=== PATIENT | male | born 1960 | race Caucasian/White ===

== ENCOUNTER 2020-06-26 11:20 | Inpatient (IN) | payer OTHER ==
--- OUTSIDE RECORDS SUMMARY | 2020-06-26 11:23 | XMS ---
:1960 Author Organization [facility] Support Name Relationship Address Phone CHET CHEN MOTHER [address] [place] [address] Re-disclosure Warning The records that you are about to access may contain information from federally- assisted alcohol or drug abuse programs. If such information is present, then the following federally mandated warning applies: This information has been disclosed to you from records protected by federal confidentiality rules (42 CFR part 2). The federal rules prohibit you from making any further disclosure of this information unless further disclosure is expressly permitted by the written consent of the person to whom it pertains or as otherwise permitted by 42 CFR part 2. A general authorization for the release of medical or other information is NOT sufficient for this purpose. The Federal rules restrict any use of the information to criminally investigate or prosecute any alcohol or drug abuse patient.The records that you are about to access may contain highly sensitive health information, the redisclosure of which is protected by Article 27-F of the [facility] Public Health law. If you continue you may haveaccess to information: Regarding HIV / AIDS; Provided by facilities licensed or operated by the [facility] Office of Mental Health; or Provided by the [facility] Office for People With Developmental Disabilities. If such information is present, then the following [facility] mandated warning applies: This information has been disclosed to you from confidential records which are protected by state law. State law prohibits you from making any further disclosure of this information without the specific written consent of the person to whom it pertains, or as otherwise permitted by law. Any unauthorized further disclosure in violation of state law may result in a fine or correction sentence or both. A general authorization for the release of medical or other information is NOT sufficient authorization for further disclosure. Insurance Providers Payer name Policy type Policy ID Covered Covered republican's Policy P nikki / Coverage republican ID relationship to Jc Inf ormation type jc MEDICAID [id number] SP [id number]
--- NOTE | 2020-06-26 14:24 | BHS.RME ---
Substance Use & Tx History - Substance Use History Heroin Substance amount: 2 bags of heoin Frequency of use: Daily Substance route: Inhalation (ex: sniffing or snorting) Date of Last Use: 06/25/20 Cocaine-Crack Substance amount: 100$ Frequency of use: Daily Substance route: Smoking Alcohol Substance amount: 2 pints of vodka/2 of 6 packs of 12 ozs of beer Frequency of use: Daily Substance route: Oral Date of Last Use: 06/26/20 Methadone Substance amount: 100 mgs Frequency of use: Less than 3 times per week Substance route: Oral Date of Last Use: 06/25/20 - Last Treatment Date of last treatment: 02/2020 in [place] Where was last treatment: Detox Physical/Psych/Mental Status - Behavior Eye Contact: Decreased - Cooperativeness Cooperativeness: Cooperative - Thinking Thought Processes: Logical Thought content: Future oriented - Physical Health Problems Is patient presently having any pain?: No Does patient presently have any injuries (include location): No Does patient currently have a fever: No COWS - Scale Resting Pulse: 0= [place] 80 or Below Sweatin= Chills/Flushing Restless Observation: 1= Difficult to Sit Still Pupil Size: 1= Pupils >than Normal Bone or Joint Aches: 2= Severe Diffuse Aches Runny Nose/ Eye Tearin= Nasal Congestion GI Upset > 30mins: 2= Nausea/Diarrhea Tremor Observation: 2= Slight Tremor Visible Yawning Observation: 1= 1-2x During Session Anxiety or Irritability: 2=Irritable/Anxious Goose Flesh Skin: 0=Smooth Skin COWS Score: 13 CIWA Nausea/Vomitin Muscle Tremors: 3 Anxiety: 3 Agitation: 3 Paroxysmal Sweats: 1-Minimal Palms Moist Orientation: 0-Oriented Tacttile Disturbances: 0-None Auditory Disturbances: 0-None Visual Disturbances: 0-None Headache: 2-Mild CIWA-Ar Total Score: 14
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
[2020-06-26] MEDS ORDERED: ACETAMINOPHEN 325 MG TABLET (FP) PO PRN (15:16)
[2020-06-26] MEDS ORDERED: METHADONE HCL 10 MG TABLET (FOR DETOX USE ONLY) PO ONE (15:16)
[2020-06-26] MEDS ORDERED: ONDANSETRON *ODT* 4 MG TABLET SL PRN (15:16)
[2020-06-26] MEDS ORDERED: BISMUTH SUBSALICYLATE 524 MG/30 ML UD PO PRN (15:16)
[2020-06-26] MEDS ORDERED: cloNIDine HCL 0.1 MG TABLET PO PRN (15:16)
[2020-06-26] MEDS ORDERED: chlordiazePOXIDE HCL 25 MG CAPSULE PO PRN (15:16)
[2020-06-26] MEDS ORDERED: MAGNESIUM HYDROX 2400MG/30ML ORAL SUSPENSION 30 ML CUP PO PRN (15:16)
[2020-06-26] MEDS ORDERED: MAG HYDROX/AL HYDROX/SIMETH 30 ML UNIT-DOSE CUP PO PRN (15:16)
[2020-06-26] MEDS ORDERED: MAGNESIUM CITRATE 300 ML BOTTLE PO PRN (15:16)
[2020-06-26] MEDS ORDERED: NICOTINE POLACRILEX 2 MG GUM BUC PRN (15:16)
[2020-06-26] MEDS ORDERED: MENTHOL/PHENOL 1 EACH UD MM PRN (15:16)
[2020-06-26 15:21] VITALS: BMI 26.6
--- OUTSIDE RECORDS SUMMARY | 2020-06-26 15:30 | XMS ---
:1960 Author Organization [facility] Support Name Relationship Address Phone CHET CHEN MOTHER [address] [place] [address] Re-disclosure Warning The records that you are [...] is protected by Article 27-F of the [facility] Public Health law. If you continue you may haveaccess to information: Regarding HIV / AIDS; Provided by facilities licensed or operated by the [facility] Office of Mental Health; or Provided by the [facility] Office for People With Developmental Disabilities. If such information is present, then the following [facility] mandated warning applies: This information has [...] law may result in a fine or senior care sentence or both. A general authorization for the release of medical or other information is NOT sufficient authorization for further disclosure. Insurance Providers Payer name Policy type Policy ID Covered Covered alliance party's Policy P nikki / Coverage alliance party ID relationship to Jc Inf ormation type jc MEDICAID [id number] SP [id number]
[2020-06-26] MEDS: chlordiazePOXIDE HCL 25 MG CAPSULE PO SCH ×2 (16:57→22:19)
[2020-06-26] MEDS: NICOTINE 21 MG/24 HOURS TOPICAL PATCH TD SCH (17:03)
[2020-06-26] MEDS: hydrOXYzine PAMOATE 25 MG CAPSULE (FP) PO SCH ×2 (17:03→22:20)
--- NOTE | 2020-06-26 21:48 | EKG ---
Test Reason : Blood Pressure : / mmHG Vent. Rate : 070 BPM Atrial Rate : 070 BPM P-R Int : 150 ms QRS Dur : 092 ms QT Int : 424 ms P-R-T Axes : 059 043 044 degrees QTc Int : 457 ms NORMAL SINUS RHYTHM WITH SINUS ARRHYTHMIA NORMAL ECG NO PREVIOUS ECGS AVAILABLE Confirmed by Latoya Noe ([id number]) on 06/26/2020 9:48:40 PM Referred By: Confirmed By:Latoya Noe
[2020-06-26] MEDS: THIAMINE HCL 100 MG TABLET (FP) PO SCH (22:20)
[2020-06-26] MEDS: MELATONIN 5 MG TABLETS PO SCH (22:20)
[2020-06-27] MEDS: chlordiazePOXIDE HCL 25 MG CAPSULE PO SCH ×4 (05:34→22:09)
[2020-06-27] MEDS: hydrOXYzine PAMOATE 25 MG CAPSULE (FP) PO SCH ×5 (05:55→22:09)
[2020-06-27] MEDS ORDERED: METHADONE HCL 10 MG TABLET (FOR DETOX USE ONLY) ONE (09:03)
[2020-06-27] MEDS ORDERED: METHADONE HCL 5 MG TABLET (FOR DETOX USE ONLY) ONE (09:03)
[2020-06-27] MEDS ORDERED: METHADONE (DETOX) 20 MG, METHADONE (DETOX) 5 MG PO ONE (10:00)
[2020-06-27] MEDS: NICOTINE 21 MG/24 HOURS TOPICAL PATCH TD SCH (10:06)
[2020-06-27] MEDS: PRENATAL VITAMINS W/ FOLIC ACID TABLET (FP) PO SCH (10:06)
[2020-06-27] MEDS: IBUPROFEN 400 MG TABLET (FP) PO PRN ×2 (10:07→22:08)
[2020-06-27 10:33] LABS: HEMATOCRIT 35.3 % (35.4-49); HEMOGLOBIN 11.5 GM/dL (11.7-16.9); MCH 28.9 pg (25.7-33.7); MCHC 32.7 g/dl (32.0-35.9); MEAN CELL VOLUME 88.5 fl (80-96); MEAN PLT VOLUME 8.9 fl (7.5-11.1); PLATELET COUNT 264 K/MM3 (134-434); RBC 3.99 M/mm3 (4.00-5.60); RDW 14.5 % (11.9-15.9); WHITE BLOOD COUNT 7.4 K/mm3 (4.0-10.0)
[2020-06-27 11:02] LABS: ALBUMIN 3.4 g/dl (3.4-5.0); BILIRUBIN,TOTAL 0.4 mg/dL (0.2-1); CALCIUM 8.7 mg/dL (8.5-10.1); POTASSIUM 4.5 mmol/L (3.5-5.1); TOT PROT 7.2 g/dl (6.4-8.2)
--- NOTE | 2020-06-27 12:37 | PN ---
S CIWA - CIWA Score Nausea/Vomitin-No Nausea/No Vomiting Muscle Tremors: 3 Anxiety: 4-Mod. Anxious/Guarded Agitation: 2 Paroxysmal Sweats: No Perspiration Orientation: 0-Oriented Tacttile Disturbances: 0-None Auditory Disturbances: 0-None Visual Disturbances: 1-Very Mild Sensitivity Headache: 2-Mild CIWA-Ar Total Score: 12 BHS COWS - Scale Resting Pulse: 0= [place] 80 or Below Sweatin= Chills/Flushing Restless Observation: 0= Sits Still Pupil Size: 1= Pupils >than Normal Bone or Joint Aches: 1= Mild Discomfort Runny Nose/ Eye Tearin= None GI Upset > 30mins: 2= Nausea/Diarrhea Tremor Observation of Outstretched Hands: 2= Slight Tremor Visible Yawning Observation: 0= None Anxiety or Irritability: 2=Irritable/Anxious Goose Flesh Skin: 3=Piloerection COWS Score: 12 S Progress Note (SOAP) Subjective: 60 years old male was admitted on 06/26/20 for alcohol and opiate withdrawal sx management treating with librium and methadone detox regiments feels tired ate breakfast and lunch in room resting in bed prefers to sleep longer limited conversation with staff Objective: 06/27/20 12:37 Vital Signs - 24 hr 06/26/20 06/26/20 06/26/20 15:20 15:23 16:20 Temperature 97.6 F 97.5 F L Pulse Rate 71 60 Respiratory 18 18 Rate Blood Pressure 160/85 186/87 H O2 Sat by Pulse 96 97 Oximetry (%) 06/26/20 06/26/20 06/27/20 16:24 20:43 06:54 Temperature 97.5 F L 97.3 F L 98.2 F Pulse Rate 60 74 61 Respiratory 18 18 18 Rate Blood Pressure 186/87 H 140/77 150/76 O2 Sat by Pulse 97 96 98 Oximetry (%) 06/27/20 09:03 Temperature 96.9 F L Pulse Rate 61 Respiratory 16 Rate Blood Pressure 130/63 O2 Sat by Pulse 98 Oximetry (%) Laboratory Tests 06/27/20 06/27/20 06/27/20 07:25 07:25 07:25 WBC 7.4 RBC 3.99 L Hgb 11.5 L Hct 35.3 L MCV 88.5 MCH 28.9 MCHC 32.7 RDW 14.5 Plt Count 264 MPV 8.9 Sodium Potassium Chloride Carbon Dioxide Anion Gap BUN Creatinine Est GFR (CKD-EPI)AfAm Est GFR (CKD-EPI)NonAf Random Glucose Calcium Total Bilirubin AST ALT Alkaline Phosphatase Total Protein Albumin Syphilis Serology Non-reactive HIV Ag/Ab Combo Qual Negative 06/27/20 07:25 WBC RBC Hgb Hct MCV MCH MCHC RDW Plt Count MPV Sodium 135 L Potassium 4.5 Chloride 101 Carbon Dioxide 29 Anion Gap 5 L BUN 20.0 H Creatinine 1.0 Est GFR (CKD-EPI)AfAm 93.08 Est GFR (CKD-EPI)NonAf 80.31 Random Glucose 113 H Calcium 8.7 Total Bilirubin 0.4 AST 26 ALT 27 Alkaline Phosphatase 95 Total Protein 7.2 Albumin 3.4 Syphilis Serology HIV Ag/Ab Combo Qual 06/27/20 12:38 covid pending Assessment: 06/27/20 12:38 alcohol and opiate withdrawal Plan: librium and methadone regiment
[2020-06-27] MEDS ORDERED: FLU VACCINE (FLULAVAL) PF 60 MCG/0.5 ML SYRINGE 2020-2021 IM ONE (14:30)
[2020-06-27] MEDS ORDERED: PNEUMOCOCCAL 23 VACCINE 0.5 ML VIAL IM ONE (14:45)
[2020-06-27 14:56] LABS: PH,URINE 5.5 (5.0-8.0); URINE APPEARANCE CLEAR; URINE BILIRUBIN NEGATIVE (NEGATIVE); URINE COLOR YELLOW; URINE GLUCOSE (UA) NEGATIVE (NEGATIVE); URINE KETONE NEGATIVE (NEGATIVE); URINE LEUK ESTERASE NEGATIVE (NEGATIVE); URINE NITRITE NEGATIVE (NEGATIVE); URINE PROTEIN NEGATIVE (NEGATIVE)
[2020-06-27] MEDS: THIAMINE HCL 100 MG TABLET (FP) PO SCH (22:09)
[2020-06-27] MEDS: MELATONIN 5 MG TABLETS PO SCH (22:09)
[2020-06-28] MEDS: hydrOXYzine PAMOATE 25 MG CAPSULE (FP) PO SCH ×3 (05:53→14:54)
[2020-06-28] MEDS: chlordiazePOXIDE HCL 25 MG CAPSULE PO SCH ×2 (05:53→10:22)
[2020-06-28] MEDS: IBUPROFEN 400 MG TABLET (FP) PO PRN (06:00)
[2020-06-28] MEDS ORDERED: METHADONE HCL 10 MG TABLET (FOR DETOX USE ONLY) PO ONE (10:00)
[2020-06-28] MEDS: ACETAMINOPHEN 325 MG TABLET (FP) PO PRN ×2 (10:21→22:16)
[2020-06-28] MEDS: METHOCARBAMOL 500 MG TABLET PO PRN ×2 (10:21→22:16)
[2020-06-28] MEDS: PRENATAL VITAMINS W/ FOLIC ACID TABLET (FP) PO SCH (10:22)
[2020-06-28] MEDS: NICOTINE 21 MG/24 HOURS TOPICAL PATCH TD SCH (10:22)
[2020-06-28] MEDS ORDERED: PNEUMOC 13-VAL CONJ-DIP CRM/PF 0.5 ML DISP.SYRIN IM ONE (12:00)
--- NOTE | 2020-06-28 14:23 | PN ---
[facility] CIWA - CIWA Score Nausea/Vomitin-Mild Nausea/No Vomiting Muscle Tremors: 1-None Visible, but [place] Anxiety: 1-Mildly Anxious Agitation: 1-Slight > Activity Paroxysmal Sweats: 1-Minimal Palms Moist Orientation: 1-Uncertain about Date (date of week) Tacttile Disturbances: 1-Very Mild Itch/Numbness Auditory Disturbances: 0-None Visual Disturbances: 0-None Headache: 1-Very Mild CIWA-Ar Total Score: 8 S COWS - Scale Resting Pulse: 0= [place] 80 or Below Sweatin= No chills or Flushing Restless Observation: 0= Sits Still Pupil Size: 1= Pupils >than Normal Bone or Joint Aches: 1= Mild Discomfort Runny Nose/ Eye Tearin= None GI Upset > 30mins: 2= Nausea/Diarrhea Tremor Observation of Outstretched Hands: 2= Slight Tremor Visible Yawning Observation: 0= None Anxiety or Irritability: 2=Irritable/Anxious Goose Flesh Skin: 0=Smooth Skin COWS Score: 8 [facility] Progress Note (SOAP) Subjective: 60 years old male was admitted on 06/26/20 for alcohol and opiate withdrawal sx management treating with librium and methadone detox regiments sitting on the edge of the bed ate breakfast and lunch conversation with staff with eye close discontinue vistaril adjust librium dosage continue monitoring Objective: 06/28/20 14:34 Vital Signs - 24 hr 06/27/20 06/27/20 06/28/20 16:33 20:47 06:29 Temperature 96.9 F L 96.8 F L 97.6 F Pulse Rate 69 72 75 Respiratory 18 18 18 Rate Blood Pressure 160/95 150/78 174/85 H O2 Sat by Pulse 96 99 Oximetry (%) 06/28/20 09:12 Temperature 96 F L Pulse Rate 77 Respiratory 20 Rate Blood Pressure 143/71 O2 Sat by Pulse Oximetry (%) Vital Signs - 24 hr 06/27/20 06/27/20 06/28/20 16:33 20:47 06:29 Temperature 96.9 F L 96.8 F L 97.6 F Pulse Rate 69 72 75 Respiratory 18 18 18 Rate Blood Pressure 160/95 150/78 174/85 H O2 Sat by Pulse 96 99 Oximetry (%) 06/28/20 09:12 Temperature 96 F L Pulse Rate 77 Respiratory 20 Rate Blood Pressure 143/71 O2 Sat by Pulse Oximetry (%) 06/28/20 14:34 Laboratory Tests 06/26/20 06/27/20 06/27/20 15:45 07:25 07:25 WBC RBC Hgb Hct MCV MCH MCHC RDW Plt Count MPV Sodium Potassium Chloride Carbon Dioxide Anion Gap BUN Creatinine Est GFR (CKD-EPI)AfAm Est GFR (CKD-EPI)NonAf Random Glucose Calcium Total Bilirubin AST ALT Alkaline Phosphatase Total Protein Albumin Urine Color Urine Appearance Urine pH Ur Specific [place] Urine Protein Urine Glucose (UA) Urine Ketones Urine Blood Urine Nitrite Urine Bilirubin Urine Urobilinogen Ur Leukocyte Esterase Syphilis Serology Non-reactive COVID-19 ([facility]) Not detected HIV Ag/Ab Combo Qual Negative 06/27/20 06/27/20 06/27/20 07:25 07:25 11:00 WBC 7.4 RBC 3.99 L Hgb 11.5 L Hct 35.3 L MCV 88.5 MCH 28.9 MCHC 32.7 RDW 14.5 Plt Count 264 MPV 8.9 Sodium 135 L Potassium 4.5 Chloride 101 Carbon Dioxide 29 Anion Gap 5 L BUN 20.0 H Creatinine 1.0 Est GFR (CKD-EPI)AfAm 93.08 Est GFR (CKD-EPI)NonAf 80.31 Random Glucose 113 H Calcium 8.7 Total Bilirubin 0.4 AST 26 ALT 27 Alkaline Phosphatase 95 Total Protein 7.2 Albumin 3.4 Urine Color Yellow Urine Appearance Clear Urine pH 5.5 Ur Specific [place] 1.011 Urine Protein Negative Urine Glucose (UA) Negative Urine Ketones Negative Urine Blood Negative Urine Nitrite Negative Urine Bilirubin Negative Urine Urobilinogen 1.0 Ur Leukocyte Esterase Negative Syphilis Serology COVID-19 ([facility]) HIV Ag/Ab Combo Qual lab noted Assessment: 06/28/20 14:34 alcohol and opiate withdrawal Plan: librium and methadone regiment
[2020-06-28] MEDS: chlordiazePOXIDE HCL 10 MG CAPSULE PO SCH ×2 (17:36→22:17)
[2020-06-28] MEDS: THIAMINE HCL 100 MG TABLET (FP) PO SCH (22:17)
[2020-06-28] MEDS: MELATONIN 5 MG TABLETS PO SCH (22:17)
[2020-06-29] MEDS ORDERED: chlordiazePOXIDE HCL 10 MG CAPSULE PO PRN
[2020-06-29] MEDS ORDERED: chlordiazePOXIDE HCL 10 MG CAPSULE PO SCH (05:00)
[2020-06-29] MEDS: chlordiazePOXIDE 5 MG CAPSULE PO SCH ×4 (07:42→22:12)
[2020-06-29] MEDS ORDERED: METHADONE HCL 10 MG TABLET (FOR DETOX USE ONLY) ONE (09:50)
[2020-06-29] MEDS ORDERED: METHADONE HCL 5 MG TABLET (FOR DETOX USE ONLY) ONE (09:51)
[2020-06-29] MEDS ORDERED: METHADONE (DETOX) 10 MG, METHADONE (DETOX) 5 MG PO ONE (10:00)
[2020-06-29] MEDS: NICOTINE 21 MG/24 HOURS TOPICAL PATCH TD SCH (10:11)
[2020-06-29] MEDS: METHOCARBAMOL 500 MG TABLET PO PRN ×2 (10:12→22:27)
[2020-06-29] MEDS: PRENATAL VITAMINS W/ FOLIC ACID TABLET (FP) PO SCH (10:12)
[2020-06-29] MEDS ORDERED: LISINOPRIL 10 MG TABLET PO SCH (13:15)
[2020-06-29] MEDS ORDERED: cloNIDine HCL 0.1 MG TABLET PO PRN (13:21)
--- NOTE | 2020-06-29 13:36 | PN ---
S CIWA - CIWA Score Nausea/Vomitin-No Nausea/No Vomiting Muscle Tremors: 1-None Visible, but [place] Anxiety: 2 Agitation: 0-Normal Activity Paroxysmal Sweats: No Perspiration Orientation: 0-Oriented Tacttile Disturbances: 0-None Auditory Disturbances: 0-None Visual Disturbances: 1-Very Mild Sensitivity Headache: 2-Mild CIWA-Ar Total Score: 6 BHS COWS - Scale Resting Pulse: 1= [place] 81-100 Sweatin= No chills or Flushing Restless Observation: 0= Sits Still Pupil Size: 0= Normal to Room Light Bone or Joint Aches: 1= Mild Discomfort Runny Nose/ Eye Tearin= None GI Upset > 30mins: 1= Stomach Cramp Tremor Observation of Outstretched Hands: 1= Tremor [place], Not Seen Yawning Observation: 0= None Anxiety or Irritability: 2=Irritable/Anxious Goose Flesh Skin: 0=Smooth Skin COWS Score: 6 S Progress Note (SOAP) Subjective: 60 years old left eye blind male was admitted on 06/26/20 for alcohol and opiate withdrawal sx management right and left foot toes fungal between long history of hypertension change to no added salt begin amlodipin 10 mg po and lisinopril 10 mg po bid and clonidin 0.1 mg po prn Objective: 06/29/20 13:50 Vital Signs - 24 hr 06/28/20 06/28/20 06/29/20 16:39 20:46 06:28 Temperature 97.8 F 97.7 F 97.7 F Pulse Rate 77 81 70 Respiratory 18 18 16 Rate Blood Pressure 138/70 165/90 153/73 O2 Sat by Pulse 98 99 Oximetry (%) 06/29/20 06/29/20 09:00 12:41 Temperature 98.0 F 97.7 F Pulse Rate 80 83 Respiratory 18 18 Rate Blood Pressure 168/95 187/90 H O2 Sat by Pulse 98 Oximetry (%) Laboratory Tests 06/26/20 06/27/20 06/27/20 15:45 07:25 07:25 WBC RBC Hgb Hct MCV MCH MCHC RDW Plt Count MPV Sodium Potassium Chloride Carbon Dioxide Anion Gap BUN Creatinine Est GFR (CKD-EPI)AfAm Est GFR (CKD-EPI)NonAf Random Glucose Calcium Total Bilirubin AST ALT Alkaline Phosphatase Total Protein Albumin Urine Color Urine Appearance Urine pH Ur Specific [place] Urine Protein Urine Glucose (UA) Urine Ketones Urine Blood Urine Nitrite Urine Bilirubin Urine Urobilinogen Ur Leukocyte Esterase Syphilis Serology Non-reactive COVID-19 ([facility]) Not detected HIV Ag/Ab Combo Qual Negative 06/27/20 06/27/20 06/27/20 07:25 07:25 11:00 WBC 7.4 RBC 3.99 L Hgb 11.5 L Hct 35.3 L MCV 88.5 MCH 28.9 MCHC 32.7 RDW 14.5 Plt Count 264 MPV 8.9 Sodium 135 L Potassium 4.5 Chloride 101 Carbon Dioxide 29 Anion Gap 5 L BUN 20.0 H Creatinine 1.0 Est GFR (CKD-EPI)AfAm 93.08 Est GFR (CKD-EPI)NonAf 80.31 Random Glucose 113 H Calcium 8.7 Total Bilirubin 0.4 AST 26 ALT 27 Alkaline Phosphatase 95 Total Protein 7.2 Albumin 3.4 Urine Color Yellow Urine Appearance Clear Urine pH 5.5 Ur Specific [place] 1.011 Urine Protein Negative Urine Glucose (UA) Negative Urine Ketones Negative Urine Blood Negative Urine Nitrite Negative Urine Bilirubin Negative Urine Urobilinogen 1.0 Ur Leukocyte Esterase Negative Syphilis Serology COVID-19 ([facility]) HIV Ag/Ab Combo Qual lab noted Assessment: 06/29/20 13:50 alcohol and opiate withdrawal Plan: librium and methadone regiments
[2020-06-29] MEDS: amLODIPine BESYLATE 10 MG TABLET (FP) PO SCH (14:23)
[2020-06-29] MEDS ORDERED: ALBUTEROL SO4 HFA INHALER IH PRN (14:59)
[2020-06-29] MEDS: CLOTRIMAZOLE 1% CREAM 15 GM TUBE TP SCH ×2 (15:14→22:12)
[2020-06-29] MEDS: IBUPROFEN 400 MG TABLET (FP) PO PRN (20:13)
[2020-06-29] MEDS: MELATONIN 5 MG TABLETS PO SCH (22:12)
[2020-06-29] MEDS: THIAMINE HCL 100 MG TABLET (FP) PO SCH (22:12)
[2020-06-29] MEDS: LISINOPRIL 10 MG TABLET PO SCH (22:12)
[2020-06-30] MEDS ORDERED: chlordiazePOXIDE HCL 10 MG CAPSULE PO SCH (05:00)
[2020-06-30] MEDS: chlordiazePOXIDE 5 MG CAPSULE PO SCH ×2 (05:30→17:46)
[2020-06-30] MEDS ORDERED: METHADONE HCL 10 MG TABLET (FOR DETOX USE ONLY) PO ONE (10:00)
[2020-06-30] MEDS: LISINOPRIL 10 MG TABLET PO SCH ×2 (10:15→22:10)
[2020-06-30] MEDS: amLODIPine BESYLATE 10 MG TABLET (FP) PO SCH (10:15)
[2020-06-30] MEDS: PRENATAL VITAMINS W/ FOLIC ACID TABLET (FP) PO SCH (10:15)
[2020-06-30] MEDS: NICOTINE 21 MG/24 HOURS TOPICAL PATCH TD SCH (10:16)
[2020-06-30] MEDS: METHOCARBAMOL 500 MG TABLET PO PRN ×2 (10:18→22:09)
[2020-06-30] MEDS: CLOTRIMAZOLE 1% CREAM 15 GM TUBE TP SCH ×2 (10:19→22:10)
--- NOTE | 2020-06-30 11:00 | PN ---
[facility] CIWA - CIWA Score Nausea/Vomitin-No Nausea/No Vomiting Muscle Tremors: None Anxiety: 2 Agitation: 0-Normal Activity Paroxysmal Sweats: 2 Orientation: 0-Oriented Tacttile Disturbances: 0-None Auditory Disturbances: 0-None Visual Disturbances: 0-None Headache: 0-None Present CIWA-Ar Total Score: 4 S COWS - Scale Resting Pulse: 0= HI 80 or Below Sweatin= No chills or Flushing Restless Observation: 0= Sits Still Pupil Size: 0= Normal to Room Light Bone or Joint Aches: 2= Severe Diffuse Aches Runny Nose/ Eye Tearin= None GI Upset > 30mins: 0= None Tremor Observation of Outstretched Hands: 0= None Yawning Observation: 0= None Anxiety or Irritability: 2=Irritable/Anxious Goose Flesh Skin: 0=Smooth Skin COWS Score: 4 [facility] Progress Note (SOAP) Subjective: c/o mild withdrawal symptoms. Objective: 06/30/20 10:59 Vital Signs 06/30/20 06/30/20 06:15 08:51 Temperature 97.5 F L 97.3 F L Pulse Rate 66 80 Respiratory 18 16 Rate Blood Pressure 126/64 157/91 O2 Sat by Pulse 97 Oximetry (%) Laboratory Last Values WBC 7.4 K/mm3 (4.0-10.0) 06/27/20 07:25 RBC 3.99 M/mm3 (4.00-5.60) L 06/27/20 07:25 Hgb 11.5 GM/dL (11.7-16.9) L 06/27/20 07:25 Hct 35.3 % (35.4-49) L 06/27/20 07:25 MCV 88.5 fl (80-96) 06/27/20 07:25 MCH 28.9 pg (25.7-33.7) 06/27/20 07:25 MCHC 32.7 g/dl (32.0-35.9) 06/27/20 07:25 RDW 14.5 % (11.9-15.9) 06/27/20 07:25 Plt Count 264 K/MM3 (134-434) 06/27/20 07:25 MPV 8.9 fl (7.5-11.1) 06/27/20 07:25 Sodium 135 mmol/L (136-145) L 06/27/20 07:25 Potassium 4.5 mmol/L (3.5-5.1) 06/27/20 07:25 Chloride 101 mmol/L (98-107) 06/27/20 07:25 Carbon Dioxide 29 mmol/L (21-32) 06/27/20 07:25 Anion Gap 5 MMOL/L (8-16) L 06/27/20 07:25 BUN 20.0 mg/dL (7-18) H 06/27/20 07:25 Creatinine 1.0 mg/dL (0.55-1.3) 06/27/20 07:25 Est GFR (CKD-EPI)AfAm 93.08 06/27/20 07:25 Est GFR (CKD-EPI)NonAf 80.31 06/27/20 07:25 Random Glucose 113 mg/dL (74-106) H 06/27/20 07:25 Calcium 8.7 mg/dL (8.5-10.1) 06/27/20 07:25 Total Bilirubin 0.4 mg/dL (0.2-1) 06/27/20 07:25 AST 26 U/L (15-37) 06/27/20 07:25 ALT 27 U/L (13-61) 06/27/20 07:25 Alkaline Phosphatase 95 U/L (45-117) 06/27/20 07:25 Total Protein 7.2 g/dl (6.4-8.2) 06/27/20 07:25 Albumin 3.4 g/dl (3.4-5.0) 06/27/20 07:25 Urine Color Yellow 06/27/20 11:00 Urine Appearance Clear 06/27/20 11:00 Urine pH 5.5 (5.0-8.0) 06/27/20 11:00 Ur Specific [place] 1.011 (1.010-1.035) 06/27/20 11:00 Urine Protein Negative (NEGATIVE) 06/27/20 11:00 Urine Glucose (UA) Negative (NEGATIVE) 06/27/20 11:00 Urine Ketones Negative (NEGATIVE) 06/27/20 11:00 Urine Blood Negative (NEGATIVE) 06/27/20 11:00 Urine Nitrite Negative (NEGATIVE) 06/27/20 11:00 Urine Bilirubin Negative (NEGATIVE) 06/27/20 11:00 Urine Urobilinogen 1.0 mg/dL (0.2-1.0) 06/27/20 11:00 Ur Leukocyte Esterase Negative (NEGATIVE) 06/27/20 11:00 Syphilis Serology Non-reactive (NONREACTIVE) 06/27/20 07:25 COVID-19 ([facility]HEL) Not detected (Not Detected) 06/26/20 15:45 HIV Ag/Ab Combo Qual Negative (NEGATIVE) 06/27/20 07:25 Labs noted. Assessment: 06/30/20 10:59 AOX3, in no acute respiratory distress. Full ROM, ambulating in the unit. Mild Withdrawal symptoms. For d/c tomorrow. Plan: continue detox. D/C in AM.
[2020-06-30] MEDS: THIAMINE HCL 100 MG TABLET (FP) PO SCH (22:10)
[2020-06-30] MEDS: MELATONIN 5 MG TABLETS PO SCH (22:10)
[2020-07-01] MEDS ORDERED: chlordiazePOXIDE 5 MG CAPSULE PO ONE (05:00)
[2020-07-01] MEDS ORDERED: chlordiazePOXIDE HCL 10 MG CAPSULE PO ONE (05:00)
[2020-07-01] MEDS ORDERED: METHADONE HCL 5 MG TABLET (FOR DETOX USE ONLY) PO ONE (06:00)
[2020-07-01] MEDS: IBUPROFEN 400 MG TABLET (FP) PO PRN (07:56)
[2020-07-01 09:25] VITALS: BP 164/84; PULSE 85; TEMP 98
--- NOTE | 2020-07-01 09:49 | DS ---
[facility] Detox Discharge Summary Admission Date: 06/26/20 Discharge Date: 07/01/20 - History Present History: Opioid Dependence Additional Comments: 60 years old male with heroin,cocaine,street methadone and alcohol dependence seeking detox,withdrawal symptom Pe Gnl: WDWN CN: left eye clouded Motor: moves limbs well Gait: steady with the use of a cane Laboratory Tests 06/26/20 06/27/20 06/27/20 15:45 07:25 07:25 WBC RBC Hgb Hct MCV MCH MCHC RDW Plt Count MPV Sodium Potassium Chloride Carbon Dioxide Anion Gap BUN Creatinine Est GFR (CKD-EPI)AfAm Est GFR (CKD-EPI)NonAf Random Glucose Calcium Total Bilirubin AST ALT Alkaline Phosphatase Total Protein Albumin Urine Color Urine Appearance Urine pH Ur Specific [place] Urine Protein Urine Glucose (UA) Urine Ketones Urine Blood Urine Nitrite Urine Bilirubin Urine Urobilinogen Ur Leukocyte Esterase Syphilis Serology Non-reactive COVID-19 ([facility]HEL) Not detected HIV Ag/Ab Combo Qual Negative 06/27/20 06/27/20 06/27/20 07:25 07:25 11:00 WBC 7.4 RBC 3.99 L Hgb 11.5 L Hct 35.3 L MCV 88.5 MCH 28.9 MCHC 32.7 RDW 14.5 Plt Count 264 MPV 8.9 Sodium 135 L Potassium 4.5 Chloride 101 Carbon Dioxide 29 Anion Gap 5 L BUN 20.0 H Creatinine 1.0 Est GFR (CKD-EPI)AfAm 93.08 Est GFR (CKD-EPI)NonAf 80.31 Random Glucose 113 H Calcium 8.7 Total Bilirubin 0.4 AST 26 ALT 27 Alkaline Phosphatase 95 Total Protein 7.2 Albumin 3.4 Urine Color Yellow Urine Appearance Clear Urine pH 5.5 Ur Specific [place] 1.011 Urine Protein Negative Urine Glucose (UA) Negative Urine Ketones Negative Urine Blood Negative Urine Nitrite Negative Urine Bilirubin Negative Urine Urobilinogen 1.0 Ur Leukocyte Esterase Negative Syphilis Serology COVID-19 ([facility]) HIV Ag/Ab Combo Qual Home Medication List Medication Instructions Recorded Confirmed Type Albuterol Sulfate Inhaler - 1 - 2 inh PO QID PRN 06/26/20 06/26/20 History [Ventolin Hfa Inhaler -] Active Medications Generic Name Dose Route Start Last Admin Trade Name Freq PRN Reason Stop Dose Admin Acetaminophen 650 mg 06/26/20 15:16 06/28/20 22:16 Tylenol - PO 650 mg Q6H PRN Administration PAIN LEVEL 4 - 6 Acetaminophen 650 mg 06/26/20 15:16 Tylenol - PO Q6H PRN FEVER Al Hydroxide/Mg Hydroxide 30 ml 06/26/20 15:16 Mylanta Oral Suspension - PO Q6H PRN DYSPEPSIA Albuterol Sulfate 2 puff 06/29/20 14:59 Ventolin Hfa Inhaler - IH QID PRN ASTHMA Amlodipine Besylate 10 mg 06/29/20 13:45 06/30/20 10:15 Norvasc - PO 10 mg DAILY CHAPITO Administration Bismuth Subsalicylate 524 mg 06/26/20 15:16 Pepto-Bismol - PO Q1H PRN DIARRHEA Clonidine 0.1 mg 06/29/20 13:21 06/29/20 14:24 Catapres - PO 0.1 mg Q6H PRN Administration HYPERTENSION Clotrimazole 1 applic 06/29/20 14:00 06/30/20 22:10 Lotrimin 1% Cream - TP Not Given BID CHAPITO Eucalyptus/Menthol/Phenol/Sorbitol 1 each 06/26/20 15:16 Cepastat Lozenge - MM 07/02/20 15:17 Q4H PRN SORE THROAT Ibuprofen 400 mg 06/26/20 15:16 07/01/20 07:56 Motrin - PO 400 mg Q6H PRN Administration PAIN LEVEL 1 - 3 Lisinopril 10 mg 06/29/20 22:00 06/30/20 22:10 Prinivil PO 10 mg BID CHAPITO Administration Magnesium Citrate 300 ml 06/26/20 15:16 Citroma - PO Q48H PRN CONSTIPATION Magnesium Hydroxide 30 ml 06/26/20 15:16 Milk Of Magnesia - PO PRN PRN CONSTIPATION Melatonin 5 mg 06/26/20 22:00 06/30/20 22:10 Melatonin PO 5 mg HS CHAPITO Administration Methocarbamol 500 mg 06/26/20 15:16 06/30/20 22:09 Robaxin - PO 07/02/20 15:17 500 mg Q6H PRN Administration MUSCLE SPASMS Nicotine 21 mg 06/26/20 15:30 06/30/20 10:16 Nicoderm Patch - TD 21 mg DAILY CHAPITO Administration Nicotine Polacrilex 2 mg 06/26/20 15:16 Nicorette Gum - BUC Q2H PRN NICOTINE REPLACEMENT RX Ondansetron HCl 4 mg 06/26/20 15:16 Zofran Odt - SL Q8H PRN Nausea/Vomiting Multivit/Folic Acid/Iron 1 tab 06/27/20 10:00 06/30/20 10:15 Vitamins (Sjr) - PO 1 tab DAILY CHAPITO Administration Thiamine HCl 100 mg 06/26/20 22:00 06/30/20 22:10 Vitamin B1 - PO 100 mg HS CHAPITO Administration - Physical Exam Results Vital Signs: Vital Signs Temperature 98.0 F 07/01/20 08:57 Pulse Rate 85 07/01/20 08:57 Respiratory Rate 18 07/01/20 08:57 Blood Pressure 164/84 07/01/20 08:57 O2 Sat by Pulse Oximetry (%) 98 06/30/20 20:11 - Treatment Hospital Course: Detox Protocol Followed, Detoxed Safely, Responded well, Discharged Condition Good, Rehab Referral Accepted Patient has Accepted a Rehab Referral to: [facility] - Medication Discharge Medications: Ambulatory Orders Albuterol Sulfate Inhaler - [Ventolin Hfa Inhaler -] 1 - 2 inh PO QID PRN 06/26/20 - Diagnosis (1) Opioid dependence with withdrawal Current Visit: Yes Status: Acute - AMA Did Patient Leave Against Medical Advice: No
[2020-07-01] MEDS: amLODIPine BESYLATE 10 MG TABLET (FP) PO SCH (10:45)
[2020-07-01] MEDS: CLOTRIMAZOLE 1% CREAM 15 GM TUBE TP SCH (10:45)
[2020-07-01] MEDS: LISINOPRIL 10 MG TABLET PO SCH (10:45)
[2020-07-01] MEDS: PRENATAL VITAMINS W/ FOLIC ACID TABLET (FP) PO SCH (10:45)
[2020-07-01] MEDS: NICOTINE 21 MG/24 HOURS TOPICAL PATCH TD SCH (10:46)
== END 2020-07-01 11:15 | disposition other institution (70) | DRG 773 ==
LOC: YASAS 11:20 → Y3N 15:26
PROVIDERS: ADMIT Allergy & Immunology; ATTEND Allergy & Immunology
PROC: HZ2ZZZZ Detoxification Services for Substance Abuse Treatment (ICD-10-PCS; principal; 2020-06-26)
DX: F11.23 Opioid dependence with withdrawal (principal); F10.230 Alcohol dependence with withdrawal, uncomplicated; F14.20 Cocaine dependence, uncomplicated; F17.210 Nicotine dependence, cigarettes, uncomplicated; F32.9 Major depressive disorder, single episode, unspecified; I10 Essential (primary) hypertension; H54.62 Unqualified visual loss, left eye, normal vision right eye; B35.3 Tinea pedis; Z96.641 Presence of right artificial hip joint; Z87.81 Personal history of (healed) traumatic fracture; Z99.89 Dependence on other enabling machines and devices
CPT/HCPCS: 36415; 80053; 81003; 85027; 86780; 87389; 90732; 93005; 93010; C9803; G0009; J0735; Q2036; U0003

== ENCOUNTER 2021-02-13 12:01 | Emergency (ER) | payer OTHER ==
[2021-02-13 12:10] VITALS: BP 144/73; PULSE 75; TEMP 98.1; BMI 23.5
[2021-02-13] MEDS ORDERED: IBUPROFEN 600 MG TABLET (FP) PO ONE ×2 (12:41→12:43)
== END 2021-02-13 13:13 | disposition home or self-care (01) ==
LOC: JERFT 12:01 → JER 12:01 → JERFT 13:13
DX: S63.501A Unspecified sprain of right wrist, initial encounter (principal)
CPT/HCPCS: 73110-TC-RT-FY; 73130-TC-RT-FY; 99284-25

== ENCOUNTER 2021-03-16 19:55 | Inpatient (IN) | payer OTHER ==
[2021-03-16 20:27] VITALS: BMI 22.0
[2021-03-16] MEDS ORDERED: P-EPHED 60MG/TRIPROLIDI 2.5MG TABLET PO PRN (23:02)
[2021-03-16] MEDS ORDERED: MAGNESIUM CITRATE 300 ML BOTTLE PO PRN (23:02)
[2021-03-16] MEDS ORDERED: MAGNESIUM HYDROX 2400MG/30ML ORAL SUSPENSION 30 ML CUP PO PRN (23:02)
[2021-03-16] MEDS ORDERED: hydrOXYzine PAMOATE 25 MG CAPSULE (FP) PO PRN (23:02)
[2021-03-16] MEDS ORDERED: MAG HYDROX/AL HYDROX/SIMETH 30 ML UNIT-DOSE CUP PO PRN (23:02)
[2021-03-16] MEDS ORDERED: ACETAMINOPHEN 325 MG TABLET (FP) PO PRN ×2 (23:02)
[2021-03-16] MEDS ORDERED: diazePAM 5 MG TABLET PO PRN (23:04)
[2021-03-16] MEDS ORDERED: cloNIDine HCL 0.1 MG TABLET PO PRN (23:05)
[2021-03-16] MEDS ORDERED: METHADONE HCL 10 MG TABLET (FOR DETOX USE ONLY) PO ONE (23:05)
[2021-03-16] MEDS ORDERED: TRIMETHOBENZAMIDE HCL 200MG/2ML INJ IM ONE (23:05)
[2021-03-16] MEDS ORDERED: LISINOPRIL 10 MG TABLET ONE (23:51)
[2021-03-16] MEDS ORDERED: diazePAM 5 MG TABLET ONE (23:51)
[2021-03-16] MEDS ORDERED: METHADONE HCL 10 MG TABLET (FOR DETOX USE ONLY) ONE (23:51)
[2021-03-16] MEDS: diazePAM 5 MG TABLET PO SCH (23:54)
[2021-03-16] MEDS: LISINOPRIL 10 MG TABLET PO SCH (23:55)
[2021-03-17] MEDS ORDERED: diazePAM 5 MG TABLET ONE ×2 (05:45→10:19)
[2021-03-17] MEDS: diazePAM 5 MG TABLET PO SCH ×4 (05:48→22:10)
[2021-03-17 09:56] LABS: HEMATOCRIT 33.4 % (35.4-49); HEMOGLOBIN 10.9 GM/dL (11.7-16.9); MCHC 32.6 g/dl (32.0-35.9); MEAN CELL VOLUME 88.8 fl (80-96); MEAN PLT VOLUME 8.1 fl (7.5-11.1); PLATELET COUNT 281 10^3/uL (134-434); RBC 3.77 M/mm3 (4.00-5.60); RDW 15.6 % (11.9-15.9); WHITE BLOOD COUNT 5.1 K/mm3 (4.0-10.0)
[2021-03-17] MEDS ORDERED: METHADONE HCL 10 MG TABLET (FOR DETOX USE ONLY) PO ONE (10:00)
[2021-03-17 10:10] LABS: ALBUMIN 3.3 g/dl (3.4-5.0); BLOOD UREA NITROGEN 25.7 mg/dL (7-18); CALCIUM 8.5 mg/dL (8.5-10.1)
[2021-03-17 10:15] LABS: TOT PROT 7.4 g/dl (6.4-8.2)
[2021-03-17 10:19] LABS: BILIRUBIN,TOTAL 0.4 mg/dL (0.2-1); CREATININE 0.9 mg/dL (0.55-1.3)
[2021-03-17] MEDS ORDERED: METHADONE HCL 5 MG TABLET (FOR DETOX USE ONLY) ONE (10:19)
[2021-03-17] MEDS ORDERED: METHADONE HCL 10 MG TABLET (FOR DETOX USE ONLY) ONE (10:19)
[2021-03-17] MEDS: IBUPROFEN 400 MG TABLET (FP) PO PRN (11:27)
[2021-03-17] MEDS: LISINOPRIL 10 MG TABLET PO SCH ×2 (11:27→22:13)
[2021-03-17] MEDS: METHOCARBAMOL 500 MG TABLET PO PRN ×2 (11:27→16:57)
[2021-03-17] MEDS: PRENATAL VITAMINS W/ FOLIC ACID TABLET (FP) PO SCH (11:28)
[2021-03-17] MEDS: NICOTINE 7 MG/24 HOURS TOPICAL PATCH TD SCH (11:28)
[2021-03-17] MEDS: BISMUTH SUBSALICYLATE 524 MG/30 ML PO PRN ×2 (14:03→16:56)
[2021-03-17] MEDS ORDERED: SUVOREXANT 10 MG TABLET PO PRN (22:00)
[2021-03-17] MEDS: THIAMINE HCL 100 MG TABLET (FP) PO SCH (22:13)
[2021-03-17] MEDS: MELATONIN 5 MG TABLETS PO SCH (22:13)
[2021-03-17] MEDS: MENTHOL/PHENOL 1 EACH UD MM PRN (22:17)
[2021-03-18] MEDS: diazePAM 5 MG TABLET PO SCH ×3 (05:32→22:04)
[2021-03-18] MEDS: IBUPROFEN 400 MG TABLET (FP) PO PRN (05:33)
[2021-03-18] MEDS: MENTHOL/PHENOL 1 EACH UD MM PRN (06:45)
[2021-03-18] MEDS ORDERED: METHADONE HCL 10 MG TABLET (FOR DETOX USE ONLY) PO ONE (10:00)
[2021-03-18] MEDS: PRENATAL VITAMINS W/ FOLIC ACID TABLET (FP) PO SCH (10:24)
[2021-03-18] MEDS: NICOTINE 7 MG/24 HOURS TOPICAL PATCH TD SCH (10:24)
[2021-03-18] MEDS: LISINOPRIL 10 MG TABLET PO SCH ×2 (10:24→22:03)
[2021-03-18] MEDS: METHOCARBAMOL 500 MG TABLET PO PRN ×2 (10:26→22:33)
[2021-03-18] MEDS: THIAMINE HCL 100 MG TABLET (FP) PO SCH (22:03)
[2021-03-18] MEDS: MELATONIN 5 MG TABLETS PO SCH (22:05)
[2021-03-18] MEDS: BISMUTH SUBSALICYLATE 524 MG/30 ML PO PRN (22:33)
[2021-03-19] MEDS: IBUPROFEN 400 MG TABLET (FP) PO PRN (05:53)
[2021-03-19] MEDS: MENTHOL/PHENOL 1 EACH UD MM PRN (05:54)
[2021-03-19] MEDS ORDERED: diazePAM 5 MG TABLET PO SCH (06:00)
[2021-03-19] MEDS ORDERED: METHADONE HCL 5 MG TABLET (FOR DETOX USE ONLY) PO ONE (06:00)
[2021-03-19 06:51] VITALS: TEMP 96.8
[2021-03-19] MEDS ORDERED: ALBUTEROL SO4 HFA INHALER IH PRN (07:17)
[2021-03-19] MEDS: NICOTINE 7 MG/24 HOURS TOPICAL PATCH TD SCH (09:08)
[2021-03-19] MEDS: PRENATAL VITAMINS W/ FOLIC ACID TABLET (FP) PO SCH (09:08)
[2021-03-19] MEDS: LISINOPRIL 10 MG TABLET PO SCH (09:08)
[2021-03-19] MEDS: METHOCARBAMOL 500 MG TABLET PO PRN (09:12)
[2021-03-19 11:38] VITALS: BP 147/100; PULSE 74
[2021-03-20] MEDS ORDERED: amLODIPine BESYLATE 10 MG TABLET (FP) PO SCH (06:00)
[2021-03-20] MEDS ORDERED: diazePAM 5 MG TABLET PO ONE (06:00)
== END 2021-03-19 11:34 | disposition left against medical advice (07) | DRG 770 ==
LOC: YASAS 19:55 → Y6N 03-17 10:04
PROVIDERS: ADMIT Allergy & Immunology; ATTEND Allergy & Immunology
PROC: HZ2ZZZZ Detoxification Services for Substance Abuse Treatment (ICD-10-PCS; principal; 2021-03-17)
DX: F11.23 Opioid dependence with withdrawal (principal); F10.230 Alcohol dependence with withdrawal, uncomplicated; F10.220 Alcohol dependence with intoxication, uncomplicated; F14.20 Cocaine dependence, uncomplicated; F17.210 Nicotine dependence, cigarettes, uncomplicated; F19.24 Other psychoactive substance dependence with psychoactive substance-induced mood disorder; F19.282 Other psychoactive substance dependence with psychoactive substance-induced sleep disorder; F43.21 Adjustment disorder with depressed mood; I10 Essential (primary) hypertension; H54.40 Blindness, one eye, unspecified eye; J45.20 Mild intermittent asthma, uncomplicated; R26.2 Difficulty in walking, not elsewhere classified; Z99.89 Dependence on other enabling machines and devices; Z96.641 Presence of right artificial hip joint
CPT/HCPCS: 36415; 80053; 85027; 86780; C9803; U0003; U0005

== ENCOUNTER 2021-04-05 00:05 | Inpatient (IN) | payer OTHER ==
[2021-04-05 01:22] VITALS: BMI 23.6
[2021-04-05] MEDS ORDERED: ONDANSETRON *ODT* 4 MG TABLET SL PRN (03:26)
[2021-04-05] MEDS ORDERED: MAGNESIUM CITRATE 300 ML BOTTLE PO PRN (03:26)
[2021-04-05] MEDS ORDERED: diazePAM 5 MG TABLET PO PRN (03:26)
[2021-04-05] MEDS ORDERED: NICOTINE POLACRILEX 2 MG GUM BUC PRN (03:26)
[2021-04-05] MEDS ORDERED: BISMUTH SUBSALICYLATE 524 MG/30 ML PO PRN (03:26)
[2021-04-05] MEDS ORDERED: MENTHOL/PHENOL 1 EACH UD MM PRN (03:26)
[2021-04-05] MEDS ORDERED: MAG HYDROX/AL HYDROX/SIMETH 30 ML UNIT-DOSE CUP PO PRN (03:26)
[2021-04-05] MEDS ORDERED: MAGNESIUM HYDROX 2400MG/30ML ORAL SUSPENSION 30 ML CUP PO PRN (03:26)
[2021-04-05] MEDS ORDERED: ACETAMINOPHEN 325 MG TABLET (FP) PO PRN ×2 (03:26)
[2021-04-05] MEDS ORDERED: diazePAM 5 MG TABLET PO SCH (05:00)
[2021-04-05] MEDS ORDERED: cloNIDine HCL 0.1 MG TABLET PO PRN (09:41)
[2021-04-05] MEDS ORDERED: methaDONE HCL 10 MG TABLET (FOR DETOX USE ONLY) PO ONE (10:00)
[2021-04-05] MEDS: PRENATAL VITAMINS W/ FOLIC ACID TABLET (FP) PO SCH (10:16)
[2021-04-05] MEDS: NICOTINE 14 MG/24 HOURS TOPICAL PATCH TD SCH (10:16)
[2021-04-05 12:50] LABS: HIV INTERPRETATION NEGATIVE (NEGATIVE)
[2021-04-05] MEDS ORDERED: METHYL SALICYLATE/MENTHOL OINT 30 GM TUBE TP PRN (15:53)
[2021-04-05] MEDS: amLODIPine BESYLATE 10 MG TABLET (FP) PO SCH (17:38)
[2021-04-05] MEDS ORDERED: MELATONIN 5 MG TABLETS PO SCH (22:00)
[2021-04-05] MEDS: LISINOPRIL 10 MG TABLET PO SCH (22:04)
[2021-04-05] MEDS: THIAMINE HCL 100 MG TABLET (FP) PO SCH (22:04)
[2021-04-06] MEDS ORDERED: diazePAM 5 MG TABLET PO SCH (06:00)
[2021-04-06] MEDS ORDERED: methaDONE HCL 10 MG TABLET (FOR DETOX USE ONLY) ONE (09:08)
[2021-04-06] MEDS: PRENATAL VITAMINS W/ FOLIC ACID TABLET (FP) PO SCH (10:28)
[2021-04-06] MEDS: amLODIPine BESYLATE 10 MG TABLET (FP) PO SCH (10:29)
[2021-04-06] MEDS: METHOCARBAMOL 500 MG TABLET PO PRN ×2 (10:29→17:35)
[2021-04-06] MEDS: LISINOPRIL 10 MG TABLET PO SCH ×2 (10:29→22:08)
[2021-04-06] MEDS: NICOTINE 14 MG/24 HOURS TOPICAL PATCH TD SCH (10:29)
[2021-04-06 10:45] LABS: ALBUMIN 3.5 g/dl (3.4-5.0); BLOOD UREA NITROGEN 16.9 mg/dL (7-18); CALCIUM 8.9 mg/dL (8.5-10.1)
[2021-04-06 10:46] LABS: HEMATOCRIT 32.1 % (35.4-49); HEMOGLOBIN 10.4 GM/dL (11.7-16.9); MCH 28.7 pg (25.7-33.7); MCHC 32.3 g/dl (32.0-35.9); MEAN CELL VOLUME 88.9 fl (80-96); MEAN PLT VOLUME 8.7 fl (7.5-11.1); PLATELET COUNT 309 10^3/uL (134-434); RBC 3.62 M/mm3 (4.00-5.60); RDW 15.2 % (11.9-15.9); WHITE BLOOD COUNT 8.7 K/mm3 (4.0-10.0)
[2021-04-06 10:48] LABS: CREATININE 0.9 mg/dL (0.55-1.3)
[2021-04-06 10:50] LABS: BILIRUBIN,TOTAL 0.2 mg/dL (0.2-1)
[2021-04-06] MEDS: DICLOFENAC 1% TP SCH (15:16)
[2021-04-06] MEDS: THIAMINE HCL 100 MG TABLET (FP) PO SCH (22:08)
[2021-04-06] MEDS: SUVOREXANT 10 MG TABLET PO PRN (22:09)
[2021-04-07] MEDS ORDERED: diazePAM 5 MG TABLET PO SCH (06:00)
[2021-04-07] MEDS ORDERED: methaDONE HCL 10 MG TABLET (FOR DETOX USE ONLY) PO ONE (10:00)
[2021-04-07] MEDS: PRENATAL VITAMINS W/ FOLIC ACID TABLET (FP) PO SCH (10:04)
[2021-04-07] MEDS: LISINOPRIL 10 MG TABLET PO SCH ×2 (10:04→22:28)
[2021-04-07] MEDS: amLODIPine BESYLATE 10 MG TABLET (FP) PO SCH (10:04)
[2021-04-07] MEDS: METHOCARBAMOL 500 MG TABLET PO PRN (10:04)
[2021-04-07] MEDS: NICOTINE 14 MG/24 HOURS TOPICAL PATCH TD SCH (10:05)
[2021-04-07] MEDS: DICLOFENAC 1% TP SCH (10:07)
[2021-04-07] MEDS: THIAMINE HCL 100 MG TABLET (FP) PO SCH (22:27)
[2021-04-08] MEDS ORDERED: diazePAM 5 MG TABLET PO ONE (06:00)
[2021-04-08] MEDS ORDERED: methaDONE HCL 10 MG TABLET (FOR DETOX USE ONLY) ONE (09:03)
[2021-04-08] MEDS: PRENATAL VITAMINS W/ FOLIC ACID TABLET (FP) PO SCH (10:12)
[2021-04-08] MEDS: amLODIPine BESYLATE 10 MG TABLET (FP) PO SCH (10:12)
[2021-04-08] MEDS: LISINOPRIL 10 MG TABLET PO SCH ×2 (10:12→22:32)
[2021-04-08] MEDS: DICLOFENAC 1% TP SCH (10:14)
[2021-04-08] MEDS: NICOTINE 14 MG/24 HOURS TOPICAL PATCH TD SCH (10:15)
[2021-04-08] MEDS: METHOCARBAMOL 500 MG TABLET PO PRN (17:53)
[2021-04-08] MEDS: SUVOREXANT 10 MG TABLET PO PRN (22:31)
[2021-04-08] MEDS: THIAMINE HCL 100 MG TABLET (FP) PO SCH (22:32)
[2021-04-09] MEDS ORDERED: methaDONE HCL 10 MG TABLET (FOR DETOX USE ONLY) PO ONE (10:00)
[2021-04-09] MEDS: PRENATAL VITAMINS W/ FOLIC ACID TABLET (FP) PO SCH (10:12)
[2021-04-09] MEDS: amLODIPine BESYLATE 10 MG TABLET (FP) PO SCH (10:12)
[2021-04-09] MEDS: NICOTINE 14 MG/24 HOURS TOPICAL PATCH TD SCH (10:12)
[2021-04-09] MEDS: LISINOPRIL 10 MG TABLET PO SCH ×2 (10:12→22:19)
[2021-04-09] MEDS: DICLOFENAC 1% TP SCH (10:13)
[2021-04-09] MEDS: IBUPROFEN 400 MG TABLET (FP) PO PRN (18:13)
[2021-04-09] MEDS: SUVOREXANT 10 MG TABLET PO PRN (22:18)
[2021-04-09] MEDS: THIAMINE HCL 100 MG TABLET (FP) PO SCH (22:19)
[2021-04-10 09:14] VITALS: BP 158/70; PULSE 66; TEMP 98.6
[2021-04-10] MEDS: LISINOPRIL 10 MG TABLET PO SCH (10:12)
[2021-04-10] MEDS: amLODIPine BESYLATE 10 MG TABLET (FP) PO SCH (10:12)
[2021-04-10] MEDS: PRENATAL VITAMINS W/ FOLIC ACID TABLET (FP) PO SCH (10:12)
[2021-04-10] MEDS: IBUPROFEN 400 MG TABLET (FP) PO PRN (10:14)
[2021-04-10] MEDS: NICOTINE 14 MG/24 HOURS TOPICAL PATCH TD SCH (10:15)
[2021-04-10] MEDS: DICLOFENAC 1% TP SCH (10:16)
== END 2021-04-10 11:28 | disposition other institution (70) | DRG 773 ==
LOC: YASAS 00:05 → Y3N 03:39
PROVIDERS: ADMIT Allergy & Immunology; ATTEND Allergy & Immunology
PROC: HZ2ZZZZ Detoxification Services for Substance Abuse Treatment (ICD-10-PCS; principal; 2021-04-05)
DX: F11.23 Opioid dependence with withdrawal (principal); F10.230 Alcohol dependence with withdrawal, uncomplicated; F14.20 Cocaine dependence, uncomplicated; F17.210 Nicotine dependence, cigarettes, uncomplicated; F19.282 Other psychoactive substance dependence with psychoactive substance-induced sleep disorder; F43.21 Adjustment disorder with depressed mood; H54.62 Unqualified visual loss, left eye, normal vision right eye; I10 Essential (primary) hypertension; J45.909 Unspecified asthma, uncomplicated; D64.9 Anemia, unspecified; B18.2 Chronic viral hepatitis C; M17.11 Unilateral primary osteoarthritis, right knee; Z96.641 Presence of right artificial hip joint; Z99.89 Dependence on other enabling machines and devices
CPT/HCPCS: 36415; 80053; 85027; 86780; 87389; 93005; 93010; C9803; J0735; U0003; U0005

== ENCOUNTER 2021-04-10 11:38 | Inpatient (IN) | payer OTHER ==
[2021-04-10] MEDS ORDERED: MENTHOL/PHENOL 1 EACH UD MM PRN (13:48)
[2021-04-10] MEDS ORDERED: NICOTINE POLACRILEX 2 MG GUM BUC PRN (13:48)
[2021-04-10] MEDS ORDERED: P-EPHED 60MG/TRIPROLIDI 2.5MG TABLET PO PRN (13:48)
[2021-04-10] MEDS ORDERED: MAGNESIUM HYDROX 2400MG/30ML ORAL SUSPENSION 30 ML CUP PO PRN (13:48)
[2021-04-10] MEDS ORDERED: MAG HYDROX/AL HYDROX/SIMETH 30 ML UNIT-DOSE CUP PO PRN (13:48)
[2021-04-10] MEDS ORDERED: ACETAMINOPHEN 325 MG TABLET (FP) PO PRN (13:48)
[2021-04-10] MEDS ORDERED: guaiFENesin 200 MG/10 ML 10 ML UNIT-DOSE CUPS PO PRN (13:48)
[2021-04-10] MEDS ORDERED: hydrOXYzine PAMOATE 25 MG CAPSULE (FP) PO PRN (13:48)
[2021-04-10] MEDS ORDERED: MAGNESIUM CITRATE 300 ML BOTTLE PO PRN (13:48)
[2021-04-10] MEDS ORDERED: LOPERAMIDE HCL 2 MG CAPSULE PO PRN (13:48)
[2021-04-10] MEDS ORDERED: ALBUTEROL SO4 HFA INHALER IH PRN (13:49)
[2021-04-10] MEDS ORDERED: DICLOFENAC SODIUM TP SCH (14:00)
[2021-04-10] MEDS: IBUPROFEN 400 MG TABLET (FP) PO PRN (19:41)
[2021-04-10] MEDS: LISINOPRIL 10 MG TABLET PO SCH (21:17)
[2021-04-10] MEDS: MELATONIN 5 MG TABLETS PO SCH (21:18)
[2021-04-10] MEDS: DICLOFENAC SODIUM TP SCH (21:18)
[2021-04-10] MEDS: THIAMINE HCL 100 MG TABLET (FP) PO SCH (21:18)
[2021-04-11] MEDS: DICLOFENAC SODIUM TP SCH ×3 (06:39→21:10)
[2021-04-11] MEDS: IBUPROFEN 400 MG TABLET (FP) PO PRN ×2 (08:33→18:03)
[2021-04-11] MEDS: PRENATAL VITAMINS W/ FOLIC ACID TABLET (FP) PO SCH (10:18)
[2021-04-11] MEDS: amLODIPine BESYLATE 10 MG TABLET (FP) PO SCH (10:18)
[2021-04-11] MEDS: LISINOPRIL 10 MG TABLET PO SCH ×2 (10:19→21:09)
[2021-04-11] MEDS: NICOTINE 14 MG/24 HOURS TOPICAL PATCH TD SCH (10:51)
[2021-04-11] MEDS: LIDOCAINE 5% TOPICAL PATCH TP SCH (14:55)
[2021-04-11] MEDS: MELATONIN 5 MG TABLETS PO SCH (21:09)
[2021-04-11] MEDS: LIDOCAINE PATCH REMOVAL MC SCH (21:10)
[2021-04-11] MEDS: THIAMINE HCL 100 MG TABLET (FP) PO SCH (21:10)
[2021-04-12] MEDS: DICLOFENAC SODIUM TP SCH ×3 (06:26→21:27)
[2021-04-12] MEDS: LISINOPRIL 10 MG TABLET PO SCH ×2 (09:55→21:27)
[2021-04-12] MEDS: LIDOCAINE 5% TOPICAL PATCH TP SCH (09:55)
[2021-04-12] MEDS: PRENATAL VITAMINS W/ FOLIC ACID TABLET (FP) PO SCH (09:56)
[2021-04-12] MEDS: FLUoxetine HCL 10 MG CAPSULE PO SCH (09:56)
[2021-04-12] MEDS: NICOTINE 14 MG/24 HOURS TOPICAL PATCH TD SCH (09:56)
[2021-04-12] MEDS: amLODIPine BESYLATE 10 MG TABLET (FP) PO SCH (09:56)
[2021-04-12] MEDS: THIAMINE HCL 100 MG TABLET (FP) PO SCH (21:26)
[2021-04-12] MEDS: MELATONIN 5 MG TABLETS PO SCH (21:26)
[2021-04-12] MEDS: LIDOCAINE PATCH REMOVAL MC SCH (21:27)
[2021-04-13] MEDS: DICLOFENAC SODIUM TP SCH ×3 (06:28→21:07)
[2021-04-13] MEDS: LIDOCAINE 5% TOPICAL PATCH TP SCH (09:10)
[2021-04-13] MEDS: NICOTINE 14 MG/24 HOURS TOPICAL PATCH TD SCH (09:10)
[2021-04-13] MEDS: FLUoxetine HCL 10 MG CAPSULE PO SCH (09:11)
[2021-04-13] MEDS: amLODIPine BESYLATE 10 MG TABLET (FP) PO SCH (09:11)
[2021-04-13] MEDS: PRENATAL VITAMINS W/ FOLIC ACID TABLET (FP) PO SCH (09:11)
[2021-04-13] MEDS: LISINOPRIL 10 MG TABLET PO SCH ×2 (09:11→21:06)
[2021-04-13] MEDS: IBUPROFEN 400 MG TABLET (FP) PO PRN ×2 (09:12→19:00)
[2021-04-13] MEDS: MELATONIN 5 MG TABLETS PO SCH (21:06)
[2021-04-13] MEDS: THIAMINE HCL 100 MG TABLET (FP) PO SCH (21:06)
[2021-04-13] MEDS: LIDOCAINE PATCH REMOVAL MC SCH (21:07)
[2021-04-14 06:49] VITALS: TEMP 97.5
[2021-04-14] MEDS: DICLOFENAC SODIUM TP SCH (07:18)
[2021-04-14 10:17] VITALS: BP 169/89; PULSE 71
[2021-04-14] MEDS: LIDOCAINE 5% TOPICAL PATCH TP SCH (10:22)
[2021-04-14] MEDS: amLODIPine BESYLATE 10 MG TABLET (FP) PO SCH (10:23)
[2021-04-14] MEDS: PRENATAL VITAMINS W/ FOLIC ACID TABLET (FP) PO SCH (10:23)
[2021-04-14] MEDS: LISINOPRIL 10 MG TABLET PO SCH (10:23)
[2021-04-14] MEDS: FLUoxetine HCL 10 MG CAPSULE PO SCH (10:23)
[2021-04-14] MEDS: IBUPROFEN 400 MG TABLET (FP) PO PRN (10:27)
[2021-04-14] MEDS: NICOTINE 14 MG/24 HOURS TOPICAL PATCH TD SCH (10:28)
== END 2021-04-14 13:25 | disposition home or self-care (01) | DRG 772 ==
LOC: YASAS 11:38 → Y3W 11:39 → Y3E 04-14 10:08
PROVIDERS: ADMIT Allergy & Immunology; ATTEND Allergy & Immunology
PROC: HZ42ZZZ Group Counseling for Substance Abuse Treatment, Cognitive-Behavioral (ICD-10-PCS; principal; 2021-04-10)
DX: F11.20 Opioid dependence, uncomplicated (principal); F14.20 Cocaine dependence, uncomplicated; F17.210 Nicotine dependence, cigarettes, uncomplicated; F32.9 Major depressive disorder, single episode, unspecified; F43.20 Adjustment disorder, unspecified; F19.24 Other psychoactive substance dependence with psychoactive substance-induced mood disorder; F19.282 Other psychoactive substance dependence with psychoactive substance-induced sleep disorder; I10 Essential (primary) hypertension; M17.11 Unilateral primary osteoarthritis, right knee; J45.20 Mild intermittent asthma, uncomplicated; H54.40 Blindness, one eye, unspecified eye; R26.2 Difficulty in walking, not elsewhere classified; Z99.89 Dependence on other enabling machines and devices; Z96.641 Presence of right artificial hip joint; Z86.19 Personal history of other infectious and parasitic diseases

== ENCOUNTER 2021-04-25 13:06 | Inpatient (IN) | payer OTHER ==
[2021-04-25 15:19] VITALS: BMI 23.6
[2021-04-25] MEDS ORDERED: clonazePAM 0.5 MG ODT TABLETS SL PRN (18:02)
[2021-04-25] MEDS ORDERED: MENTHOL/PHENOL 1 EACH UD MM PRN (18:02)
[2021-04-25] MEDS ORDERED: diazePAM 5 MG TABLET PO PRN (18:02)
[2021-04-25] MEDS ORDERED: BISMUTH SUBSALICYLATE 524 MG/30 ML PO PRN (18:02)
[2021-04-25] MEDS ORDERED: MAG HYDROX/AL HYDROX/SIMETH 30 ML UNIT-DOSE CUP PO PRN (18:02)
[2021-04-25] MEDS ORDERED: cloNIDine HCL 0.1 MG TABLET PO PRN (18:02)
[2021-04-25] MEDS ORDERED: MAGNESIUM CITRATE 300 ML BOTTLE PO PRN (18:02)
[2021-04-25] MEDS ORDERED: NICOTINE 10 MG CARTRIDGE (INHALER) IH PRN (18:02)
[2021-04-25] MEDS ORDERED: ONDANSETRON *ODT* 4 MG TABLET SL PRN (18:02)
[2021-04-25] MEDS ORDERED: methaDONE HCL 10 MG TABLET (FOR DETOX USE ONLY) PO ONE (18:02)
[2021-04-25] MEDS ORDERED: ACETAMINOPHEN 325 MG TABLET (FP) PO PRN ×2 (18:02)
[2021-04-25] MEDS ORDERED: MAGNESIUM HYDROX 2400MG/30ML ORAL SUSPENSION 30 ML CUP PO PRN (18:02)
[2021-04-25] MEDS ORDERED: LIDOCAINE 5% TOPICAL PATCH TP SCH (19:00)
[2021-04-25] MEDS: PRENATAL VITAMINS W/ FOLIC ACID TABLET (FP) PO SCH (19:14)
[2021-04-25] MEDS: NICOTINE 21 MG/24 HOURS TOPICAL PATCH TD SCH (19:18)
[2021-04-25] MEDS: diazePAM 5 MG TABLET PO SCH (22:22)
[2021-04-25] MEDS: hydrOXYzine PAMOATE 25 MG CAPSULE (FP) PO SCH (22:23)
[2021-04-25] MEDS: THIAMINE HCL 100 MG TABLET (FP) PO SCH (22:23)
[2021-04-25] MEDS: MELATONIN 5 MG TABLETS PO SCH (22:25)
[2021-04-26] MEDS: hydrOXYzine PAMOATE 25 MG CAPSULE (FP) PO SCH ×5 (05:55→22:14)
[2021-04-26] MEDS: diazePAM 5 MG TABLET PO SCH ×4 (05:56→22:13)
[2021-04-26] MEDS ORDERED: LIDOCAINE PATCH REMOVAL MC SCH (07:00)
[2021-04-26] MEDS ORDERED: ALBUTEROL SO4 HFA INHALER IH PRN (08:17)
[2021-04-26] MEDS ORDERED: methaDONE HCL 10 MG TABLET (FOR DETOX USE ONLY) ONE (09:34)
[2021-04-26] MEDS: LISINOPRIL 10 MG TABLET PO SCH ×2 (10:07→22:14)
[2021-04-26] MEDS: METHOCARBAMOL 500 MG TABLET PO PRN (10:07)
[2021-04-26] MEDS: amLODIPine BESYLATE 10 MG TABLET (FP) PO SCH (10:08)
[2021-04-26] MEDS: NICOTINE 21 MG/24 HOURS TOPICAL PATCH TD SCH (10:08)
[2021-04-26] MEDS: PRENATAL VITAMINS W/ FOLIC ACID TABLET (FP) PO SCH (10:09)
[2021-04-26 10:54] LABS: HEMATOCRIT 31.2 % (35.4-49); HEMOGLOBIN 10.4 GM/dL (11.7-16.9); MCH 29.9 pg (25.7-33.7); MCHC 33.4 g/dl (32.0-35.9); MEAN CELL VOLUME 89.4 fl (80-96); MEAN PLT VOLUME 8.3 fl (7.5-11.1); PLATELET COUNT 266 10^3/uL (134-434); RBC 3.49 M/mm3 (4.00-5.60); RDW 15.2 % (11.9-15.9); WHITE BLOOD COUNT 5.7 K/mm3 (4.0-10.0)
[2021-04-26 11:09] LABS: CALCIUM 8.9 mg/dL (8.5-10.1)
[2021-04-26 11:10] LABS: ALBUMIN 3.2 g/dl (3.4-5.0); BLOOD UREA NITROGEN 16.6 mg/dL (7-18)
[2021-04-26 11:14] LABS: CREATININE 0.7 mg/dL (0.55-1.3)
[2021-04-26 11:15] LABS: BILIRUBIN,TOTAL 0.3 mg/dL (0.2-1)
[2021-04-26 11:16] LABS: TOT PROT 6.6 g/dl (6.4-8.2)
[2021-04-26] MEDS: LIDOCAINE 5% TOPICAL PATCH TP SCH (12:30)
[2021-04-26] MEDS: IBUPROFEN 400 MG TABLET (FP) PO PRN (18:04)
[2021-04-26] MEDS: THIAMINE HCL 100 MG TABLET (FP) PO SCH (22:14)
[2021-04-26] MEDS: LIDOCAINE PATCH REMOVAL MC SCH (22:15)
[2021-04-26] MEDS: MELATONIN 5 MG TABLETS PO SCH (22:15)
[2021-04-27] MEDS: hydrOXYzine PAMOATE 25 MG CAPSULE (FP) PO SCH ×5 (05:42→22:34)
[2021-04-27] MEDS: diazePAM 5 MG TABLET PO SCH ×3 (05:42→22:34)
[2021-04-27] MEDS ORDERED: methaDONE HCL 10 MG TABLET (FOR DETOX USE ONLY) PO ONE (10:00)
[2021-04-27] MEDS: PRENATAL VITAMINS W/ FOLIC ACID TABLET (FP) PO SCH (10:49)
[2021-04-27] MEDS: NICOTINE 21 MG/24 HOURS TOPICAL PATCH TD SCH (10:49)
[2021-04-27] MEDS: LISINOPRIL 10 MG TABLET PO SCH ×2 (10:49→22:34)
[2021-04-27] MEDS: LIDOCAINE 5% TOPICAL PATCH TP SCH (10:50)
[2021-04-27] MEDS: amLODIPine BESYLATE 10 MG TABLET (FP) PO SCH (10:50)
[2021-04-27] MEDS: METHOCARBAMOL 500 MG TABLET PO PRN (10:50)
[2021-04-27] MEDS: FLUoxetine HCL 10 MG CAPSULE PO SCH (12:32)
[2021-04-27] MEDS: LIDOCAINE PATCH REMOVAL MC SCH (22:33)
[2021-04-27] MEDS: MELATONIN 5 MG TABLETS PO SCH (22:34)
[2021-04-27] MEDS: THIAMINE HCL 100 MG TABLET (FP) PO SCH (22:34)
[2021-04-28] MEDS: hydrOXYzine PAMOATE 25 MG CAPSULE (FP) PO SCH ×5 (05:39→22:35)
[2021-04-28] MEDS: diazePAM 5 MG TABLET PO SCH ×2 (05:40→18:10)
[2021-04-28] MEDS ORDERED: methaDONE HCL 10 MG TABLET (FOR DETOX USE ONLY) ONE (09:35)
[2021-04-28] MEDS: LIDOCAINE 5% TOPICAL PATCH TP SCH (10:19)
[2021-04-28] MEDS: FLUoxetine HCL 10 MG CAPSULE PO SCH (10:20)
[2021-04-28] MEDS: amLODIPine BESYLATE 10 MG TABLET (FP) PO SCH (10:20)
[2021-04-28] MEDS: PRENATAL VITAMINS W/ FOLIC ACID TABLET (FP) PO SCH (10:20)
[2021-04-28] MEDS: LISINOPRIL 10 MG TABLET PO SCH ×2 (10:20→22:35)
[2021-04-28] MEDS: NICOTINE 21 MG/24 HOURS TOPICAL PATCH TD SCH (10:20)
[2021-04-28] MEDS: METHOCARBAMOL 500 MG TABLET PO PRN (10:20)
[2021-04-28] MEDS: MELATONIN 5 MG TABLETS PO SCH (22:35)
[2021-04-28] MEDS: THIAMINE HCL 100 MG TABLET (FP) PO SCH (22:35)
[2021-04-28] MEDS: LIDOCAINE PATCH REMOVAL MC SCH (22:36)
[2021-04-29] MEDS ORDERED: diazePAM 5 MG TABLET PO ONE (06:00)
[2021-04-29] MEDS: hydrOXYzine PAMOATE 25 MG CAPSULE (FP) PO SCH ×5 (06:03→22:35)
[2021-04-29] MEDS: IBUPROFEN 400 MG TABLET (FP) PO PRN ×2 (06:05→17:55)
[2021-04-29] MEDS ORDERED: methaDONE HCL 10 MG TABLET (FOR DETOX USE ONLY) PO ONE (10:00)
[2021-04-29] MEDS: PRENATAL VITAMINS W/ FOLIC ACID TABLET (FP) PO SCH (10:29)
[2021-04-29] MEDS: NICOTINE 21 MG/24 HOURS TOPICAL PATCH TD SCH (10:31)
[2021-04-29] MEDS: amLODIPine BESYLATE 10 MG TABLET (FP) PO SCH (10:31)
[2021-04-29] MEDS: LISINOPRIL 10 MG TABLET PO SCH ×2 (10:32→22:35)
[2021-04-29] MEDS: FLUoxetine HCL 10 MG CAPSULE PO SCH (10:32)
[2021-04-29] MEDS: LIDOCAINE 5% TOPICAL PATCH TP SCH (10:34)
[2021-04-29] MEDS: THIAMINE HCL 100 MG TABLET (FP) PO SCH (22:35)
[2021-04-29] MEDS: MELATONIN 5 MG TABLETS PO SCH (22:35)
[2021-04-29] MEDS: LIDOCAINE PATCH REMOVAL MC SCH (22:36)
[2021-04-30] MEDS: hydrOXYzine PAMOATE 25 MG CAPSULE (FP) PO SCH ×2 (05:59→10:35)
[2021-04-30] MEDS: IBUPROFEN 400 MG TABLET (FP) PO PRN (06:01)
[2021-04-30 10:13] VITALS: BP 153/69; PULSE 75; TEMP 96.9
[2021-04-30] MEDS: amLODIPine BESYLATE 10 MG TABLET (FP) PO SCH (10:32)
[2021-04-30] MEDS: PRENATAL VITAMINS W/ FOLIC ACID TABLET (FP) PO SCH (10:32)
[2021-04-30] MEDS: NICOTINE 21 MG/24 HOURS TOPICAL PATCH TD SCH (10:32)
[2021-04-30] MEDS: LISINOPRIL 10 MG TABLET PO SCH (10:33)
[2021-04-30] MEDS: LIDOCAINE 5% TOPICAL PATCH TP SCH (10:34)
[2021-04-30] MEDS: FLUoxetine HCL 10 MG CAPSULE PO SCH (10:35)
== END 2021-04-30 11:43 | disposition home or self-care (01) | DRG 773 ==
LOC: YASAS 13:06 → Y3N 17:35
PROVIDERS: ADMIT Allergy & Immunology; ATTEND Allergy & Immunology
PROC: HZ2ZZZZ Detoxification Services for Substance Abuse Treatment (ICD-10-PCS; principal; 2021-04-25)
DX: F11.23 Opioid dependence with withdrawal (principal); F10.230 Alcohol dependence with withdrawal, uncomplicated; F14.20 Cocaine dependence, uncomplicated; F16.10 Hallucinogen abuse, uncomplicated; F17.210 Nicotine dependence, cigarettes, uncomplicated; F19.282 Other psychoactive substance dependence with psychoactive substance-induced sleep disorder; F19.24 Other psychoactive substance dependence with psychoactive substance-induced mood disorder; F32.9 Major depressive disorder, single episode, unspecified; H54.62 Unqualified visual loss, left eye, normal vision right eye; I10 Essential (primary) hypertension; J45.20 Mild intermittent asthma, uncomplicated; M17.11 Unilateral primary osteoarthritis, right knee; Z96.641 Presence of right artificial hip joint; Z99.89 Dependence on other enabling machines and devices; Z86.19 Personal history of other infectious and parasitic diseases
CPT/HCPCS: 36415; 80053; 85027; 86780; C9803; U0003; U0005

== ENCOUNTER 2021-05-07 16:23 | Inpatient (IN) | payer OTHER ==
[2021-05-07 17:19] VITALS: BMI 25.0
[2021-05-07] MEDS ORDERED: MAGNESIUM HYDROX 2400MG/30ML ORAL SUSPENSION 30 ML CUP PO PRN (19:49)
[2021-05-07] MEDS ORDERED: MENTHOL/PHENOL 1 EACH UD MM PRN (19:49)
[2021-05-07] MEDS ORDERED: NICOTINE POLACRILEX 2 MG GUM BUC PRN (19:49)
[2021-05-07] MEDS ORDERED: ACETAMINOPHEN 325 MG TABLET (FP) PO PRN ×2 (19:49)
[2021-05-07] MEDS ORDERED: methaDONE HCL 10 MG TABLET (FOR DETOX USE ONLY) PO ONE (19:49)
[2021-05-07] MEDS ORDERED: MAGNESIUM CITRATE 300 ML BOTTLE PO PRN (19:49)
[2021-05-07] MEDS ORDERED: MAG HYDROX/AL HYDROX/SIMETH 30 ML UNIT-DOSE CUP PO PRN (19:49)
[2021-05-07] MEDS ORDERED: cloNIDine HCL 0.1 MG TABLET PO PRN (19:49)
[2021-05-07] MEDS ORDERED: clonazePAM 0.5 MG ODT TABLETS SL PRN (19:49)
[2021-05-07] MEDS ORDERED: ONDANSETRON *ODT* 4 MG TABLET SL PRN (19:49)
[2021-05-07] MEDS ORDERED: BISMUTH SUBSALICYLATE 524 MG/30 ML PO PRN (19:49)
[2021-05-07] MEDS ORDERED: diazePAM 5 MG TABLET PO ONE (20:45)
[2021-05-07] MEDS ORDERED: ALBUTEROL SO4 HFA INHALER IH PRN (21:06)
[2021-05-07] MEDS ORDERED: methaDONE HCL 10 MG TABLET (FOR DETOX USE ONLY) ONE (22:08)
[2021-05-07] MEDS: METHOCARBAMOL 500 MG TABLET PO PRN (22:19)
[2021-05-07] MEDS: LISINOPRIL 10 MG TABLET PO SCH (22:20)
[2021-05-07] MEDS: THIAMINE HCL 100 MG TABLET (FP) PO SCH (22:20)
[2021-05-07] MEDS: diazePAM 5 MG TABLET PO SCH (22:21)
[2021-05-08] MEDS: MELATONIN 5 MG TABLETS PO PRN ×2 (01:41→22:30)
[2021-05-08] MEDS: diazePAM 5 MG TABLET PO SCH ×4 (06:40→22:29)
[2021-05-08] MEDS ORDERED: methaDONE HCL 10 MG TABLET (FOR DETOX USE ONLY) ONE (09:50)
[2021-05-08] MEDS: NICOTINE 14 MG/24 HOURS TOPICAL PATCH TD SCH (10:33)
[2021-05-08] MEDS: amLODIPine BESYLATE 10 MG TABLET (FP) PO SCH (10:33)
[2021-05-08] MEDS: LISINOPRIL 10 MG TABLET PO SCH ×2 (10:33→22:29)
[2021-05-08] MEDS: PRENATAL VITAMINS W/ FOLIC ACID TABLET (FP) PO SCH (10:34)
[2021-05-08 15:04] LABS: HEMATOCRIT 31.4 % (35.4-49); HEMOGLOBIN 10.5 GM/dL (11.7-16.9); MCH 29.7 pg (25.7-33.7); MCHC 33.3 g/dl (32.0-35.9); MEAN CELL VOLUME 89.2 fl (80-96); MEAN PLT VOLUME 8.1 fl (7.5-11.1); PLATELET COUNT 351 10^3/uL (134-434); RBC 3.52 M/mm3 (4.00-5.60); RDW 14.7 % (11.9-15.9); WHITE BLOOD COUNT 5.9 K/mm3 (4.0-10.0)
[2021-05-08 15:09] LABS: CALCIUM 8.8 mg/dL (8.5-10.1)
[2021-05-08 15:10] LABS: ALBUMIN 3.6 g/dl (3.4-5.0); BLOOD UREA NITROGEN 18.5 mg/dL (7-18)
[2021-05-08 15:13] LABS: CREATININE 0.9 mg/dL (0.55-1.3)
[2021-05-08 15:14] LABS: BILIRUBIN,TOTAL 0.3 mg/dL (0.2-1); TOT PROT 7.6 g/dl (6.4-8.2)
[2021-05-08] MEDS: THIAMINE HCL 100 MG TABLET (FP) PO SCH (22:29)
[2021-05-09] MEDS: diazePAM 5 MG TABLET PO SCH ×3 (05:45→22:58)
[2021-05-09] MEDS: amLODIPine BESYLATE 10 MG TABLET (FP) PO SCH (09:30)
[2021-05-09] MEDS: LISINOPRIL 10 MG TABLET PO SCH ×2 (09:30→22:57)
[2021-05-09] MEDS: METHOCARBAMOL 500 MG TABLET PO PRN (09:30)
[2021-05-09] MEDS: diazePAM 5 MG TABLET PO PRN (09:31)
[2021-05-09] MEDS ORDERED: methaDONE HCL 10 MG TABLET (FOR DETOX USE ONLY) PO ONE (10:00)
[2021-05-09] MEDS: LIDOCAINE 5% TOPICAL PATCH TP SCH (11:51)
[2021-05-09] MEDS: NICOTINE 14 MG/24 HOURS TOPICAL PATCH TD SCH (11:52)
[2021-05-09] MEDS: PRENATAL VITAMINS W/ FOLIC ACID TABLET (FP) PO SCH (11:55)
[2021-05-09] MEDS: THIAMINE HCL 100 MG TABLET (FP) PO SCH (22:57)
[2021-05-09] MEDS: MELATONIN 5 MG TABLETS PO PRN (22:57)
[2021-05-10] MEDS: LIDOCAINE PATCH REMOVAL MC SCH ×2 (01:07→22:40)
[2021-05-10] MEDS: diazePAM 5 MG TABLET PO SCH ×2 (06:03→17:51)
[2021-05-10] MEDS ORDERED: methaDONE HCL 10 MG TABLET (FOR DETOX USE ONLY) ONE (09:57)
[2021-05-10] MEDS: LIDOCAINE 5% TOPICAL PATCH TP SCH (10:18)
[2021-05-10] MEDS: amLODIPine BESYLATE 10 MG TABLET (FP) PO SCH (10:19)
[2021-05-10] MEDS: LISINOPRIL 10 MG TABLET PO SCH ×2 (10:19→22:31)
[2021-05-10] MEDS: METHOCARBAMOL 500 MG TABLET PO PRN (10:19)
[2021-05-10] MEDS: diazePAM 5 MG TABLET PO PRN (10:19)
[2021-05-10] MEDS: PRENATAL VITAMINS W/ FOLIC ACID TABLET (FP) PO SCH (10:20)
[2021-05-10] MEDS: NICOTINE 14 MG/24 HOURS TOPICAL PATCH TD SCH (10:20)
[2021-05-10] MEDS: THIAMINE HCL 100 MG TABLET (FP) PO SCH (22:31)
[2021-05-10] MEDS: MELATONIN 5 MG TABLETS PO PRN (22:31)
[2021-05-11] MEDS: IBUPROFEN 400 MG TABLET (FP) PO PRN ×2 (05:57→13:08)
[2021-05-11] MEDS ORDERED: diazePAM 5 MG TABLET PO ONE (06:00)
[2021-05-11] MEDS ORDERED: methaDONE HCL 10 MG TABLET (FOR DETOX USE ONLY) PO ONE (10:00)
[2021-05-11] MEDS: METHOCARBAMOL 500 MG TABLET PO PRN (10:27)
[2021-05-11] MEDS: amLODIPine BESYLATE 10 MG TABLET (FP) PO SCH (10:28)
[2021-05-11] MEDS: LISINOPRIL 10 MG TABLET PO SCH ×2 (10:28→22:17)
[2021-05-11] MEDS: NICOTINE 14 MG/24 HOURS TOPICAL PATCH TD SCH (10:30)
[2021-05-11] MEDS: PRENATAL VITAMINS W/ FOLIC ACID TABLET (FP) PO SCH (10:30)
[2021-05-11] MEDS: LIDOCAINE 5% TOPICAL PATCH TP SCH (10:31)
[2021-05-11 18:51] VITALS: TEMP 96.9
[2021-05-11] MEDS: MELATONIN 5 MG TABLETS PO PRN (22:17)
[2021-05-11] MEDS: THIAMINE HCL 100 MG TABLET (FP) PO SCH (22:17)
[2021-05-11] MEDS: LIDOCAINE PATCH REMOVAL MC SCH (22:18)
[2021-05-12 06:52] VITALS: BP 159/77; PULSE 60
[2021-05-12] MEDS: NICOTINE 14 MG/24 HOURS TOPICAL PATCH TD SCH (09:28)
[2021-05-12] MEDS: PRENATAL VITAMINS W/ FOLIC ACID TABLET (FP) PO SCH (09:28)
[2021-05-12] MEDS: amLODIPine BESYLATE 10 MG TABLET (FP) PO SCH (09:28)
[2021-05-12] MEDS: LIDOCAINE 5% TOPICAL PATCH TP SCH (09:28)
[2021-05-12] MEDS: LISINOPRIL 10 MG TABLET PO SCH (09:29)
== END 2021-05-12 09:10 | disposition other institution (70) | DRG 773 ==
LOC: YASAS 16:23 → Y3N 20:32
PROVIDERS: ADMIT Allergy & Immunology; ATTEND Allergy & Immunology
PROC: HZ2ZZZZ Detoxification Services for Substance Abuse Treatment (ICD-10-PCS; principal; 2021-05-07)
DX: F11.23 Opioid dependence with withdrawal (principal); F10.230 Alcohol dependence with withdrawal, uncomplicated; F14.20 Cocaine dependence, uncomplicated; F16.10 Hallucinogen abuse, uncomplicated; F17.210 Nicotine dependence, cigarettes, uncomplicated; I10 Essential (primary) hypertension; J45.909 Unspecified asthma, uncomplicated; H54.62 Unqualified visual loss, left eye, normal vision right eye; M19.90 Unspecified osteoarthritis, unspecified site; R26.2 Difficulty in walking, not elsewhere classified; Z99.89 Dependence on other enabling machines and devices
CPT/HCPCS: 36415; 80053; 85027; 86780; C9803; U0003; U0005

== ENCOUNTER 2021-05-18 08:17 | Inpatient (IN) | payer OTHER ==
[2021-05-18 10:14] VITALS: BMI 26.2
[2021-05-18] MEDS ORDERED: METHOCARBAMOL 500 MG TABLET PO PRN (10:53)
[2021-05-18] MEDS ORDERED: methaDONE HCL 10 MG TABLET (FOR DETOX USE ONLY) PO ONE (10:53)
[2021-05-18] MEDS ORDERED: MAG HYDROX/AL HYDROX/SIMETH 30 ML UNIT-DOSE CUP PO PRN (10:53)
[2021-05-18] MEDS ORDERED: MENTHOL/PHENOL 1 EACH UD MM PRN (10:53)
[2021-05-18] MEDS ORDERED: cloNIDine HCL 0.1 MG TABLET PO PRN (10:53)
[2021-05-18] MEDS ORDERED: ONDANSETRON *ODT* 4 MG TABLET SL PRN (10:53)
[2021-05-18] MEDS ORDERED: ACETAMINOPHEN 325 MG TABLET (FP) PO PRN ×2 (10:53)
[2021-05-18] MEDS ORDERED: BISMUTH SUBSALICYLATE 262 MG/15 ML BTL PO PRN (10:53)
[2021-05-18] MEDS ORDERED: MAGNESIUM CITRATE 300 ML BOTTLE PO PRN (10:53)
[2021-05-18] MEDS ORDERED: NICOTINE 10 MG CARTRIDGE (INHALER) IH PRN (10:53)
[2021-05-18] MEDS ORDERED: clonazePAM 0.5 MG ODT TABLETS SL PRN (10:53)
[2021-05-18] MEDS ORDERED: MAGNESIUM HYDROX 2400MG/30ML ORAL SUSPENSION 30 ML CUP PO PRN (10:53)
[2021-05-18] MEDS ORDERED: IBUPROFEN 400 MG TABLET (FP) PO PRN (10:53)
[2021-05-18] MEDS ORDERED: ALBUTEROL SO4 HFA INHALER IH PRN (10:55)
[2021-05-18] MEDS: NICOTINE 7 MG/24 HOURS TOPICAL PATCH TD SCH (13:28)
[2021-05-18] MEDS: hydrOXYzine PAMOATE 25 MG CAPSULE (FP) PO SCH ×3 (13:28→22:08)
[2021-05-18] MEDS: PRENATAL VITAMINS W/ FOLIC ACID TABLET (FP) PO SCH (13:28)
[2021-05-18] MEDS ORDERED: MELATONIN 5 MG TABLETS PO SCH (22:00)
[2021-05-18] MEDS: LISINOPRIL 10 MG TABLET PO SCH (22:08)
[2021-05-18] MEDS: MELATONIN 5 MG TABLETS PO SCH (22:08)
[2021-05-18] MEDS: THIAMINE HCL 100 MG TABLET (FP) PO SCH (22:08)
[2021-05-19] MEDS: hydrOXYzine PAMOATE 25 MG CAPSULE (FP) PO SCH (07:20)
[2021-05-19] MEDS ORDERED: hydrOXYzine PAMOATE 25 MG CAPSULE (FP) PO PRN (07:54)
[2021-05-19] MEDS ORDERED: methaDONE HCL 10 MG TABLET (FOR DETOX USE ONLY) ONE (09:27)
[2021-05-19 10:21] LABS: ALBUMIN 3.2 g/dl (3.4-5.0)
[2021-05-19 10:22] LABS: CALCIUM 7.6 mg/dL (8.5-10.1)
[2021-05-19] MEDS: NICOTINE 7 MG/24 HOURS TOPICAL PATCH TD SCH (10:22)
[2021-05-19] MEDS: amLODIPine BESYLATE 10 MG TABLET (FP) PO SCH (10:23)
[2021-05-19] MEDS: LISINOPRIL 10 MG TABLET PO SCH ×2 (10:23→22:57)
[2021-05-19] MEDS: PRENATAL VITAMINS W/ FOLIC ACID TABLET (FP) PO SCH (10:23)
[2021-05-19 10:26] LABS: CREATININE 3.4 mg/dL (0.55-1.3)
[2021-05-19 10:27] LABS: HEMATOCRIT 27.2 % (35.4-49); HEMOGLOBIN 9.3 GM/dL (11.7-16.9); MCHC 34.3 g/dl (32.0-35.9); MEAN CELL VOLUME 87.5 fl (80-96); MEAN PLT VOLUME 8.4 fl (7.5-11.1); PLATELET COUNT 232 10^3/uL (134-434); RDW 14.5 % (11.9-15.9); TOT PROT 6.7 g/dl (6.4-8.2); WHITE BLOOD COUNT 9.7 K/mm3 (4.0-10.0)
[2021-05-19 11:33] LABS: BILIRUBIN,TOTAL 0.2 mg/dL (0.2-1); BLOOD UREA NITROGEN 74.9 mg/dL (7-18)
[2021-05-19] MEDS ORDERED: AZITHROMYCIN 250 MG TABLET PO ONE (12:30)
[2021-05-19] MEDS: THIAMINE HCL 100 MG TABLET (FP) PO SCH (22:57)
[2021-05-19] MEDS: MELATONIN 5 MG TABLETS PO SCH (22:57)
[2021-05-20] MEDS ORDERED: AZITHROMYCIN 250 MG TABLET PO SCH (10:00)
[2021-05-20] MEDS ORDERED: methaDONE HCL 10 MG TABLET (FOR DETOX USE ONLY) PO ONE (10:00)
[2021-05-20] MEDS: amLODIPine BESYLATE 10 MG TABLET (FP) PO SCH (10:34)
[2021-05-20] MEDS: LISINOPRIL 10 MG TABLET PO SCH ×2 (10:34→22:13)
[2021-05-20] MEDS: PRENATAL VITAMINS W/ FOLIC ACID TABLET (FP) PO SCH (10:34)
[2021-05-20] MEDS: NICOTINE 7 MG/24 HOURS TOPICAL PATCH TD SCH (10:35)
[2021-05-20] MEDS: MELATONIN 5 MG TABLETS PO SCH (22:13)
[2021-05-20] MEDS: THIAMINE HCL 100 MG TABLET (FP) PO SCH (22:13)
[2021-05-21] MEDS ORDERED: methaDONE HCL 10 MG TABLET (FOR DETOX USE ONLY) ONE (09:57)
[2021-05-21 10:00] VITALS: BP 128/71; PULSE 72; TEMP 98.1
[2021-05-22] MEDS ORDERED: methaDONE HCL 10 MG TABLET (FOR DETOX USE ONLY) PO ONE (10:00)
== END 2021-05-21 11:40 | disposition left against medical advice (07) | DRG 770 ==
LOC: YASAS 08:17 → Y6N 10:48 → Y3N 23:24
PROVIDERS: ADMIT Allergy & Immunology; ATTEND Allergy & Immunology
PROC: HZ2ZZZZ Detoxification Services for Substance Abuse Treatment (ICD-10-PCS; principal; 2021-05-18)
DX: F11.23 Opioid dependence with withdrawal (principal); F10.230 Alcohol dependence with withdrawal, uncomplicated; F14.20 Cocaine dependence, uncomplicated; F16.10 Hallucinogen abuse, uncomplicated; F17.210 Nicotine dependence, cigarettes, uncomplicated; F19.282 Other psychoactive substance dependence with psychoactive substance-induced sleep disorder; F19.24 Other psychoactive substance dependence with psychoactive substance-induced mood disorder; F32.9 Major depressive disorder, single episode, unspecified; I10 Essential (primary) hypertension; J45.909 Unspecified asthma, uncomplicated; M17.11 Unilateral primary osteoarthritis, right knee; M54.5 Low back pain; G89.29 Other chronic pain; H54.62 Unqualified visual loss, left eye, normal vision right eye; Z96.641 Presence of right artificial hip joint; Z59.0 Homelessness
CPT/HCPCS: 36415; 80053; 85027; 86780; C9803; Q0162; U0003; U0005

== ENCOUNTER 2021-07-18 08:09 | Emergency (ER) | payer OTHER ==
[2021-07-18] MEDS ORDERED: LORazepam 2 MG/ML SDV VIAL IM ONE (08:35)
[2021-07-18] MEDS ORDERED: MAG HYDROX/AL HYDROX/SIMETH 30 ML UNIT-DOSE CUP PO ONE (08:43)
[2021-07-18] MEDS ORDERED: LORazepam 2 MG/ML SDV VIAL IVPUSH ONE (08:43)
[2021-07-18] MEDS ORDERED: SUCRALFATE 1 GM TABLET (FP) PO ONE (08:43)
[2021-07-18] MEDS ORDERED: FAMOTIDINE 20 MG/50 ML IVPB 20 MG/50 ML MG IVPB ONE ×2 (08:43→08:57)
[2021-07-18] MEDS ORDERED: ONDANSETRON 4 MG/2 ML VIAL IVPUSH ONE (08:43)
[2021-07-18 08:49] VITALS: TEMP 98.9; BMI 27.3
[2021-07-18] MEDS ORDERED: LACTATED RINGERS SOLUTION 1000 ML INFUS.BAG IV ONE (08:53)
[2021-07-18] MEDS ORDERED: LORazepam 2 MG/ML SDV VIAL ONE (08:56)
[2021-07-18] MEDS ORDERED: SUCRALFATE 1 GM TABLET (FP) ONE (08:56)
[2021-07-18] MEDS ORDERED: MAG HYDROX/AL HYDROX/SIMETH 30 ML UNIT-DOSE CUP ONE (08:56)
[2021-07-18] MEDS ORDERED: ONDANSETRON 4 MG/2 ML VIAL ONE (08:57)
[2021-07-18 10:05] LABS: CHLORIDE 99 mmol/L (98-107); SODIUM 135 mmol/L (136-145)
[2021-07-18 10:07] LABS: CALCIUM 9.3 mg/dL (8.5-10.1)
[2021-07-18 10:08] LABS: ALBUMIN 3.4 g/dl (3.4-5.0); ANION GAP 7 MMOL/L (8-16); BLOOD UREA NITROGEN 9.7 mg/dL (7-18); CO2 29 mmol/L (21-32); GLUCOSE,RANDOM 127 mg/dL (74-106); LIPASE 34 U/L (73-393)
[2021-07-18 10:09] LABS: MAGNESIUM 2.2 mg/dL (1.8-2.4)
[2021-07-18 10:10] LABS: SGOT/AST 60 U/L (15-37); SGPT/ALT 23 U/L (13-61)
[2021-07-18 10:11] LABS: CREATININE 0.8 mg/dL (0.55-1.3)
[2021-07-18 10:12] LABS: BILIRUBIN,TOTAL 0.4 mg/dL (0.2-1); TOT PROT 8.3 g/dl (6.4-8.2)
[2021-07-18 10:13] LABS: ALK PHOS 77 U/L (45-117)
[2021-07-18 10:18] LABS: BASO % 0.7 % (0-2.0); HEMATOCRIT 33.2 % (35.4-49); MCH 28.3 pg (25.7-33.7); MCHC 33.2 g/dl (32.0-35.9); MEAN PLT VOLUME 7.8 fl (7.5-11.1); MONO % 4.6 % (3.8-10.2); NEUT % 84.7 % (42.8-82.8); PLATELET COUNT 336 10^3/uL (134-434); RDW 15.8 % (11.9-15.9); WHITE BLOOD COUNT 8.7 K/mm3 (4.0-10.0)
[2021-07-18] MEDS ORDERED: amLODIPine BESYLATE 10 MG TABLET (FP) PO ONE (10:34)
[2021-07-18 10:42] LABS: ALBUMIN 3.5 g/dl (3.4-5.0); BLOOD UREA NITROGEN 9.9 mg/dL (7-18)
[2021-07-18 10:45] LABS: CREATININE 0.7 mg/dL (0.55-1.3)
[2021-07-18 10:47] LABS: BILIRUBIN,TOTAL 0.6 mg/dL (0.2-1)
[2021-07-18 10:53] VITALS: PULSE 66
[2021-07-18] MEDS ORDERED: amLODIPine BESYLATE 5 MG TABLET (FP) ONE (10:54)
[2021-07-18 12:09] VITALS: BP 195/67
== END 2021-07-18 13:39 | disposition home or self-care (01) ==
LOC: JER 08:09
PROC: 3E033GC Introduction of Other Therapeutic Substance into Peripheral Vein, Percutaneous Approach (ICD-10-PCS; principal; 2021-07-18)
PROC: 3E033NZ Introduction of Analgesics, Hypnotics, Sedatives into Peripheral Vein, Percutaneous Approach (ICD-10-PCS; 2021-07-18)
PROC: 3E033GC Introduction of Other Therapeutic Substance into Peripheral Vein, Percutaneous Approach (ICD-10-PCS; 2021-07-18)
DX: R10.13 Epigastric pain (principal); R11.2 Nausea with vomiting, unspecified; F19.10 Other psychoactive substance abuse, uncomplicated
CPT/HCPCS: 36415; 71045-TC-FY; 80053; 83690; 83735; 84484; 85025; 93005; 93010; 99285-25; C9803; U0003; U0005

== ENCOUNTER 2021-09-29 18:01 | Inpatient (IN) | payer OTHER ==
[2021-09-29 20:39] VITALS: BMI 25.6
[2021-09-29] MEDS ORDERED: METHOCARBAMOL 500 MG TABLET PO PRN (20:40)
[2021-09-29] MEDS ORDERED: ACETAMINOPHEN 325 MG TABLET (FP) PO PRN ×2 (20:40)
[2021-09-29] MEDS ORDERED: ONDANSETRON *ODT* 4 MG TABLET SL PRN (20:40)
[2021-09-29] MEDS ORDERED: MAGNESIUM CITRATE 300 ML BOTTLE PO PRN (20:40)
[2021-09-29] MEDS ORDERED: MAG HYDROX/AL HYDROX/SIMETH 30 ML UNIT-DOSE CUP PO PRN (20:40)
[2021-09-29] MEDS ORDERED: IBUPROFEN 400 MG TABLET (FP) PO PRN (20:40)
[2021-09-29] MEDS ORDERED: MENTHOL/PHENOL 1 EACH UD MM PRN (20:40)
[2021-09-29] MEDS ORDERED: MAGNESIUM HYDROX 2400MG/30ML ORAL SUSPENSION 30 ML CUP PO PRN (20:40)
[2021-09-29] MEDS ORDERED: BISMUTH SUBSALICYLATE 524 MG/30 ML PO PRN (20:40)
[2021-09-29] MEDS ORDERED: NICOTINE 10 MG CARTRIDGE (INHALER) IH PRN (20:40)
[2021-09-29] MEDS ORDERED: hydrOXYzine PAMOATE 25 MG CAPSULE (FP) PO ONE (23:49)
[2021-09-29] MEDS: hydrOXYzine PAMOATE 25 MG CAPSULE (FP) PO SCH (23:50)
[2021-09-29] MEDS: THIAMINE HCL 100 MG TABLET (FP) PO SCH (23:50)
[2021-09-29] MEDS: MELATONIN 5 MG TABLETS PO SCH (23:51)
[2021-09-30] MEDS ORDERED: hydrOXYzine PAMOATE 25 MG CAPSULE (FP) PO ONE ×2 (06:41→10:15)
[2021-09-30] MEDS: hydrOXYzine PAMOATE 25 MG CAPSULE (FP) PO SCH ×5 (07:09→22:13)
[2021-09-30] MEDS ORDERED: PRENATAL VITAMINS W/ FOLIC ACID TABLET (FP) PO SCH (10:00)
[2021-09-30] MEDS ORDERED: methaDONE HCL 10 MG TABLET PO SCH (10:45)
[2021-09-30] MEDS ORDERED: methaDONE HCL 10 MG TABLET ONE (11:53)
[2021-09-30] MEDS ORDERED: methaDONE HCL 40 MG DISPERSABLE TABLET ONE (11:53)
[2021-09-30] MEDS ORDERED: FLU VACC QS2021-22(6MOS UP)/PF 60 MCG/0.5 ML SYRINGE IM ONE (12:00)
[2021-09-30] MEDS: MELATONIN 5 MG TABLETS PO SCH (22:14)
[2021-09-30] MEDS: THIAMINE HCL 100 MG TABLET (FP) PO SCH (22:14)
[2021-10-01] MEDS ORDERED: methaDONE HCL 40 MG DISPERSABLE TABLET ONE (04:15)
[2021-10-01] MEDS ORDERED: methaDONE HCL 10 MG TABLET ONE (04:15)
[2021-10-01] MEDS: hydrOXYzine PAMOATE 25 MG CAPSULE (FP) PO SCH (05:33)
[2021-10-01 09:33] VITALS: BP 146/72; PULSE 65; TEMP 97.1
== END 2021-10-01 10:40 | disposition home or self-care (01) | DRG 773 ==
LOC: YASAS 18:01 → Y3N 09-30 11:39
PROVIDERS: ADMIT Allergy & Immunology; ATTEND Allergy & Immunology
PROC: HZ2ZZZZ Detoxification Services for Substance Abuse Treatment (ICD-10-PCS; principal; 2021-09-30)
DX: F11.23 Opioid dependence with withdrawal (principal); F10.230 Alcohol dependence with withdrawal, uncomplicated; F17.210 Nicotine dependence, cigarettes, uncomplicated; F19.282 Other psychoactive substance dependence with psychoactive substance-induced sleep disorder; F19.24 Other psychoactive substance dependence with psychoactive substance-induced mood disorder; F32.A Depression, unspecified; I10 Essential (primary) hypertension; J45.909 Unspecified asthma, uncomplicated; M17.11 Unilateral primary osteoarthritis, right knee; Z20.822 Contact with and (suspected) exposure to COVID-19; Z96.641 Presence of right artificial hip joint; Z86.19 Personal history of other infectious and parasitic diseases; Z91.51 Personal history of suicidal behavior
CPT/HCPCS: C9803; U0003; U0005

== ENCOUNTER 2021-10-12 07:17 | Inpatient (IN) | payer OTHER ==
[2021-10-12 07:49] VITALS: BMI 25.2
[2021-10-12] MEDS ORDERED: ACETAMINOPHEN 325 MG TABLET (FP) PO PRN (08:31)
[2021-10-12] MEDS ORDERED: NICOTINE 10 MG CARTRIDGE (INHALER) IH PRN (08:31)
[2021-10-12] MEDS ORDERED: MAGNESIUM HYDROX 2400MG/30ML ORAL SUSPENSION 30 ML CUP PO PRN (08:31)
[2021-10-12] MEDS ORDERED: MAG HYDROX/AL HYDROX/SIMETH 30 ML UNIT-DOSE CUP PO PRN (08:31)
[2021-10-12] MEDS ORDERED: MENTHOL/PHENOL 1 EACH UD MM PRN (08:31)
[2021-10-12] MEDS ORDERED: chlordiazePOXIDE HCL 25 MG CAPSULE PO PRN (08:31)
[2021-10-12] MEDS ORDERED: MAGNESIUM CITRATE 300 ML BOTTLE PO PRN (08:31)
[2021-10-12] MEDS ORDERED: ONDANSETRON *ODT* 4 MG TABLET SL PRN (08:31)
[2021-10-12] MEDS ORDERED: BISMUTH SUBSALICYLATE 262 MG/15 ML BTL PO PRN (08:31)
[2021-10-12] MEDS: PRENATAL VITAMINS W/ FOLIC ACID TABLET (FP) PO SCH (12:03)
[2021-10-12] MEDS: METHOCARBAMOL 500 MG TABLET PO PRN ×2 (12:04→17:49)
[2021-10-12] MEDS: hydrOXYzine PAMOATE 25 MG CAPSULE (FP) PO SCH ×4 (12:04→22:33)
[2021-10-12] MEDS: amLODIPine BESYLATE 10 MG TABLET (FP) PO SCH (12:04)
[2021-10-12] MEDS: LISINOPRIL 10 MG TABLET PO SCH ×2 (12:04→22:33)
[2021-10-12] MEDS: ACETAMINOPHEN 325 MG TABLET (FP) PO PRN (12:05)
[2021-10-12] MEDS: FAMOTIDINE 20 MG TABLET PO SCH (12:05)
[2021-10-12] MEDS: chlordiazePOXIDE HCL 25 MG CAPSULE PO SCH ×3 (12:05→22:33)
[2021-10-12 14:03] LABS: HEMATOCRIT 34.2 % (35.4-49); HEMOGLOBIN 10.9 GM/dL (11.7-16.9); MCH 27.3 pg (25.7-33.7); MCHC 31.9 g/dl (32.0-35.9); MEAN CELL VOLUME 85.6 fl (80-96); MEAN PLT VOLUME 8.1 fl (7.5-11.1); PLATELET COUNT 359 10^3/uL (134-434); RDW 18.5 % (11.9-15.9); WHITE BLOOD COUNT 7.4 K/mm3 (4.0-10.0)
[2021-10-12 15:24] LABS: ALBUMIN 4.5 g/dl (3.4-5.0); CALCIUM 9.6 mg/dL (8.5-10.1)
[2021-10-12 15:25] LABS: BLOOD UREA NITROGEN 17.6 mg/dL (7-18)
[2021-10-12 15:27] LABS: CREATININE 1.3 mg/dL (0.55-1.3)
[2021-10-12 15:29] LABS: BILIRUBIN,TOTAL 0.4 mg/dL (0.2-1); TOT PROT 9.1 g/dl (6.4-8.2)
[2021-10-12] MEDS ORDERED: MELATONIN 5 MG TABLETS PO SCH (22:00)
[2021-10-12] MEDS: MELATONIN 5 MG TABLETS PO SCH (22:33)
[2021-10-12] MEDS: THIAMINE HCL 100 MG TABLET (FP) PO SCH (22:33)
[2021-10-13] MEDS: chlordiazePOXIDE HCL 25 MG CAPSULE PO SCH ×4 (05:44→22:46)
[2021-10-13] MEDS: hydrOXYzine PAMOATE 25 MG CAPSULE (FP) PO SCH ×5 (05:46→22:51)
[2021-10-13] MEDS ORDERED: methaDONE HCL 10 MG TABLET PO SCH (09:45)
[2021-10-13] MEDS: FAMOTIDINE 20 MG TABLET PO SCH (10:31)
[2021-10-13] MEDS: PRENATAL VITAMINS W/ FOLIC ACID TABLET (FP) PO SCH (10:31)
[2021-10-13] MEDS: amLODIPine BESYLATE 10 MG TABLET (FP) PO SCH (10:31)
[2021-10-13] MEDS: METHOCARBAMOL 500 MG TABLET PO PRN ×3 (10:31→22:50)
[2021-10-13] MEDS: LISINOPRIL 10 MG TABLET PO SCH ×2 (10:33→22:46)
[2021-10-13] MEDS ORDERED: methaDONE HCL 40 MG DISPERSABLE TABLET ONE (10:34)
[2021-10-13] MEDS ORDERED: methaDONE HCL 10 MG TABLET ONE (10:34)
[2021-10-13] MEDS: methaDONE 40 MG, methaDONE 30 MG PO SCH (10:35)
[2021-10-13] MEDS: ACETAMINOPHEN 325 MG TABLET (FP) PO PRN (10:36)
[2021-10-13] MEDS: MELATONIN 5 MG TABLETS PO SCH (22:46)
[2021-10-13] MEDS: THIAMINE HCL 100 MG TABLET (FP) PO SCH (22:46)
[2021-10-14] MEDS ORDERED: methaDONE HCL 10 MG TABLET ONE (04:48)
[2021-10-14] MEDS ORDERED: methaDONE HCL 40 MG DISPERSABLE TABLET ONE (04:49)
[2021-10-14] MEDS: methaDONE 40 MG, methaDONE 30 MG PO SCH (05:41)
[2021-10-14] MEDS: chlordiazePOXIDE HCL 25 MG CAPSULE PO SCH ×4 (05:41→22:11)
[2021-10-14] MEDS: hydrOXYzine PAMOATE 25 MG CAPSULE (FP) PO SCH ×5 (05:41→22:11)
[2021-10-14] MEDS: METHOCARBAMOL 500 MG TABLET PO PRN ×3 (05:48→22:16)
[2021-10-14] MEDS: FAMOTIDINE 20 MG TABLET PO SCH (10:35)
[2021-10-14] MEDS: amLODIPine BESYLATE 10 MG TABLET (FP) PO SCH (10:35)
[2021-10-14] MEDS: LISINOPRIL 10 MG TABLET PO SCH ×2 (10:35→22:11)
[2021-10-14] MEDS: PRENATAL VITAMINS W/ FOLIC ACID TABLET (FP) PO SCH (10:35)
[2021-10-14] MEDS: LIDOCAINE 5% TOPICAL PATCH TP SCH (10:37)
[2021-10-14] MEDS: IBUPROFEN 400 MG TABLET (FP) PO PRN ×2 (15:34→22:17)
[2021-10-14] MEDS ORDERED: ALBUTEROL SO4 HFA INHALER IH ONE (18:19)
[2021-10-14] MEDS: ALBUTEROL SO4 HFA INHALER IH PRN (18:20)
[2021-10-14] MEDS: THIAMINE HCL 100 MG TABLET (FP) PO SCH (22:11)
[2021-10-14] MEDS: MELATONIN 5 MG TABLETS PO SCH (22:12)
[2021-10-14] MEDS: LIDOCAINE PATCH REMOVAL MC SCH (22:12)
[2021-10-15] MEDS ORDERED: chlordiazePOXIDE HCL 10 MG CAPSULE PO PRN
[2021-10-15] MEDS ORDERED: methaDONE HCL 10 MG TABLET ONE (04:39)
[2021-10-15] MEDS ORDERED: methaDONE HCL 40 MG DISPERSABLE TABLET ONE (04:40)
[2021-10-15] MEDS: hydrOXYzine PAMOATE 25 MG CAPSULE (FP) PO SCH ×5 (06:26→21:31)
[2021-10-15] MEDS: chlordiazePOXIDE HCL 10 MG CAPSULE PO SCH ×4 (06:27→22:00)
[2021-10-15] MEDS: methaDONE 40 MG, methaDONE 30 MG PO SCH (06:27)
[2021-10-15] MEDS: IBUPROFEN 400 MG TABLET (FP) PO PRN (06:33)
[2021-10-15] MEDS: METHOCARBAMOL 500 MG TABLET PO PRN ×2 (06:34→15:25)
[2021-10-15] MEDS: LISINOPRIL 10 MG TABLET PO SCH ×2 (10:06→21:30)
[2021-10-15] MEDS: amLODIPine BESYLATE 10 MG TABLET (FP) PO SCH (10:06)
[2021-10-15] MEDS: PRENATAL VITAMINS W/ FOLIC ACID TABLET (FP) PO SCH (10:06)
[2021-10-15] MEDS: LIDOCAINE 5% TOPICAL PATCH TP SCH (10:07)
[2021-10-15] MEDS: FAMOTIDINE 20 MG TABLET PO SCH (10:07)
[2021-10-15] MEDS: ALBUTEROL SO4 HFA INHALER IH PRN ×2 (10:09→21:33)
[2021-10-15] MEDS: THIAMINE HCL 100 MG TABLET (FP) PO SCH (21:31)
[2021-10-15] MEDS: LIDOCAINE PATCH REMOVAL MC SCH (21:31)
[2021-10-15] MEDS: MELATONIN 5 MG TABLETS PO SCH (21:31)
[2021-10-16] MEDS ORDERED: methaDONE HCL 10 MG TABLET ONE (04:38)
[2021-10-16] MEDS ORDERED: methaDONE HCL 40 MG DISPERSABLE TABLET ONE (04:38)
[2021-10-16] MEDS: chlordiazePOXIDE HCL 10 MG CAPSULE PO SCH ×2 (05:54→18:17)
[2021-10-16] MEDS: methaDONE 40 MG, methaDONE 30 MG PO SCH (05:54)
[2021-10-16] MEDS: hydrOXYzine PAMOATE 25 MG CAPSULE (FP) PO SCH ×5 (05:54→22:15)
[2021-10-16] MEDS: PRENATAL VITAMINS W/ FOLIC ACID TABLET (FP) PO SCH (10:45)
[2021-10-16] MEDS: ALBUTEROL SO4 HFA INHALER IH PRN (10:45)
[2021-10-16] MEDS: METHOCARBAMOL 500 MG TABLET PO PRN (10:46)
[2021-10-16] MEDS: FAMOTIDINE 20 MG TABLET PO SCH (10:46)
[2021-10-16] MEDS: amLODIPine BESYLATE 10 MG TABLET (FP) PO SCH (10:46)
[2021-10-16] MEDS: LIDOCAINE 5% TOPICAL PATCH TP SCH (10:46)
[2021-10-16] MEDS: LISINOPRIL 10 MG TABLET PO SCH ×2 (11:54→22:15)
[2021-10-16] MEDS: IBUPROFEN 400 MG TABLET (FP) PO PRN (11:57)
[2021-10-16] MEDS ORDERED: BACITRACIN 0.9 GM PACKET TP SCH (22:00)
[2021-10-16] MEDS: MELATONIN 5 MG TABLETS PO SCH (22:15)
[2021-10-16] MEDS: LIDOCAINE PATCH REMOVAL MC SCH (22:16)
[2021-10-16] MEDS: THIAMINE HCL 100 MG TABLET (FP) PO SCH (22:16)
[2021-10-17] MEDS ORDERED: methaDONE HCL 10 MG TABLET ONE (04:14)
[2021-10-17] MEDS ORDERED: methaDONE HCL 40 MG DISPERSABLE TABLET ONE (04:14)
[2021-10-17] MEDS ORDERED: chlordiazePOXIDE HCL 10 MG CAPSULE PO ONE (05:00)
[2021-10-17] MEDS: hydrOXYzine PAMOATE 25 MG CAPSULE (FP) PO SCH (05:35)
[2021-10-17] MEDS: methaDONE 40 MG, methaDONE 30 MG PO SCH (05:36)
[2021-10-17 09:38] VITALS: BP 127/67; PULSE 84; TEMP 98.4
== END 2021-10-17 09:53 | disposition home or self-care (01) | DRG 773 ==
LOC: YASAS 07:17 → Y6N 11:07
PROVIDERS: ADMIT Allergy & Immunology; ATTEND Allergy & Immunology
PROC: HZ2ZZZZ Detoxification Services for Substance Abuse Treatment (ICD-10-PCS; principal; 2021-10-12)
DX: F10.230 Alcohol dependence with withdrawal, uncomplicated (principal); F11.20 Opioid dependence, uncomplicated; F14.20 Cocaine dependence, uncomplicated; F41.8 Other specified anxiety disorders; F32.A Depression, unspecified; D64.9 Anemia, unspecified; I10 Essential (primary) hypertension; J45.909 Unspecified asthma, uncomplicated; H54.62 Unqualified visual loss, left eye, normal vision right eye; M17.11 Unilateral primary osteoarthritis, right knee; M54.50 Low back pain, unspecified; G89.29 Other chronic pain; Z96.641 Presence of right artificial hip joint; Z86.19 Personal history of other infectious and parasitic diseases; Z59.02 Unsheltered homelessness
CPT/HCPCS: 36415; 80053; 85027; 86780; C9803; Q0162; U0003; U0005

== ENCOUNTER 2021-10-26 06:12 | Inpatient (IN) | payer OTHER ==
[2021-10-26 06:45] VITALS: BMI 26.2
[2021-10-26] MEDS ORDERED: chlordiazePOXIDE HCL 25 MG CAPSULE PO PRN (10:59)
[2021-10-26] MEDS ORDERED: MENTHOL/PHENOL 1 EACH UD MM PRN (10:59)
[2021-10-26] MEDS ORDERED: BISMUTH SUBSALICYLATE 262 MG/15 ML BTL PO PRN (10:59)
[2021-10-26] MEDS ORDERED: MAG HYDROX/AL HYDROX/SIMETH 30 ML UNIT-DOSE CUP PO PRN (10:59)
[2021-10-26] MEDS ORDERED: ONDANSETRON *ODT* 4 MG TABLET SL PRN (10:59)
[2021-10-26] MEDS ORDERED: NICOTINE 10 MG CARTRIDGE (INHALER) IH PRN (10:59)
[2021-10-26] MEDS ORDERED: ACETAMINOPHEN 325 MG TABLET (FP) PO PRN ×2 (10:59)
[2021-10-26] MEDS ORDERED: MAGNESIUM HYDROX 2400MG/30ML ORAL SUSPENSION 30 ML CUP PO PRN (10:59)
[2021-10-26] MEDS ORDERED: MAGNESIUM CITRATE 300 ML BOTTLE PO PRN (10:59)
[2021-10-26] MEDS ORDERED: methaDONE HCL 10 MG TABLET PO SCH (12:00)
[2021-10-26] MEDS ORDERED: methaDONE HCL 40 MG DISPERSABLE TABLET ONE (13:57)
[2021-10-26] MEDS ORDERED: methaDONE HCL 10 MG TABLET ONE (13:57)
[2021-10-26] MEDS: methaDONE 40 MG, methaDONE 30 MG PO SCH (14:05)
[2021-10-26] MEDS: chlordiazePOXIDE HCL 25 MG CAPSULE PO SCH ×3 (14:06→22:10)
[2021-10-26] MEDS: hydrOXYzine PAMOATE 25 MG CAPSULE (FP) PO SCH ×3 (14:19→22:11)
[2021-10-26 16:40] LABS: HEMOGLOBIN 9.4 GM/dL (11.7-16.9); MCH 28.2 pg (25.7-33.7); MCHC 32.5 g/dl (32.0-35.9); MEAN CELL VOLUME 86.8 fl (80-96); PLATELET COUNT 373 10^3/uL (134-434); RBC 3.34 M/mm3 (4.00-5.60); RDW 18.7 % (11.9-15.9); WHITE BLOOD COUNT 4.6 K/mm3 (4.0-10.0)
[2021-10-26 17:08] LABS: ALBUMIN 3.7 g/dl (3.4-5.0); CALCIUM 8.6 mg/dL (8.5-10.1)
[2021-10-26 17:09] LABS: BLOOD UREA NITROGEN 13.7 mg/dL (7-18)
[2021-10-26 17:11] LABS: CREATININE 1.1 mg/dL (0.55-1.3)
[2021-10-26 17:13] LABS: BILIRUBIN,TOTAL 0.4 mg/dL (0.2-1); TOT PROT 7.6 g/dl (6.4-8.2)
[2021-10-26] MEDS: DOXYCYCLINE HYCLATE 100 MG TABLET PO SCH (20:06)
[2021-10-26] MEDS: MELATONIN 5 MG TABLETS PO SCH (22:11)
[2021-10-26] MEDS: THIAMINE HCL 100 MG TABLET (FP) PO SCH (22:11)
[2021-10-26] MEDS: BACITRACIN 0.9 GM PACKET TP SCH (22:13)
[2021-10-27] MEDS ORDERED: methaDONE HCL 10 MG TABLET ONE (04:25)
[2021-10-27] MEDS ORDERED: methaDONE HCL 40 MG DISPERSABLE TABLET ONE (04:25)
[2021-10-27] MEDS: chlordiazePOXIDE HCL 25 MG CAPSULE PO SCH ×4 (05:57→22:40)
[2021-10-27] MEDS: METHOCARBAMOL 500 MG TABLET PO PRN ×2 (05:57→17:38)
[2021-10-27] MEDS: hydrOXYzine PAMOATE 25 MG CAPSULE (FP) PO SCH ×5 (05:57→22:40)
[2021-10-27] MEDS: methaDONE 40 MG, methaDONE 30 MG PO SCH (05:57)
[2021-10-27] MEDS ORDERED: methaDONE HCL 10 MG TABLET PO SCH (06:00)
[2021-10-27] MEDS: PRENATAL VITAMINS W/ FOLIC ACID TABLET (FP) PO SCH (10:11)
[2021-10-27] MEDS: DOXYCYCLINE HYCLATE 100 MG TABLET PO SCH ×2 (10:11→17:38)
[2021-10-27] MEDS: BACITRACIN 0.9 GM PACKET TP SCH ×2 (10:12→22:41)
[2021-10-27] MEDS: LISINOPRIL 10 MG TABLET PO SCH (10:13)
[2021-10-27] MEDS: amLODIPine BESYLATE 10 MG TABLET (FP) PO SCH (10:13)
[2021-10-27] MEDS: MELATONIN 5 MG TABLETS PO SCH (22:40)
[2021-10-27] MEDS: THIAMINE HCL 100 MG TABLET (FP) PO SCH (22:42)
[2021-10-27] MEDS: IBUPROFEN 400 MG TABLET (FP) PO PRN (22:46)
[2021-10-28] MEDS ORDERED: methaDONE HCL 40 MG DISPERSABLE TABLET ONE (04:46)
[2021-10-28] MEDS ORDERED: methaDONE HCL 10 MG TABLET ONE (04:46)
[2021-10-28] MEDS: methaDONE 40 MG, methaDONE 30 MG PO SCH (07:17)
[2021-10-28] MEDS: chlordiazePOXIDE HCL 25 MG CAPSULE PO SCH ×4 (07:18→22:07)
[2021-10-28] MEDS: hydrOXYzine PAMOATE 25 MG CAPSULE (FP) PO SCH ×5 (07:18→22:06)
[2021-10-28] MEDS: BACITRACIN 0.9 GM PACKET TP SCH ×2 (10:53→22:51)
[2021-10-28] MEDS: DOXYCYCLINE HYCLATE 100 MG TABLET PO SCH ×2 (10:53→17:34)
[2021-10-28] MEDS: LISINOPRIL 10 MG TABLET PO SCH (10:53)
[2021-10-28] MEDS: amLODIPine BESYLATE 10 MG TABLET (FP) PO SCH (10:53)
[2021-10-28] MEDS: PRENATAL VITAMINS W/ FOLIC ACID TABLET (FP) PO SCH (10:54)
[2021-10-28] MEDS ORDERED: ALBUTEROL SO4 HFA INHALER IH PRN (10:57)
[2021-10-28 14:11] LABS: SARS-CoV-2 NAA Not Detected (Not Detected)
[2021-10-28 16:11] LABS: SARS-CoV-2 NAA Not Detected (Not Detected)
[2021-10-28] MEDS: IBUPROFEN 400 MG TABLET (FP) PO PRN (17:35)
[2021-10-28] MEDS: THIAMINE HCL 100 MG TABLET (FP) PO SCH (22:06)
[2021-10-28] MEDS: MELATONIN 5 MG TABLETS PO SCH (22:06)
[2021-10-28] MEDS: METHOCARBAMOL 500 MG TABLET PO PRN (22:06)
[2021-10-29] MEDS ORDERED: chlordiazePOXIDE HCL 10 MG CAPSULE PO PRN
[2021-10-29] MEDS ORDERED: methaDONE HCL 10 MG TABLET ONE (04:37)
[2021-10-29] MEDS ORDERED: methaDONE HCL 40 MG DISPERSABLE TABLET ONE (04:37)
[2021-10-29] MEDS: chlordiazePOXIDE HCL 10 MG CAPSULE PO SCH ×4 (06:08→22:13)
[2021-10-29] MEDS: methaDONE 40 MG, methaDONE 30 MG PO SCH (06:08)
[2021-10-29] MEDS: hydrOXYzine PAMOATE 25 MG CAPSULE (FP) PO SCH ×5 (06:08→22:11)
[2021-10-29] MEDS: amLODIPine BESYLATE 10 MG TABLET (FP) PO SCH (10:19)
[2021-10-29] MEDS: DOXYCYCLINE HYCLATE 100 MG TABLET PO SCH ×2 (10:19→17:39)
[2021-10-29] MEDS: LISINOPRIL 10 MG TABLET PO SCH (10:19)
[2021-10-29] MEDS: BACITRACIN 0.9 GM PACKET TP SCH ×2 (10:19→22:11)
[2021-10-29] MEDS: PRENATAL VITAMINS W/ FOLIC ACID TABLET (FP) PO SCH (10:20)
[2021-10-29] MEDS: THIAMINE HCL 100 MG TABLET (FP) PO SCH (22:11)
[2021-10-29] MEDS: MELATONIN 5 MG TABLETS PO SCH (22:11)
[2021-10-29] MEDS: METHOCARBAMOL 500 MG TABLET PO PRN (22:12)
[2021-10-29] MEDS: IBUPROFEN 400 MG TABLET (FP) PO PRN (22:12)
[2021-10-30] MEDS ORDERED: methaDONE HCL 10 MG TABLET ONE (04:21)
[2021-10-30] MEDS ORDERED: methaDONE HCL 40 MG DISPERSABLE TABLET ONE (04:22)
[2021-10-30] MEDS: methaDONE 40 MG, methaDONE 30 MG PO SCH (05:22)
[2021-10-30] MEDS: hydrOXYzine PAMOATE 25 MG CAPSULE (FP) PO SCH ×5 (05:22→21:30)
[2021-10-30] MEDS: chlordiazePOXIDE HCL 10 MG CAPSULE PO SCH ×2 (05:23→17:26)
[2021-10-30] MEDS: PRENATAL VITAMINS W/ FOLIC ACID TABLET (FP) PO SCH (10:35)
[2021-10-30] MEDS: DOXYCYCLINE HYCLATE 100 MG TABLET PO SCH ×2 (10:35→17:25)
[2021-10-30] MEDS: BACITRACIN 0.9 GM PACKET TP SCH ×2 (10:35→21:31)
[2021-10-30] MEDS: LISINOPRIL 10 MG TABLET PO SCH (10:35)
[2021-10-30] MEDS: amLODIPine BESYLATE 10 MG TABLET (FP) PO SCH (10:35)
[2021-10-30] MEDS: THIAMINE HCL 100 MG TABLET (FP) PO SCH (21:30)
[2021-10-30] MEDS: MELATONIN 5 MG TABLETS PO SCH (21:30)
[2021-10-30] MEDS: IBUPROFEN 400 MG TABLET (FP) PO PRN (22:27)
[2021-10-31] MEDS ORDERED: methaDONE HCL 10 MG TABLET ONE (04:30)
[2021-10-31] MEDS ORDERED: methaDONE HCL 40 MG DISPERSABLE TABLET ONE (04:30)
[2021-10-31] MEDS ORDERED: chlordiazePOXIDE HCL 10 MG CAPSULE PO ONE (05:00)
[2021-10-31] MEDS: methaDONE 40 MG, methaDONE 30 MG PO SCH (05:20)
[2021-10-31] MEDS: hydrOXYzine PAMOATE 25 MG CAPSULE (FP) PO SCH (05:20)
[2021-10-31 06:25] VITALS: BP 144/69; PULSE 62; TEMP 97.1
== END 2021-10-31 07:28 | disposition home or self-care (01) | DRG 773 ==
LOC: YASAS 06:12 → Y3N 11:57
PROVIDERS: ADMIT Allergy & Immunology; ATTEND Allergy & Immunology
PROC: HZ2ZZZZ Detoxification Services for Substance Abuse Treatment (ICD-10-PCS; principal; 2021-10-26)
DX: F10.230 Alcohol dependence with withdrawal, uncomplicated (principal); F11.20 Opioid dependence, uncomplicated; F14.20 Cocaine dependence, uncomplicated; F17.210 Nicotine dependence, cigarettes, uncomplicated; F19.24 Other psychoactive substance dependence with psychoactive substance-induced mood disorder; F32.A Depression, unspecified; D64.9 Anemia, unspecified; H54.62 Unqualified visual loss, left eye, normal vision right eye; E11.9 Type 2 diabetes mellitus without complications; I10 Essential (primary) hypertension; J45.909 Unspecified asthma, uncomplicated; M17.11 Unilateral primary osteoarthritis, right knee; M54.50 Low back pain, unspecified; G89.29 Other chronic pain; R74.01 Elevation of levels of liver transaminase levels; Z96.641 Presence of right artificial hip joint; Z86.19 Personal history of other infectious and parasitic diseases; Z59.00 Homelessness unspecified
CPT/HCPCS: 36415; 71045-TC-FY; 80053; 85027; 86780; C9803; Q0162; U0003; U0005

== ENCOUNTER 2021-11-19 19:00 | Inpatient (IN) | payer OTHER ==
[2021-11-19] MEDS ORDERED: ONDANSETRON *ODT* 4 MG TABLET SL PRN (20:04)
[2021-11-19] MEDS ORDERED: NICOTINE POLACRILEX 2 MG GUM BUC PRN (20:04)
[2021-11-19] MEDS ORDERED: MAGNESIUM HYDROX 2400MG/30ML ORAL SUSPENSION 30 ML CUP PO PRN (20:04)
[2021-11-19] MEDS ORDERED: BISMUTH SUBSALICYLATE 524 MG/30 ML PO PRN (20:04)
[2021-11-19] MEDS ORDERED: LOPERAMIDE HCL 2 MG CAPSULE PO PRN (20:04)
[2021-11-19] MEDS ORDERED: MAGNESIUM CITRATE 300 ML BOTTLE PO PRN (20:04)
[2021-11-19] MEDS ORDERED: MAG HYDROX/AL HYDROX/SIMETH 30 ML UNIT-DOSE CUP PO PRN (20:04)
[2021-11-19] MEDS ORDERED: chlordiazePOXIDE HCL 25 MG CAPSULE PO PRN (20:04)
[2021-11-19] MEDS ORDERED: ACETAMINOPHEN 325 MG TABLET (FP) PO PRN ×2 (20:04)
[2021-11-19] MEDS ORDERED: MENTHOL/PHENOL 1 EACH UD MM PRN (20:04)
[2021-11-19 21:36] VITALS: BMI 25.3
[2021-11-19] MEDS: MELATONIN 5 MG TABLETS PO SCH (23:13)
[2021-11-19] MEDS: THIAMINE HCL 100 MG TABLET (FP) PO SCH (23:13)
[2021-11-19] MEDS: chlordiazePOXIDE HCL 25 MG CAPSULE PO SCH (23:13)
[2021-11-20] MEDS: chlordiazePOXIDE HCL 25 MG CAPSULE PO SCH ×4 (05:20→22:14)
[2021-11-20] MEDS ORDERED: methaDONE HCL 10 MG TABLET PO SCH (09:15)
[2021-11-20] MEDS ORDERED: methaDONE 40 MG, methaDONE 30 MG PO ONE (09:30)
[2021-11-20] MEDS ORDERED: methaDONE HCL 40 MG DISPERSABLE TABLET ONE (09:50)
[2021-11-20] MEDS ORDERED: methaDONE HCL 10 MG TABLET ONE (09:50)
[2021-11-20] MEDS: PRENATAL VITAMINS W/ FOLIC ACID TABLET (FP) PO SCH (10:15)
[2021-11-20] MEDS: NICOTINE 21 MG/24 HOURS TOPICAL PATCH TD SCH (10:18)
[2021-11-20] MEDS: IBUPROFEN 400 MG TABLET (FP) PO PRN (10:21)
[2021-11-20] MEDS: METHOCARBAMOL 500 MG TABLET PO PRN ×2 (10:23→22:16)
[2021-11-20 11:30] LABS: HEMATOCRIT 30.3 % (35.4-49); MCH 28.4 pg (25.7-33.7); MCHC 32.9 g/dl (32.0-35.9); MEAN CELL VOLUME 86.3 fl (80-96); MEAN PLT VOLUME 8.2 fl (7.5-11.1); PLATELET COUNT 280 10^3/uL (134-434); RBC 3.51 M/mm3 (4.00-5.60); RDW 17.5 % (11.9-15.9); WHITE BLOOD COUNT 5.1 K/mm3 (4.0-10.0)
[2021-11-20 11:35] LABS: CALCIUM 8.8 mg/dL (8.5-10.1)
[2021-11-20 11:36] LABS: ALBUMIN 3.4 g/dl (3.4-5.0); BLOOD UREA NITROGEN 19.3 mg/dL (7-18)
[2021-11-20 11:38] LABS: CREATININE 0.9 mg/dL (0.55-1.3)
[2021-11-20 11:39] LABS: BILIRUBIN,TOTAL 0.3 mg/dL (0.2-1); TOT PROT 6.8 g/dl (6.4-8.2)
[2021-11-20] MEDS: amLODIPine BESYLATE 10 MG TABLET (FP) PO SCH (12:04)
[2021-11-20] MEDS: LISINOPRIL 10 MG TABLET PO SCH (12:04)
[2021-11-20 12:32] LABS: HIV INTERPRETATION NEGATIVE (NEGATIVE)
[2021-11-20] MEDS: MELATONIN 5 MG TABLETS PO SCH (22:14)
[2021-11-20] MEDS: THIAMINE HCL 100 MG TABLET (FP) PO SCH (22:14)
[2021-11-20] MEDS: MIRTAZAPINE 15 MG TABLET (FP) PO SCH (22:14)
[2021-11-21] MEDS ORDERED: methaDONE HCL 40 MG DISPERSABLE TABLET ONE (04:23)
[2021-11-21] MEDS ORDERED: methaDONE HCL 10 MG TABLET ONE (04:23)
[2021-11-21] MEDS: methaDONE 40 MG, methaDONE 30 MG PO SCH (05:31)
[2021-11-21] MEDS: chlordiazePOXIDE HCL 25 MG CAPSULE PO SCH ×4 (05:31→22:10)
[2021-11-21] MEDS: NICOTINE 21 MG/24 HOURS TOPICAL PATCH TD SCH (10:20)
[2021-11-21] MEDS: FLUoxetine HCL 20 MG CAPSULE PO SCH (10:21)
[2021-11-21] MEDS: amLODIPine BESYLATE 10 MG TABLET (FP) PO SCH (10:21)
[2021-11-21] MEDS: LISINOPRIL 10 MG TABLET PO SCH (10:21)
[2021-11-21] MEDS: IBUPROFEN 400 MG TABLET (FP) PO PRN ×2 (10:25→22:15)
[2021-11-21] MEDS: METHOCARBAMOL 500 MG TABLET PO PRN ×2 (10:25→22:10)
[2021-11-21] MEDS: PRENATAL VITAMINS W/ FOLIC ACID TABLET (FP) PO SCH (10:47)
[2021-11-21 14:07] LABS: SARS-CoV-2 NAA Not Detected (Not Detected)
[2021-11-21] MEDS: ALBUTEROL SO4 HFA INHALER IH PRN (17:46)
[2021-11-21] MEDS: THIAMINE HCL 100 MG TABLET (FP) PO SCH (22:10)
[2021-11-21] MEDS: MELATONIN 5 MG TABLETS PO SCH (22:10)
[2021-11-21] MEDS: MIRTAZAPINE 15 MG TABLET (FP) PO SCH (22:10)
[2021-11-22] MEDS ORDERED: chlordiazePOXIDE HCL 10 MG CAPSULE PO PRN
[2021-11-22] MEDS ORDERED: methaDONE HCL 10 MG TABLET ONE (04:15)
[2021-11-22] MEDS ORDERED: methaDONE HCL 40 MG DISPERSABLE TABLET ONE (04:15)
[2021-11-22] MEDS: chlordiazePOXIDE HCL 10 MG CAPSULE PO SCH ×4 (05:30→22:27)
[2021-11-22] MEDS: methaDONE 40 MG, methaDONE 30 MG PO SCH (05:30)
[2021-11-22] MEDS: ALBUTEROL SO4 HFA INHALER IH PRN ×2 (08:08→20:10)
[2021-11-22] MEDS: PRENATAL VITAMINS W/ FOLIC ACID TABLET (FP) PO SCH (10:03)
[2021-11-22] MEDS: FLUoxetine HCL 20 MG CAPSULE PO SCH (10:03)
[2021-11-22] MEDS: amLODIPine BESYLATE 10 MG TABLET (FP) PO SCH (10:03)
[2021-11-22] MEDS: LISINOPRIL 10 MG TABLET PO SCH (10:03)
[2021-11-22] MEDS: NICOTINE 21 MG/24 HOURS TOPICAL PATCH TD SCH (10:03)
[2021-11-22] MEDS: IBUPROFEN 400 MG TABLET (FP) PO PRN (10:07)
[2021-11-22] MEDS: MIRTAZAPINE 15 MG TABLET (FP) PO SCH (22:26)
[2021-11-22] MEDS: MELATONIN 5 MG TABLETS PO SCH (22:26)
[2021-11-22] MEDS: THIAMINE HCL 100 MG TABLET (FP) PO SCH (22:27)
[2021-11-22] MEDS: METHOCARBAMOL 500 MG TABLET PO PRN (22:28)
[2021-11-23] MEDS ORDERED: methaDONE HCL 10 MG TABLET ONE (04:31)
[2021-11-23] MEDS ORDERED: methaDONE HCL 40 MG DISPERSABLE TABLET ONE (04:31)
[2021-11-23] MEDS: chlordiazePOXIDE HCL 10 MG CAPSULE PO SCH ×2 (05:28→19:22)
[2021-11-23] MEDS: methaDONE 40 MG, methaDONE 30 MG PO SCH (05:29)
[2021-11-23] MEDS: ALBUTEROL SO4 HFA INHALER IH PRN ×2 (07:48→19:25)
[2021-11-23] MEDS: PRENATAL VITAMINS W/ FOLIC ACID TABLET (FP) PO SCH (10:22)
[2021-11-23] MEDS: FLUoxetine HCL 20 MG CAPSULE PO SCH (10:23)
[2021-11-23] MEDS: NICOTINE 21 MG/24 HOURS TOPICAL PATCH TD SCH (10:23)
[2021-11-23] MEDS: LISINOPRIL 10 MG TABLET PO SCH (10:23)
[2021-11-23] MEDS: amLODIPine BESYLATE 10 MG TABLET (FP) PO SCH (10:23)
[2021-11-23] MEDS: IBUPROFEN 400 MG TABLET (FP) PO PRN (10:25)
[2021-11-23] MEDS: MELATONIN 5 MG TABLETS PO SCH (22:20)
[2021-11-23] MEDS: MIRTAZAPINE 15 MG TABLET (FP) PO SCH (22:20)
[2021-11-23] MEDS: THIAMINE HCL 100 MG TABLET (FP) PO SCH (22:20)
[2021-11-23] MEDS: METHOCARBAMOL 500 MG TABLET PO PRN (22:21)
[2021-11-24] MEDS ORDERED: methaDONE HCL 40 MG DISPERSABLE TABLET ONE (04:50)
[2021-11-24] MEDS ORDERED: methaDONE HCL 10 MG TABLET ONE (04:50)
[2021-11-24] MEDS ORDERED: chlordiazePOXIDE HCL 10 MG CAPSULE PO ONE (05:00)
[2021-11-24] MEDS: methaDONE 40 MG, methaDONE 30 MG PO SCH (05:33)
[2021-11-24 08:26] VITALS: BP 144/74; PULSE 67; TEMP 98.7
== END 2021-11-24 09:44 | disposition home or self-care (01) | DRG 773 ==
LOC: YASAS 19:00 → Y3N 22:18
PROVIDERS: ADMIT Allergy & Immunology; ATTEND Allergy & Immunology
PROC: HZ2ZZZZ Detoxification Services for Substance Abuse Treatment (ICD-10-PCS; principal; 2021-11-19)
DX: F11.23 Opioid dependence with withdrawal (principal); F10.230 Alcohol dependence with withdrawal, uncomplicated; F17.210 Nicotine dependence, cigarettes, uncomplicated; F19.24 Other psychoactive substance dependence with psychoactive substance-induced mood disorder; F32.A Depression, unspecified; H54.62 Unqualified visual loss, left eye, normal vision right eye; G47.00 Insomnia, unspecified; I10 Essential (primary) hypertension; J44.9 Chronic obstructive pulmonary disease, unspecified; M17.11 Unilateral primary osteoarthritis, right knee; Z96.641 Presence of right artificial hip joint; Z86.19 Personal history of other infectious and parasitic diseases; Z59.00 Homelessness unspecified; Z91.19 Patient's noncompliance with other medical treatment and regimen
CPT/HCPCS: 36415; 80053; 85027; 86780; 87389; 87811; C9803; Q0162; U0003; U0005

== ENCOUNTER 2022-02-24 18:06 | Inpatient (IN) | payer OTHER ==
[2022-02-24 18:27] VITALS: BMI 25.3
[2022-02-24] MEDS ORDERED: MAGNESIUM HYDROX 2400MG/30ML ORAL SUSPENSION 30 ML CUP PO PRN (20:05)
[2022-02-24] MEDS ORDERED: ACETAMINOPHEN 325 MG TABLET (FP) PO PRN ×2 (20:05)
[2022-02-24] MEDS ORDERED: MAGNESIUM CITRATE 300 ML BOTTLE PO PRN (20:05)
[2022-02-24] MEDS ORDERED: LOPERAMIDE HCL 2 MG CAPSULE PO PRN (20:05)
[2022-02-24] MEDS ORDERED: MAG HYDROX/AL HYDROX/SIMETH 30 ML UNIT-DOSE CUP PO PRN (20:05)
[2022-02-24] MEDS ORDERED: ONDANSETRON *ODT* 4 MG TABLET SL PRN (20:05)
[2022-02-24] MEDS ORDERED: MELATONIN 5 MG TABLETS PO PRN (20:05)
[2022-02-24] MEDS ORDERED: IBUPROFEN 600 MG TABLET (FP) PO PRN (20:05)
[2022-02-24] MEDS ORDERED: BENZOCAINE/MENTHOL (CHLORASEPTIC ) LOZENGE MM PRN (20:05)
[2022-02-24] MEDS ORDERED: NICOTINE POLACRILEX 2 MG GUM BUC PRN (20:05)
[2022-02-24] MEDS ORDERED: DICYCLOMINE HCL 10 MG CAPSULE PO PRN (20:05)
[2022-02-24] MEDS ORDERED: BISMUTH SUBSALICYLATE 524 MG/30 ML PO PRN (20:05)
[2022-02-24] MEDS: diazePAM 5 MG TABLET PO SCH (23:32)
[2022-02-24] MEDS: hydrOXYzine PAMOATE 25 MG CAPSULE (FP) PO PRN (23:33)
[2022-02-24] MEDS: THIAMINE HCL 100 MG TABLET (FP) PO SCH (23:34)
[2022-02-25] MEDS: diazePAM 5 MG TABLET PO SCH ×4 (06:03→22:26)
[2022-02-25] MEDS: PRENATAL VITAMINS W/ FOLIC ACID TABLET (FP) PO SCH (10:47)
[2022-02-25] MEDS: hydrOXYzine PAMOATE 25 MG CAPSULE (FP) PO PRN (10:48)
[2022-02-25 11:54] LABS: HEMATOCRIT 29.8 % (35.4-49); HEMOGLOBIN 9.8 GM/dL (11.7-16.9); MCH 27.1 pg (25.7-33.7); MCHC 32.7 g/dl (32.0-35.9); MEAN CELL VOLUME 82.8 fl (80-96); MEAN PLT VOLUME 7.9 fl (7.5-11.1); PLATELET COUNT 288 10^3/uL (134-434); RDW 16.8 % (11.9-15.9); WHITE BLOOD COUNT 9.8 K/mm3 (4.0-10.0)
[2022-02-25 12:03] LABS: CALCIUM 8.7 mg/dL (8.5-10.1)
[2022-02-25 12:04] LABS: ALBUMIN 3.4 g/dl (3.4-5.0); BLOOD UREA NITROGEN 21.9 mg/dL (7-18)
[2022-02-25 12:06] LABS: CREATININE 1.3 mg/dL (0.55-1.3)
[2022-02-25 12:08] LABS: BILIRUBIN,TOTAL 0.2 mg/dL (0.2-1); TOT PROT 7.1 g/dl (6.4-8.2)
[2022-02-25] MEDS: amLODIPine BESYLATE 10 MG TABLET (FP) PO SCH (16:06)
[2022-02-25] MEDS: LISINOPRIL 10 MG TABLET PO SCH (22:25)
[2022-02-25] MEDS: SUVOREXANT 10 MG TABLET PO PRN (22:25)
[2022-02-25] MEDS: THIAMINE HCL 100 MG TABLET (FP) PO SCH (22:26)
[2022-02-26] MEDS: diazePAM 5 MG TABLET PO SCH ×3 (06:14→22:31)
[2022-02-26] MEDS: METHOCARBAMOL 500 MG TABLET PO PRN (06:18)
[2022-02-26] MEDS: IBUPROFEN 400 MG TABLET (FP) PO PRN (06:19)
[2022-02-26] MEDS: PRENATAL VITAMINS W/ FOLIC ACID TABLET (FP) PO SCH (10:16)
[2022-02-26] MEDS: diazePAM 5 MG TABLET PO PRN (10:16)
[2022-02-26] MEDS: amLODIPine BESYLATE 10 MG TABLET (FP) PO SCH (10:16)
[2022-02-26] MEDS: methaDONE HCL 40 MG DISPERSABLE TABLET PO SCH (11:55)
[2022-02-26] MEDS: LISINOPRIL 10 MG TABLET PO SCH (22:30)
[2022-02-26] MEDS: THIAMINE HCL 100 MG TABLET (FP) PO SCH (22:30)
[2022-02-26] MEDS: SUVOREXANT 10 MG TABLET PO PRN (22:33)
[2022-02-27] MEDS: diazePAM 5 MG TABLET PO SCH ×2 (05:35→18:03)
[2022-02-27] MEDS: methaDONE HCL 40 MG DISPERSABLE TABLET PO SCH (05:35)
[2022-02-27 09:51] LABS: HEMATOCRIT 32.7 % (35.4-49); HEMOGLOBIN 10.8 GM/dL (11.7-16.9); MCH 27.8 pg (25.7-33.7); MCHC 33.1 g/dl (32.0-35.9); MEAN CELL VOLUME 83.9 fl (80-96); MEAN PLT VOLUME 7.9 fl (7.5-11.1); PLATELET COUNT 272 10^3/uL (134-434); RDW 16.6 % (11.9-15.9)
[2022-02-27] MEDS ORDERED: FERROUS SO4 325 MG TABLET (FP) PO SCH (10:00)
[2022-02-27] MEDS: PRENATAL VITAMINS W/ FOLIC ACID TABLET (FP) PO SCH (10:31)
[2022-02-27] MEDS: METHOCARBAMOL 500 MG TABLET PO PRN (10:31)
[2022-02-27] MEDS: amLODIPine BESYLATE 10 MG TABLET (FP) PO SCH (10:31)
[2022-02-27] MEDS: diazePAM 5 MG TABLET PO PRN (10:31)
[2022-02-27] MEDS: hydrOXYzine PAMOATE 25 MG CAPSULE (FP) PO PRN (18:01)
[2022-02-27] MEDS: LISINOPRIL 10 MG TABLET PO SCH (22:40)
[2022-02-27] MEDS: SUVOREXANT 10 MG TABLET PO PRN (22:40)
[2022-02-27] MEDS: THIAMINE HCL 100 MG TABLET (FP) PO SCH (22:40)
[2022-02-28] MEDS: methaDONE HCL 40 MG DISPERSABLE TABLET PO SCH (05:44)
[2022-02-28] MEDS: IBUPROFEN 400 MG TABLET (FP) PO PRN (05:47)
[2022-02-28] MEDS ORDERED: diazePAM 5 MG TABLET PO ONE (06:00)
[2022-02-28 06:47] VITALS: BP 154/82; PULSE 73; TEMP 97
== END 2022-02-28 07:15 | disposition home or self-care (01) | DRG 773 ==
LOC: YASAS 18:06 → Y6N 21:43
PROVIDERS: ADMIT Allergy & Immunology; ATTEND Surgery
PROC: HZ2ZZZZ Detoxification Services for Substance Abuse Treatment (ICD-10-PCS; principal; 2022-02-24)
DX: F10.230 Alcohol dependence with withdrawal, uncomplicated (principal); F10.220 Alcohol dependence with intoxication, uncomplicated; F11.20 Opioid dependence, uncomplicated; F14.20 Cocaine dependence, uncomplicated; F16.10 Hallucinogen abuse, uncomplicated; F17.210 Nicotine dependence, cigarettes, uncomplicated; F32.A Depression, unspecified; F19.24 Other psychoactive substance dependence with psychoactive substance-induced mood disorder; F19.282 Other psychoactive substance dependence with psychoactive substance-induced sleep disorder; I10 Essential (primary) hypertension; B18.2 Chronic viral hepatitis C; D64.9 Anemia, unspecified; H54.40 Blindness, one eye, unspecified eye; J45.909 Unspecified asthma, uncomplicated; M54.59 Other low back pain; G89.29 Other chronic pain; M17.11 Unilateral primary osteoarthritis, right knee; R26.2 Difficulty in walking, not elsewhere classified; Z99.89 Dependence on other enabling machines and devices; Z59.01 Sheltered homelessness; Z96.641 Presence of right artificial hip joint
CPT/HCPCS: 36415; 80053; 82962; 85027; 86780; C9803-CS; U0003; U0005

== ENCOUNTER 2022-03-06 15:20 | Inpatient (IN) | payer OTHER ==
[2022-03-06 18:33] VITALS: BMI 25.0
[2022-03-06] MEDS ORDERED: MAG HYDROX/AL HYDROX/SIMETH 30 ML UNIT-DOSE CUP PO PRN (19:49)
[2022-03-06] MEDS ORDERED: ACETAMINOPHEN 325 MG TABLET (FP) PO PRN ×2 (19:49)
[2022-03-06] MEDS ORDERED: IBUPROFEN 600 MG TABLET (FP) PO PRN (19:49)
[2022-03-06] MEDS ORDERED: IBUPROFEN 400 MG TABLET (FP) PO PRN (19:49)
[2022-03-06] MEDS ORDERED: LOPERAMIDE HCL 2 MG CAPSULE PO PRN (19:49)
[2022-03-06] MEDS ORDERED: MAGNESIUM CITRATE 300 ML BOTTLE PO PRN (19:49)
[2022-03-06] MEDS ORDERED: MAGNESIUM HYDROX 2400MG/30ML ORAL SUSPENSION 30 ML CUP PO PRN (19:49)
[2022-03-06] MEDS ORDERED: BENZOCAINE/MENTHOL (CHLORASEPTIC ) LOZENGE MM PRN (19:49)
[2022-03-06] MEDS ORDERED: BISMUTH SUBSALICYLATE 524 MG/30 ML PO PRN (19:49)
[2022-03-06] MEDS ORDERED: ONDANSETRON *ODT* 4 MG TABLET SL PRN (19:49)
[2022-03-06] MEDS ORDERED: DICYCLOMINE HCL 10 MG CAPSULE PO PRN (19:49)
[2022-03-06] MEDS ORDERED: NICOTINE 10 MG CARTRIDGE (INHALER) IH PRN (19:49)
[2022-03-06] MEDS ORDERED: NALOXONE HCL 0.4 MG/ML VIAL IM PRN (19:49)
[2022-03-06] MEDS: LISINOPRIL 10 MG TABLET PO SCH (22:01)
[2022-03-06] MEDS: MELATONIN 5 MG TABLETS PO SCH (22:02)
[2022-03-06] MEDS: ATORVASTATIN CA 20 MG TABLET (FP) PO SCH (22:02)
[2022-03-06] MEDS: hydrOXYzine PAMOATE 25 MG CAPSULE (FP) PO SCH (22:02)
[2022-03-06] MEDS: THIAMINE HCL 100 MG TABLET (FP) PO SCH (22:03)
[2022-03-07] MEDS: hydrOXYzine PAMOATE 25 MG CAPSULE (FP) PO SCH ×5 (05:35→22:10)
[2022-03-07] MEDS ORDERED: methaDONE 40 MG, methaDONE 30 MG PO ONE (08:00)
[2022-03-07] MEDS ORDERED: methaDONE HCL 10 MG TABLET PO SCH (08:00)
[2022-03-07] MEDS ORDERED: methaDONE HCL 10 MG TABLET ONE (08:56)
[2022-03-07] MEDS ORDERED: methaDONE HCL 40 MG DISPERSABLE TABLET ONE (08:57)
[2022-03-07] MEDS: LISINOPRIL 10 MG TABLET PO SCH (09:34)
[2022-03-07] MEDS: METHOCARBAMOL 500 MG TABLET PO PRN (09:34)
[2022-03-07] MEDS: NICOTINE 7 MG/24 HOURS TOPICAL PATCH TD SCH (09:34)
[2022-03-07] MEDS: amLODIPine BESYLATE 10 MG TABLET (FP) PO SCH (09:34)
[2022-03-07] MEDS: PRENATAL VITAMINS W/ FOLIC ACID TABLET (FP) PO SCH (09:34)
[2022-03-07] MEDS ORDERED: chlordiazePOXIDE HCL 25 MG CAPSULE PO PRN (09:54)
[2022-03-07] MEDS: chlordiazePOXIDE HCL 25 MG CAPSULE PO SCH ×3 (10:22→22:07)
[2022-03-07] MEDS: BUDESONIDE/FORMETEROL FUMARATE 80/4.5 mcg INHALER IH SCH ×2 (10:22→22:08)
[2022-03-07] MEDS: hydrALAZINE HCL 50 MG TABLET (FP) PO SCH (10:22)
[2022-03-07] MEDS: ALBUTEROL SO4 HFA INHALER IH PRN (10:25)
[2022-03-07 12:03] LABS: ALBUMIN 4.1 g/dl (3.4-5.0); HEMATOCRIT 31.7 % (35.4-49); HEMOGLOBIN 10.5 GM/dL (11.7-16.9); MCH 27.8 pg (25.7-33.7); MEAN CELL VOLUME 84.2 fl (80-96); MEAN PLT VOLUME 8.2 fl (7.5-11.1); PLATELET COUNT 316 10^3/uL (134-434); RBC 3.76 M/mm3 (4.00-5.60); RDW 16.6 % (11.9-15.9); WHITE BLOOD COUNT 6.4 K/mm3 (4.0-10.0)
[2022-03-07 12:05] LABS: BLOOD UREA NITROGEN 25.8 mg/dL (7-18); CALCIUM 9.3 mg/dL (8.5-10.1)
[2022-03-07 12:08] LABS: BILIRUBIN,TOTAL 0.8 mg/dL (0.2-1); CREATININE 1.2 mg/dL (0.55-1.3); TOT PROT 8.3 g/dl (6.4-8.2)
[2022-03-07] MEDS: THIAMINE HCL 100 MG TABLET (FP) PO SCH (22:06)
[2022-03-07] MEDS: ATORVASTATIN CA 20 MG TABLET (FP) PO SCH (22:06)
[2022-03-07] MEDS: MELATONIN 5 MG TABLETS PO SCH (22:07)
[2022-03-08] MEDS ORDERED: methaDONE HCL 10 MG TABLET ONE (04:07)
[2022-03-08] MEDS ORDERED: methaDONE HCL 40 MG DISPERSABLE TABLET ONE (04:08)
[2022-03-08] MEDS: methaDONE 40 MG, methaDONE 30 MG PO SCH (05:42)
[2022-03-08] MEDS: chlordiazePOXIDE HCL 25 MG CAPSULE PO SCH ×4 (05:43→22:11)
[2022-03-08] MEDS: hydrOXYzine PAMOATE 25 MG CAPSULE (FP) PO SCH ×5 (05:46→22:12)
[2022-03-08] MEDS: BUDESONIDE/FORMETEROL FUMARATE 80/4.5 mcg INHALER IH SCH ×2 (10:08→22:11)
[2022-03-08] MEDS: PRENATAL VITAMINS W/ FOLIC ACID TABLET (FP) PO SCH (10:08)
[2022-03-08] MEDS: hydrALAZINE HCL 50 MG TABLET (FP) PO SCH (10:08)
[2022-03-08] MEDS: amLODIPine BESYLATE 10 MG TABLET (FP) PO SCH (10:09)
[2022-03-08] MEDS: NICOTINE 7 MG/24 HOURS TOPICAL PATCH TD SCH (10:09)
[2022-03-08] MEDS: LISINOPRIL 10 MG TABLET PO SCH (10:09)
[2022-03-08] MEDS: METHOCARBAMOL 500 MG TABLET PO PRN (10:09)
[2022-03-08 12:46] LABS: CALCIUM 8.9 mg/dL (8.5-10.1)
[2022-03-08 12:47] LABS: BLOOD UREA NITROGEN 23.1 mg/dL (7-18)
[2022-03-08] MEDS: MELATONIN 5 MG TABLETS PO SCH (22:11)
[2022-03-08] MEDS: ATORVASTATIN CA 20 MG TABLET (FP) PO SCH (22:11)
[2022-03-08] MEDS: THIAMINE HCL 100 MG TABLET (FP) PO SCH (22:11)
[2022-03-09] MEDS ORDERED: methaDONE HCL 10 MG TABLET ONE (04:09)
[2022-03-09] MEDS ORDERED: methaDONE HCL 40 MG DISPERSABLE TABLET ONE (04:09)
[2022-03-09] MEDS: hydrOXYzine PAMOATE 25 MG CAPSULE (FP) PO SCH ×5 (05:23→22:35)
[2022-03-09] MEDS: methaDONE 40 MG, methaDONE 30 MG PO SCH (05:24)
[2022-03-09] MEDS: chlordiazePOXIDE HCL 25 MG CAPSULE PO SCH ×4 (05:24→22:32)
[2022-03-09] MEDS: amLODIPine BESYLATE 10 MG TABLET (FP) PO SCH (10:17)
[2022-03-09] MEDS: hydrALAZINE HCL 50 MG TABLET (FP) PO SCH (10:17)
[2022-03-09] MEDS: PRENATAL VITAMINS W/ FOLIC ACID TABLET (FP) PO SCH (10:17)
[2022-03-09] MEDS: ALBUTEROL SO4 HFA INHALER IH PRN (10:17)
[2022-03-09] MEDS: BUDESONIDE/FORMETEROL FUMARATE 80/4.5 mcg INHALER IH SCH ×2 (10:17→22:33)
[2022-03-09] MEDS: LISINOPRIL 10 MG TABLET PO SCH (10:17)
[2022-03-09] MEDS: NICOTINE 7 MG/24 HOURS TOPICAL PATCH TD SCH (10:18)
[2022-03-09] MEDS: ATORVASTATIN CA 20 MG TABLET (FP) PO SCH (22:32)
[2022-03-09] MEDS: MELATONIN 5 MG TABLETS PO SCH (22:32)
[2022-03-09] MEDS: THIAMINE HCL 100 MG TABLET (FP) PO SCH (22:32)
[2022-03-10] MEDS ORDERED: chlordiazePOXIDE HCL 10 MG CAPSULE PO PRN
[2022-03-10] MEDS ORDERED: methaDONE HCL 10 MG TABLET ONE (04:00)
[2022-03-10] MEDS ORDERED: methaDONE HCL 40 MG DISPERSABLE TABLET ONE (04:00)
[2022-03-10] MEDS: chlordiazePOXIDE HCL 10 MG CAPSULE PO SCH ×4 (05:45→23:23)
[2022-03-10] MEDS: hydrOXYzine PAMOATE 25 MG CAPSULE (FP) PO SCH ×5 (05:45→23:25)
[2022-03-10] MEDS: methaDONE 40 MG, methaDONE 30 MG PO SCH (05:45)
[2022-03-10] MEDS: hydrALAZINE HCL 50 MG TABLET (FP) PO SCH (10:20)
[2022-03-10] MEDS: BUDESONIDE/FORMETEROL FUMARATE 80/4.5 mcg INHALER IH SCH ×2 (10:20→23:24)
[2022-03-10] MEDS: ALBUTEROL SO4 HFA INHALER IH PRN (10:20)
[2022-03-10] MEDS: amLODIPine BESYLATE 10 MG TABLET (FP) PO SCH (10:21)
[2022-03-10] MEDS: NICOTINE 7 MG/24 HOURS TOPICAL PATCH TD SCH (10:21)
[2022-03-10] MEDS: PRENATAL VITAMINS W/ FOLIC ACID TABLET (FP) PO SCH (10:21)
[2022-03-10] MEDS: MELATONIN 5 MG TABLETS PO SCH (23:23)
[2022-03-10] MEDS: ATORVASTATIN CA 20 MG TABLET (FP) PO SCH (23:24)
[2022-03-11] MEDS: THIAMINE HCL 100 MG TABLET (FP) PO SCH (01:27)
[2022-03-11] MEDS ORDERED: methaDONE HCL 10 MG TABLET ONE (04:10)
[2022-03-11] MEDS ORDERED: methaDONE HCL 40 MG DISPERSABLE TABLET ONE (04:11)
[2022-03-11] MEDS ORDERED: chlordiazePOXIDE HCL 10 MG CAPSULE PO SCH (05:00)
[2022-03-11] MEDS: methaDONE 40 MG, methaDONE 30 MG PO SCH (05:36)
[2022-03-11] MEDS: hydrOXYzine PAMOATE 25 MG CAPSULE (FP) PO SCH ×2 (05:37→09:53)
[2022-03-11 09:29] VITALS: BP 141/81; PULSE 86; TEMP 97.9
[2022-03-11] MEDS: NICOTINE 7 MG/24 HOURS TOPICAL PATCH TD SCH (09:53)
[2022-03-11] MEDS: PRENATAL VITAMINS W/ FOLIC ACID TABLET (FP) PO SCH (09:53)
[2022-03-11] MEDS: METHOCARBAMOL 500 MG TABLET PO PRN (09:53)
[2022-03-11] MEDS: amLODIPine BESYLATE 10 MG TABLET (FP) PO SCH (09:53)
[2022-03-11] MEDS: hydrALAZINE HCL 50 MG TABLET (FP) PO SCH (09:54)
[2022-03-11] MEDS: BUDESONIDE/FORMETEROL FUMARATE 80/4.5 mcg INHALER IH SCH (09:55)
[2022-03-12] MEDS ORDERED: chlordiazePOXIDE HCL 10 MG CAPSULE PO ONE (05:00)
== END 2022-03-11 10:48 | disposition home or self-care (01) | DRG 773 ==
LOC: YASAS 15:20 → Y6N 20:47 → UNDOADMIN 20:47 → Y6N 03-10 18:49
PROVIDERS: ADMIT Allergy & Immunology; ATTEND Surgery
PROC: HZ2ZZZZ Detoxification Services for Substance Abuse Treatment (ICD-10-PCS; principal; 2022-03-06)
DX: F10.230 Alcohol dependence with withdrawal, uncomplicated (principal); F11.20 Opioid dependence, uncomplicated; F14.20 Cocaine dependence, uncomplicated; F16.10 Hallucinogen abuse, uncomplicated; F17.210 Nicotine dependence, cigarettes, uncomplicated; I10 Essential (primary) hypertension; J45.20 Mild intermittent asthma, uncomplicated; E78.1 Pure hyperglyceridemia; M17.11 Unilateral primary osteoarthritis, right knee; R26.2 Difficulty in walking, not elsewhere classified; Z99.89 Dependence on other enabling machines and devices; Z96.641 Presence of right artificial hip joint
CPT/HCPCS: 36415; 80048; 80053; 82947; 85027; 86780; 87811; C9803-CS; U0003; U0005

== ENCOUNTER 2022-03-13 13:53 | Observation (INO) | payer OTHER ==
[2022-03-13 13:58] VITALS: BMI 25.8
[2022-03-13] MEDS ORDERED: SODIUM CHLORIDE 0.9% 500 ML INFUS.BAG IV ONE (14:51)
[2022-03-13] MEDS ORDERED: NALOXONE HCL 0.4 MG/ML VIAL IVPUSH ONE ×2 (15:25→17:29)
[2022-03-13 16:22] LABS: BASO % 0.4 % (0-2.0); EOS % 3.7 % (0-4.5); HEMATOCRIT 25.2 % (35.4-49); HEMOGLOBIN 8.3 GM/dL (11.7-16.9); LYMPH % 14.8 % (8-40); MCH 27.6 pg (25.7-33.7); MCHC 32.9 g/dl (32.0-35.9); MEAN PLT VOLUME 7.9 fl (7.5-11.1); NEUT % 70.1 % (42.8-82.8); PLATELET COUNT 337 10^3/uL (134-434); RDW 16.9 % (11.9-15.9); WHITE BLOOD COUNT 11.3 K/mm3 (4.0-10.0)
[2022-03-13 16:24] LABS: VENOUS O2 SATURATION 33.9 % (70-80); VENOUS PH 7.268 (7.310-7.410)
[2022-03-13] MEDS ORDERED: NALOXONE HCL 0.4 MG/ML VIAL ONE (16:27)
[2022-03-13 16:41] LABS: ALBUMIN 3.7 g/dl (3.4-5.0); CALCIUM 8.5 mg/dL (8.5-10.1)
[2022-03-13 16:42] LABS: BLOOD UREA NITROGEN 38.7 mg/dL (7-18)
[2022-03-13 16:44] LABS: CREATININE 2.1 mg/dL (0.55-1.3)
[2022-03-13 16:46] LABS: BILIRUBIN,TOTAL 0.3 mg/dL (0.2-1); TOT PROT 7.5 g/dl (6.4-8.2)
[2022-03-13] MEDS ORDERED: LORazepam 1 MG TABLET PO PRN (22:54)
[2022-03-13] MEDS ORDERED: SODIUM CHLORIDE 500 ML IV STA (23:52)
[2022-03-13] MEDS: MELATONIN 5 MG TABLETS PO SCH (23:52)
[2022-03-13] MEDS: THIAMINE HCL 100 MG TABLET (FP) PO SCH (23:53)
[2022-03-14] MEDS ORDERED: ALBUTEROL SO4 HFA INHALER IH PRN (00:43)
[2022-03-14] MEDS ORDERED: SODIUM CHLORIDE 1,000 ML IV SCH (00:45)
[2022-03-14] MEDS ORDERED: methaDONE HCL 10 MG TABLET PO SCH (06:00)
[2022-03-14 08:48] LABS: BASO % 0.5 % (0-2.0); EOS % 5.9 % (0-4.5); HEMATOCRIT 24.2 % (35.4-49); HEMOGLOBIN 8.2 GM/dL (11.7-16.9); LYMPH % 21.8 % (8-40); MCH 28.4 pg (25.7-33.7); MEAN CELL VOLUME 83.5 fl (80-96); MEAN PLT VOLUME 8.2 fl (7.5-11.1); MONO % 12.8 % (3.8-10.2); PLATELET COUNT 318 10^3/uL (134-434); RDW 16.5 % (11.9-15.9)
[2022-03-14 09:19] LABS: BLOOD UREA NITROGEN 26.9 mg/dL (7-18); CALCIUM 8.6 mg/dL (8.5-10.1); MAGNESIUM 2.6 mg/dL (1.8-2.4); PHOSPHOROUS 4.3 mg/dL (2.5-4.9)
[2022-03-14 09:21] LABS: BILIRUBIN,TOTAL 0.3 mg/dL (0.2-1); TOT PROT 6.5 g/dl (6.4-8.2)
[2022-03-14 09:22] LABS: CREATININE 1.2 mg/dL (0.55-1.3)
[2022-03-14] MEDS ORDERED: methaDONE HCL 10 MG TABLET ONE (09:55)
[2022-03-14] MEDS ORDERED: methaDONE HCL 40 MG DISPERSABLE TABLET ONE (09:55)
[2022-03-14] MEDS: methaDONE 40 MG, methaDONE 30 MG PO SCH (11:20)
[2022-03-14] MEDS: MULTIVITAMINS (DAILY MVI) TABLET (FP) PO SCH (11:20)
[2022-03-14] MEDS: NICOTINE 14 MG/24 HOURS TOPICAL PATCH TD SCH (11:22)
[2022-03-14] MEDS: THIAMINE HCL 100 MG TABLET (FP) PO SCH (11:22)
[2022-03-14] MEDS: FOLIC ACID 1 MG TABLET (FP) PO SCH (11:22)
[2022-03-14] MEDS: HEPARIN NA (PORCINE) 5,000 UNITS/ML 1ML VIAL SQ SCH ×3 (11:23→21:31)
[2022-03-14 11:50] LABS: URINE APPEARANCE CLEAR; URINE BILIRUBIN NEGATIVE (NEGATIVE); URINE COLOR YELLOW; URINE GLUCOSE (UA) NEGATIVE (NEGATIVE); URINE KETONE NEGATIVE (NEGATIVE); URINE LEUK ESTERASE NEGATIVE (NEGATIVE); URINE NITRITE NEGATIVE (NEGATIVE); URINE PROTEIN NEGATIVE (NEGATIVE); URINE UROBILINOGEN 0.2 mg/dL (0.2-1.0)
[2022-03-14 12:24] LABS: PHENCYCLIDINE,URINE NEGATIVE (NEGATIVE)
[2022-03-14 12:25] LABS: COCAINE, UR NEGATIVE (NEGATIVE); OPIATES, URI NEGATIVE (NEGATIVE); URINE BARBITURATES NEGATIVE (NEGATIVE)
[2022-03-14 12:30] LABS: METHADONE, UR POSITIVE (NEGATIVE); URINE AMPHETAMINES NEGATIVE (NEGATIVE); URINE BENZODIAZEPINES POSITIVE (NEGATIVE)
[2022-03-14] MEDS: ACETAMINOPHEN 325 MG TABLET (FP) PO PRN (14:08)
[2022-03-14] MEDS: MELATONIN 5 MG TABLETS PO SCH (21:31)
[2022-03-14] MEDS ORDERED: ATORVASTATIN CA 20 MG TABLET (FP) PO SCH (22:00)
[2022-03-15] MEDS ORDERED: methaDONE HCL 10 MG TABLET ONE (06:05)
[2022-03-15] MEDS ORDERED: methaDONE HCL 40 MG DISPERSABLE TABLET ONE (06:06)
[2022-03-15] MEDS: methaDONE 40 MG, methaDONE 30 MG PO SCH (06:14)
[2022-03-15] MEDS: HEPARIN NA (PORCINE) 5,000 UNITS/ML 1ML VIAL SQ SCH ×2 (06:15→13:42)
[2022-03-15 08:20] LABS: MCHC 33.3 g/dl (32.0-35.9); MEAN CELL VOLUME 84.1 fl (80-96); MEAN PLT VOLUME 8.3 fl (7.5-11.1); PLATELET COUNT 369 10^3/uL (134-434); RBC 3.21 M/mm3 (4.00-5.60); RDW 16.3 % (11.9-15.9); WHITE BLOOD COUNT 7.8 K/mm3 (4.0-10.0)
[2022-03-15 08:37] LABS: CALCIUM 8.8 mg/dL (8.5-10.1)
[2022-03-15 08:38] LABS: BLOOD UREA NITROGEN 23.8 mg/dL (7-18)
[2022-03-15 08:41] LABS: CREATININE 1.1 mg/dL (0.55-1.3)
[2022-03-15] MEDS: FOLIC ACID 1 MG TABLET (FP) PO SCH (10:41)
[2022-03-15] MEDS: MULTIVITAMINS (DAILY MVI) TABLET (FP) PO SCH (10:42)
[2022-03-15] MEDS: THIAMINE HCL 100 MG TABLET (FP) PO SCH (10:42)
[2022-03-15] MEDS: NICOTINE 14 MG/24 HOURS TOPICAL PATCH TD SCH (10:42)
[2022-03-15] MEDS: ACETAMINOPHEN 325 MG TABLET (FP) PO PRN (10:43)
[2022-03-15 15:41] VITALS: BP 133/59; PULSE 70; TEMP 98.4
[2022-03-16] MEDS ORDERED: LORazepam 0.5 MG TABLET PO PRN
== END 2022-03-15 14:50 | disposition home or self-care (01) ==
LOC: JER 13:53 → JERBED 17:49 → J7W 23:03
PROVIDERS: ADMIT Hospitalist; ATTEND Internal Medicine
PROC: 3E033NZ Introduction of Analgesics, Hypnotics, Sedatives into Peripheral Vein, Percutaneous Approach (ICD-10-PCS; principal; 2022-03-13)
PROC: 3E0337Z Introduction of Electrolytic and Water Balance Substance into Peripheral Vein, Percutaneous Approach (ICD-10-PCS; 2022-03-13)
PROC: 3E013GC Introduction of Other Therapeutic Substance into Subcutaneous Tissue, Percutaneous Approach (ICD-10-PCS; 2022-03-13)
DX: F11.221 Opioid dependence with intoxication delirium (principal); R41.82 Altered mental status, unspecified; N17.9 Acute kidney failure, unspecified; F10.10 Alcohol abuse, uncomplicated; F17.210 Nicotine dependence, cigarettes, uncomplicated; F41.9 Anxiety disorder, unspecified; F32.A Depression, unspecified; I10 Essential (primary) hypertension; J45.909 Unspecified asthma, uncomplicated; M25.521 Pain in right elbow; R79.89 Other specified abnormal findings of blood chemistry; Z86.19 Personal history of other infectious and parasitic diseases; Z59.01 Sheltered homelessness; W18.39XA Other fall on same level, initial encounter; Y93.89 Activity, other specified; Y92.89 Other specified places as the place of occurrence of the external cause
CPT/HCPCS: 36415; 70450-TC; 71045-TC-FY; 72125-TC; 72170-TC-FY; 72192-TC; 73030-TC-RT-FY; 73070-TC-RT-FY; 73090-TC-RT-FY; 73110-TC-RT-FY; 73130-TC-RT-FY; 73562-TC-RT-FY; 73700-TC-RT; 80048; 80053; 80307; 81003; 82803; 83735; 84100; 85025; 85027; 87086; 93005; 93010; 99285-25; C9803-CS; G0378; J1644; U0003; U0005

== ENCOUNTER 2022-03-20 14:44 | Inpatient (IN) | payer OTHER ==
[2022-03-20 16:58] VITALS: BMI 25.2
[2022-03-20] MEDS ORDERED: DICYCLOMINE HCL 10 MG CAPSULE PO PRN (18:01)
[2022-03-20] MEDS ORDERED: NICOTINE 10 MG CARTRIDGE (INHALER) IH PRN (18:01)
[2022-03-20] MEDS ORDERED: BENZOCAINE/MENTHOL (CHLORASEPTIC ) LOZENGE MM PRN (18:01)
[2022-03-20] MEDS ORDERED: MAGNESIUM HYDROX 2400MG/30ML ORAL SUSPENSION 30 ML CUP PO PRN (18:01)
[2022-03-20] MEDS ORDERED: BISMUTH SUBSALICYLATE 524 MG/30 ML PO PRN (18:01)
[2022-03-20] MEDS ORDERED: MAG HYDROX/AL HYDROX/SIMETH 30 ML UNIT-DOSE CUP PO PRN (18:01)
[2022-03-20] MEDS ORDERED: LOPERAMIDE HCL 2 MG CAPSULE PO PRN (18:01)
[2022-03-20] MEDS ORDERED: ONDANSETRON *ODT* 4 MG TABLET SL PRN (18:01)
[2022-03-20] MEDS ORDERED: IBUPROFEN 400 MG TABLET (FP) PO PRN (18:01)
[2022-03-20] MEDS ORDERED: IBUPROFEN 600 MG TABLET (FP) PO PRN (18:01)
[2022-03-20] MEDS ORDERED: METHOCARBAMOL 500 MG TABLET PO PRN (18:01)
[2022-03-20] MEDS ORDERED: ACETAMINOPHEN 325 MG TABLET (FP) PO PRN ×2 (18:01)
[2022-03-20] MEDS ORDERED: MAGNESIUM CITRATE 300 ML BOTTLE PO PRN (18:01)
[2022-03-20] MEDS ORDERED: MELATONIN 5 MG TABLETS PO SCH (22:00)
[2022-03-20] MEDS ORDERED: THIAMINE HCL 100 MG TABLET (FP) PO SCH (22:00)
[2022-03-20] MEDS: hydrOXYzine PAMOATE 25 MG CAPSULE (FP) PO PRN (22:15)
[2022-03-21] MEDS: hydrOXYzine PAMOATE 25 MG CAPSULE (FP) PO PRN (07:25)
[2022-03-21] MEDS ORDERED: methaDONE HCL 10 MG TABLET PO SCH (09:45)
[2022-03-21] MEDS ORDERED: methaDONE HCL 10 MG TABLET ONE (09:49)
[2022-03-21] MEDS ORDERED: methaDONE HCL 40 MG DISPERSABLE TABLET ONE (09:49)
[2022-03-21] MEDS ORDERED: PRENATAL VITAMINS W/ FOLIC ACID TABLET (FP) PO SCH (10:00)
[2022-03-21] MEDS ORDERED: methaDONE 40 MG, methaDONE 30 MG PO SCH (10:00)
[2022-03-21 13:36] VITALS: BP 157/73; PULSE 57; TEMP 96.9
[2022-03-21 14:54] LABS: ALBUMIN 3.6 g/dl (3.4-5.0); BLOOD UREA NITROGEN 37.7 mg/dL (7-18); CALCIUM 9.5 mg/dL (8.5-10.1)
[2022-03-21 14:54] LABS: HEMATOCRIT 28.1 % (35.4-49); HEMOGLOBIN 9.4 GM/dL (11.7-16.9); MCHC 33.5 g/dl (32.0-35.9); MEAN CELL VOLUME 83.5 fl (80-96); MEAN PLT VOLUME 7.6 fl (7.5-11.1); PLATELET COUNT 390 10^3/uL (134-434); RBC 3.37 M/mm3 (4.00-5.60); RDW 16.7 % (11.9-15.9); WHITE BLOOD COUNT 8.8 K/mm3 (4.0-10.0)
[2022-03-21 14:58] LABS: BILIRUBIN,TOTAL 0.2 mg/dL (0.2-1); CREATININE 1.3 mg/dL (0.55-1.3)
[2022-03-21 14:59] LABS: TOT PROT 7.8 g/dl (6.4-8.2)
== END 2022-03-21 14:20 | disposition home or self-care (01) | DRG 773 ==
LOC: YASAS 14:44 → Y3N 18:53
PROVIDERS: ADMIT Allergy & Immunology; ATTEND Surgery
PROC: HZ2ZZZZ Detoxification Services for Substance Abuse Treatment (ICD-10-PCS; principal; 2022-03-20)
DX: F10.230 Alcohol dependence with withdrawal, uncomplicated (principal); F11.20 Opioid dependence, uncomplicated; F17.210 Nicotine dependence, cigarettes, uncomplicated; E78.5 Hyperlipidemia, unspecified; I10 Essential (primary) hypertension; H54.62 Unqualified visual loss, left eye, normal vision right eye; J45.909 Unspecified asthma, uncomplicated; M17.11 Unilateral primary osteoarthritis, right knee; Z91.19 Patient's noncompliance with other medical treatment and regimen; Z86.19 Personal history of other infectious and parasitic diseases
CPT/HCPCS: 36415; 80053; 85027; 86780; C9803-CS; U0003; U0005

== ENCOUNTER 2022-03-21 13:50 | Inpatient (IN) | payer OTHER ==
[2022-03-21] MEDS ORDERED: ACETAMINOPHEN 325 MG TABLET (FP) PO PRN (14:38)
[2022-03-21] MEDS ORDERED: MAGNESIUM HYDROX 2400MG/30ML ORAL SUSPENSION 30 ML CUP PO PRN (14:38)
[2022-03-21] MEDS ORDERED: guaiFENesin 200 MG/10 ML 10 ML UNIT-DOSE CUPS PO PRN (14:38)
[2022-03-21] MEDS ORDERED: MAGNESIUM CITRATE 300 ML BOTTLE PO PRN (14:38)
[2022-03-21] MEDS ORDERED: P-EPHED 60MG/TRIPROLIDI 2.5MG TABLET PO PRN (14:38)
[2022-03-21] MEDS ORDERED: MAG HYDROX/AL HYDROX/SIMETH 30 ML UNIT-DOSE CUP PO PRN (14:38)
[2022-03-21] MEDS ORDERED: BENZOCAINE/MENTHOL (CHLORASEPTIC ) LOZENGE MM PRN (14:38)
[2022-03-21] MEDS ORDERED: LOPERAMIDE HCL 2 MG CAPSULE PO PRN (14:38)
[2022-03-21] MEDS ORDERED: NICOTINE 10 MG CARTRIDGE (INHALER) IH PRN (14:38)
[2022-03-21] MEDS: THIAMINE HCL 100 MG TABLET (FP) PO SCH (21:15)
[2022-03-21] MEDS: MELATONIN 5 MG TABLETS PO SCH (21:15)
[2022-03-21] MEDS: ATORVASTATIN CA 20 MG TABLET (FP) PO SCH (21:15)
[2022-03-21] MEDS: LISINOPRIL 10 MG TABLET PO SCH (21:16)
[2022-03-22] MEDS ORDERED: methaDONE HCL 40 MG DISPERSABLE TABLET ONE (05:57)
[2022-03-22] MEDS ORDERED: methaDONE HCL 10 MG TABLET ONE (05:57)
[2022-03-22] MEDS ORDERED: methaDONE HCL 10 MG TABLET PO SCH (06:00)
[2022-03-22] MEDS: methaDONE 40 MG, methaDONE 30 MG PO SCH (06:34)
[2022-03-22] MEDS: IBUPROFEN 400 MG TABLET (FP) PO PRN (07:10)
[2022-03-22] MEDS: PRENATAL VITAMINS W/ FOLIC ACID TABLET (FP) PO SCH (10:12)
[2022-03-22] MEDS: TAMSULOSIN HCL 0.4 MG CAP PO SCH (10:12)
[2022-03-22] MEDS: amLODIPine BESYLATE 10 MG TABLET (FP) PO SCH (10:12)
[2022-03-22] MEDS: NICOTINE 7 MG/24 HOURS TOPICAL PATCH TD SCH (10:13)
[2022-03-22] MEDS: MELATONIN 5 MG TABLETS PO SCH (21:15)
[2022-03-22] MEDS: LISINOPRIL 10 MG TABLET PO SCH (21:15)
[2022-03-22] MEDS: ATORVASTATIN CA 20 MG TABLET (FP) PO SCH (21:15)
[2022-03-22] MEDS: THIAMINE HCL 100 MG TABLET (FP) PO SCH (21:15)
[2022-03-22] MEDS: ALBUTEROL SO4 HFA INHALER IH PRN (21:16)
[2022-03-23] MEDS ORDERED: methaDONE HCL 40 MG DISPERSABLE TABLET ONE (03:26)
[2022-03-23] MEDS ORDERED: methaDONE HCL 10 MG TABLET ONE (03:26)
[2022-03-23] MEDS: methaDONE 40 MG, methaDONE 30 MG PO SCH (06:17)
[2022-03-23] MEDS: PRENATAL VITAMINS W/ FOLIC ACID TABLET (FP) PO SCH (10:33)
[2022-03-23] MEDS: NICOTINE 7 MG/24 HOURS TOPICAL PATCH TD SCH (10:33)
[2022-03-23] MEDS: amLODIPine BESYLATE 10 MG TABLET (FP) PO SCH (10:33)
[2022-03-23] MEDS: TAMSULOSIN HCL 0.4 MG CAP PO SCH (10:33)
[2022-03-23] MEDS: IBUPROFEN 400 MG TABLET (FP) PO PRN (10:34)
[2022-03-23] MEDS: FERROUS SO4 325 MG TABLET (FP) PO SCH ×2 (12:10→21:25)
[2022-03-23] MEDS: LIDOCAINE 5% TOPICAL PATCH TP SCH (12:10)
[2022-03-23] MEDS: BUDESONIDE/FORMETEROL FUMARATE 80/4.5 mcg INHALER IH SCH ×2 (12:11→21:24)
[2022-03-23] MEDS: THIAMINE HCL 100 MG TABLET (FP) PO SCH (21:25)
[2022-03-23] MEDS: MELATONIN 5 MG TABLETS PO SCH (21:25)
[2022-03-23] MEDS: LISINOPRIL 10 MG TABLET PO SCH (21:25)
[2022-03-23] MEDS: LIDOCAINE PATCH REMOVAL MC SCH (21:26)
[2022-03-23] MEDS: ATORVASTATIN CA 20 MG TABLET (FP) PO SCH (21:53)
[2022-03-24] MEDS: methaDONE 40 MG, methaDONE 30 MG PO SCH (06:03)
[2022-03-24] MEDS ORDERED: methaDONE HCL 10 MG TABLET ONE (06:03)
[2022-03-24] MEDS ORDERED: methaDONE HCL 40 MG DISPERSABLE TABLET ONE (06:03)
[2022-03-24] MEDS: amLODIPine BESYLATE 10 MG TABLET (FP) PO SCH (10:01)
[2022-03-24] MEDS: TAMSULOSIN HCL 0.4 MG CAP PO SCH (10:01)
[2022-03-24] MEDS: PRENATAL VITAMINS W/ FOLIC ACID TABLET (FP) PO SCH (10:01)
[2022-03-24] MEDS: FERROUS SO4 325 MG TABLET (FP) PO SCH ×2 (10:01→21:23)
[2022-03-24] MEDS: LIDOCAINE 5% TOPICAL PATCH TP SCH (10:02)
[2022-03-24] MEDS: NICOTINE 7 MG/24 HOURS TOPICAL PATCH TD SCH (10:02)
[2022-03-24] MEDS: BUDESONIDE/FORMETEROL FUMARATE 80/4.5 mcg INHALER IH SCH ×2 (10:02→21:23)
[2022-03-24 10:26] LABS: HEMATOCRIT 27.6 % (35.4-49); HEMOGLOBIN 9.1 GM/dL (11.7-16.9); MCH 27.8 pg (25.7-33.7); MEAN CELL VOLUME 84.2 fl (80-96); MEAN PLT VOLUME 8.1 fl (7.5-11.1); PLATELET COUNT 330 10^3/uL (134-434); RBC 3.27 M/mm3 (4.00-5.60); RDW 17.1 % (11.9-15.9); WHITE BLOOD COUNT 7.6 K/mm3 (4.0-10.0)
[2022-03-24 10:33] LABS: CALCIUM 9.1 mg/dL (8.5-10.1)
[2022-03-24 10:34] LABS: ALBUMIN 3.3 g/dl (3.4-5.0); BLOOD UREA NITROGEN 25.1 mg/dL (7-18)
[2022-03-24 10:37] LABS: CREATININE 0.9 mg/dL (0.55-1.3)
[2022-03-24 10:39] LABS: BILIRUBIN,TOTAL 0.2 mg/dL (0.2-1); TOT PROT 6.9 g/dl (6.4-8.2)
[2022-03-24] MEDS: THIAMINE HCL 100 MG TABLET (FP) PO SCH (21:22)
[2022-03-24] MEDS: MELATONIN 5 MG TABLETS PO SCH (21:22)
[2022-03-24] MEDS: ATORVASTATIN CA 20 MG TABLET (FP) PO SCH (21:23)
[2022-03-24] MEDS: LISINOPRIL 10 MG TABLET PO SCH (21:23)
[2022-03-24] MEDS: LIDOCAINE PATCH REMOVAL MC SCH (21:23)
[2022-03-25] MEDS ORDERED: methaDONE HCL 40 MG DISPERSABLE TABLET ONE (06:37)
[2022-03-25] MEDS ORDERED: methaDONE HCL 10 MG TABLET ONE (06:37)
[2022-03-25] MEDS: methaDONE 40 MG, methaDONE 30 MG PO SCH (07:06)
[2022-03-25] MEDS: amLODIPine BESYLATE 10 MG TABLET (FP) PO SCH (09:46)
[2022-03-25] MEDS: TAMSULOSIN HCL 0.4 MG CAP PO SCH (09:46)
[2022-03-25] MEDS: FERROUS SO4 325 MG TABLET (FP) PO SCH ×2 (09:46→21:09)
[2022-03-25] MEDS: PRENATAL VITAMINS W/ FOLIC ACID TABLET (FP) PO SCH (09:46)
[2022-03-25] MEDS: NICOTINE 7 MG/24 HOURS TOPICAL PATCH TD SCH (09:47)
[2022-03-25] MEDS: LIDOCAINE 5% TOPICAL PATCH TP SCH (09:47)
[2022-03-25] MEDS: BUDESONIDE/FORMETEROL FUMARATE 80/4.5 mcg INHALER IH SCH ×2 (09:48→21:09)
[2022-03-25] MEDS: THIAMINE HCL 100 MG TABLET (FP) PO SCH (21:08)
[2022-03-25] MEDS: MELATONIN 5 MG TABLETS PO SCH (21:08)
[2022-03-25] MEDS: LIDOCAINE PATCH REMOVAL MC SCH (21:09)
[2022-03-25] MEDS: ATORVASTATIN CA 20 MG TABLET (FP) PO SCH (21:09)
[2022-03-25] MEDS: LISINOPRIL 10 MG TABLET PO SCH (21:09)
[2022-03-26] MEDS ORDERED: methaDONE HCL 10 MG TABLET ONE (03:33)
[2022-03-26] MEDS ORDERED: methaDONE HCL 40 MG DISPERSABLE TABLET ONE (03:33)
[2022-03-26] MEDS: methaDONE 40 MG, methaDONE 30 MG PO SCH (06:20)
[2022-03-26] MEDS: PRENATAL VITAMINS W/ FOLIC ACID TABLET (FP) PO SCH (10:30)
[2022-03-26] MEDS: BUDESONIDE/FORMETEROL FUMARATE 80/4.5 mcg INHALER IH SCH ×2 (10:30→21:09)
[2022-03-26] MEDS: LIDOCAINE 5% TOPICAL PATCH TP SCH (10:30)
[2022-03-26] MEDS: NICOTINE 7 MG/24 HOURS TOPICAL PATCH TD SCH (10:30)
[2022-03-26] MEDS: TAMSULOSIN HCL 0.4 MG CAP PO SCH (10:31)
[2022-03-26] MEDS: amLODIPine BESYLATE 10 MG TABLET (FP) PO SCH (10:32)
[2022-03-26] MEDS: FERROUS SO4 325 MG TABLET (FP) PO SCH ×2 (10:32→21:09)
[2022-03-26] MEDS: hydrOXYzine PAMOATE 25 MG CAPSULE (FP) PO PRN (10:35)
[2022-03-26] MEDS: ALBUTEROL SO4 HFA INHALER IH PRN (10:35)
[2022-03-26] MEDS: ATORVASTATIN CA 20 MG TABLET (FP) PO SCH (21:09)
[2022-03-26] MEDS: THIAMINE HCL 100 MG TABLET (FP) PO SCH (21:09)
[2022-03-26] MEDS: MELATONIN 5 MG TABLETS PO SCH (21:09)
[2022-03-26] MEDS: LISINOPRIL 10 MG TABLET PO SCH (21:09)
[2022-03-26] MEDS: LIDOCAINE PATCH REMOVAL MC SCH (21:36)
[2022-03-27] MEDS ORDERED: methaDONE HCL 40 MG DISPERSABLE TABLET ONE (03:07)
[2022-03-27] MEDS ORDERED: methaDONE HCL 10 MG TABLET ONE (03:07)
[2022-03-27] MEDS: methaDONE 40 MG, methaDONE 30 MG PO SCH (06:36)
[2022-03-27] MEDS: FERROUS SO4 325 MG TABLET (FP) PO SCH ×2 (09:51→21:21)
[2022-03-27] MEDS: BUDESONIDE/FORMETEROL FUMARATE 80/4.5 mcg INHALER IH SCH ×2 (09:51→21:20)
[2022-03-27] MEDS: LIDOCAINE 5% TOPICAL PATCH TP SCH (09:51)
[2022-03-27] MEDS: TAMSULOSIN HCL 0.4 MG CAP PO SCH (09:51)
[2022-03-27] MEDS: amLODIPine BESYLATE 10 MG TABLET (FP) PO SCH (09:52)
[2022-03-27] MEDS: PRENATAL VITAMINS W/ FOLIC ACID TABLET (FP) PO SCH (09:52)
[2022-03-27] MEDS: NICOTINE 7 MG/24 HOURS TOPICAL PATCH TD SCH (09:52)
[2022-03-27] MEDS: ATORVASTATIN CA 20 MG TABLET (FP) PO SCH (21:21)
[2022-03-27] MEDS: LISINOPRIL 10 MG TABLET PO SCH (21:21)
[2022-03-27] MEDS: LIDOCAINE PATCH REMOVAL MC SCH (21:22)
[2022-03-27] MEDS: THIAMINE HCL 100 MG TABLET (FP) PO SCH (21:22)
[2022-03-27] MEDS: MELATONIN 5 MG TABLETS PO SCH (21:22)
[2022-03-28] MEDS ORDERED: methaDONE HCL 40 MG DISPERSABLE TABLET ONE (03:10)
[2022-03-28] MEDS ORDERED: methaDONE HCL 10 MG TABLET ONE (03:10)
[2022-03-28] MEDS: methaDONE 40 MG, methaDONE 30 MG PO SCH (06:12)
[2022-03-28] MEDS: ALBUTEROL SO4 HFA INHALER IH PRN (09:06)
[2022-03-28] MEDS: TAMSULOSIN HCL 0.4 MG CAP PO SCH (09:06)
[2022-03-28] MEDS: LIDOCAINE 5% TOPICAL PATCH TP SCH (09:07)
[2022-03-28] MEDS: amLODIPine BESYLATE 10 MG TABLET (FP) PO SCH (09:07)
[2022-03-28] MEDS: PRENATAL VITAMINS W/ FOLIC ACID TABLET (FP) PO SCH (09:07)
[2022-03-28] MEDS: FERROUS SO4 325 MG TABLET (FP) PO SCH ×2 (09:08→21:15)
[2022-03-28] MEDS: NICOTINE 7 MG/24 HOURS TOPICAL PATCH TD SCH (09:08)
[2022-03-28] MEDS: BUDESONIDE/FORMETEROL FUMARATE 80/4.5 mcg INHALER IH SCH ×2 (09:08→21:15)
[2022-03-28] MEDS: THIAMINE HCL 100 MG TABLET (FP) PO SCH (21:14)
[2022-03-28] MEDS: LISINOPRIL 10 MG TABLET PO SCH (21:14)
[2022-03-28] MEDS: MELATONIN 5 MG TABLETS PO SCH (21:14)
[2022-03-28] MEDS: ATORVASTATIN CA 20 MG TABLET (FP) PO SCH (21:15)
[2022-03-28] MEDS: LIDOCAINE PATCH REMOVAL MC SCH (21:15)
[2022-03-28] MEDS: hydrOXYzine PAMOATE 25 MG CAPSULE (FP) PO PRN (21:16)
[2022-03-29] MEDS ORDERED: methaDONE HCL 10 MG TABLET ONE (05:57)
[2022-03-29] MEDS ORDERED: methaDONE HCL 40 MG DISPERSABLE TABLET ONE (05:58)
[2022-03-29] MEDS: methaDONE 40 MG, methaDONE 30 MG PO SCH (06:15)
[2022-03-29] MEDS: TAMSULOSIN HCL 0.4 MG CAP PO SCH (09:40)
[2022-03-29] MEDS: PRENATAL VITAMINS W/ FOLIC ACID TABLET (FP) PO SCH (09:40)
[2022-03-29] MEDS: BUDESONIDE/FORMETEROL FUMARATE 80/4.5 mcg INHALER IH SCH ×2 (09:40→21:15)
[2022-03-29] MEDS: FERROUS SO4 325 MG TABLET (FP) PO SCH ×2 (09:40→21:14)
[2022-03-29] MEDS: amLODIPine BESYLATE 10 MG TABLET (FP) PO SCH (09:40)
[2022-03-29] MEDS: LIDOCAINE 5% TOPICAL PATCH TP SCH (09:41)
[2022-03-29] MEDS: NICOTINE 7 MG/24 HOURS TOPICAL PATCH TD SCH (09:41)
[2022-03-29] MEDS: ATORVASTATIN CA 20 MG TABLET (FP) PO SCH (21:14)
[2022-03-29] MEDS: LISINOPRIL 10 MG TABLET PO SCH (21:14)
[2022-03-29] MEDS: MELATONIN 5 MG TABLETS PO SCH (21:14)
[2022-03-29] MEDS: THIAMINE HCL 100 MG TABLET (FP) PO SCH (21:14)
[2022-03-29] MEDS: LIDOCAINE PATCH REMOVAL MC SCH (21:15)
[2022-03-29] MEDS: hydrOXYzine PAMOATE 25 MG CAPSULE (FP) PO PRN (21:58)
[2022-03-30] MEDS ORDERED: methaDONE HCL 10 MG TABLET ONE (03:23)
[2022-03-30] MEDS ORDERED: methaDONE HCL 40 MG DISPERSABLE TABLET ONE (03:23)
[2022-03-30] MEDS: methaDONE 40 MG, methaDONE 30 MG PO SCH (06:13)
[2022-03-30] MEDS: IBUPROFEN 400 MG TABLET (FP) PO PRN (07:24)
[2022-03-30] MEDS: LIDOCAINE 5% TOPICAL PATCH TP SCH (10:46)
[2022-03-30] MEDS: FERROUS SO4 325 MG TABLET (FP) PO SCH ×2 (10:46→21:18)
[2022-03-30] MEDS: TAMSULOSIN HCL 0.4 MG CAP PO SCH (10:47)
[2022-03-30] MEDS: NICOTINE 7 MG/24 HOURS TOPICAL PATCH TD SCH (10:47)
[2022-03-30] MEDS: BUDESONIDE/FORMETEROL FUMARATE 80/4.5 mcg INHALER IH SCH ×2 (10:47→21:18)
[2022-03-30] MEDS: PRENATAL VITAMINS W/ FOLIC ACID TABLET (FP) PO SCH (10:47)
[2022-03-30] MEDS: amLODIPine BESYLATE 10 MG TABLET (FP) PO SCH (10:47)
[2022-03-30] MEDS ORDERED: METHOCARBAMOL 500 MG TABLET PO PRN (11:27)
[2022-03-30] MEDS: THIAMINE HCL 100 MG TABLET (FP) PO SCH (21:17)
[2022-03-30] MEDS: MELATONIN 5 MG TABLETS PO SCH (21:17)
[2022-03-30] MEDS: ATORVASTATIN CA 20 MG TABLET (FP) PO SCH (21:18)
[2022-03-30] MEDS: LISINOPRIL 10 MG TABLET PO SCH (21:18)
[2022-03-30] MEDS: LIDOCAINE PATCH REMOVAL MC SCH (21:18)
[2022-03-31] MEDS ORDERED: methaDONE HCL 10 MG TABLET ONE (03:35)
[2022-03-31] MEDS ORDERED: methaDONE HCL 40 MG DISPERSABLE TABLET ONE (03:35)
[2022-03-31] MEDS: methaDONE 40 MG, methaDONE 30 MG PO SCH (07:31)
[2022-03-31] MEDS: FERROUS SO4 325 MG TABLET (FP) PO SCH ×2 (10:30→21:28)
[2022-03-31] MEDS: PRENATAL VITAMINS W/ FOLIC ACID TABLET (FP) PO SCH (10:30)
[2022-03-31] MEDS: amLODIPine BESYLATE 10 MG TABLET (FP) PO SCH (10:30)
[2022-03-31] MEDS: LIDOCAINE 5% TOPICAL PATCH TP SCH (10:31)
[2022-03-31] MEDS: NICOTINE 7 MG/24 HOURS TOPICAL PATCH TD SCH (10:32)
[2022-03-31] MEDS: BUDESONIDE/FORMETEROL FUMARATE 80/4.5 mcg INHALER IH SCH ×2 (10:34→21:27)
[2022-03-31] MEDS: TAMSULOSIN HCL 0.4 MG CAP PO SCH (12:34)
[2022-03-31] MEDS: ATORVASTATIN CA 20 MG TABLET (FP) PO SCH (21:27)
[2022-03-31] MEDS: THIAMINE HCL 100 MG TABLET (FP) PO SCH (21:27)
[2022-03-31] MEDS: MELATONIN 5 MG TABLETS PO SCH (21:27)
[2022-03-31] MEDS: LIDOCAINE PATCH REMOVAL MC SCH (21:28)
[2022-03-31] MEDS: LISINOPRIL 10 MG TABLET PO SCH (21:28)
[2022-04-01] MEDS ORDERED: methaDONE HCL 10 MG TABLET ONE (03:27)
[2022-04-01] MEDS ORDERED: methaDONE HCL 40 MG DISPERSABLE TABLET ONE (03:27)
[2022-04-01] MEDS: methaDONE 40 MG, methaDONE 30 MG PO SCH (06:20)
[2022-04-01] MEDS: LIDOCAINE 5% TOPICAL PATCH TP SCH (10:19)
[2022-04-01] MEDS: TAMSULOSIN HCL 0.4 MG CAP PO SCH (10:19)
[2022-04-01] MEDS: BUDESONIDE/FORMETEROL FUMARATE 80/4.5 mcg INHALER IH SCH ×2 (10:20→21:16)
[2022-04-01] MEDS: FERROUS SO4 325 MG TABLET (FP) PO SCH ×2 (10:20→21:15)
[2022-04-01] MEDS: NICOTINE 7 MG/24 HOURS TOPICAL PATCH TD SCH (10:20)
[2022-04-01] MEDS: PRENATAL VITAMINS W/ FOLIC ACID TABLET (FP) PO SCH (10:20)
[2022-04-01] MEDS: amLODIPine BESYLATE 10 MG TABLET (FP) PO SCH (13:10)
[2022-04-01] MEDS: ATORVASTATIN CA 20 MG TABLET (FP) PO SCH (21:15)
[2022-04-01] MEDS: MELATONIN 5 MG TABLETS PO SCH (21:15)
[2022-04-01] MEDS: LISINOPRIL 10 MG TABLET PO SCH (21:15)
[2022-04-01] MEDS: LIDOCAINE PATCH REMOVAL MC SCH (21:15)
[2022-04-01] MEDS: THIAMINE HCL 100 MG TABLET (FP) PO SCH (21:15)
[2022-04-01] MEDS: hydrOXYzine PAMOATE 25 MG CAPSULE (FP) PO PRN (21:16)
[2022-04-02] MEDS ORDERED: methaDONE HCL 10 MG TABLET ONE (03:33)
[2022-04-02] MEDS ORDERED: methaDONE HCL 40 MG DISPERSABLE TABLET ONE (03:33)
[2022-04-02] MEDS: methaDONE 40 MG, methaDONE 30 MG PO SCH (06:20)
[2022-04-02] MEDS: BUDESONIDE/FORMETEROL FUMARATE 80/4.5 mcg INHALER IH SCH ×2 (09:40→21:30)
[2022-04-02] MEDS: TAMSULOSIN HCL 0.4 MG CAP PO SCH (09:41)
[2022-04-02] MEDS: FERROUS SO4 325 MG TABLET (FP) PO SCH ×2 (09:41→21:28)
[2022-04-02] MEDS: PRENATAL VITAMINS W/ FOLIC ACID TABLET (FP) PO SCH (09:41)
[2022-04-02] MEDS: amLODIPine BESYLATE 10 MG TABLET (FP) PO SCH (09:42)
[2022-04-02] MEDS: NICOTINE 7 MG/24 HOURS TOPICAL PATCH TD SCH (09:42)
[2022-04-02] MEDS: LIDOCAINE 5% TOPICAL PATCH TP SCH (09:43)
[2022-04-02] MEDS: LISINOPRIL 10 MG TABLET PO SCH (21:29)
[2022-04-02] MEDS: ATORVASTATIN CA 20 MG TABLET (FP) PO SCH (21:29)
[2022-04-02] MEDS: LIDOCAINE PATCH REMOVAL MC SCH (21:29)
[2022-04-02] MEDS: MELATONIN 5 MG TABLETS PO SCH (21:29)
[2022-04-02] MEDS: hydrOXYzine PAMOATE 25 MG CAPSULE (FP) PO PRN (21:30)
[2022-04-02] MEDS: THIAMINE HCL 100 MG TABLET (FP) PO SCH (21:30)
[2022-04-03] MEDS ORDERED: methaDONE HCL 40 MG DISPERSABLE TABLET ONE (03:19)
[2022-04-03] MEDS ORDERED: methaDONE HCL 10 MG TABLET ONE (03:19)
[2022-04-03] MEDS: methaDONE 40 MG, methaDONE 30 MG PO SCH (06:38)
[2022-04-03] MEDS: TAMSULOSIN HCL 0.4 MG CAP PO SCH (10:07)
[2022-04-03] MEDS: LIDOCAINE 5% TOPICAL PATCH TP SCH (10:08)
[2022-04-03] MEDS: NICOTINE 7 MG/24 HOURS TOPICAL PATCH TD SCH (10:08)
[2022-04-03] MEDS: FERROUS SO4 325 MG TABLET (FP) PO SCH ×2 (10:08→21:40)
[2022-04-03] MEDS: PRENATAL VITAMINS W/ FOLIC ACID TABLET (FP) PO SCH (10:09)
[2022-04-03] MEDS: BUDESONIDE/FORMETEROL FUMARATE 80/4.5 mcg INHALER IH SCH ×2 (10:09→21:41)
[2022-04-03] MEDS: amLODIPine BESYLATE 10 MG TABLET (FP) PO SCH (10:09)
[2022-04-03] MEDS: THIAMINE HCL 100 MG TABLET (FP) PO SCH (21:40)
[2022-04-03] MEDS: LISINOPRIL 10 MG TABLET PO SCH (21:40)
[2022-04-03] MEDS: ATORVASTATIN CA 20 MG TABLET (FP) PO SCH (21:40)
[2022-04-03] MEDS: LIDOCAINE PATCH REMOVAL MC SCH (21:41)
[2022-04-03] MEDS: MELATONIN 5 MG TABLETS PO SCH (21:41)
[2022-04-03] MEDS: hydrOXYzine PAMOATE 25 MG CAPSULE (FP) PO PRN (21:43)
[2022-04-04] MEDS ORDERED: methaDONE HCL 10 MG TABLET ONE (03:19)
[2022-04-04] MEDS ORDERED: methaDONE HCL 40 MG DISPERSABLE TABLET ONE (03:19)
[2022-04-04] MEDS: methaDONE 40 MG, methaDONE 30 MG PO SCH (06:11)
[2022-04-04 06:37] VITALS: TEMP 98.2
[2022-04-04] MEDS: LIDOCAINE 5% TOPICAL PATCH TP SCH (09:16)
[2022-04-04] MEDS: BUDESONIDE/FORMETEROL FUMARATE 80/4.5 mcg INHALER IH SCH (09:16)
[2022-04-04] MEDS: TAMSULOSIN HCL 0.4 MG CAP PO SCH (09:16)
[2022-04-04] MEDS: FERROUS SO4 325 MG TABLET (FP) PO SCH (09:17)
[2022-04-04] MEDS: NICOTINE 7 MG/24 HOURS TOPICAL PATCH TD SCH (09:17)
[2022-04-04] MEDS: PRENATAL VITAMINS W/ FOLIC ACID TABLET (FP) PO SCH (09:17)
[2022-04-04] MEDS: amLODIPine BESYLATE 10 MG TABLET (FP) PO SCH (09:17)
[2022-04-04] MEDS: hydrOXYzine PAMOATE 25 MG CAPSULE (FP) PO PRN (09:18)
[2022-04-04 09:24] VITALS: BP 124/59; PULSE 65
== END 2022-04-04 09:45 | disposition home or self-care (01) | DRG 772 ==
LOC: YASAS 13:50 → Y3E 13:52
PROVIDERS: ADMIT Allergy & Immunology; ATTEND Psychiatry & Neurology Pain Medicine
PROC: HZ42ZZZ Group Counseling for Substance Abuse Treatment, Cognitive-Behavioral (ICD-10-PCS; principal; 2022-03-21)
DX: F11.20 Opioid dependence, uncomplicated (principal); F10.20 Alcohol dependence, uncomplicated; F14.20 Cocaine dependence, uncomplicated; F16.10 Hallucinogen abuse, uncomplicated; F17.210 Nicotine dependence, cigarettes, uncomplicated; I10 Essential (primary) hypertension; J45.20 Mild intermittent asthma, uncomplicated; E11.9 Type 2 diabetes mellitus without complications; E03.9 Hypothyroidism, unspecified; E78.5 Hyperlipidemia, unspecified; E21.3 Hyperparathyroidism, unspecified; H54.62 Unqualified visual loss, left eye, normal vision right eye; M17.11 Unilateral primary osteoarthritis, right knee; Z96.641 Presence of right artificial hip joint; Z99.89 Dependence on other enabling machines and devices
CPT/HCPCS: 36415; 80053; 85027

== ENCOUNTER 2022-04-06 21:39 | Inpatient (IN) | payer OTHER ==
[2022-04-06 22:11] VITALS: BMI 26.4
[2022-04-06] MEDS ORDERED: IBUPROFEN 400 MG TABLET (FP) PO PRN (22:29)
[2022-04-06] MEDS ORDERED: P-EPHED 60MG/TRIPROLIDI 2.5MG TABLET PO PRN (22:29)
[2022-04-06] MEDS ORDERED: MAGNESIUM CITRATE 300 ML BOTTLE PO PRN (22:29)
[2022-04-06] MEDS ORDERED: ONDANSETRON *ODT* 4 MG TABLET SL PRN (22:29)
[2022-04-06] MEDS ORDERED: MELATONIN 5 MG TABLETS PO PRN (22:29)
[2022-04-06] MEDS ORDERED: MAG HYDROX/AL HYDROX/SIMETH 30 ML UNIT-DOSE CUP PO PRN (22:29)
[2022-04-06] MEDS ORDERED: DICYCLOMINE HCL 10 MG CAPSULE PO PRN (22:29)
[2022-04-06] MEDS ORDERED: MAGNESIUM HYDROX 2400MG/30ML ORAL SUSPENSION 30 ML CUP PO PRN (22:29)
[2022-04-06] MEDS ORDERED: ACETAMINOPHEN 325 MG TABLET (FP) PO PRN ×2 (22:29)
[2022-04-06] MEDS ORDERED: guaiFENesin 200 MG/10 ML 10 ML UNIT-DOSE CUPS PO PRN (22:29)
[2022-04-06] MEDS ORDERED: BENZOCAINE/MENTHOL (CHLORASEPTIC ) LOZENGE MM PRN (22:29)
[2022-04-06] MEDS ORDERED: LOPERAMIDE HCL 2 MG CAPSULE PO PRN (22:29)
[2022-04-06] MEDS ORDERED: BISMUTH SUBSALICYLATE 524 MG/30 ML PO PRN (22:29)
[2022-04-06] MEDS ORDERED: IBUPROFEN 600 MG TABLET (FP) PO PRN (22:29)
[2022-04-06] MEDS ORDERED: diazePAM 5 MG TABLET PO PRN (22:32)
[2022-04-06] MEDS ORDERED: ALBUTEROL SO4 0.083% IH SOL 2.5 MG/3 ML VIAL.NEB. NEB PRN (23:54)
[2022-04-07] MEDS: diazePAM 5 MG TABLET PO SCH ×5 (01:02→23:20)
[2022-04-07] MEDS: BUDESONIDE/FORMETEROL FUMARATE 80/4.5 mcg INHALER IH SCH ×3 (01:03→23:58)
[2022-04-07] MEDS ORDERED: methaDONE HCL 10 MG TABLET PO SCH (10:15)
[2022-04-07] MEDS: TAMSULOSIN HCL 0.4 MG CAP PO SCH (10:16)
[2022-04-07] MEDS: PRENATAL VITAMINS W/ FOLIC ACID TABLET (FP) PO SCH (10:16)
[2022-04-07] MEDS: amLODIPine BESYLATE 10 MG TABLET (FP) PO SCH (10:16)
[2022-04-07] MEDS: METHOCARBAMOL 500 MG TABLET PO PRN ×2 (10:18→18:27)
[2022-04-07] MEDS: NICOTINE 7 MG/24 HOURS TOPICAL PATCH TD SCH (11:43)
[2022-04-07] MEDS ORDERED: methaDONE 40 MG, methaDONE 30 MG PO SCH (12:04)
[2022-04-07] MEDS ORDERED: methaDONE HCL 10 MG TABLET ONE (12:46)
[2022-04-07] MEDS ORDERED: methaDONE HCL 40 MG DISPERSABLE TABLET ONE (12:47)
[2022-04-07] MEDS: methaDONE 40 MG, methaDONE 30 MG PO SCH (12:48)
[2022-04-07] MEDS: hydrOXYzine PAMOATE 25 MG CAPSULE (FP) PO PRN ×2 (18:25→23:20)
[2022-04-07] MEDS: LISINOPRIL 10 MG TABLET PO SCH (23:20)
[2022-04-07] MEDS: THIAMINE HCL 100 MG TABLET (FP) PO SCH (23:20)
[2022-04-08] MEDS ORDERED: methaDONE HCL 40 MG DISPERSABLE TABLET ONE (04:02)
[2022-04-08] MEDS ORDERED: methaDONE HCL 10 MG TABLET ONE (04:02)
[2022-04-08] MEDS: methaDONE 40 MG, methaDONE 30 MG PO SCH (05:36)
[2022-04-08] MEDS: diazePAM 5 MG TABLET PO SCH ×2 (05:36→18:02)
[2022-04-08] MEDS ORDERED: methaDONE 40 MG, methaDONE 30 MG PO SCH (06:00)
[2022-04-08] MEDS: BUDESONIDE/FORMETEROL FUMARATE 80/4.5 mcg INHALER IH SCH ×2 (10:51→22:20)
[2022-04-08] MEDS: amLODIPine BESYLATE 10 MG TABLET (FP) PO SCH (10:52)
[2022-04-08] MEDS: TAMSULOSIN HCL 0.4 MG CAP PO SCH (10:52)
[2022-04-08] MEDS: METHOCARBAMOL 500 MG TABLET PO PRN (10:52)
[2022-04-08] MEDS: PRENATAL VITAMINS W/ FOLIC ACID TABLET (FP) PO SCH (10:54)
[2022-04-08] MEDS: NICOTINE 7 MG/24 HOURS TOPICAL PATCH TD SCH (10:54)
[2022-04-08] MEDS ORDERED: SUVOREXANT 10 MG TABLET PO PRN (22:00)
[2022-04-08] MEDS: LISINOPRIL 10 MG TABLET PO SCH (22:19)
[2022-04-08] MEDS: THIAMINE HCL 100 MG TABLET (FP) PO SCH (22:20)
[2022-04-09] MEDS ORDERED: methaDONE HCL 10 MG TABLET ONE (04:27)
[2022-04-09] MEDS ORDERED: methaDONE HCL 40 MG DISPERSABLE TABLET ONE (04:27)
[2022-04-09] MEDS: methaDONE 40 MG, methaDONE 30 MG PO SCH (05:26)
[2022-04-09] MEDS ORDERED: diazePAM 5 MG TABLET PO ONE (06:00)
[2022-04-09] MEDS: TAMSULOSIN HCL 0.4 MG CAP PO SCH (08:01)
[2022-04-09 09:15] VITALS: RESP 17; TEMP 97.3
[2022-04-09] MEDS: BUDESONIDE/FORMETEROL FUMARATE 80/4.5 mcg INHALER IH SCH (10:11)
[2022-04-09] MEDS: PRENATAL VITAMINS W/ FOLIC ACID TABLET (FP) PO SCH (10:12)
[2022-04-09] MEDS: amLODIPine BESYLATE 10 MG TABLET (FP) PO SCH (10:12)
[2022-04-09] MEDS: NICOTINE 7 MG/24 HOURS TOPICAL PATCH TD SCH (10:12)
[2022-04-09 12:55] VITALS: BP 147/79; PULSE 68
== END 2022-04-09 13:11 | disposition home or self-care (01) | DRG 773 ==
LOC: YASAS 21:39 → Y6N 23:41
PROVIDERS: ADMIT Allergy & Immunology; ATTEND Surgery
PROC: HZ2ZZZZ Detoxification Services for Substance Abuse Treatment (ICD-10-PCS; principal; 2022-04-06)
DX: F10.230 Alcohol dependence with withdrawal, uncomplicated (principal); F11.20 Opioid dependence, uncomplicated; F14.20 Cocaine dependence, uncomplicated; F17.210 Nicotine dependence, cigarettes, uncomplicated; F19.282 Other psychoactive substance dependence with psychoactive substance-induced sleep disorder; F19.24 Other psychoactive substance dependence with psychoactive substance-induced mood disorder; F32.A Depression, unspecified; I10 Essential (primary) hypertension; J45.20 Mild intermittent asthma, uncomplicated; H54.62 Unqualified visual loss, left eye, normal vision right eye; M17.11 Unilateral primary osteoarthritis, right knee; M54.50 Low back pain, unspecified; G89.29 Other chronic pain; Z96.641 Presence of right artificial hip joint; Z99.89 Dependence on other enabling machines and devices; Z59.01 Sheltered homelessness
CPT/HCPCS: C9803-CS; U0003; U0005

== ENCOUNTER 2022-04-10 01:36 | Inpatient (IN) | payer OTHER ==
[2022-04-10 03:29] VITALS: BMI 27.6
[2022-04-10] MEDS ORDERED: LOPERAMIDE HCL 2 MG CAPSULE PO PRN (09:04)
[2022-04-10] MEDS ORDERED: MAG HYDROX/AL HYDROX/SIMETH 30 ML UNIT-DOSE CUP PO PRN (09:04)
[2022-04-10] MEDS ORDERED: MAGNESIUM CITRATE 300 ML BOTTLE PO PRN (09:04)
[2022-04-10] MEDS ORDERED: NICOTINE 10 MG CARTRIDGE (INHALER) IH PRN (09:04)
[2022-04-10] MEDS ORDERED: DICYCLOMINE HCL 10 MG CAPSULE PO PRN (09:04)
[2022-04-10] MEDS ORDERED: MAGNESIUM HYDROX 2400MG/30ML ORAL SUSPENSION 30 ML CUP PO PRN (09:04)
[2022-04-10] MEDS ORDERED: chlordiazePOXIDE HCL 25 MG CAPSULE PO PRN (09:04)
[2022-04-10] MEDS ORDERED: BISMUTH SUBSALICYLATE 262 MG/15 ML BTL PO PRN (09:04)
[2022-04-10] MEDS ORDERED: NALOXONE HCL (KLOXXADO) 8 MG SPRAY NS PRN (09:04)
[2022-04-10] MEDS ORDERED: BENZOCAINE/MENTHOL (CHLORASEPTIC ) LOZENGE MM PRN (09:04)
[2022-04-10] MEDS ORDERED: ACETAMINOPHEN 325 MG TABLET (FP) PO PRN ×2 (09:04)
[2022-04-10] MEDS ORDERED: methaDONE HCL 40 MG DISPERSABLE TABLET PO SCH (10:00)
[2022-04-10] MEDS: BUDESONIDE/FORMETEROL FUMARATE 80/4.5 mcg INHALER IH SCH ×2 (13:06→23:19)
[2022-04-10] MEDS: chlordiazePOXIDE HCL 25 MG CAPSULE PO SCH ×3 (13:07→23:02)
[2022-04-10] MEDS: METHOCARBAMOL 500 MG TABLET PO PRN ×2 (13:07→23:03)
[2022-04-10] MEDS: amLODIPine BESYLATE 10 MG TABLET (FP) PO SCH (13:07)
[2022-04-10] MEDS: PRENATAL VITAMINS W/ FOLIC ACID TABLET (FP) PO SCH (13:07)
[2022-04-10] MEDS: ONDANSETRON *ODT* 4 MG TABLET SL PRN (13:12)
[2022-04-10] MEDS: hydrOXYzine PAMOATE 25 MG CAPSULE (FP) PO SCH ×4 (13:12→23:02)
[2022-04-10 13:48] LABS: HEMATOCRIT 28.2 % (35.4-49); HEMOGLOBIN 9.5 GM/dL (11.7-16.9); MCH 28.2 pg (25.7-33.7); MCHC 33.7 g/dl (32.0-35.9); MEAN CELL VOLUME 83.9 fl (80-96); MEAN PLT VOLUME 7.9 fl (7.5-11.1); PLATELET COUNT 289 10^3/uL (134-434); RBC 3.36 M/mm3 (4.00-5.60); WHITE BLOOD COUNT 8.3 K/mm3 (4.0-10.0)
[2022-04-10 13:57] LABS: CALCIUM 9.2 mg/dL (8.5-10.1)
[2022-04-10 13:58] LABS: ALBUMIN 3.8 g/dl (3.4-5.0)
[2022-04-10 14:01] LABS: CREATININE 1.3 mg/dL (0.55-1.3)
[2022-04-10 14:02] LABS: BILIRUBIN,TOTAL 0.2 mg/dL (0.2-1); TOT PROT 7.9 g/dl (6.4-8.2)
[2022-04-10] MEDS ORDERED: methaDONE HCL 10 MG TABLET ONE (15:23)
[2022-04-10] MEDS ORDERED: methaDONE HCL 40 MG DISPERSABLE TABLET ONE (15:24)
[2022-04-10] MEDS: methaDONE 40 MG, methaDONE 30 MG PO SCH (15:26)
[2022-04-10] MEDS: IBUPROFEN 600 MG TABLET (FP) PO PRN (17:47)
[2022-04-10] MEDS: THIAMINE HCL 100 MG TABLET (FP) PO SCH (23:02)
[2022-04-10] MEDS: LISINOPRIL 10 MG TABLET PO SCH (23:02)
[2022-04-10] MEDS: MELATONIN 5 MG TABLETS PO SCH (23:02)
[2022-04-10] MEDS: ATORVASTATIN CA 20 MG TABLET (FP) PO SCH (23:02)
[2022-04-11] MEDS: hydrOXYzine PAMOATE 25 MG CAPSULE (FP) PO SCH ×5 (05:46→22:33)
[2022-04-11] MEDS: chlordiazePOXIDE HCL 25 MG CAPSULE PO SCH ×4 (05:47→22:34)
[2022-04-11] MEDS ORDERED: methaDONE HCL 40 MG DISPERSABLE TABLET ONE (09:14)
[2022-04-11] MEDS ORDERED: methaDONE HCL 10 MG TABLET ONE (09:14)
[2022-04-11] MEDS: amLODIPine BESYLATE 10 MG TABLET (FP) PO SCH (10:27)
[2022-04-11] MEDS: PRENATAL VITAMINS W/ FOLIC ACID TABLET (FP) PO SCH (10:27)
[2022-04-11] MEDS: methaDONE 40 MG, methaDONE 30 MG PO SCH (10:29)
[2022-04-11] MEDS: BUDESONIDE/FORMETEROL FUMARATE 80/4.5 mcg INHALER IH SCH ×2 (10:30→22:36)
[2022-04-11] MEDS: IBUPROFEN 400 MG TABLET (FP) PO PRN (10:37)
[2022-04-11] MEDS: [UNRECOGNIZED DRUG - OTHER] NS SCH (13:57)
[2022-04-11] MEDS: NALOXONE HCL NS SCH (13:57)
[2022-04-11] MEDS: MELATONIN 5 MG TABLETS PO SCH (22:33)
[2022-04-11] MEDS: ATORVASTATIN CA 20 MG TABLET (FP) PO SCH (22:33)
[2022-04-11] MEDS: THIAMINE HCL 100 MG TABLET (FP) PO SCH (22:33)
[2022-04-11] MEDS: LISINOPRIL 10 MG TABLET PO SCH (22:33)
[2022-04-12] MEDS: chlordiazePOXIDE HCL 25 MG CAPSULE PO SCH ×4 (05:21→22:21)
[2022-04-12] MEDS: hydrOXYzine PAMOATE 25 MG CAPSULE (FP) PO SCH ×5 (05:22→22:20)
[2022-04-12] MEDS ORDERED: methaDONE HCL 10 MG TABLET ONE (10:03)
[2022-04-12] MEDS ORDERED: methaDONE HCL 40 MG DISPERSABLE TABLET ONE (10:04)
[2022-04-12] MEDS: PRENATAL VITAMINS W/ FOLIC ACID TABLET (FP) PO SCH (10:46)
[2022-04-12] MEDS: methaDONE 40 MG, methaDONE 30 MG PO SCH (10:50)
[2022-04-12] MEDS: amLODIPine BESYLATE 10 MG TABLET (FP) PO SCH (10:51)
[2022-04-12] MEDS: BUDESONIDE/FORMETEROL FUMARATE 80/4.5 mcg INHALER IH SCH ×2 (10:51→22:22)
[2022-04-12] MEDS: ONDANSETRON *ODT* 4 MG TABLET SL PRN (17:57)
[2022-04-12] MEDS: ATORVASTATIN CA 20 MG TABLET (FP) PO SCH (22:20)
[2022-04-12] MEDS: LISINOPRIL 10 MG TABLET PO SCH (22:20)
[2022-04-12] MEDS: MELATONIN 5 MG TABLETS PO SCH (22:20)
[2022-04-12] MEDS: THIAMINE HCL 100 MG TABLET (FP) PO SCH (22:20)
[2022-04-12] MEDS: ALBUTEROL SO4 HFA INHALER IH PRN (22:31)
[2022-04-13] MEDS ORDERED: chlordiazePOXIDE HCL 10 MG CAPSULE PO PRN
[2022-04-13] MEDS: chlordiazePOXIDE HCL 10 MG CAPSULE PO SCH ×4 (05:56→22:10)
[2022-04-13] MEDS: hydrOXYzine PAMOATE 25 MG CAPSULE (FP) PO SCH ×5 (05:57→22:12)
[2022-04-13] MEDS ORDERED: methaDONE HCL 10 MG TABLET ONE (09:24)
[2022-04-13] MEDS ORDERED: methaDONE HCL 40 MG DISPERSABLE TABLET ONE (09:24)
[2022-04-13] MEDS ORDERED: SODIUM POLYSTYRENE SULFONATE 15 GM/60 ML BOTTLE PO ONE (10:05)
[2022-04-13] MEDS: methaDONE 40 MG, methaDONE 30 MG PO SCH (10:36)
[2022-04-13] MEDS: PRENATAL VITAMINS W/ FOLIC ACID TABLET (FP) PO SCH (10:36)
[2022-04-13] MEDS: BUDESONIDE/FORMETEROL FUMARATE 80/4.5 mcg INHALER IH SCH ×2 (10:37→22:10)
[2022-04-13] MEDS: METHOCARBAMOL 500 MG TABLET PO PRN ×2 (10:37→18:18)
[2022-04-13] MEDS: amLODIPine BESYLATE 10 MG TABLET (FP) PO SCH (10:37)
[2022-04-13] MEDS: IBUPROFEN 400 MG TABLET (FP) PO PRN (18:17)
[2022-04-13] MEDS: THIAMINE HCL 100 MG TABLET (FP) PO SCH (22:10)
[2022-04-13] MEDS: LISINOPRIL 10 MG TABLET PO SCH (22:10)
[2022-04-13] MEDS: MELATONIN 5 MG TABLETS PO SCH (22:10)
[2022-04-13] MEDS: ATORVASTATIN CA 20 MG TABLET (FP) PO SCH (22:10)
[2022-04-14] MEDS: hydrOXYzine PAMOATE 25 MG CAPSULE (FP) PO SCH ×5 (05:14→22:28)
[2022-04-14] MEDS: chlordiazePOXIDE HCL 10 MG CAPSULE PO SCH ×2 (05:15→18:22)
[2022-04-14] MEDS ORDERED: methaDONE HCL 10 MG TABLET ONE (08:38)
[2022-04-14] MEDS ORDERED: methaDONE HCL 40 MG DISPERSABLE TABLET ONE (08:39)
[2022-04-14 09:47] LABS: CREATININE 0.9 mg/dL (0.55-1.3)
[2022-04-14] MEDS ORDERED: SODIUM POLYSTYRENE SULFONATE 15 GM/60 ML BOTTLE PO ONE ×2 (10:13→21:00)
[2022-04-14] MEDS: BUDESONIDE/FORMETEROL FUMARATE 80/4.5 mcg INHALER IH SCH ×2 (10:34→23:36)
[2022-04-14] MEDS: PRENATAL VITAMINS W/ FOLIC ACID TABLET (FP) PO SCH (10:34)
[2022-04-14] MEDS: methaDONE 40 MG, methaDONE 30 MG PO SCH (10:35)
[2022-04-14] MEDS: amLODIPine BESYLATE 10 MG TABLET (FP) PO SCH (10:36)
[2022-04-14] MEDS: IBUPROFEN 600 MG TABLET (FP) PO PRN (18:24)
[2022-04-14] MEDS: THIAMINE HCL 100 MG TABLET (FP) PO SCH (22:28)
[2022-04-14] MEDS: LISINOPRIL 10 MG TABLET PO SCH (22:29)
[2022-04-14] MEDS: ATORVASTATIN CA 20 MG TABLET (FP) PO SCH (22:29)
[2022-04-14] MEDS: METHOCARBAMOL 500 MG TABLET PO PRN (22:33)
[2022-04-14] MEDS: MELATONIN 5 MG TABLETS PO SCH (23:11)
[2022-04-15] MEDS ORDERED: chlordiazePOXIDE HCL 10 MG CAPSULE PO ONE (05:00)
[2022-04-15] MEDS: hydrOXYzine PAMOATE 25 MG CAPSULE (FP) PO SCH ×5 (05:48→22:03)
[2022-04-15] MEDS ORDERED: methaDONE HCL 10 MG TABLET ONE (09:51)
[2022-04-15] MEDS ORDERED: methaDONE HCL 40 MG DISPERSABLE TABLET ONE (09:52)
[2022-04-15] MEDS: BUDESONIDE/FORMETEROL FUMARATE 80/4.5 mcg INHALER IH SCH ×2 (10:39→22:02)
[2022-04-15] MEDS: PRENATAL VITAMINS W/ FOLIC ACID TABLET (FP) PO SCH (10:39)
[2022-04-15] MEDS: amLODIPine BESYLATE 10 MG TABLET (FP) PO SCH (10:40)
[2022-04-15] MEDS: methaDONE 40 MG, methaDONE 30 MG PO SCH (10:40)
[2022-04-15] MEDS: SODIUM POLYSTYRENE SULFONATE 15 GM/60 ML BOTTLE PO SCH ×2 (17:42→22:02)
[2022-04-15] MEDS: ALBUTEROL SO4 HFA INHALER IH PRN (22:03)
[2022-04-15] MEDS: LISINOPRIL 10 MG TABLET PO SCH (22:03)
[2022-04-15] MEDS: ATORVASTATIN CA 20 MG TABLET (FP) PO SCH (22:04)
[2022-04-15] MEDS: MELATONIN 5 MG TABLETS PO SCH (22:04)
[2022-04-15] MEDS: THIAMINE HCL 100 MG TABLET (FP) PO SCH (22:04)
[2022-04-15] MEDS: METHOCARBAMOL 500 MG TABLET PO PRN (22:05)
[2022-04-16] MEDS: hydrOXYzine PAMOATE 25 MG CAPSULE (FP) PO SCH (06:16)
[2022-04-16] MEDS ORDERED: methaDONE HCL 10 MG TABLET ONE (09:30)
[2022-04-16] MEDS ORDERED: methaDONE HCL 40 MG DISPERSABLE TABLET ONE (09:30)
[2022-04-16] MEDS: BUDESONIDE/FORMETEROL FUMARATE 80/4.5 mcg INHALER IH SCH ×2 (10:17→22:08)
[2022-04-16] MEDS: amLODIPine BESYLATE 10 MG TABLET (FP) PO SCH (10:17)
[2022-04-16] MEDS: PRENATAL VITAMINS W/ FOLIC ACID TABLET (FP) PO SCH (10:17)
[2022-04-16] MEDS: methaDONE 40 MG, methaDONE 30 MG PO SCH (10:18)
[2022-04-16] MEDS: ALBUTEROL SO4 HFA INHALER IH PRN (16:55)
[2022-04-16] MEDS ORDERED: ALBUTEROL SO4 2.5/IPRATROPIUM 0.5 INH SOL 3 ML VIAL.NEB. NEB ONE ×2 (17:06→17:15)
[2022-04-16] MEDS: THIAMINE HCL 100 MG TABLET (FP) PO SCH (22:08)
[2022-04-16] MEDS: MELATONIN 5 MG TABLETS PO SCH (22:08)
[2022-04-16] MEDS: ATORVASTATIN CA 20 MG TABLET (FP) PO SCH (22:08)
[2022-04-16] MEDS: LISINOPRIL 10 MG TABLET PO SCH (22:09)
[2022-04-16] MEDS: IBUPROFEN 600 MG TABLET (FP) PO PRN (22:10)
[2022-04-17] MEDS ORDERED: methaDONE HCL 10 MG TABLET ONE (08:41)
[2022-04-17] MEDS ORDERED: methaDONE HCL 40 MG DISPERSABLE TABLET ONE (08:41)
[2022-04-17 08:59] VITALS: BP 165/78; PULSE 69; RESP 19; TEMP 97.3
[2022-04-17] MEDS: amLODIPine BESYLATE 10 MG TABLET (FP) PO SCH (09:36)
[2022-04-17] MEDS: PRENATAL VITAMINS W/ FOLIC ACID TABLET (FP) PO SCH (09:36)
[2022-04-17] MEDS: BUDESONIDE/FORMETEROL FUMARATE 80/4.5 mcg INHALER IH SCH (09:36)
[2022-04-17] MEDS: IBUPROFEN 600 MG TABLET (FP) PO PRN (09:41)
[2022-04-17] MEDS: ALBUTEROL SO4 HFA INHALER IH PRN (09:44)
[2022-04-17] MEDS ORDERED: methaDONE 40 MG, methaDONE 30 MG PO SCH (10:00)
== END 2022-04-17 10:20 | disposition home or self-care (01) | DRG 773 ==
LOC: YASAS 01:36 → SUATTDRO 01:36 → Y3N 10:28
PROVIDERS: ADMIT Allergy & Immunology; ATTEND Surgery
PROC: HZ2ZZZZ Detoxification Services for Substance Abuse Treatment (ICD-10-PCS; principal; 2022-04-10)
DX: F10.230 Alcohol dependence with withdrawal, uncomplicated (principal); F11.20 Opioid dependence, uncomplicated; F17.210 Nicotine dependence, cigarettes, uncomplicated; I10 Essential (primary) hypertension; J45.21 Mild intermittent asthma with (acute) exacerbation; E78.2 Mixed hyperlipidemia; R60.0 Localized edema; E87.5 Hyperkalemia; D64.9 Anemia, unspecified; R79.89 Other specified abnormal findings of blood chemistry; H54.40 Blindness, one eye, unspecified eye; M19.90 Unspecified osteoarthritis, unspecified site; Z86.19 Personal history of other infectious and parasitic diseases; Z91.19 Patient's noncompliance with other medical treatment and regimen; Z56.0 Unemployment, unspecified
CPT/HCPCS: 36415; 80048; 80053; 82607; 82746; 83540; 83550; 84132; 85027; 85045; 86780; 87811; 94640; C9803-CS; Q0162; U0003; U0005

== ENCOUNTER 2022-04-17 19:51 | Inpatient (IN) | payer OTHER ==
[2022-04-17 20:21] VITALS: TEMP 98.1; BMI 34.4
[2022-04-17 23:22] LABS: BASO % 0.7 % (0-2.0); EOS % 0.8 % (0-4.5); HEMATOCRIT 24.7 % (35.4-49); HEMOGLOBIN 8.2 GM/dL (11.7-16.9); LYMPH % 15.2 % (8-40); MCH 27.7 pg (25.7-33.7); MCHC 33.3 g/dl (32.0-35.9); MEAN CELL VOLUME 83.2 fl (80-96); MEAN PLT VOLUME 7.4 fl (7.5-11.1); MONO % 10.2 % (3.8-10.2); NEUT % 73.1 % (42.8-82.8); PLATELET COUNT 238 10^3/uL (134-434); RBC 2.97 M/mm3 (4.00-5.60); RDW 16.9 % (11.9-15.9); WHITE BLOOD COUNT 10.3 K/mm3 (4.0-10.0)
[2022-04-17 23:42] LABS: CHLORIDE 98 mmol/L (98-107); SODIUM 134 mmol/L (136-145)
[2022-04-17 23:43] LABS: CALCIUM 9.1 mg/dL (8.5-10.1)
[2022-04-17 23:44] LABS: ALBUMIN 3.8 g/dl (3.4-5.0); CO2 25 mmol/L (21-32); GLUCOSE,RANDOM 85 mg/dL (74-106)
[2022-04-17 23:47] LABS: CREATININE 1.5 mg/dL (0.55-1.3); SGOT/AST 40 U/L (15-37); SGPT/ALT 30 U/L (13-61)
[2022-04-17 23:49] LABS: BILIRUBIN,TOTAL 0.2 mg/dL (0.2-1); TOT PROT 7.5 g/dl (6.4-8.2)
[2022-04-17 23:50] LABS: ALK PHOS 56 U/L (45-117)
[2022-04-18 00:40] LABS: ANION GAP 10 MMOL/L (8-16)
[2022-04-18] MEDS ORDERED: INSULIN REGULAR HUMAN 100 UNITS/ML *VIAL IVPUSH ONE (02:05)
[2022-04-18] MEDS ORDERED: CALCIUM GLUCONATE 10% - 1,000 MG/10 ML VIAL IVPUSH ONE (02:05)
[2022-04-18] MEDS ORDERED: SODIUM ZIRCONIUM CYCLOSILICATE (LOKELMA) 5 GM PACKET PO SCH ×2 (02:26→10:00)
[2022-04-18] MEDS ORDERED: HEPARIN NA (PORCINE) 5,000 UNITS/ML 1ML VIAL SQ SCH (02:30)
[2022-04-18] MEDS ORDERED: CALCIUM GLUCONATE 10% - 1,000 MG/10 ML VIAL ONE (02:51)
[2022-04-18] MEDS ORDERED: DEXTROSE 50%-WATER 25 GM/50 ML DISP.SYRIN ONE ×3 (02:51→05:45)
[2022-04-18] MEDS: DEXTROSE 50%-WATER - 25 GM/50 ML VIAL IVPUSH ONE ×3 (03:45→05:35)
[2022-04-18] MEDS ORDERED: FUROSEMIDE 40 MG/4 ML INJECTABLE VIAL IVPUSH ONE (04:25)
[2022-04-18] MEDS ORDERED: ALBUTEROL SO4 HFA INHALER IH PRN (04:27)
[2022-04-18] MEDS ORDERED: FUROSEMIDE 40 MG/4 ML INJECTABLE VIAL ONE (04:53)
[2022-04-18] MEDS ORDERED: NALOXONE HCL 0.4 MG/ML VIAL ONE (05:22)
[2022-04-18] MEDS ORDERED: DEXTROSE 50%-WATER - 25 GM/50 ML VIAL IVPUSH ONE (05:35)
[2022-04-18] MEDS ORDERED: NALOXONE HCL 0.4 MG/ML VIAL IVPUSH ONE (05:37)
[2022-04-18 05:42] LABS: PH,URINE 7.5 (5.0-8.0); URINE APPEARANCE CLEAR; URINE BILIRUBIN NEGATIVE (NEGATIVE); URINE COLOR YELLOW; URINE GLUCOSE (UA) NEGATIVE (NEGATIVE); URINE KETONE NEGATIVE (NEGATIVE); URINE LEUK ESTERASE NEGATIVE (NEGATIVE); URINE NITRITE NEGATIVE (NEGATIVE); URINE PROTEIN NEGATIVE (NEGATIVE); URINE UROBILINOGEN 0.2 mg/dL (0.2-1.0)
[2022-04-18] MEDS ORDERED: DEXTROSE 5%-NORMAL SALINE 1,000 ML IV SCH (05:45)
[2022-04-18 06:00] LABS: CHLORIDE 101 mmol/L (98-107); SODIUM 137 mmol/L (136-145)
[2022-04-18] MEDS ORDERED: DEXTROSE 5%-WATER - 1,000 ML IV SCH (06:00)
[2022-04-18 06:01] LABS: CALCIUM 9.6 mg/dL (8.5-10.1)
[2022-04-18 06:02] LABS: ANION GAP 9 MMOL/L (8-16); BLOOD UREA NITROGEN 37.2 mg/dL (7-18); CO2 27 mmol/L (21-32)
[2022-04-18 06:05] LABS: CREATININE 1.3 mg/dL (0.55-1.3)
[2022-04-18 06:11] LABS: GLUCOSE,RANDOM 32 mg/dL (74-106)
[2022-04-18 08:44] LABS: HEMATOCRIT 28.6 % (35.4-49); HEMOGLOBIN 9.6 GM/dL (11.7-16.9); MCH 28.1 pg (25.7-33.7); MCHC 33.6 g/dl (32.0-35.9); MEAN CELL VOLUME 83.7 fl (80-96); MEAN PLT VOLUME 7.7 fl (7.5-11.1); PLATELET COUNT 243 10^3/uL (134-434); RBC 3.42 M/mm3 (4.00-5.60); RDW 16.9 % (11.9-15.9); RETICULOCYTES 1.73 % (0.5-1.5)
[2022-04-18 09:04] LABS: CALCIUM 9.8 mg/dL (8.5-10.1)
[2022-04-18 09:05] LABS: BLOOD UREA NITROGEN 36.8 mg/dL (7-18); MAGNESIUM 2.7 mg/dL (1.8-2.4)
[2022-04-18 09:06] LABS: ALBUMIN 3.8 g/dl (3.4-5.0)
[2022-04-18 09:09] LABS: BILIRUBIN,TOTAL 0.4 mg/dL (0.2-1); CREATININE 1.3 mg/dL (0.55-1.3)
[2022-04-18 09:10] LABS: TOT PROT 7.9 g/dl (6.4-8.2)
[2022-04-18] MEDS ORDERED: BUDESONIDE/FORMETEROL FUMARATE 80/4.5 mcg INHALER IH SCH (10:00)
[2022-04-18] MEDS ORDERED: NICOTINE 14 MG/24 HOURS TOPICAL PATCH TD SCH (10:00)
[2022-04-18] MEDS ORDERED: methaDONE 40 MG, methaDONE 30 MG PO ONE (10:00)
[2022-04-18] MEDS ORDERED: PANTOPRAZOLE SODIUM 40 MG VIAL IVPUSH SCH (10:00)
[2022-04-18] MEDS ORDERED: methaDONE HCL 10 MG TABLET (FOR DETOX USE ONLY) PO ONE (10:00)
[2022-04-18] MEDS ORDERED: methaDONE HCL 40 MG DISPERSABLE TABLET ONE (10:19)
[2022-04-18] MEDS ORDERED: methaDONE HCL 10 MG TABLET ONE (10:20)
[2022-04-18] MEDS ORDERED: SODIUM ZIRCONIUM CYCLOSILICATE (LOKELMA) 5 GM PACKET ONE (10:20)
[2022-04-18] MEDS ORDERED: PANTOPRAZOLE SODIUM 40 MG VIAL ONE (10:21)
[2022-04-18 11:05] VITALS: BP 109/68; PULSE 73; RESP 18
[2022-04-18 15:00] LABS: COCAINE, UR NEGATIVE (NEGATIVE)
[2022-04-18 15:01] LABS: PHENCYCLIDINE,URINE NEGATIVE (NEGATIVE)
[2022-04-18 15:03] LABS: METHADONE, UR POSITIVE (NEGATIVE); OPIATES, URI POSITIVE (NEGATIVE); URINE AMPHETAMINES NEGATIVE (NEGATIVE); URINE BARBITURATES NEGATIVE (NEGATIVE); URINE BENZODIAZEPINES POSITIVE (NEGATIVE)
[2022-04-18] MEDS ORDERED: ATORVASTATIN CA 20 MG TABLET (FP) PO SCH (22:00)
== END 2022-04-18 11:20 | disposition left against medical advice (07) | DRG 194 ==
LOC: JER 19:51 → JERBED 04-18 01:02
PROVIDERS: ADMIT Internal Medicine; ATTEND Internal Medicine
DX: I11.0 Hypertensive heart disease with heart failure (principal); N17.9 Acute kidney failure, unspecified; F11.20 Opioid dependence, uncomplicated; D64.9 Anemia, unspecified; E16.2 Hypoglycemia, unspecified; E87.6 Hypokalemia; F19.10 Other psychoactive substance abuse, uncomplicated; F41.8 Other specified anxiety disorders; Z72.0 Tobacco use; I50.9 Heart failure, unspecified
CPT/HCPCS: 36415; 71046-TC-FY; 80048; 80053; 80061; 80307; 81003; 82570; 82728; 82962; 83010; 83036; 83540; 83550; 83615; 83735; 83880; 84100; 84156; 84443; 84484; 85025; 85027; 85045; 87086; 93005; 93010; 93970-TC; 99285-25; C9803-CS; J1644; U0003; U0005

== ENCOUNTER 2022-05-20 18:53 | Inpatient (IN) | payer OTHER ==
[2022-05-20 19:26] VITALS: BMI 27.8
[2022-05-20] MEDS ORDERED: DICYCLOMINE HCL 10 MG CAPSULE PO PRN (21:22)
[2022-05-20] MEDS ORDERED: ONDANSETRON *ODT* 4 MG TABLET SL PRN (21:22)
[2022-05-20] MEDS ORDERED: MAGNESIUM HYDROX 2400MG/30ML ORAL SUSPENSION 30 ML CUP PO PRN (21:22)
[2022-05-20] MEDS ORDERED: BENZOCAINE/MENTHOL (CHLORASEPTIC ) LOZENGE MM PRN (21:22)
[2022-05-20] MEDS ORDERED: guaiFENesin 200 MG/10 ML 10 ML UNIT-DOSE CUPS PO PRN (21:22)
[2022-05-20] MEDS ORDERED: MAG HYDROX/AL HYDROX/SIMETH 30 ML UNIT-DOSE CUP PO PRN (21:22)
[2022-05-20] MEDS ORDERED: LOPERAMIDE HCL 2 MG CAPSULE PO PRN (21:22)
[2022-05-20] MEDS ORDERED: IBUPROFEN 400 MG TABLET (FP) PO PRN (21:22)
[2022-05-20] MEDS ORDERED: ACETAMINOPHEN 325 MG TABLET (FP) PO PRN ×2 (21:22)
[2022-05-20] MEDS ORDERED: MAGNESIUM CITRATE 300 ML BOTTLE PO PRN (21:22)
[2022-05-20] MEDS ORDERED: BISMUTH SUBSALICYLATE 524 MG/30 ML PO PRN (21:22)
[2022-05-20] MEDS ORDERED: P-EPHED 60MG/TRIPROLIDI 2.5MG TABLET PO PRN (21:22)
[2022-05-20] MEDS: THIAMINE HCL 100 MG TABLET (FP) PO SCH (21:44)
[2022-05-20] MEDS: BUDESONIDE/FORMETEROL FUMARATE 80/4.5 mcg INHALER IH SCH (21:44)
[2022-05-20] MEDS: METHOCARBAMOL 500 MG TABLET PO PRN (21:44)
[2022-05-20] MEDS: ATORVASTATIN CA 20 MG TABLET (FP) PO SCH (21:44)
[2022-05-20] MEDS: LISINOPRIL 10 MG TABLET PO SCH (21:44)
[2022-05-20] MEDS: MELATONIN 5 MG TABLETS PO PRN (21:45)
[2022-05-20] MEDS: IBUPROFEN 600 MG TABLET (FP) PO PRN (21:49)
[2022-05-20] MEDS: diazePAM 5 MG TABLET PO SCH (22:09)
[2022-05-21] MEDS: diazePAM 5 MG TABLET PO SCH ×4 (05:22→22:25)
[2022-05-21] MEDS ORDERED: methaDONE HCL 10 MG TABLET PO SCH (09:30)
[2022-05-21] MEDS ORDERED: methaDONE 40 MG, methaDONE 30 MG PO ONE (09:30)
[2022-05-21] MEDS: PRENATAL VITAMINS W/ FOLIC ACID TABLET (FP) PO SCH (10:16)
[2022-05-21] MEDS: amLODIPine BESYLATE 10 MG TABLET (FP) PO SCH (10:16)
[2022-05-21] MEDS: BUDESONIDE/FORMETEROL FUMARATE 80/4.5 mcg INHALER IH SCH ×2 (10:17→22:40)
[2022-05-21 12:55] LABS: HIV INTERPRETATION NEGATIVE (NEGATIVE)
[2022-05-21] MEDS ORDERED: NICOTINE POLACRILEX 2 MG GUM BC PRN (14:04)
[2022-05-21] MEDS: IBUPROFEN 600 MG TABLET (FP) PO PRN (17:47)
[2022-05-21] MEDS: hydrOXYzine PAMOATE 25 MG CAPSULE (FP) PO PRN (17:48)
[2022-05-21] MEDS: ALBUTEROL SO4 HFA INHALER IH PRN (17:50)
[2022-05-21] MEDS: ATORVASTATIN CA 20 MG TABLET (FP) PO SCH (22:26)
[2022-05-21] MEDS: LISINOPRIL 10 MG TABLET PO SCH (22:26)
[2022-05-21] MEDS: THIAMINE HCL 100 MG TABLET (FP) PO SCH (22:26)
[2022-05-21] MEDS: MELATONIN 5 MG TABLETS PO PRN (22:26)
[2022-05-21] MEDS: METHOCARBAMOL 500 MG TABLET PO PRN (22:28)
[2022-05-22] MEDS: diazePAM 5 MG TABLET PO SCH ×3 (05:20→22:07)
[2022-05-22] MEDS: methaDONE 40 MG, methaDONE 30 MG PO SCH (05:20)
[2022-05-22] MEDS: NICOTINE 21 MG/24 HOURS TOPICAL PATCH TD SCH (10:13)
[2022-05-22] MEDS: diazePAM 5 MG TABLET PO PRN ×2 (10:14→17:27)
[2022-05-22] MEDS: BUDESONIDE/FORMETEROL FUMARATE 80/4.5 mcg INHALER IH SCH ×2 (10:14→22:07)
[2022-05-22] MEDS: amLODIPine BESYLATE 10 MG TABLET (FP) PO SCH (10:14)
[2022-05-22] MEDS: PRENATAL VITAMINS W/ FOLIC ACID TABLET (FP) PO SCH (10:14)
[2022-05-22] MEDS: ALBUTEROL SO4 HFA INHALER IH PRN (10:15)
[2022-05-22] MEDS: hydrOXYzine PAMOATE 25 MG CAPSULE (FP) PO PRN ×2 (10:17→17:27)
[2022-05-22] MEDS: METHOCARBAMOL 500 MG TABLET PO PRN ×2 (10:17→17:26)
[2022-05-22] MEDS: IBUPROFEN 600 MG TABLET (FP) PO PRN ×2 (10:17→22:11)
[2022-05-22] MEDS: MELATONIN 5 MG TABLETS PO PRN (22:06)
[2022-05-22] MEDS: THIAMINE HCL 100 MG TABLET (FP) PO SCH (22:06)
[2022-05-22] MEDS: LISINOPRIL 10 MG TABLET PO SCH (22:06)
[2022-05-22] MEDS: ATORVASTATIN CA 20 MG TABLET (FP) PO SCH (22:06)
[2022-05-23] MEDS: hydrOXYzine PAMOATE 25 MG CAPSULE (FP) PO PRN ×2 (05:15→22:15)
[2022-05-23] MEDS: methaDONE 40 MG, methaDONE 30 MG PO SCH (05:16)
[2022-05-23] MEDS: diazePAM 5 MG TABLET PO SCH ×2 (05:16→17:53)
[2022-05-23] MEDS: ALBUTEROL SO4 HFA INHALER IH PRN (09:25)
[2022-05-23] MEDS: NICOTINE 21 MG/24 HOURS TOPICAL PATCH TD SCH (10:24)
[2022-05-23] MEDS: BUDESONIDE/FORMETEROL FUMARATE 80/4.5 mcg INHALER IH SCH ×2 (10:25→22:12)
[2022-05-23] MEDS: METHOCARBAMOL 500 MG TABLET PO PRN ×2 (10:25→22:16)
[2022-05-23] MEDS: PRENATAL VITAMINS W/ FOLIC ACID TABLET (FP) PO SCH (10:25)
[2022-05-23] MEDS: amLODIPine BESYLATE 10 MG TABLET (FP) PO SCH (10:25)
[2022-05-23] MEDS: diazePAM 5 MG TABLET PO PRN (10:26)
[2022-05-23] MEDS: THIAMINE HCL 100 MG TABLET (FP) PO SCH (22:12)
[2022-05-23] MEDS: ATORVASTATIN CA 20 MG TABLET (FP) PO SCH (22:12)
[2022-05-23] MEDS: LISINOPRIL 10 MG TABLET PO SCH (22:12)
[2022-05-23] MEDS: MELATONIN 5 MG TABLETS PO PRN (22:12)
[2022-05-23] MEDS: IBUPROFEN 600 MG TABLET (FP) PO PRN (22:16)
[2022-05-24] MEDS: methaDONE 40 MG, methaDONE 30 MG PO SCH (05:21)
[2022-05-24] MEDS ORDERED: diazePAM 5 MG TABLET PO ONE (06:00)
[2022-05-24 09:47] VITALS: BP 128/74; PULSE 67; RESP 16; TEMP 97.3
[2022-05-24] MEDS: amLODIPine BESYLATE 10 MG TABLET (FP) PO SCH (10:38)
[2022-05-24] MEDS: BUDESONIDE/FORMETEROL FUMARATE 80/4.5 mcg INHALER IH SCH (10:38)
[2022-05-24] MEDS: NICOTINE 21 MG/24 HOURS TOPICAL PATCH TD SCH (10:38)
[2022-05-24] MEDS: PRENATAL VITAMINS W/ FOLIC ACID TABLET (FP) PO SCH (10:38)
[2022-05-24] MEDS: METHOCARBAMOL 500 MG TABLET PO PRN (10:40)
== END 2022-05-24 11:34 | disposition home or self-care (01) | DRG 773 ==
LOC: YASAS 18:53 → Y3N 20:53
PROVIDERS: ADMIT Allergy & Immunology; ATTEND Surgery
PROC: HZ2ZZZZ Detoxification Services for Substance Abuse Treatment (ICD-10-PCS; principal; 2022-05-20)
DX: F11.23 Opioid dependence with withdrawal (principal); F10.230 Alcohol dependence with withdrawal, uncomplicated; F17.210 Nicotine dependence, cigarettes, uncomplicated; I10 Essential (primary) hypertension; J45.20 Mild intermittent asthma, uncomplicated; H54.62 Unqualified visual loss, left eye, normal vision right eye; Z86.19 Personal history of other infectious and parasitic diseases; M17.11 Unilateral primary osteoarthritis, right knee; Z96.641 Presence of right artificial hip joint; Z99.89 Dependence on other enabling machines and devices
CPT/HCPCS: 36415; 86780; 87389; 87811; C9803-CS; Q0162; U0003; U0005

== ENCOUNTER 2022-05-29 18:54 | Inpatient (IN) | payer OTHER ==
[2022-05-29 21:47] VITALS: BMI 28.0
[2022-05-29] MEDS ORDERED: guaiFENesin 200 MG/10 ML 10 ML UNIT-DOSE CUPS PO PRN (22:47)
[2022-05-29] MEDS ORDERED: P-EPHED 60MG/TRIPROLIDI 2.5MG TABLET PO PRN (22:47)
[2022-05-29] MEDS ORDERED: MAGNESIUM HYDROX 2400MG/30ML ORAL SUSPENSION 30 ML CUP PO PRN (22:47)
[2022-05-29] MEDS ORDERED: ONDANSETRON *ODT* 4 MG TABLET SL PRN (22:47)
[2022-05-29] MEDS ORDERED: NALOXONE HCL (KLOXXADO) 8 MG SPRAY NS PRN (22:47)
[2022-05-29] MEDS ORDERED: MAG HYDROX/AL HYDROX/SIMETH 30 ML UNIT-DOSE CUP PO PRN (22:47)
[2022-05-29] MEDS ORDERED: LOPERAMIDE HCL 2 MG CAPSULE PO PRN (22:47)
[2022-05-29] MEDS ORDERED: BENZOCAINE/MENTHOL (CHLORASEPTIC ) LOZENGE MM PRN (22:47)
[2022-05-29] MEDS ORDERED: DICYCLOMINE HCL 10 MG CAPSULE PO PRN (22:47)
[2022-05-29] MEDS ORDERED: NICOTINE POLACRILEX 2 MG GUM BUC PRN (22:47)
[2022-05-29] MEDS ORDERED: MAGNESIUM CITRATE 300 ML BOTTLE PO PRN (22:47)
[2022-05-29] MEDS ORDERED: BISMUTH SUBSALICYLATE 524 MG/30 ML PO PRN (22:47)
[2022-05-29] MEDS ORDERED: ACETAMINOPHEN 325 MG TABLET (FP) PO PRN ×2 (22:47)
[2022-05-29] MEDS ORDERED: diazePAM 5 MG TABLET PO PRN (22:51)
[2022-05-30] MEDS: IBUPROFEN 600 MG TABLET (FP) PO PRN (07:09)
[2022-05-30] MEDS ORDERED: cloNIDine HCL 0.1 MG TABLET PO ONE (09:13)
[2022-05-30] MEDS ORDERED: methaDONE HCL 10 MG TABLET PO SCH (09:15)
[2022-05-30] MEDS ORDERED: ONDANSETRON *ODT* 4 MG TABLET ONE (09:18)
[2022-05-30] MEDS ORDERED: methaDONE 40 MG, methaDONE 30 MG PO ONE (09:45)
[2022-05-30] MEDS ORDERED: chlordiazePOXIDE HCL 25 MG CAPSULE PO PRN (10:25)
[2022-05-30] MEDS: METHOCARBAMOL 500 MG TABLET PO PRN (11:53)
[2022-05-30] MEDS: chlordiazePOXIDE HCL 25 MG CAPSULE PO SCH ×3 (11:54→22:27)
[2022-05-30] MEDS: hydrOXYzine PAMOATE 25 MG CAPSULE (FP) PO PRN (11:54)
[2022-05-30] MEDS: PRENATAL VITAMINS W/ FOLIC ACID TABLET (FP) PO SCH (11:55)
[2022-05-30 12:24] LABS: HEMATOCRIT 28.5 % (35.4-49); HEMOGLOBIN 9.2 GM/dL (11.7-16.9); MCHC 32.4 g/dl (32.0-35.9); MEAN CELL VOLUME 86.6 fl (80-96); MEAN PLT VOLUME 8.4 fl (7.5-11.1); PLATELET COUNT 229 10^3/uL (134-434); RDW 16.2 % (11.9-15.9); WHITE BLOOD COUNT 5.6 K/mm3 (4.0-10.0)
[2022-05-30 12:59] LABS: CALCIUM 8.6 mg/dL (8.5-10.1)
[2022-05-30 13:00] LABS: ALBUMIN 3.4 g/dl (3.4-5.0); BLOOD UREA NITROGEN 22.3 mg/dL (7-18)
[2022-05-30 13:05] LABS: BILIRUBIN,TOTAL 0.5 mg/dL (0.2-1); TOT PROT 7.1 g/dl (6.4-8.2)
[2022-05-30] MEDS: amLODIPine BESYLATE 10 MG TABLET (FP) PO SCH (20:14)
[2022-05-30] MEDS: ALBUTEROL SO4 HFA INHALER IH PRN (21:23)
[2022-05-30] MEDS: THIAMINE HCL 100 MG TABLET (FP) PO SCH (22:27)
[2022-05-30] MEDS: LISINOPRIL 10 MG TABLET PO SCH (22:27)
[2022-05-30] MEDS: ATORVASTATIN CA 20 MG TABLET (FP) PO SCH (22:27)
[2022-05-30] MEDS: BUDESONIDE/FORMETEROL FUMARATE 80/4.5 mcg INHALER IH SCH (22:28)
[2022-05-30] MEDS: MELATONIN 5 MG TABLETS PO PRN (22:31)
[2022-05-31] MEDS: methaDONE 40 MG, methaDONE 30 MG PO SCH (05:36)
[2022-05-31] MEDS: chlordiazePOXIDE HCL 25 MG CAPSULE PO SCH ×4 (05:37→22:25)
[2022-05-31] MEDS: BUDESONIDE/FORMETEROL FUMARATE 80/4.5 mcg INHALER IH SCH ×2 (10:22→22:26)
[2022-05-31] MEDS: amLODIPine BESYLATE 10 MG TABLET (FP) PO SCH (10:22)
[2022-05-31] MEDS: PRENATAL VITAMINS W/ FOLIC ACID TABLET (FP) PO SCH (10:22)
[2022-05-31] MEDS: ALBUTEROL SO4 HFA INHALER IH PRN ×3 (10:23→22:37)
[2022-05-31] MEDS: METHOCARBAMOL 500 MG TABLET PO PRN ×2 (10:26→20:33)
[2022-05-31] MEDS: IBUPROFEN 600 MG TABLET (FP) PO PRN (10:26)
[2022-05-31] MEDS: hydrOXYzine PAMOATE 25 MG CAPSULE (FP) PO PRN (20:33)
[2022-05-31] MEDS: ATORVASTATIN CA 20 MG TABLET (FP) PO SCH (22:25)
[2022-05-31] MEDS: THIAMINE HCL 100 MG TABLET (FP) PO SCH (22:25)
[2022-05-31] MEDS: LISINOPRIL 10 MG TABLET PO SCH (22:26)
[2022-05-31] MEDS: MELATONIN 5 MG TABLETS PO PRN (22:26)
[2022-06-01] MEDS: methaDONE 40 MG, methaDONE 30 MG PO SCH (05:21)
[2022-06-01] MEDS: chlordiazePOXIDE HCL 25 MG CAPSULE PO SCH ×4 (05:21→22:18)
[2022-06-01] MEDS: BUDESONIDE/FORMETEROL FUMARATE 80/4.5 mcg INHALER IH SCH ×2 (10:11→22:19)
[2022-06-01] MEDS: ALBUTEROL SO4 HFA INHALER IH PRN ×2 (10:11→22:23)
[2022-06-01] MEDS: PRENATAL VITAMINS W/ FOLIC ACID TABLET (FP) PO SCH (10:11)
[2022-06-01] MEDS: amLODIPine BESYLATE 10 MG TABLET (FP) PO SCH (10:11)
[2022-06-01] MEDS: METHOCARBAMOL 500 MG TABLET PO PRN (17:40)
[2022-06-01] MEDS: IBUPROFEN 400 MG TABLET (FP) PO PRN (17:40)
[2022-06-01] MEDS: THIAMINE HCL 100 MG TABLET (FP) PO SCH (22:18)
[2022-06-01] MEDS: ATORVASTATIN CA 20 MG TABLET (FP) PO SCH (22:18)
[2022-06-01] MEDS: LISINOPRIL 10 MG TABLET PO SCH (22:19)
[2022-06-01] MEDS: MELATONIN 5 MG TABLETS PO PRN (22:20)
[2022-06-02] MEDS ORDERED: chlordiazePOXIDE HCL 10 MG CAPSULE PO PRN
[2022-06-02] MEDS: methaDONE 40 MG, methaDONE 30 MG PO SCH (05:26)
[2022-06-02] MEDS: chlordiazePOXIDE HCL 10 MG CAPSULE PO SCH ×4 (05:27→22:00)
[2022-06-02] MEDS: hydrOXYzine PAMOATE 25 MG CAPSULE (FP) PO PRN ×2 (10:33→17:36)
[2022-06-02] MEDS: amLODIPine BESYLATE 10 MG TABLET (FP) PO SCH (10:33)
[2022-06-02] MEDS: METHOCARBAMOL 500 MG TABLET PO PRN (10:33)
[2022-06-02] MEDS: PRENATAL VITAMINS W/ FOLIC ACID TABLET (FP) PO SCH (10:33)
[2022-06-02] MEDS: BUDESONIDE/FORMETEROL FUMARATE 80/4.5 mcg INHALER IH SCH ×2 (10:35→21:59)
[2022-06-02] MEDS: ALBUTEROL SO4 HFA INHALER IH PRN (17:37)
[2022-06-02] MEDS: IBUPROFEN 600 MG TABLET (FP) PO PRN (17:39)
[2022-06-02] MEDS: ATORVASTATIN CA 20 MG TABLET (FP) PO SCH (21:59)
[2022-06-02] MEDS: MELATONIN 5 MG TABLETS PO PRN (21:59)
[2022-06-02] MEDS: THIAMINE HCL 100 MG TABLET (FP) PO SCH (21:59)
[2022-06-02] MEDS: LISINOPRIL 10 MG TABLET PO SCH (21:59)
[2022-06-03] MEDS: chlordiazePOXIDE HCL 10 MG CAPSULE PO SCH ×2 (05:27→18:28)
[2022-06-03] MEDS: methaDONE 40 MG, methaDONE 30 MG PO SCH (05:28)
[2022-06-03] MEDS: ALBUTEROL SO4 HFA INHALER IH PRN ×2 (10:15→15:20)
[2022-06-03] MEDS: BUDESONIDE/FORMETEROL FUMARATE 80/4.5 mcg INHALER IH SCH ×2 (10:15→22:08)
[2022-06-03] MEDS: amLODIPine BESYLATE 10 MG TABLET (FP) PO SCH (10:15)
[2022-06-03] MEDS: PRENATAL VITAMINS W/ FOLIC ACID TABLET (FP) PO SCH (10:16)
[2022-06-03] MEDS: METHOCARBAMOL 500 MG TABLET PO PRN ×2 (10:18→18:34)
[2022-06-03] MEDS: IBUPROFEN 400 MG TABLET (FP) PO PRN (10:18)
[2022-06-03] MEDS: FERROUS SO4 325 MG TABLET (FP) PO SCH (18:28)
[2022-06-03] MEDS: IBUPROFEN 600 MG TABLET (FP) PO PRN (18:34)
[2022-06-03] MEDS: hydrOXYzine PAMOATE 25 MG CAPSULE (FP) PO PRN ×2 (18:34→22:09)
[2022-06-03] MEDS: THIAMINE HCL 100 MG TABLET (FP) PO SCH (22:08)
[2022-06-03] MEDS: MELATONIN 5 MG TABLETS PO PRN (22:08)
[2022-06-03] MEDS: LISINOPRIL 10 MG TABLET PO SCH (22:08)
[2022-06-03] MEDS: ATORVASTATIN CA 20 MG TABLET (FP) PO SCH (22:08)
[2022-06-04] MEDS ORDERED: chlordiazePOXIDE HCL 10 MG CAPSULE PO ONE (05:00)
[2022-06-04] MEDS: methaDONE 40 MG, methaDONE 30 MG PO SCH (05:11)
[2022-06-04] MEDS: FERROUS SO4 325 MG TABLET (FP) PO SCH (07:15)
[2022-06-04 07:41] VITALS: RESP 18
[2022-06-04] MEDS: BUDESONIDE/FORMETEROL FUMARATE 80/4.5 mcg INHALER IH SCH (09:21)
[2022-06-04] MEDS: amLODIPine BESYLATE 10 MG TABLET (FP) PO SCH (09:21)
[2022-06-04] MEDS: PRENATAL VITAMINS W/ FOLIC ACID TABLET (FP) PO SCH (09:21)
[2022-06-04 09:25] VITALS: BP 141/67; PULSE 77; TEMP 98
== END 2022-06-04 09:51 | disposition home or self-care (01) | DRG 773 ==
LOC: YASAS 18:54 → Y6N 05-30 10:24
PROVIDERS: ADMIT Allergy & Immunology; ATTEND Surgery
PROC: HZ2ZZZZ Detoxification Services for Substance Abuse Treatment (ICD-10-PCS; principal; 2022-05-30)
DX: F11.23 Opioid dependence with withdrawal (principal); F10.230 Alcohol dependence with withdrawal, uncomplicated; F17.210 Nicotine dependence, cigarettes, uncomplicated; H54.62 Unqualified visual loss, left eye, normal vision right eye; E78.5 Hyperlipidemia, unspecified; I10 Essential (primary) hypertension; J45.20 Mild intermittent asthma, uncomplicated; M17.11 Unilateral primary osteoarthritis, right knee; Z86.19 Personal history of other infectious and parasitic diseases; Z99.89 Dependence on other enabling machines and devices
CPT/HCPCS: 36415; 80053; 85027; C9803-CS; Q0162; U0003; U0005

== ENCOUNTER 2022-06-07 19:48 | Inpatient (IN) | payer OTHER ==
[2022-06-07 21:12] VITALS: BMI 32.4
[2022-06-07] MEDS ORDERED: DICYCLOMINE HCL 10 MG CAPSULE PO PRN (21:32)
[2022-06-07] MEDS ORDERED: ONDANSETRON *ODT* 4 MG TABLET SL PRN (21:32)
[2022-06-07] MEDS ORDERED: MELATONIN 5 MG TABLETS PO PRN (21:32)
[2022-06-07] MEDS ORDERED: guaiFENesin 200 MG/10 ML 10 ML UNIT-DOSE CUPS PO PRN (21:32)
[2022-06-07] MEDS ORDERED: MAG HYDROX/AL HYDROX/SIMETH 30 ML UNIT-DOSE CUP PO PRN (21:32)
[2022-06-07] MEDS ORDERED: BENZOCAINE/MENTHOL (CHLORASEPTIC ) LOZENGE MM PRN (21:32)
[2022-06-07] MEDS ORDERED: BISMUTH SUBSALICYLATE 524 MG/30 ML PO PRN (21:32)
[2022-06-07] MEDS ORDERED: MAGNESIUM HYDROX 2400MG/30ML ORAL SUSPENSION 30 ML CUP PO PRN (21:32)
[2022-06-07] MEDS ORDERED: LOPERAMIDE HCL 2 MG CAPSULE PO PRN (21:32)
[2022-06-07] MEDS ORDERED: ACETAMINOPHEN 325 MG TABLET (FP) PO PRN ×2 (21:32)
[2022-06-07] MEDS ORDERED: P-EPHED 60MG/TRIPROLIDI 2.5MG TABLET PO PRN (21:32)
[2022-06-07] MEDS ORDERED: IBUPROFEN 400 MG TABLET (FP) PO PRN (21:32)
[2022-06-07] MEDS ORDERED: MAGNESIUM CITRATE 300 ML BOTTLE PO PRN (21:32)
[2022-06-07] MEDS: diazePAM 5 MG TABLET PO SCH (23:58)
[2022-06-07] MEDS: THIAMINE HCL 100 MG TABLET (FP) PO SCH (23:59)
[2022-06-08] MEDS: diazePAM 5 MG TABLET PO SCH ×4 (05:27→22:26)
[2022-06-08] MEDS ORDERED: methaDONE HCL 10 MG TABLET PO SCH (08:45)
[2022-06-08] MEDS: methaDONE 40 MG, methaDONE 30 MG PO SCH (09:45)
[2022-06-08] MEDS: PRENATAL VITAMINS W/ FOLIC ACID TABLET (FP) PO SCH (10:27)
[2022-06-08] MEDS: amLODIPine BESYLATE 10 MG TABLET (FP) PO SCH (10:27)
[2022-06-08] MEDS: BUDESONIDE/FORMETEROL FUMARATE 80/4.5 mcg INHALER IH SCH ×2 (10:27→22:26)
[2022-06-08] MEDS: IBUPROFEN 600 MG TABLET (FP) PO PRN ×2 (10:31)
[2022-06-08] MEDS: ALBUTEROL SO4 HFA INHALER IH PRN ×3 (10:31→22:26)
[2022-06-08] MEDS ORDERED: FLU VACC QS2022-23(6MOS UP)/PF 60 MCG/0.5 ML SYRINGE IM ONE (12:00)
[2022-06-08] MEDS: hydrOXYzine PAMOATE 25 MG CAPSULE (FP) PO PRN (18:05)
[2022-06-08] MEDS: ATORVASTATIN CA 20 MG TABLET (FP) PO SCH (22:25)
[2022-06-08] MEDS: LISINOPRIL 10 MG TABLET PO SCH (22:25)
[2022-06-08] MEDS: THIAMINE HCL 100 MG TABLET (FP) PO SCH (22:25)
[2022-06-09] MEDS: methaDONE 40 MG, methaDONE 30 MG PO SCH (05:39)
[2022-06-09] MEDS: diazePAM 5 MG TABLET PO SCH ×2 (05:39→17:58)
[2022-06-09] MEDS ORDERED: diazePAM 5 MG TABLET PO SCH (06:00)
[2022-06-09] MEDS: diazePAM 5 MG TABLET PO PRN ×2 (10:43→23:06)
[2022-06-09] MEDS: BUDESONIDE/FORMETEROL FUMARATE 80/4.5 mcg INHALER IH SCH ×2 (10:43→23:04)
[2022-06-09] MEDS: PRENATAL VITAMINS W/ FOLIC ACID TABLET (FP) PO SCH (10:43)
[2022-06-09] MEDS: amLODIPine BESYLATE 10 MG TABLET (FP) PO SCH (10:43)
[2022-06-09] MEDS: hydrOXYzine PAMOATE 25 MG CAPSULE (FP) PO PRN ×2 (17:58→23:05)
[2022-06-09] MEDS: ALBUTEROL SO4 HFA INHALER IH PRN (23:04)
[2022-06-09] MEDS: THIAMINE HCL 100 MG TABLET (FP) PO SCH (23:05)
[2022-06-09] MEDS: ATORVASTATIN CA 20 MG TABLET (FP) PO SCH (23:05)
[2022-06-09] MEDS: LISINOPRIL 10 MG TABLET PO SCH (23:05)
[2022-06-10] MEDS ORDERED: diazePAM 5 MG TABLET PO SCH (06:00)
[2022-06-10] MEDS ORDERED: diazePAM 5 MG TABLET PO ONE (06:00)
[2022-06-10] MEDS: methaDONE 40 MG, methaDONE 30 MG PO SCH (06:09)
[2022-06-10] MEDS: hydrOXYzine PAMOATE 25 MG CAPSULE (FP) PO PRN (09:48)
[2022-06-10] MEDS: BUDESONIDE/FORMETEROL FUMARATE 80/4.5 mcg INHALER IH SCH (09:48)
[2022-06-10] MEDS: amLODIPine BESYLATE 10 MG TABLET (FP) PO SCH (09:48)
[2022-06-10] MEDS: ALBUTEROL SO4 HFA INHALER IH PRN (09:48)
[2022-06-10] MEDS: PRENATAL VITAMINS W/ FOLIC ACID TABLET (FP) PO SCH (09:49)
[2022-06-10 13:08] VITALS: BP 173/73; PULSE 96; RESP 18; TEMP 97.6
[2022-06-10] MEDS ORDERED: LISINOPRIL 10 MG TABLET PO SCH (22:00)
[2022-06-11] MEDS ORDERED: diazePAM 5 MG TABLET PO ONE (06:00)
== END 2022-06-10 14:32 | disposition home or self-care (01) | DRG 773 ==
LOC: YASAS 19:48 → Y6N 22:37
PROVIDERS: ADMIT Allergy & Immunology; ATTEND Surgery
PROC: HZ2ZZZZ Detoxification Services for Substance Abuse Treatment (ICD-10-PCS; principal; 2022-06-07)
DX: F10.230 Alcohol dependence with withdrawal, uncomplicated (principal); F11.20 Opioid dependence, uncomplicated; F14.20 Cocaine dependence, uncomplicated; F17.210 Nicotine dependence, cigarettes, uncomplicated; E78.5 Hyperlipidemia, unspecified; I10 Essential (primary) hypertension; J45.20 Mild intermittent asthma, uncomplicated; H54.62 Unqualified visual loss, left eye, normal vision right eye; R26.89 Other abnormalities of gait and mobility; Z86.19 Personal history of other infectious and parasitic diseases
CPT/HCPCS: 73090-TC-RT-FY; C9803-CS; G0008; Q2036; U0003; U0005

== ENCOUNTER 2022-06-13 15:31 | Inpatient (IN) | payer OTHER ==
[2022-06-13 17:37] VITALS: BMI 25.0
[2022-06-13] MEDS ORDERED: guaiFENesin 200 MG/10 ML 10 ML UNIT-DOSE CUPS PO PRN (18:11)
[2022-06-13] MEDS ORDERED: MAGNESIUM HYDROX 2400MG/30ML ORAL SUSPENSION 30 ML CUP PO PRN (18:11)
[2022-06-13] MEDS ORDERED: MAGNESIUM CITRATE 300 ML BOTTLE PO PRN (18:11)
[2022-06-13] MEDS ORDERED: MAG HYDROX/AL HYDROX/SIMETH 30 ML UNIT-DOSE CUP PO PRN (18:11)
[2022-06-13] MEDS ORDERED: NICOTINE POLACRILEX 2 MG GUM BC PRN (18:11)
[2022-06-13] MEDS ORDERED: ACETAMINOPHEN 325 MG TABLET (FP) PO PRN (18:11)
[2022-06-13] MEDS ORDERED: hydrOXYzine PAMOATE 25 MG CAPSULE (FP) PO PRN (18:11)
[2022-06-13] MEDS ORDERED: P-EPHED 60MG/TRIPROLIDI 2.5MG TABLET PO PRN (18:11)
[2022-06-13] MEDS ORDERED: LOPERAMIDE HCL 2 MG CAPSULE PO PRN (18:11)
[2022-06-13] MEDS: THIAMINE HCL 100 MG TABLET (FP) PO SCH (22:45)
[2022-06-13] MEDS: MELATONIN 5 MG TABLETS PO SCH (22:46)
[2022-06-14] MEDS ORDERED: methaDONE HCL 10 MG TABLET PO ONE (09:24)
[2022-06-14] MEDS ORDERED: methaDONE 40 MG, methaDONE 30 MG PO ONE (09:50)
[2022-06-14] MEDS: NICOTINE 7 MG/24 HOURS TOPICAL PATCH TD SCH (09:57)
[2022-06-14] MEDS: PRENATAL VITAMINS W/ FOLIC ACID TABLET (FP) PO SCH (09:57)
[2022-06-14] MEDS: IBUPROFEN 400 MG TABLET (FP) PO PRN (09:59)
[2022-06-14 10:54] LABS: HEMATOCRIT 31.1 % (35.4-49); HEMOGLOBIN 10.1 GM/dL (11.7-16.9); MCH 27.7 pg (25.7-33.7); MCHC 32.4 g/dl (32.0-35.9); MEAN CELL VOLUME 85.7 fl (80-96); MEAN PLT VOLUME 8.4 fl (7.5-11.1); PLATELET COUNT 337 10^3/uL (134-434); RBC 3.63 M/mm3 (4.00-5.60); RDW 16.7 % (11.9-15.9); WHITE BLOOD COUNT 6.9 K/mm3 (4.0-10.0)
[2022-06-14 11:06] LABS: ALBUMIN 3.9 g/dl (3.4-5.0); BLOOD UREA NITROGEN 24.1 mg/dL (7-18); CALCIUM 9.4 mg/dL (8.5-10.1)
[2022-06-14 11:07] LABS: PH,URINE 5.5 (5.0-8.0); URINE APPEARANCE CLEAR; URINE BILIRUBIN NEGATIVE (NEGATIVE); URINE COLOR YELLOW; URINE GLUCOSE (UA) NEGATIVE (NEGATIVE); URINE KETONE NEGATIVE (NEGATIVE); URINE LEUK ESTERASE NEGATIVE (NEGATIVE); URINE NITRITE NEGATIVE (NEGATIVE); URINE PROTEIN NEGATIVE (NEGATIVE); URINE UROBILINOGEN 0.2 mg/dL (0.2-1.0)
[2022-06-14 11:11] LABS: TOT PROT 7.8 g/dl (6.4-8.2)
[2022-06-14 11:17] LABS: BILIRUBIN,TOTAL 0.7 mg/dL (0.2-1)
[2022-06-14] MEDS ORDERED: ALBUTEROL SO4 HFA INHALER IH PRN (16:43)
[2022-06-14] MEDS ORDERED: amLODIPine BESYLATE 10 MG TABLET (FP) PO ONE (16:47)
[2022-06-14] MEDS: MELATONIN 5 MG TABLETS PO SCH (21:15)
[2022-06-14] MEDS: THIAMINE HCL 100 MG TABLET (FP) PO SCH (21:15)
[2022-06-14] MEDS: BUDESONIDE/FORMETEROL FUMARATE 80/4.5 mcg INHALER IH SCH (21:16)
[2022-06-14] MEDS ORDERED: LISINOPRIL 10 MG TABLET PO SCH (22:00)
[2022-06-15] MEDS ORDERED: methaDONE 40 MG, methaDONE 30 MG PO SCH (06:00)
[2022-06-15] MEDS ORDERED: methaDONE HCL 10 MG TABLET PO SCH (06:00)
[2022-06-15 06:48] VITALS: RESP 16; TEMP 97.5
[2022-06-15] MEDS: IBUPROFEN 400 MG TABLET (FP) PO PRN (06:54)
[2022-06-15] MEDS: PRENATAL VITAMINS W/ FOLIC ACID TABLET (FP) PO SCH (09:44)
[2022-06-15] MEDS: BUDESONIDE/FORMETEROL FUMARATE 80/4.5 mcg INHALER IH SCH (09:44)
[2022-06-15] MEDS: NICOTINE 7 MG/24 HOURS TOPICAL PATCH TD SCH (09:44)
[2022-06-15 10:00] VITALS: BP 160/79; PULSE 67
[2022-06-15] MEDS ORDERED: amLODIPine BESYLATE 10 MG TABLET (FP) PO SCH (10:00)
== END 2022-06-15 11:20 | disposition left against medical advice (07) | DRG 770 ==
LOC: YASAS 15:31 → Y5N 20:38 → Y3E 06-14 15:55
PROVIDERS: ADMIT Allergy & Immunology; ATTEND Psychiatry & Neurology Pain Medicine
PROC: HZ42ZZZ Group Counseling for Substance Abuse Treatment, Cognitive-Behavioral (ICD-10-PCS; principal; 2022-06-13)
DX: F10.20 Alcohol dependence, uncomplicated (principal); F11.20 Opioid dependence, uncomplicated; F17.210 Nicotine dependence, cigarettes, uncomplicated; I11.0 Hypertensive heart disease with heart failure; I50.9 Heart failure, unspecified; M16.11 Unilateral primary osteoarthritis, right hip; H54.62 Unqualified visual loss, left eye, normal vision right eye; Z86.19 Personal history of other infectious and parasitic diseases
CPT/HCPCS: 36415; 80053; 81003; 85027; 86780; 87811; C9803-CS; U0003; U0005

== ENCOUNTER 2022-06-22 16:38 | Inpatient (IN) | payer OTHER ==
[2022-06-22 20:32] VITALS: BMI 27.7
[2022-06-22] MEDS ORDERED: MAGNESIUM HYDROX 2400MG/30ML ORAL SUSPENSION 30 ML CUP PO PRN (23:36)
[2022-06-22] MEDS ORDERED: guaiFENesin 200 MG/10 ML 10 ML UNIT-DOSE CUPS PO PRN (23:36)
[2022-06-22] MEDS ORDERED: DICYCLOMINE HCL 10 MG CAPSULE PO PRN (23:36)
[2022-06-22] MEDS ORDERED: NALOXONE HCL 0.4 MG/ML VIAL IM PRN (23:36)
[2022-06-22] MEDS ORDERED: BENZOCAINE/MENTHOL (CHLORASEPTIC ) LOZENGE MM PRN (23:36)
[2022-06-22] MEDS ORDERED: NICOTINE 7 MG/24 HOURS TOPICAL PATCH TD PRN (23:36)
[2022-06-22] MEDS ORDERED: NALOXONE HCL (KLOXXADO) 8 MG SPRAY NS PRN (23:36)
[2022-06-22] MEDS ORDERED: P-EPHED 60MG/TRIPROLIDI 2.5MG TABLET PO PRN (23:36)
[2022-06-22] MEDS ORDERED: IBUPROFEN 400 MG TABLET (FP) PO PRN (23:36)
[2022-06-22] MEDS ORDERED: BISMUTH SUBSALICYLATE 524 MG/30 ML PO PRN (23:36)
[2022-06-22] MEDS ORDERED: MAGNESIUM CITRATE 300 ML BOTTLE PO PRN (23:36)
[2022-06-22] MEDS ORDERED: MAG HYDROX/AL HYDROX/SIMETH 30 ML UNIT-DOSE CUP PO PRN (23:36)
[2022-06-22] MEDS ORDERED: ACETAMINOPHEN 325 MG TABLET (FP) PO PRN ×2 (23:36)
[2022-06-22] MEDS ORDERED: LOPERAMIDE HCL 2 MG CAPSULE PO PRN (23:36)
[2022-06-23] MEDS: diazePAM 5 MG TABLET PO SCH ×5 (00:37→22:39)
[2022-06-23] MEDS: IBUPROFEN 600 MG TABLET (FP) PO PRN ×2 (00:38→22:41)
[2022-06-23] MEDS: LISINOPRIL 10 MG TABLET PO SCH ×2 (00:38→22:38)
[2022-06-23] MEDS ORDERED: methaDONE HCL 40 MG DISPERSABLE TABLET PO SCH (10:00)
[2022-06-23] MEDS: BUDESONIDE/FORMETEROL FUMARATE 80/4.5 mcg INHALER IH SCH ×2 (10:12→22:40)
[2022-06-23] MEDS: ALBUTEROL SO4 HFA INHALER IH PRN ×2 (10:14→22:45)
[2022-06-23] MEDS: PRENATAL VITAMINS W/ FOLIC ACID TABLET (FP) PO SCH (10:15)
[2022-06-23] MEDS: methaDONE 40 MG, methaDONE 30 MG PO SCH (10:15)
[2022-06-23] MEDS: amLODIPine BESYLATE 10 MG TABLET (FP) PO SCH (10:15)
[2022-06-23] MEDS: METHOCARBAMOL 500 MG TABLET PO PRN (10:15)
[2022-06-23] MEDS: diazePAM 5 MG TABLET PO PRN (13:20)
[2022-06-23] MEDS: hydrOXYzine PAMOATE 25 MG CAPSULE (FP) PO PRN ×2 (18:02→22:43)
[2022-06-23] MEDS: ATORVASTATIN CA 20 MG TABLET (FP) PO SCH (22:38)
[2022-06-23] MEDS: THIAMINE HCL 100 MG TABLET (FP) PO SCH (22:38)
[2022-06-23] MEDS: MELATONIN 5 MG TABLETS PO PRN (22:41)
[2022-06-24] MEDS: methaDONE 40 MG, methaDONE 30 MG PO SCH (05:42)
[2022-06-24] MEDS: hydrOXYzine PAMOATE 25 MG CAPSULE (FP) PO PRN ×2 (05:43→22:21)
[2022-06-24] MEDS: diazePAM 5 MG TABLET PO SCH ×3 (05:44→22:17)
[2022-06-24] MEDS: PRENATAL VITAMINS W/ FOLIC ACID TABLET (FP) PO SCH (10:16)
[2022-06-24] MEDS: amLODIPine BESYLATE 10 MG TABLET (FP) PO SCH (10:16)
[2022-06-24] MEDS: BUDESONIDE/FORMETEROL FUMARATE 80/4.5 mcg INHALER IH SCH ×2 (10:16→22:18)
[2022-06-24] MEDS: METHOCARBAMOL 500 MG TABLET PO PRN (10:17)
[2022-06-24] MEDS: diazePAM 5 MG TABLET PO PRN ×2 (10:17→18:10)
[2022-06-24] MEDS: ALBUTEROL SO4 HFA INHALER IH PRN (10:19)
[2022-06-24] MEDS: ONDANSETRON *ODT* 4 MG TABLET SL PRN (17:41)
[2022-06-24] MEDS: THIAMINE HCL 100 MG TABLET (FP) PO SCH (22:17)
[2022-06-24] MEDS: LISINOPRIL 10 MG TABLET PO SCH (22:17)
[2022-06-24] MEDS: ATORVASTATIN CA 20 MG TABLET (FP) PO SCH (22:17)
[2022-06-24] MEDS: MELATONIN 5 MG TABLETS PO PRN (22:18)
[2022-06-25] MEDS: diazePAM 5 MG TABLET PO SCH ×2 (05:10→18:00)
[2022-06-25] MEDS: methaDONE 40 MG, methaDONE 30 MG PO SCH (05:11)
[2022-06-25] MEDS ORDERED: LISINOPRIL 20 MG TABLET PO SCH (09:18)
[2022-06-25] MEDS: amLODIPine BESYLATE 10 MG TABLET (FP) PO SCH (10:09)
[2022-06-25] MEDS: PRENATAL VITAMINS W/ FOLIC ACID TABLET (FP) PO SCH (10:09)
[2022-06-25] MEDS: BUDESONIDE/FORMETEROL FUMARATE 80/4.5 mcg INHALER IH SCH ×2 (10:10→22:04)
[2022-06-25] MEDS: hydrOXYzine PAMOATE 25 MG CAPSULE (FP) PO PRN (16:40)
[2022-06-25] MEDS: METHOCARBAMOL 500 MG TABLET PO PRN (16:40)
[2022-06-25] MEDS: ONDANSETRON *ODT* 4 MG TABLET SL PRN (16:43)
[2022-06-25 17:40] VITALS: TEMP 97.4
[2022-06-25 21:11] VITALS: BP 157/87; PULSE 64; RESP 18
[2022-06-25] MEDS: THIAMINE HCL 100 MG TABLET (FP) PO SCH (22:03)
[2022-06-25] MEDS: ALBUTEROL SO4 HFA INHALER IH PRN (22:03)
[2022-06-25] MEDS: MELATONIN 5 MG TABLETS PO PRN (22:03)
[2022-06-25] MEDS: ATORVASTATIN CA 20 MG TABLET (FP) PO SCH (22:03)
[2022-06-25] MEDS: diazePAM 5 MG TABLET PO PRN (22:05)
[2022-06-26] MEDS: methaDONE 40 MG, methaDONE 30 MG PO SCH (05:57)
[2022-06-26] MEDS ORDERED: diazePAM 5 MG TABLET PO ONE (06:00)
[2022-06-26] MEDS: PRENATAL VITAMINS W/ FOLIC ACID TABLET (FP) PO SCH (09:51)
[2022-06-26] MEDS: BUDESONIDE/FORMETEROL FUMARATE 80/4.5 mcg INHALER IH SCH (09:51)
[2022-06-26] MEDS: amLODIPine BESYLATE 10 MG TABLET (FP) PO SCH (09:51)
[2022-06-26] MEDS: IBUPROFEN 600 MG TABLET (FP) PO PRN (09:52)
[2022-06-26] MEDS: METHOCARBAMOL 500 MG TABLET PO PRN (09:52)
== END 2022-06-26 10:20 | disposition home or self-care (01) | DRG 773 ==
LOC: YASAS 16:38 → Y6N 23:16
PROVIDERS: ADMIT Allergy & Immunology; ATTEND Surgery
PROC: HZ2ZZZZ Detoxification Services for Substance Abuse Treatment (ICD-10-PCS; principal; 2022-06-22)
DX: F10.230 Alcohol dependence with withdrawal, uncomplicated (principal); F11.20 Opioid dependence, uncomplicated; F14.20 Cocaine dependence, uncomplicated; F17.210 Nicotine dependence, cigarettes, uncomplicated; E78.5 Hyperlipidemia, unspecified; I10 Essential (primary) hypertension; J45.20 Mild intermittent asthma, uncomplicated; H54.62 Unqualified visual loss, left eye, normal vision right eye; Z96.641 Presence of right artificial hip joint; Z86.19 Personal history of other infectious and parasitic diseases; Z99.89 Dependence on other enabling machines and devices
CPT/HCPCS: 87811; C9803-CS; Q0162; U0003; U0005

== ENCOUNTER 2022-06-27 16:02 | Inpatient (IN) | payer OTHER ==
[2022-06-27 17:28] VITALS: RESP 18; BMI 26.6
[2022-06-27] MEDS ORDERED: guaiFENesin 200 MG/10 ML 10 ML UNIT-DOSE CUPS PO PRN (23:21)
[2022-06-27] MEDS ORDERED: BENZOCAINE/MENTHOL (CHLORASEPTIC ) LOZENGE MM PRN (23:21)
[2022-06-27] MEDS ORDERED: MAG HYDROX/AL HYDROX/SIMETH 30 ML UNIT-DOSE CUP PO PRN (23:21)
[2022-06-27] MEDS ORDERED: LOPERAMIDE HCL 2 MG CAPSULE PO PRN (23:21)
[2022-06-27] MEDS ORDERED: P-EPHED 60MG/TRIPROLIDI 2.5MG TABLET PO PRN (23:21)
[2022-06-27] MEDS ORDERED: MAGNESIUM HYDROX 2400MG/30ML ORAL SUSPENSION 30 ML CUP PO PRN (23:21)
[2022-06-27] MEDS ORDERED: MAGNESIUM CITRATE 300 ML BOTTLE PO PRN (23:21)
[2022-06-28] MEDS: MELATONIN 5 MG TABLETS PO SCH ×2 (02:05→21:28)
[2022-06-28] MEDS: IBUPROFEN 400 MG TABLET (FP) PO PRN (06:43)
[2022-06-28] MEDS: hydrOXYzine PAMOATE 25 MG CAPSULE (FP) PO PRN ×2 (06:44→10:40)
[2022-06-28] MEDS ORDERED: ALBUTEROL SO4 HFA INHALER IH PRN (06:49)
[2022-06-28] MEDS ORDERED: cloNIDine HCL 0.1 MG TABLET PO ONE (06:49)
[2022-06-28] MEDS ORDERED: methaDONE HCL 10 MG TABLET PO SCH (08:30)
[2022-06-28] MEDS: amLODIPine BESYLATE 10 MG TABLET (FP) PO SCH (10:39)
[2022-06-28] MEDS: methaDONE 40 MG, methaDONE 30 MG PO SCH (10:39)
[2022-06-28] MEDS: BUDESONIDE/FORMETEROL FUMARATE 80/4.5 mcg INHALER IH SCH ×2 (10:39→21:29)
[2022-06-28] MEDS: PRENATAL VITAMINS W/ FOLIC ACID TABLET (FP) PO SCH (10:39)
[2022-06-28] MEDS: ACETAMINOPHEN 325 MG TABLET (FP) PO PRN (10:43)
[2022-06-28] MEDS: THIAMINE HCL 100 MG TABLET (FP) PO SCH (21:28)
[2022-06-28] MEDS: ATORVASTATIN CA 20 MG TABLET (FP) PO SCH (21:29)
[2022-06-29] MEDS: methaDONE 40 MG, methaDONE 30 MG PO SCH (06:17)
[2022-06-29] MEDS: IBUPROFEN 400 MG TABLET (FP) PO PRN (06:20)
[2022-06-29] MEDS: BUDESONIDE/FORMETEROL FUMARATE 80/4.5 mcg INHALER IH SCH ×2 (11:06→21:13)
[2022-06-29] MEDS: PRENATAL VITAMINS W/ FOLIC ACID TABLET (FP) PO SCH (11:06)
[2022-06-29] MEDS: amLODIPine BESYLATE 10 MG TABLET (FP) PO SCH (11:08)
[2022-06-29] MEDS: ACETAMINOPHEN 325 MG TABLET (FP) PO PRN (15:27)
[2022-06-29] MEDS: MELATONIN 5 MG TABLETS PO SCH (21:13)
[2022-06-29] MEDS: ATORVASTATIN CA 20 MG TABLET (FP) PO SCH (21:13)
[2022-06-29] MEDS: THIAMINE HCL 100 MG TABLET (FP) PO SCH (21:13)
[2022-06-29] MEDS: hydrOXYzine PAMOATE 25 MG CAPSULE (FP) PO PRN (21:14)
[2022-06-30] MEDS: methaDONE 40 MG, methaDONE 30 MG PO SCH (05:59)
[2022-06-30] MEDS: amLODIPine BESYLATE 10 MG TABLET (FP) PO SCH (10:32)
[2022-06-30] MEDS: PRENATAL VITAMINS W/ FOLIC ACID TABLET (FP) PO SCH (10:32)
[2022-06-30] MEDS: BUDESONIDE/FORMETEROL FUMARATE 80/4.5 mcg INHALER IH SCH ×2 (10:33→21:30)
[2022-06-30] MEDS: IBUPROFEN 400 MG TABLET (FP) PO PRN (10:34)
[2022-06-30] MEDS: hydrOXYzine PAMOATE 25 MG CAPSULE (FP) PO PRN (10:35)
[2022-06-30] MEDS: ATORVASTATIN CA 20 MG TABLET (FP) PO SCH (21:30)
[2022-06-30] MEDS: THIAMINE HCL 100 MG TABLET (FP) PO SCH (21:30)
[2022-06-30] MEDS: MELATONIN 5 MG TABLETS PO SCH (21:30)
[2022-07-01] MEDS: methaDONE 40 MG, methaDONE 30 MG PO SCH (06:04)
[2022-07-01] MEDS: amLODIPine BESYLATE 10 MG TABLET (FP) PO SCH (09:51)
[2022-07-01] MEDS: PRENATAL VITAMINS W/ FOLIC ACID TABLET (FP) PO SCH (09:51)
[2022-07-01] MEDS: BUDESONIDE/FORMETEROL FUMARATE 80/4.5 mcg INHALER IH SCH ×2 (09:52→21:18)
[2022-07-01] MEDS: hydrOXYzine PAMOATE 25 MG CAPSULE (FP) PO PRN ×2 (09:52→21:19)
[2022-07-01] MEDS: ACETAMINOPHEN 325 MG TABLET (FP) PO PRN (09:53)
[2022-07-01] MEDS: MELATONIN 5 MG TABLETS PO SCH (21:18)
[2022-07-01] MEDS: THIAMINE HCL 100 MG TABLET (FP) PO SCH (21:18)
[2022-07-01] MEDS: ATORVASTATIN CA 20 MG TABLET (FP) PO SCH (21:19)
[2022-07-01] MEDS: IBUPROFEN 400 MG TABLET (FP) PO PRN (21:19)
[2022-07-02] MEDS: methaDONE 40 MG, methaDONE 30 MG PO SCH (06:07)
[2022-07-02 07:18] VITALS: TEMP 97.5
[2022-07-02] MEDS: BUDESONIDE/FORMETEROL FUMARATE 80/4.5 mcg INHALER IH SCH (10:12)
[2022-07-02] MEDS: PRENATAL VITAMINS W/ FOLIC ACID TABLET (FP) PO SCH (10:13)
[2022-07-02] MEDS: amLODIPine BESYLATE 10 MG TABLET (FP) PO SCH (10:13)
[2022-07-02] MEDS: IBUPROFEN 400 MG TABLET (FP) PO PRN (10:14)
[2022-07-02 13:16] VITALS: BP 151/83; PULSE 38
== END 2022-07-02 10:28 | disposition home or self-care (01) | DRG 772 ==
LOC: YASAS 16:02 → Y3W 23:21
PROVIDERS: ADMIT Allergy & Immunology; ATTEND Psychiatry & Neurology Pain Medicine
PROC: HZ42ZZZ Group Counseling for Substance Abuse Treatment, Cognitive-Behavioral (ICD-10-PCS; principal; 2022-06-27)
DX: F10.20 Alcohol dependence, uncomplicated (principal); F11.20 Opioid dependence, uncomplicated; F17.210 Nicotine dependence, cigarettes, uncomplicated; F41.9 Anxiety disorder, unspecified; F32.A Depression, unspecified; I10 Essential (primary) hypertension; J45.909 Unspecified asthma, uncomplicated; E78.00 Pure hypercholesterolemia, unspecified; M54.50 Low back pain, unspecified; G89.29 Other chronic pain; Z96.641 Presence of right artificial hip joint; H54.62 Unqualified visual loss, left eye, normal vision right eye; Z86.19 Personal history of other infectious and parasitic diseases; Z99.89 Dependence on other enabling machines and devices
CPT/HCPCS: 87811; C9803-CS; U0003; U0005

== ENCOUNTER 2022-07-06 20:23 | Inpatient (IN) | payer OTHER ==
[2022-07-06 21:49] VITALS: BMI 25.8
[2022-07-06] MEDS ORDERED: BENZOCAINE/MENTHOL (CHLORASEPTIC ) LOZENGE MM PRN (23:26)
[2022-07-06] MEDS ORDERED: MAG HYDROX/AL HYDROX/SIMETH 30 ML UNIT-DOSE CUP PO PRN (23:26)
[2022-07-06] MEDS ORDERED: MAGNESIUM CITRATE 300 ML BOTTLE PO PRN (23:26)
[2022-07-06] MEDS ORDERED: ACETAMINOPHEN 325 MG TABLET (FP) PO PRN ×2 (23:26)
[2022-07-06] MEDS ORDERED: MAGNESIUM HYDROX 2400MG/30ML ORAL SUSPENSION 30 ML CUP PO PRN (23:26)
[2022-07-06] MEDS ORDERED: NICOTINE POLACRILEX 2 MG GUM BUC PRN (23:26)
[2022-07-06] MEDS ORDERED: IBUPROFEN 400 MG TABLET (FP) PO PRN (23:26)
[2022-07-06] MEDS ORDERED: BISMUTH SUBSALICYLATE 524 MG/30 ML PO PRN (23:26)
[2022-07-06] MEDS ORDERED: NALOXONE HCL (KLOXXADO) 8 MG SPRAY NS PRN (23:26)
[2022-07-06] MEDS ORDERED: LOPERAMIDE HCL 2 MG CAPSULE PO PRN (23:26)
[2022-07-06] MEDS ORDERED: DICYCLOMINE HCL 10 MG CAPSULE PO PRN (23:26)
[2022-07-06] MEDS ORDERED: ONDANSETRON *ODT* 4 MG TABLET SL PRN (23:26)
[2022-07-07] MEDS ORDERED: amLODIPine BESYLATE 5 MG TABLET (FP) ONE (06:56)
[2022-07-07] MEDS: amLODIPine BESYLATE 5 MG TABLET (FP) PO SCH ×2 (07:22→13:40)
[2022-07-07] MEDS ORDERED: methaDONE HCL 10 MG TABLET PO SCH (09:30)
[2022-07-07] MEDS ORDERED: methaDONE HCL 10 MG TABLET (FOR DETOX USE ONLY) ONE (09:52)
[2022-07-07 11:39] LABS: HEMATOCRIT 31.9 % (35.4-49); HEMOGLOBIN 10.6 GM/dL (11.7-16.9); MCH 28.4 pg (25.7-33.7); MCHC 33.3 g/dl (32.0-35.9); MEAN CELL VOLUME 85.2 fl (80-96); PLATELET COUNT 255 10^3/uL (134-434); RBC 3.75 M/mm3 (4.00-5.60); RDW 16.6 % (11.9-15.9); WHITE BLOOD COUNT 5.2 K/mm3 (4.0-10.0)
[2022-07-07 11:47] LABS: CALCIUM 9.4 mg/dL (8.5-10.1)
[2022-07-07 11:48] LABS: ALBUMIN 3.7 g/dl (3.4-5.0); BLOOD UREA NITROGEN 22.7 mg/dL (7-18)
[2022-07-07 11:50] LABS: CREATININE 1.1 mg/dL (0.55-1.3)
[2022-07-07 11:52] LABS: BILIRUBIN,TOTAL 0.5 mg/dL (0.2-1); TOT PROT 7.4 g/dl (6.4-8.2)
[2022-07-07] MEDS ORDERED: methaDONE HCL 10 MG TABLET (FOR DETOX USE ONLY) PO SCH (11:59)
[2022-07-07] MEDS: NICOTINE 14 MG/24 HOURS TOPICAL PATCH TD SCH (13:39)
[2022-07-07] MEDS: PRENATAL VITAMINS W/ FOLIC ACID TABLET (FP) PO SCH (13:40)
[2022-07-07] MEDS: IBUPROFEN 600 MG TABLET (FP) PO PRN (18:09)
[2022-07-07] MEDS: METHOCARBAMOL 500 MG TABLET PO PRN (18:09)
[2022-07-07] MEDS ORDERED: MELATONIN 5 MG TABLETS PO SCH (22:00)
[2022-07-07] MEDS: SUVOREXANT 10 MG TABLET PO PRN (22:18)
[2022-07-07] MEDS: THIAMINE HCL 100 MG TABLET (FP) PO SCH (22:19)
[2022-07-08] MEDS: methaDONE 40 MG, methaDONE 30 MG PO SCH (05:51)
[2022-07-08] MEDS: NICOTINE 14 MG/24 HOURS TOPICAL PATCH TD SCH (10:32)
[2022-07-08] MEDS: amLODIPine BESYLATE 5 MG TABLET (FP) PO SCH (10:33)
[2022-07-08] MEDS: PRENATAL VITAMINS W/ FOLIC ACID TABLET (FP) PO SCH (10:33)
[2022-07-08] MEDS: diazePAM 5 MG TABLET PO SCH ×2 (17:38→22:11)
[2022-07-08] MEDS: METHOCARBAMOL 500 MG TABLET PO PRN (17:39)
[2022-07-08] MEDS: BUDESONIDE/FORMETEROL FUMARATE 80/4.5 mcg INHALER IH SCH (22:10)
[2022-07-08] MEDS: THIAMINE HCL 100 MG TABLET (FP) PO SCH (22:10)
[2022-07-08] MEDS: SUVOREXANT 10 MG TABLET PO PRN (22:13)
[2022-07-08] MEDS: ATORVASTATIN CA 20 MG TABLET (FP) PO SCH (22:13)
[2022-07-09] MEDS: methaDONE 40 MG, methaDONE 30 MG PO SCH (06:16)
[2022-07-09] MEDS: diazePAM 5 MG TABLET PO SCH ×4 (06:16→22:13)
[2022-07-09] MEDS: ALBUTEROL SO4 HFA INHALER IH PRN (10:28)
[2022-07-09] MEDS: PRENATAL VITAMINS W/ FOLIC ACID TABLET (FP) PO SCH (10:28)
[2022-07-09] MEDS: BUDESONIDE/FORMETEROL FUMARATE 80/4.5 mcg INHALER IH SCH ×2 (10:28→22:14)
[2022-07-09] MEDS: amLODIPine BESYLATE 5 MG TABLET (FP) PO SCH (10:28)
[2022-07-09] MEDS: NICOTINE 14 MG/24 HOURS TOPICAL PATCH TD SCH (10:30)
[2022-07-09 11:26] LABS: BLOOD UREA NITROGEN 19.1 mg/dL (7-18)
[2022-07-09] MEDS: THIAMINE HCL 100 MG TABLET (FP) PO SCH (22:13)
[2022-07-09] MEDS: ATORVASTATIN CA 20 MG TABLET (FP) PO SCH (22:13)
[2022-07-09] MEDS: SUVOREXANT 10 MG TABLET PO PRN (22:15)
[2022-07-09] MEDS: METHOCARBAMOL 500 MG TABLET PO PRN (22:18)
[2022-07-10] MEDS: methaDONE 40 MG, methaDONE 30 MG PO SCH (05:05)
[2022-07-10] MEDS: diazePAM 5 MG TABLET PO SCH ×3 (05:05→22:11)
[2022-07-10] MEDS: PRENATAL VITAMINS W/ FOLIC ACID TABLET (FP) PO SCH (10:19)
[2022-07-10] MEDS: amLODIPine BESYLATE 5 MG TABLET (FP) PO SCH (10:19)
[2022-07-10] MEDS: diazePAM 5 MG TABLET PO PRN ×2 (10:21→15:09)
[2022-07-10] MEDS: NICOTINE 14 MG/24 HOURS TOPICAL PATCH TD SCH (10:22)
[2022-07-10] MEDS: BUDESONIDE/FORMETEROL FUMARATE 80/4.5 mcg INHALER IH SCH ×2 (10:23→22:15)
[2022-07-10] MEDS: METHOCARBAMOL 500 MG TABLET PO PRN ×2 (15:16→22:14)
[2022-07-10] MEDS: SUVOREXANT 10 MG TABLET PO PRN (21:55)
[2022-07-10] MEDS: THIAMINE HCL 100 MG TABLET (FP) PO SCH (22:11)
[2022-07-10] MEDS: ATORVASTATIN CA 20 MG TABLET (FP) PO SCH (22:11)
[2022-07-10] MEDS: ALBUTEROL SO4 HFA INHALER IH PRN (22:15)
[2022-07-10] MEDS ORDERED: LISINOPRIL 5 MG TABLET PO ONE (22:47)
[2022-07-11] MEDS: methaDONE 40 MG, methaDONE 30 MG PO SCH (05:38)
[2022-07-11] MEDS: diazePAM 5 MG TABLET PO SCH ×2 (05:38→17:32)
[2022-07-11] MEDS: NICOTINE 14 MG/24 HOURS TOPICAL PATCH TD SCH (10:24)
[2022-07-11] MEDS: BUDESONIDE/FORMETEROL FUMARATE 80/4.5 mcg INHALER IH SCH ×2 (10:24→22:27)
[2022-07-11] MEDS: PRENATAL VITAMINS W/ FOLIC ACID TABLET (FP) PO SCH (10:24)
[2022-07-11] MEDS: amLODIPine BESYLATE 5 MG TABLET (FP) PO SCH (10:24)
[2022-07-11] MEDS: diazePAM 5 MG TABLET PO PRN (10:27)
[2022-07-11] MEDS: IBUPROFEN 600 MG TABLET (FP) PO PRN (10:29)
[2022-07-11] MEDS ORDERED: LISINOPRIL 20 MG TABLET PO SCH (22:00)
[2022-07-11] MEDS ORDERED: SUVOREXANT 10 MG TABLET PO PRN (22:00)
[2022-07-11] MEDS: ATORVASTATIN CA 20 MG TABLET (FP) PO SCH (22:25)
[2022-07-11] MEDS: THIAMINE HCL 100 MG TABLET (FP) PO SCH (22:25)
[2022-07-11] MEDS: ALBUTEROL SO4 HFA INHALER IH PRN (22:27)
[2022-07-12] MEDS: methaDONE 40 MG, methaDONE 30 MG PO SCH (05:20)
[2022-07-12] MEDS ORDERED: diazePAM 5 MG TABLET PO ONE (06:00)
[2022-07-12 09:52] VITALS: BP 140/72; PULSE 77; RESP 17; TEMP 97.5
[2022-07-12] MEDS: BUDESONIDE/FORMETEROL FUMARATE 80/4.5 mcg INHALER IH SCH (10:31)
[2022-07-12] MEDS: NICOTINE 14 MG/24 HOURS TOPICAL PATCH TD SCH (10:31)
[2022-07-12] MEDS: amLODIPine BESYLATE 5 MG TABLET (FP) PO SCH (10:32)
[2022-07-12] MEDS: PRENATAL VITAMINS W/ FOLIC ACID TABLET (FP) PO SCH (10:32)
== END 2022-07-12 10:40 | disposition home or self-care (01) | DRG 773 ==
LOC: YASAS 20:23 → Y3N 07-07 10:56
PROVIDERS: ADMIT Allergy & Immunology; ATTEND Surgery
PROC: HZ2ZZZZ Detoxification Services for Substance Abuse Treatment (ICD-10-PCS; principal; 2022-07-07)
DX: F10.230 Alcohol dependence with withdrawal, uncomplicated (principal); F11.20 Opioid dependence, uncomplicated; F14.20 Cocaine dependence, uncomplicated; F12.20 Cannabis dependence, uncomplicated; F17.210 Nicotine dependence, cigarettes, uncomplicated; F19.282 Other psychoactive substance dependence with psychoactive substance-induced sleep disorder; H54.62 Unqualified visual loss, left eye, normal vision right eye; I10 Essential (primary) hypertension; M19.90 Unspecified osteoarthritis, unspecified site; Z86.19 Personal history of other infectious and parasitic diseases; Z99.89 Dependence on other enabling machines and devices; Z59.01 Sheltered homelessness
CPT/HCPCS: 36415; 80053; 84132; 84520; 85027; 86780; C9803-CS; U0003; U0005

== ENCOUNTER 2022-07-19 18:36 | Inpatient (IN) | payer OTHER ==
[2022-07-19 19:10] VITALS: BMI 26.6
[2022-07-19] MEDS ORDERED: NALOXONE HCL 0.4 MG/ML VIAL IM PRN (20:12)
[2022-07-19] MEDS ORDERED: MELATONIN 5 MG TABLETS PO PRN (20:12)
[2022-07-19] MEDS ORDERED: MAGNESIUM CITRATE 300 ML BOTTLE PO PRN (20:12)
[2022-07-19] MEDS ORDERED: MAG HYDROX/AL HYDROX/SIMETH 30 ML UNIT-DOSE CUP PO PRN (20:12)
[2022-07-19] MEDS ORDERED: hydrOXYzine PAMOATE 25 MG CAPSULE (FP) PO PRN (20:12)
[2022-07-19] MEDS ORDERED: IBUPROFEN 400 MG TABLET (FP) PO PRN (20:12)
[2022-07-19] MEDS ORDERED: LOPERAMIDE HCL 2 MG CAPSULE PO PRN (20:12)
[2022-07-19] MEDS ORDERED: ONDANSETRON *ODT* 4 MG TABLET SL PRN (20:12)
[2022-07-19] MEDS ORDERED: METHOCARBAMOL 500 MG TABLET PO PRN (20:12)
[2022-07-19] MEDS ORDERED: P-EPHED 60MG/TRIPROLIDI 2.5MG TABLET PO PRN (20:12)
[2022-07-19] MEDS ORDERED: guaiFENesin 200 MG/10 ML 10 ML UNIT-DOSE CUPS PO PRN (20:12)
[2022-07-19] MEDS ORDERED: BISMUTH SUBSALICYLATE 524 MG/30 ML PO PRN (20:12)
[2022-07-19] MEDS ORDERED: MAGNESIUM HYDROX 2400MG/30ML ORAL SUSPENSION 30 ML CUP PO PRN (20:12)
[2022-07-19] MEDS ORDERED: NICOTINE POLACRILEX 2 MG GUM BUC PRN (20:12)
[2022-07-19] MEDS ORDERED: NALOXONE HCL (KLOXXADO) 8 MG SPRAY NS PRN (20:12)
[2022-07-19] MEDS ORDERED: BENZOCAINE/MENTHOL (CHLORASEPTIC ) LOZENGE MM PRN (20:12)
[2022-07-19] MEDS ORDERED: DICYCLOMINE HCL 10 MG CAPSULE PO PRN (20:12)
[2022-07-19] MEDS ORDERED: ACETAMINOPHEN 325 MG TABLET (FP) PO PRN ×2 (20:12)
[2022-07-19] MEDS ORDERED: IBUPROFEN 600 MG TABLET (FP) PO PRN (20:12)
[2022-07-19] MEDS ORDERED: ALBUTEROL SO4 HFA INHALER IH PRN (20:15)
[2022-07-19] MEDS ORDERED: THIAMINE HCL 100 MG TABLET (FP) PO SCH (22:00)
[2022-07-19] MEDS ORDERED: BUDESONIDE/FORMETEROL FUMARATE 80/4.5 mcg INHALER IH SCH (22:00)
[2022-07-20 06:00] VITALS: RESP 16
[2022-07-20 09:46] VITALS: BP 164/83; PULSE 79; TEMP 97.8
[2022-07-20] MEDS ORDERED: PRENATAL VITAMINS W/ FOLIC ACID TABLET (FP) PO SCH (10:00)
== END 2022-07-20 10:22 | disposition home or self-care (01) | DRG 773 ==
LOC: YASAS 18:36 → Y3N 21:44
PROVIDERS: ADMIT Allergy & Immunology; ATTEND Surgery
PROC: HZ2ZZZZ Detoxification Services for Substance Abuse Treatment (ICD-10-PCS; principal; 2022-07-19)
DX: F10.230 Alcohol dependence with withdrawal, uncomplicated (principal); F11.20 Opioid dependence, uncomplicated; F14.20 Cocaine dependence, uncomplicated; F17.210 Nicotine dependence, cigarettes, uncomplicated; F41.9 Anxiety disorder, unspecified; F32.A Depression, unspecified; I10 Essential (primary) hypertension; E78.5 Hyperlipidemia, unspecified; J45.909 Unspecified asthma, uncomplicated; H54.62 Unqualified visual loss, left eye, normal vision right eye; M54.50 Low back pain, unspecified; G89.29 Other chronic pain; Z86.19 Personal history of other infectious and parasitic diseases; Z88.0 Allergy status to penicillin
CPT/HCPCS: 36415; 80053; 82306; 82607; 82728; 82746; 83540; 83550; 84153; 84436; 84439; 84443; 84466; 84479; 86480; 86704; 86708; 86780; 87340; 87491; 87517; 87591; C9803-CS; G0463-25; U0003; U0005

== ENCOUNTER 2022-08-22 17:03 | Inpatient (IN) | payer OTHER ==
[2022-08-22 23:06] VITALS: BMI 26.9
[2022-08-22] MEDS ORDERED: BISMUTH SUBSALICYLATE 524 MG/30 ML PO PRN (23:13)
[2022-08-22] MEDS ORDERED: QUEtiapine FUMARATE 50 MG TABLET PO ONE (23:13)
[2022-08-22] MEDS ORDERED: ACETAMINOPHEN 325 MG TABLET (FP) PO PRN ×2 (23:13)
[2022-08-22] MEDS ORDERED: NALOXONE HCL (KLOXXADO) 8 MG SPRAY NS PRN (23:13)
[2022-08-22] MEDS ORDERED: POLYETHYLENE GLYCOL (HEALTHYLAX) 3350 17 GM PACKET PO PRN (23:13)
[2022-08-22] MEDS ORDERED: MAGNESIUM HYDROX 2400MG/30ML ORAL SUSPENSION 30 ML CUP PO PRN (23:13)
[2022-08-22] MEDS ORDERED: BENZOCAINE/MENTHOL (CHLORASEPTIC ) LOZENGE MM PRN (23:13)
[2022-08-22] MEDS ORDERED: ONDANSETRON *ODT* 4 MG TABLET SL PRN (23:13)
[2022-08-22] MEDS ORDERED: MAG HYDROX/AL HYDROX/SIMETH 30 ML UNIT-DOSE CUP PO PRN (23:13)
[2022-08-22] MEDS ORDERED: LOPERAMIDE HCL 2 MG CAPSULE PO PRN (23:13)
[2022-08-22] MEDS ORDERED: NALOXONE HCL 0.4 MG/ML VIAL IM PRN (23:13)
[2022-08-22] MEDS ORDERED: guaiFENesin 200 MG/10 ML 10 ML UNIT-DOSE CUPS PO PRN (23:13)
[2022-08-22] MEDS ORDERED: DICYCLOMINE HCL 10 MG CAPSULE PO PRN (23:13)
[2022-08-22] MEDS ORDERED: P-EPHED 60MG/TRIPROLIDI 2.5MG TABLET PO PRN (23:13)
[2022-08-22] MEDS ORDERED: IBUPROFEN 400 MG TABLET (FP) PO PRN (23:13)
[2022-08-23] MEDS: BUDESONIDE/FORMETEROL FUMARATE 80/4.5 mcg INHALER IH SCH ×3 (00:27→22:14)
[2022-08-23] MEDS ORDERED: methaDONE HCL 10 MG TABLET PO SCH (07:45)
[2022-08-23] MEDS ORDERED: methaDONE 40 MG, methaDONE 30 MG PO ONE ×2 (08:15→10:00)
[2022-08-23] MEDS ORDERED: methaDONE HCL 10 MG TABLET PO ONE (09:32)
[2022-08-23] MEDS ORDERED: chlordiazePOXIDE HCL 25 MG CAPSULE PO PRN (09:40)
[2022-08-23] MEDS: amLODIPine BESYLATE 10 MG TABLET (FP) PO SCH (10:21)
[2022-08-23] MEDS: PRENATAL VITAMINS W/ FOLIC ACID TABLET (FP) PO SCH (10:21)
[2022-08-23] MEDS: chlordiazePOXIDE HCL 25 MG CAPSULE PO SCH ×3 (10:22→22:11)
[2022-08-23] MEDS: NICOTINE 14 MG/24 HOURS TOPICAL PATCH TD SCH (10:25)
[2022-08-23] MEDS: ALBUTEROL SO4 HFA INHALER IH PRN ×2 (10:29→22:14)
[2022-08-23] MEDS: hydrOXYzine PAMOATE 25 MG CAPSULE (FP) PO PRN ×2 (10:30→22:10)
[2022-08-23 17:22] LABS: ALBUMIN 3.8 g/dl (3.4-5.0); CALCIUM 9.4 mg/dL (8.5-10.1)
[2022-08-23 17:24] LABS: BLOOD UREA NITROGEN 21.4 mg/dL (7-18); CREATININE 1.1 mg/dL (0.55-1.3)
[2022-08-23 17:26] LABS: BILIRUBIN,TOTAL 0.1 mg/dL (0.2-1); TOT PROT 7.9 g/dl (6.4-8.2)
[2022-08-23 17:31] LABS: HEMATOCRIT 32.7 % (35.4-49); HEMOGLOBIN 10.9 GM/dL (11.7-16.9); MCH 28.5 pg (25.7-33.7); MCHC 33.5 g/dl (32.0-35.9); MEAN CELL VOLUME 85.2 fl (80-96); MEAN PLT VOLUME 8.4 fl (7.5-11.1); PLATELET COUNT 310 10^3/uL (134-434); RBC 3.83 M/mm3 (4.00-5.60); RDW 16.9 % (11.9-15.9); WHITE BLOOD COUNT 7.5 K/mm3 (4.0-10.0)
[2022-08-23] MEDS: IBUPROFEN 600 MG TABLET (FP) PO PRN (17:47)
[2022-08-23] MEDS: MELATONIN 5 MG TABLETS PO SCH (22:09)
[2022-08-23] MEDS: QUEtiapine FUMARATE 50 MG TABLET PO SCH (22:10)
[2022-08-23] MEDS: THIAMINE HCL 100 MG TABLET (FP) PO SCH (22:11)
[2022-08-23] MEDS: LISINOPRIL 20 MG TABLET PO SCH (22:11)
[2022-08-23] MEDS: ATORVASTATIN CA 20 MG TABLET (FP) PO SCH (22:13)
[2022-08-24] MEDS: IBUPROFEN 600 MG TABLET (FP) PO PRN ×2 (01:11→10:45)
[2022-08-24] MEDS: chlordiazePOXIDE HCL 25 MG CAPSULE PO SCH ×4 (05:45→22:12)
[2022-08-24] MEDS: methaDONE 40 MG, methaDONE 30 MG PO SCH (05:46)
[2022-08-24] MEDS: amLODIPine BESYLATE 10 MG TABLET (FP) PO SCH (10:45)
[2022-08-24] MEDS: NICOTINE 14 MG/24 HOURS TOPICAL PATCH TD SCH (10:48)
[2022-08-24] MEDS: ALBUTEROL SO4 HFA INHALER IH PRN (10:49)
[2022-08-24] MEDS: PRENATAL VITAMINS W/ FOLIC ACID TABLET (FP) PO SCH (10:49)
[2022-08-24] MEDS: BUDESONIDE/FORMETEROL FUMARATE 80/4.5 mcg INHALER IH SCH ×2 (10:49→22:13)
[2022-08-24] MEDS: hydrOXYzine PAMOATE 25 MG CAPSULE (FP) PO PRN (10:51)
[2022-08-24] MEDS: THIAMINE HCL 100 MG TABLET (FP) PO SCH (22:11)
[2022-08-24] MEDS: QUEtiapine FUMARATE 50 MG TABLET PO SCH (22:11)
[2022-08-24] MEDS: ATORVASTATIN CA 20 MG TABLET (FP) PO SCH (22:11)
[2022-08-24] MEDS: MELATONIN 5 MG TABLETS PO SCH (22:12)
[2022-08-24] MEDS: LISINOPRIL 20 MG TABLET PO SCH (22:13)
[2022-08-25] MEDS: methaDONE 40 MG, methaDONE 30 MG PO SCH (05:53)
[2022-08-25] MEDS: chlordiazePOXIDE HCL 25 MG CAPSULE PO SCH ×4 (05:54→22:08)
[2022-08-25] MEDS: PRENATAL VITAMINS W/ FOLIC ACID TABLET (FP) PO SCH (10:24)
[2022-08-25] MEDS: hydrOXYzine PAMOATE 25 MG CAPSULE (FP) PO PRN ×3 (10:25→22:11)
[2022-08-25] MEDS: amLODIPine BESYLATE 10 MG TABLET (FP) PO SCH (10:25)
[2022-08-25] MEDS: NICOTINE 14 MG/24 HOURS TOPICAL PATCH TD SCH (10:26)
[2022-08-25] MEDS: BUDESONIDE/FORMETEROL FUMARATE 80/4.5 mcg INHALER IH SCH ×2 (10:26→22:07)
[2022-08-25] MEDS: QUEtiapine FUMARATE 50 MG TABLET PO SCH (22:08)
[2022-08-25] MEDS: LISINOPRIL 20 MG TABLET PO SCH (22:08)
[2022-08-25] MEDS: ATORVASTATIN CA 20 MG TABLET (FP) PO SCH (22:08)
[2022-08-25] MEDS: THIAMINE HCL 100 MG TABLET (FP) PO SCH (22:08)
[2022-08-25] MEDS: MELATONIN 5 MG TABLETS PO SCH (22:08)
[2022-08-26] MEDS ORDERED: chlordiazePOXIDE HCL 10 MG CAPSULE PO PRN
[2022-08-26] MEDS: methaDONE 40 MG, methaDONE 30 MG PO SCH (06:00)
[2022-08-26] MEDS: chlordiazePOXIDE HCL 10 MG CAPSULE PO SCH ×4 (06:02→22:20)
[2022-08-26] MEDS: PRENATAL VITAMINS W/ FOLIC ACID TABLET (FP) PO SCH (10:22)
[2022-08-26] MEDS: amLODIPine BESYLATE 10 MG TABLET (FP) PO SCH (10:23)
[2022-08-26] MEDS: hydrOXYzine PAMOATE 25 MG CAPSULE (FP) PO PRN (10:23)
[2022-08-26] MEDS: BUDESONIDE/FORMETEROL FUMARATE 80/4.5 mcg INHALER IH SCH ×2 (10:23→22:19)
[2022-08-26] MEDS: NICOTINE 14 MG/24 HOURS TOPICAL PATCH TD SCH (10:24)
[2022-08-26] MEDS: IBUPROFEN 600 MG TABLET (FP) PO PRN (10:27)
[2022-08-26] MEDS: ALBUTEROL SO4 HFA INHALER IH PRN (22:19)
[2022-08-26] MEDS: QUEtiapine FUMARATE 50 MG TABLET PO SCH (22:20)
[2022-08-26] MEDS: LISINOPRIL 20 MG TABLET PO SCH (22:20)
[2022-08-26] MEDS: THIAMINE HCL 100 MG TABLET (FP) PO SCH (22:20)
[2022-08-26] MEDS: ATORVASTATIN CA 20 MG TABLET (FP) PO SCH (22:20)
[2022-08-26] MEDS: MELATONIN 5 MG TABLETS PO SCH (22:34)
[2022-08-27] MEDS: methaDONE 40 MG, methaDONE 30 MG PO SCH (05:32)
[2022-08-27] MEDS: chlordiazePOXIDE HCL 10 MG CAPSULE PO SCH ×2 (05:32→18:25)
[2022-08-27] MEDS: ALBUTEROL SO4 HFA INHALER IH PRN (10:29)
[2022-08-27] MEDS: BUDESONIDE/FORMETEROL FUMARATE 80/4.5 mcg INHALER IH SCH ×2 (10:30→22:15)
[2022-08-27] MEDS: amLODIPine BESYLATE 10 MG TABLET (FP) PO SCH (10:30)
[2022-08-27] MEDS: PRENATAL VITAMINS W/ FOLIC ACID TABLET (FP) PO SCH (10:30)
[2022-08-27] MEDS: NICOTINE 14 MG/24 HOURS TOPICAL PATCH TD SCH (10:30)
[2022-08-27] MEDS: hydrOXYzine PAMOATE 25 MG CAPSULE (FP) PO PRN ×2 (10:32→22:19)
[2022-08-27] MEDS: THIAMINE HCL 100 MG TABLET (FP) PO SCH (22:18)
[2022-08-27] MEDS: ATORVASTATIN CA 20 MG TABLET (FP) PO SCH (22:18)
[2022-08-27] MEDS: LISINOPRIL 20 MG TABLET PO SCH (22:18)
[2022-08-27] MEDS: MELATONIN 5 MG TABLETS PO SCH (22:18)
[2022-08-27] MEDS: QUEtiapine FUMARATE 50 MG TABLET PO SCH (22:18)
[2022-08-28] MEDS ORDERED: chlordiazePOXIDE HCL 10 MG CAPSULE PO ONE (05:00)
[2022-08-28] MEDS: methaDONE 40 MG, methaDONE 30 MG PO SCH (05:21)
[2022-08-28] MEDS: ALBUTEROL SO4 HFA INHALER IH PRN (05:23)
[2022-08-28 06:09] VITALS: RESP 18
[2022-08-28 09:00] VITALS: BP 146/85; PULSE 90; TEMP 97.2
[2022-08-28] MEDS: BUDESONIDE/FORMETEROL FUMARATE 80/4.5 mcg INHALER IH SCH (09:26)
[2022-08-28] MEDS: PRENATAL VITAMINS W/ FOLIC ACID TABLET (FP) PO SCH (09:26)
[2022-08-28] MEDS: amLODIPine BESYLATE 10 MG TABLET (FP) PO SCH (09:26)
[2022-08-28] MEDS: NICOTINE 14 MG/24 HOURS TOPICAL PATCH TD SCH (09:26)
== END 2022-08-28 11:30 | disposition home or self-care (01) | DRG 773 ==
LOC: YASAS 17:03 → UNDOADMIN 23:22 → Y6N 23:22
PROVIDERS: ADMIT Allergy & Immunology; ATTEND Surgery
PROC: HZ2ZZZZ Detoxification Services for Substance Abuse Treatment (ICD-10-PCS; principal; 2022-08-22)
DX: F11.23 Opioid dependence with withdrawal (principal); F10.230 Alcohol dependence with withdrawal, uncomplicated; F14.20 Cocaine dependence, uncomplicated; F12.20 Cannabis dependence, uncomplicated; F17.210 Nicotine dependence, cigarettes, uncomplicated; F19.282 Other psychoactive substance dependence with psychoactive substance-induced sleep disorder; F19.280 Other psychoactive substance dependence with psychoactive substance-induced anxiety disorder; F41.9 Anxiety disorder, unspecified; F32.A Depression, unspecified; E78.00 Pure hypercholesterolemia, unspecified; I10 Essential (primary) hypertension; J45.909 Unspecified asthma, uncomplicated; H54.62 Unqualified visual loss, left eye, normal vision right eye; M17.11 Unilateral primary osteoarthritis, right knee; M54.50 Low back pain, unspecified; G89.29 Other chronic pain; Z86.19 Personal history of other infectious and parasitic diseases; Z99.89 Dependence on other enabling machines and devices; Z59.01 Sheltered homelessness
CPT/HCPCS: 36415; 80053; 85027; 86780; C9803-CS; U0003; U0005

== ENCOUNTER 2022-08-31 18:56 | Inpatient (IN) | payer OTHER ==
[2022-08-31 20:24] VITALS: BMI 29.0
[2022-08-31] MEDS ORDERED: POLYETHYLENE GLYCOL (HEALTHYLAX) 3350 17 GM PACKET PO PRN (22:49)
[2022-08-31] MEDS ORDERED: NALOXONE HCL (KLOXXADO) 8 MG SPRAY NS PRN (22:49)
[2022-08-31] MEDS ORDERED: MAGNESIUM HYDROX 2400MG/30ML ORAL SUSPENSION 30 ML CUP PO PRN (22:49)
[2022-08-31] MEDS ORDERED: ACETAMINOPHEN 325 MG TABLET (FP) PO PRN ×2 (22:49)
[2022-08-31] MEDS ORDERED: IBUPROFEN 400 MG TABLET (FP) PO PRN (22:49)
[2022-08-31] MEDS ORDERED: DICYCLOMINE HCL 10 MG CAPSULE PO PRN (22:49)
[2022-08-31] MEDS ORDERED: BENZOCAINE/MENTHOL (CHLORASEPTIC ) LOZENGE MM PRN (22:49)
[2022-08-31] MEDS ORDERED: ONDANSETRON *ODT* 4 MG TABLET SL PRN (22:49)
[2022-08-31] MEDS ORDERED: MAG HYDROX/AL HYDROX/SIMETH 30 ML UNIT-DOSE CUP PO PRN (22:49)
[2022-08-31] MEDS ORDERED: LOPERAMIDE HCL 2 MG CAPSULE PO PRN (22:49)
[2022-08-31] MEDS ORDERED: BISMUTH SUBSALICYLATE 524 MG/30 ML PO PRN (22:49)
[2022-09-01] MEDS ORDERED: methaDONE HCL 40 MG DISPERSABLE TABLET PO SCH (10:15)
[2022-09-01] MEDS: PRENATAL VITAMINS W/ FOLIC ACID TABLET (FP) PO SCH (10:41)
[2022-09-01] MEDS: methaDONE 40 MG, methaDONE 30 MG PO SCH (10:41)
[2022-09-01 11:48] LABS: HEMATOCRIT 34.9 % (35.4-49); HEMOGLOBIN 11.3 GM/dL (11.7-16.9); MCH 27.4 pg (25.7-33.7); MCHC 32.2 g/dl (32.0-35.9); MEAN CELL VOLUME 84.9 fl (80-96); MEAN PLT VOLUME 8.3 fl (7.5-11.1); PLATELET COUNT 321 10^3/uL (134-434); RBC 4.11 M/mm3 (4.00-5.60); RDW 16.6 % (11.9-15.9); WHITE BLOOD COUNT 6.5 K/mm3 (4.0-10.0)
[2022-09-01 11:53] LABS: ALBUMIN 3.8 g/dl (3.4-5.0); CALCIUM 9.4 mg/dL (8.5-10.1)
[2022-09-01 11:54] LABS: BLOOD UREA NITROGEN 28.3 mg/dL (7-18)
[2022-09-01 11:56] LABS: CREATININE 1.1 mg/dL (0.55-1.3)
[2022-09-01 11:58] LABS: BILIRUBIN,TOTAL 0.2 mg/dL (0.2-1); TOT PROT 8.2 g/dl (6.4-8.2)
[2022-09-01] MEDS: IBUPROFEN 600 MG TABLET (FP) PO PRN (21:36)
[2022-09-01] MEDS: THIAMINE HCL 100 MG TABLET (FP) PO SCH (21:36)
[2022-09-01] MEDS: METHOCARBAMOL 500 MG TABLET PO PRN (21:36)
[2022-09-01] MEDS: MELATONIN 5 MG TABLETS PO SCH (21:36)
[2022-09-02] MEDS: methaDONE 40 MG, methaDONE 30 MG PO SCH (06:23)
[2022-09-02] MEDS: PRENATAL VITAMINS W/ FOLIC ACID TABLET (FP) PO SCH (10:14)
[2022-09-02] MEDS ORDERED: diazePAM 5 MG TABLET PO ONE (12:13)
[2022-09-02] MEDS: LISINOPRIL 20 MG TABLET PO SCH (13:21)
[2022-09-02] MEDS: diazePAM 5 MG TABLET PO SCH ×2 (17:55→22:07)
[2022-09-02] MEDS: amLODIPine BESYLATE 10 MG TABLET (FP) PO SCH (18:25)
[2022-09-02] MEDS ORDERED: diazePAM 5 MG TABLET PO PRN (19:00)
[2022-09-02] MEDS ORDERED: QUEtiapine FUMARATE 50 MG TABLET PO PRN (22:00)
[2022-09-02] MEDS: MELATONIN 5 MG TABLETS PO SCH (22:04)
[2022-09-02] MEDS: THIAMINE HCL 100 MG TABLET (FP) PO SCH (22:04)
[2022-09-02] MEDS: QUEtiapine FUMARATE 50 MG TABLET PO SCH (22:04)
[2022-09-02] MEDS: BUDESONIDE/FORMETEROL FUMARATE 80/4.5 mcg INHALER IH SCH (22:04)
[2022-09-02] MEDS: IBUPROFEN 600 MG TABLET (FP) PO PRN (22:05)
[2022-09-02] MEDS: METHOCARBAMOL 500 MG TABLET PO PRN (22:07)
[2022-09-02] MEDS: ALBUTEROL SO4 HFA INHALER IH PRN (23:02)
[2022-09-03] MEDS: methaDONE 40 MG, methaDONE 30 MG PO SCH (05:40)
[2022-09-03] MEDS: diazePAM 5 MG TABLET PO SCH ×4 (05:42→22:10)
[2022-09-03] MEDS: LISINOPRIL 20 MG TABLET PO SCH ×2 (10:55→22:09)
[2022-09-03] MEDS: PRENATAL VITAMINS W/ FOLIC ACID TABLET (FP) PO SCH (10:55)
[2022-09-03] MEDS: amLODIPine BESYLATE 10 MG TABLET (FP) PO SCH (10:55)
[2022-09-03] MEDS: BUDESONIDE/FORMETEROL FUMARATE 80/4.5 mcg INHALER IH SCH ×2 (10:59→22:12)
[2022-09-03] MEDS: ALBUTEROL SO4 HFA INHALER IH PRN ×2 (11:03→22:13)
[2022-09-03] MEDS: METHOCARBAMOL 500 MG TABLET PO PRN ×2 (11:06→22:09)
[2022-09-03] MEDS: MELATONIN 5 MG TABLETS PO SCH (22:09)
[2022-09-03] MEDS: QUEtiapine FUMARATE 50 MG TABLET PO SCH (22:09)
[2022-09-03] MEDS: THIAMINE HCL 100 MG TABLET (FP) PO SCH (22:09)
[2022-09-04] MEDS: methaDONE 40 MG, methaDONE 30 MG PO SCH (05:47)
[2022-09-04] MEDS: diazePAM 5 MG TABLET PO SCH ×3 (05:48→22:07)
[2022-09-04] MEDS: PRENATAL VITAMINS W/ FOLIC ACID TABLET (FP) PO SCH (10:12)
[2022-09-04] MEDS: BUDESONIDE/FORMETEROL FUMARATE 80/4.5 mcg INHALER IH SCH ×2 (10:12→22:07)
[2022-09-04] MEDS: amLODIPine BESYLATE 10 MG TABLET (FP) PO SCH (10:12)
[2022-09-04] MEDS: ALBUTEROL SO4 HFA INHALER IH PRN (10:13)
[2022-09-04] MEDS: METHOCARBAMOL 500 MG TABLET PO PRN ×2 (10:15→22:10)
[2022-09-04] MEDS: THIAMINE HCL 100 MG TABLET (FP) PO SCH (22:07)
[2022-09-04] MEDS: QUEtiapine FUMARATE 50 MG TABLET PO SCH (22:07)
[2022-09-04] MEDS: MELATONIN 5 MG TABLETS PO SCH (22:07)
[2022-09-04] MEDS: LISINOPRIL 20 MG TABLET PO SCH (22:07)
[2022-09-05] MEDS: methaDONE 40 MG, methaDONE 30 MG PO SCH (05:24)
[2022-09-05] MEDS: diazePAM 5 MG TABLET PO SCH ×2 (05:27→17:30)
[2022-09-05] MEDS: PRENATAL VITAMINS W/ FOLIC ACID TABLET (FP) PO SCH (10:16)
[2022-09-05] MEDS: amLODIPine BESYLATE 10 MG TABLET (FP) PO SCH (10:16)
[2022-09-05] MEDS: BUDESONIDE/FORMETEROL FUMARATE 80/4.5 mcg INHALER IH SCH ×2 (10:17→21:40)
[2022-09-05] MEDS: MELATONIN 5 MG TABLETS PO SCH (21:40)
[2022-09-05] MEDS: THIAMINE HCL 100 MG TABLET (FP) PO SCH (21:40)
[2022-09-05] MEDS: QUEtiapine FUMARATE 50 MG TABLET PO SCH (21:40)
[2022-09-05] MEDS: LISINOPRIL 20 MG TABLET PO SCH (21:40)
[2022-09-05] MEDS: ALBUTEROL SO4 HFA INHALER IH PRN (21:40)
[2022-09-05] MEDS: METHOCARBAMOL 500 MG TABLET PO PRN (21:42)
[2022-09-06] MEDS: methaDONE 40 MG, methaDONE 30 MG PO SCH (05:42)
[2022-09-06] MEDS ORDERED: diazePAM 5 MG TABLET PO ONE (06:00)
[2022-09-06] MEDS: PRENATAL VITAMINS W/ FOLIC ACID TABLET (FP) PO SCH (09:35)
[2022-09-06] MEDS: amLODIPine BESYLATE 10 MG TABLET (FP) PO SCH (09:36)
[2022-09-06] MEDS: BUDESONIDE/FORMETEROL FUMARATE 80/4.5 mcg INHALER IH SCH (09:36)
[2022-09-06] MEDS: IBUPROFEN 600 MG TABLET (FP) PO PRN (09:36)
[2022-09-06 13:09] VITALS: BP 169/70; PULSE 86; RESP 18; TEMP 97.8
== END 2022-09-06 13:18 | disposition home or self-care (01) | DRG 773 ==
LOC: YASAS 18:56 → Y3N 09-01 01:23
PROVIDERS: ADMIT Allergy & Immunology; ATTEND Surgery
PROC: HZ2ZZZZ Detoxification Services for Substance Abuse Treatment (ICD-10-PCS; principal; 2022-09-01)
DX: F10.230 Alcohol dependence with withdrawal, uncomplicated (principal); F10.282 Alcohol dependence with alcohol-induced sleep disorder; F11.20 Opioid dependence, uncomplicated; F17.210 Nicotine dependence, cigarettes, uncomplicated; F32.A Depression, unspecified; F41.9 Anxiety disorder, unspecified; I11.0 Hypertensive heart disease with heart failure; I50.9 Heart failure, unspecified; J45.20 Mild intermittent asthma, uncomplicated; E78.5 Hyperlipidemia, unspecified; H54.40 Blindness, one eye, unspecified eye; M54.59 Other low back pain; G89.29 Other chronic pain; M19.90 Unspecified osteoarthritis, unspecified site; R79.89 Other specified abnormal findings of blood chemistry; D64.9 Anemia, unspecified; R60.0 Localized edema; R26.2 Difficulty in walking, not elsewhere classified; Z99.89 Dependence on other enabling machines and devices; Z88.8 Allergy status to other drugs, medicaments and biological substances; Z86.19 Personal history of other infectious and parasitic diseases; Z56.0 Unemployment, unspecified; Z59.00 Homelessness unspecified
CPT/HCPCS: 36415; 80053; 83880; 85027; 86780; 87811; C9803-CS; U0003; U0005

== ENCOUNTER 2022-09-07 02:16 | Inpatient (IN) | payer OTHER ==
[2022-09-07 02:36] VITALS: BMI 29.1
[2022-09-07 05:50] LABS: HEMATOCRIT 29.6 % (35.4-49); HEMOGLOBIN 9.6 GM/dL (11.7-16.9); LYMPH % 24.4 % (8-40); MCH 27.2 pg (25.7-33.7); MCHC 32.3 g/dl (32.0-35.9); MEAN CELL VOLUME 84.1 fl (80-96); MEAN PLT VOLUME 7.8 fl (7.5-11.1); MONO % 10.7 % (3.8-10.2); NEUT % 58.9 % (42.8-82.8); PLATELET COUNT 374 10^3/uL (134-434); RBC 3.52 M/mm3 (4.00-5.60); RDW 17.2 % (11.9-15.9); WHITE BLOOD COUNT 9.2 K/mm3 (4.0-10.0)
[2022-09-07 06:06] LABS: CALCIUM 9.3 mg/dL (8.5-10.1)
[2022-09-07 06:07] LABS: ALBUMIN 3.6 g/dl (3.4-5.0)
[2022-09-07 06:10] LABS: CREATININE 1.1 mg/dL (0.55-1.3)
[2022-09-07 06:11] LABS: BILIRUBIN,TOTAL 0.2 mg/dL (0.2-1); TOT PROT 7.5 g/dl (6.4-8.2)
[2022-09-07 06:14] LABS: N-TERMINAL BNP 350.5 pg/ml (5-125)
[2022-09-07] MEDS ORDERED: ALBUTEROL SO4 HFA INHALER IH ONE (06:32)
[2022-09-07 06:34] LABS: INR 1.14 (0.83-1.09); PROTHROMBIN TIME (PATIENT) 13.1 SEC (9.7-13.0)
[2022-09-07] MEDS ORDERED: VANCOMYCIN 1 GM in D5W (PRE-DOCKED) 1,000 MG/250 ML IVPB ONE (06:35)
[2022-09-07 06:37] LABS: ACTIVATED PTT 37.8 SECONDS (25.2-36.5)
[2022-09-07] MEDS ORDERED: VANCOMYCIN/WATER FOR INJ (PEG) 1,000 MG/200 ML BAG IVPB ONE (06:55)
[2022-09-07] MEDS ORDERED: ALBUTEROL SO4 HFA INHALER IH PRN (10:36)
[2022-09-07] MEDS: SODIUM CHLORIDE 1,000 ML IV SCH (11:35)
[2022-09-07] MEDS: SODIUM ZIRCONIUM CYCLOSILICATE (LOKELMA) 5 GM PACKET PO SCH (11:36)
[2022-09-07] MEDS: INSULIN SLIDING SCALE (NOVOLOG) 1 VIAL SQ SCH ×3 (11:57→22:13)
[2022-09-07] MEDS ORDERED: methaDONE HCL 10 MG TABLET (FOR DETOX USE ONLY) PO SCH (16:56)
[2022-09-07] MEDS ORDERED: methaDONE HCL 10 MG TABLET ONE (17:02)
[2022-09-07] MEDS ORDERED: methaDONE HCL 40 MG DISPERSABLE TABLET ONE (17:02)
[2022-09-07] MEDS ORDERED: methaDONE 40 MG, methaDONE 30 MG PO ONE (17:15)
[2022-09-07] MEDS: LISINOPRIL 20 MG TABLET PO SCH (22:12)
[2022-09-07] MEDS: METOPROLOL TARTRATE 25 MG TABLET (FP) PO SCH (22:12)
[2022-09-07] MEDS: QUEtiapine FUMARATE 50 MG TABLET PO SCH (22:13)
[2022-09-07] MEDS: ATORVASTATIN CA 20 MG TABLET (FP) PO SCH (22:13)
[2022-09-07] MEDS: BUDESONIDE/FORMETEROL FUMARATE 80/4.5 mcg INHALER IH SCH (23:56)
[2022-09-08] MEDS: INSULIN SLIDING SCALE (NOVOLOG) 1 VIAL SQ SCH ×4 (07:42→21:55)
[2022-09-08] MEDS ORDERED: methaDONE HCL 10 MG TABLET PO ONE (08:53)
[2022-09-08] MEDS ORDERED: methaDONE HCL 10 MG TABLET (FOR DETOX USE ONLY) PO ONE (09:00)
[2022-09-08 09:11] LABS: BASO % 1.1 % (0-2.0); EOS % 6.1 % (0-4.5); HEMATOCRIT 30.7 % (35.4-49); MCH 27.5 pg (25.7-33.7); MCHC 32.4 g/dl (32.0-35.9); MEAN CELL VOLUME 84.7 fl (80-96); MEAN PLT VOLUME 7.9 fl (7.5-11.1); MONO % 12.4 % (3.8-10.2); NEUT % 49.4 % (42.8-82.8); PLATELET COUNT 349 10^3/uL (134-434); RBC 3.63 M/mm3 (4.00-5.60); RDW 16.9 % (11.9-15.9); WHITE BLOOD COUNT 6.4 K/mm3 (4.0-10.0)
[2022-09-08 09:53] LABS: ALBUMIN 3.1 g/dl (3.4-5.0); BLOOD UREA NITROGEN 30.1 mg/dL (7-18); CALCIUM 8.9 mg/dL (8.5-10.1); MAGNESIUM 2.3 mg/dL (1.8-2.4)
[2022-09-08] MEDS: METOPROLOL TARTRATE 25 MG TABLET (FP) PO SCH ×2 (09:54→21:55)
[2022-09-08 09:55] LABS: CHOLESTEROL 179 mg/dL (50-200)
[2022-09-08] MEDS: methaDONE 40 MG, methaDONE 30 MG PO SCH (09:55)
[2022-09-08 09:56] LABS: CREATININE 1.3 mg/dL (0.55-1.3); TRIGLYCERIDES 218 mg/dL (0-150)
[2022-09-08 09:57] LABS: BILIRUBIN,TOTAL 0.3 mg/dL (0.2-1); LDL CHOLESTEROL (ONLY SJRH) 100 mg/dL (5-100); PHOSPHOROUS 5.4 mg/dL (2.5-4.9)
[2022-09-08] MEDS: SODIUM ZIRCONIUM CYCLOSILICATE (LOKELMA) 5 GM PACKET PO SCH (09:57)
[2022-09-08] MEDS: ENOXAPARIN NA (PORCINE) 40 MG/0.4 ML DISP.SYRIN SQ SCH (09:57)
[2022-09-08 09:58] LABS: HDL CHOLESTEROL 51 mg/dL (40-60); TOT PROT 6.8 g/dl (6.4-8.2)
[2022-09-08] MEDS: BUDESONIDE/FORMETEROL FUMARATE 80/4.5 mcg INHALER IH SCH ×2 (10:03→22:00)
[2022-09-08] MEDS: SODIUM CHLORIDE 1,000 ML IV SCH (10:04)
[2022-09-08] MEDS: ALBUTEROL SO4 HFA INHALER IH PRN (10:11)
[2022-09-08] MEDS: CEFTRIAXONE 1 GM in DEXTROSE 5%-WATER - 50 ML IVPB SCH (10:39)
[2022-09-08] MEDS ORDERED: INSULIN (NOVOLOG) ASPART 100 UNITS/ML 10ML VIAL ONE (11:19)
[2022-09-08 16:59] LABS: COCAINE, UR NEGATIVE (NEGATIVE); OPIATES, URI NEGATIVE (NEGATIVE); PHENCYCLIDINE,URINE NEGATIVE (NEGATIVE); URINE BARBITURATES NEGATIVE (NEGATIVE)
[2022-09-08 17:12] LABS: METHADONE, UR POSITIVE (NEGATIVE); URINE AMPHETAMINES NEGATIVE (NEGATIVE); URINE BENZODIAZEPINES POSITIVE (NEGATIVE)
[2022-09-08] MEDS: MELATONIN 5 MG TABLETS PO SCH (21:54)
[2022-09-08] MEDS: ATORVASTATIN CA 20 MG TABLET (FP) PO SCH (21:54)
[2022-09-08] MEDS: LISINOPRIL 20 MG TABLET PO SCH (21:55)
[2022-09-08] MEDS: QUEtiapine FUMARATE 50 MG TABLET PO SCH (21:57)
[2022-09-09] MEDS ORDERED: methaDONE HCL 10 MG TABLET PO SCH (06:00)
[2022-09-09] MEDS: methaDONE 40 MG, methaDONE 30 MG PO SCH (06:19)
[2022-09-09] MEDS: INSULIN SLIDING SCALE (NOVOLOG) 1 VIAL SQ SCH ×4 (06:20→22:09)
[2022-09-09 09:24] LABS: BASO % 0.9 % (0-2.0); EOS % 6.2 % (0-4.5); HEMATOCRIT 30.7 % (35.4-49); HEMOGLOBIN 9.9 GM/dL (11.7-16.9); LYMPH % 35.4 % (8-40); MCH 27.4 pg (25.7-33.7); MCHC 32.2 g/dl (32.0-35.9); MEAN CELL VOLUME 85.2 fl (80-96); MEAN PLT VOLUME 8.1 fl (7.5-11.1); NEUT % 45.5 % (42.8-82.8); PLATELET COUNT 351 10^3/uL (134-434); RBC 3.61 M/mm3 (4.00-5.60); RDW 16.9 % (11.9-15.9); WHITE BLOOD COUNT 6.3 K/mm3 (4.0-10.0)
[2022-09-09 09:53] LABS: CALCIUM 9.1 mg/dL (8.5-10.1)
[2022-09-09 09:54] LABS: ALBUMIN 3.2 g/dl (3.4-5.0); MAGNESIUM 2.4 mg/dL (1.8-2.4)
[2022-09-09 09:57] LABS: CREATININE 1.2 mg/dL (0.55-1.3)
[2022-09-09 09:59] LABS: BILIRUBIN,TOTAL 0.3 mg/dL (0.2-1)
[2022-09-09] MEDS: BUDESONIDE/FORMETEROL FUMARATE 80/4.5 mcg INHALER IH SCH ×2 (10:17→22:09)
[2022-09-09] MEDS: ENOXAPARIN NA (PORCINE) 40 MG/0.4 ML DISP.SYRIN SQ SCH (10:17)
[2022-09-09] MEDS: SODIUM ZIRCONIUM CYCLOSILICATE (LOKELMA) 5 GM PACKET PO SCH (10:17)
[2022-09-09] MEDS: METOPROLOL TARTRATE 25 MG TABLET (FP) PO SCH ×2 (10:17→22:09)
[2022-09-09] MEDS: CEFTRIAXONE 1 GM in DEXTROSE 5%-WATER - 50 ML IVPB SCH (10:49)
[2022-09-09] MEDS: LISINOPRIL 20 MG TABLET PO SCH (22:08)
[2022-09-09] MEDS: QUEtiapine FUMARATE 50 MG TABLET PO SCH (22:08)
[2022-09-09] MEDS: MELATONIN 5 MG TABLETS PO SCH (22:09)
[2022-09-09] MEDS: ATORVASTATIN CA 20 MG TABLET (FP) PO SCH (22:09)
[2022-09-10] MEDS: INSULIN SLIDING SCALE (NOVOLOG) 1 VIAL SQ SCH ×4 (06:49→22:21)
[2022-09-10] MEDS: methaDONE 40 MG, methaDONE 30 MG PO SCH (06:52)
[2022-09-10] MEDS: amLODIPine BESYLATE 10 MG TABLET (FP) PO SCH (09:09)
[2022-09-10] MEDS: CEFTRIAXONE 1 GM in DEXTROSE 5%-WATER - 50 ML IVPB SCH (09:09)
[2022-09-10] MEDS: SODIUM ZIRCONIUM CYCLOSILICATE (LOKELMA) 5 GM PACKET PO SCH (09:09)
[2022-09-10] MEDS: METOPROLOL TARTRATE 25 MG TABLET (FP) PO SCH ×2 (09:09→22:21)
[2022-09-10] MEDS: ENOXAPARIN NA (PORCINE) 40 MG/0.4 ML DISP.SYRIN SQ SCH (09:09)
[2022-09-10] MEDS: BUDESONIDE/FORMETEROL FUMARATE 80/4.5 mcg INHALER IH SCH ×2 (09:10→22:22)
[2022-09-10 09:11] LABS: EOS % 6.2 % (0-4.5); HEMATOCRIT 34.8 % (35.4-49); HEMOGLOBIN 11.1 GM/dL (11.7-16.9); LYMPH % 35.3 % (8-40); MCH 27.5 pg (25.7-33.7); MEAN CELL VOLUME 85.9 fl (80-96); MEAN PLT VOLUME 8.1 fl (7.5-11.1); MONO % 11.1 % (3.8-10.2); NEUT % 46.4 % (42.8-82.8); PLATELET COUNT 419 10^3/uL (134-434); RBC 4.06 M/mm3 (4.00-5.60); RDW 16.5 % (11.9-15.9); WHITE BLOOD COUNT 7.8 K/mm3 (4.0-10.0)
[2022-09-10] MEDS: ALBUTEROL SO4 HFA INHALER IH PRN (09:12)
[2022-09-10 09:24] LABS: ALBUMIN 3.8 g/dl (3.4-5.0); BLOOD UREA NITROGEN 29.5 mg/dL (7-18); CALCIUM 9.7 mg/dL (8.5-10.1); MAGNESIUM 2.5 mg/dL (1.8-2.4)
[2022-09-10 09:27] LABS: CREATININE 1.2 mg/dL (0.55-1.3)
[2022-09-10 09:29] LABS: BILIRUBIN,TOTAL 0.4 mg/dL (0.2-1); TOT PROT 8.2 g/dl (6.4-8.2)
[2022-09-10] MEDS: MELATONIN 5 MG TABLETS PO SCH (22:20)
[2022-09-10] MEDS: LISINOPRIL 20 MG TABLET PO SCH (22:20)
[2022-09-10] MEDS: ATORVASTATIN CA 20 MG TABLET (FP) PO SCH (22:20)
[2022-09-10] MEDS: QUEtiapine FUMARATE 50 MG TABLET PO SCH (22:20)
[2022-09-11] MEDS: methaDONE 40 MG, methaDONE 30 MG PO SCH (06:51)
[2022-09-11] MEDS: INSULIN SLIDING SCALE (NOVOLOG) 1 VIAL SQ SCH ×4 (06:52→22:06)
[2022-09-11] MEDS: SODIUM ZIRCONIUM CYCLOSILICATE (LOKELMA) 5 GM PACKET PO SCH (10:09)
[2022-09-11] MEDS: amLODIPine BESYLATE 10 MG TABLET (FP) PO SCH (10:09)
[2022-09-11] MEDS: BUDESONIDE/FORMETEROL FUMARATE 80/4.5 mcg INHALER IH SCH ×2 (10:10→22:08)
[2022-09-11] MEDS: ENOXAPARIN NA (PORCINE) 40 MG/0.4 ML DISP.SYRIN SQ SCH (10:10)
[2022-09-11] MEDS: CEFTRIAXONE 1 GM in DEXTROSE 5%-WATER - 50 ML IVPB SCH (10:10)
[2022-09-11] MEDS: METOPROLOL TARTRATE 25 MG TABLET (FP) PO SCH ×2 (10:10→22:00)
[2022-09-11 10:54] LABS: BASO % 0.9 % (0-2.0); EOS % 4.2 % (0-4.5); HEMATOCRIT 31.8 % (35.4-49); HEMOGLOBIN 10.1 GM/dL (11.7-16.9); LYMPH % 30.8 % (8-40); MCHC 31.6 g/dl (32.0-35.9); MEAN CELL VOLUME 85.6 fl (80-96); MEAN PLT VOLUME 7.9 fl (7.5-11.1); MONO % 10.3 % (3.8-10.2); NEUT % 53.8 % (42.8-82.8); PLATELET COUNT 338 10^3/uL (134-434); RBC 3.72 M/mm3 (4.00-5.60); RDW 16.7 % (11.9-15.9); WHITE BLOOD COUNT 7.7 K/mm3 (4.0-10.0)
[2022-09-11 11:12] LABS: ALBUMIN 3.5 g/dl (3.4-5.0); BLOOD UREA NITROGEN 30.7 mg/dL (7-18); CALCIUM 9.3 mg/dL (8.5-10.1); MAGNESIUM 2.3 mg/dL (1.8-2.4)
[2022-09-11 11:14] LABS: CREATININE 1.3 mg/dL (0.55-1.3)
[2022-09-11 11:16] LABS: BILIRUBIN,TOTAL 0.2 mg/dL (0.2-1); TOT PROT 7.4 g/dl (6.4-8.2)
[2022-09-11 16:55] VITALS: RESP 18
[2022-09-11] MEDS: QUEtiapine FUMARATE 50 MG TABLET PO SCH (22:00)
[2022-09-11] MEDS: MELATONIN 5 MG TABLETS PO SCH (22:00)
[2022-09-11] MEDS: ATORVASTATIN CA 20 MG TABLET (FP) PO SCH (22:00)
[2022-09-11] MEDS: LISINOPRIL 20 MG TABLET PO SCH (22:00)
[2022-09-11] MEDS: ALBUTEROL SO4 HFA INHALER IH PRN (22:08)
[2022-09-11] MEDS ORDERED: ACETAMINOPHEN 1000 MG/100 ML BAG IVPB ONE (22:43)
[2022-09-12] MEDS: methaDONE 40 MG, methaDONE 30 MG PO SCH (06:23)
[2022-09-12] MEDS: INSULIN SLIDING SCALE (NOVOLOG) 1 VIAL SQ SCH ×2 (06:26→12:21)
[2022-09-12 07:12] VITALS: BP 138/92; PULSE 52; TEMP 97.9
[2022-09-12] MEDS: CEFTRIAXONE 1 GM in DEXTROSE 5%-WATER - 50 ML IVPB SCH (09:39)
[2022-09-12] MEDS: ENOXAPARIN NA (PORCINE) 40 MG/0.4 ML DISP.SYRIN SQ SCH (09:39)
[2022-09-12] MEDS: amLODIPine BESYLATE 10 MG TABLET (FP) PO SCH (09:39)
[2022-09-12] MEDS: METOPROLOL TARTRATE 25 MG TABLET (FP) PO SCH (09:39)
[2022-09-12] MEDS: BUDESONIDE/FORMETEROL FUMARATE 80/4.5 mcg INHALER IH SCH (09:41)
[2022-09-13] MEDS ORDERED: AMOX TR/POT CLAV 875MG/125MG TABLETS (FP) PO SCH (08:00)
== END 2022-09-12 13:51 | disposition home or self-care (01) | DRG 383 ==
LOC: JER 02:16 → JERBED 09:57 → OBSVTOIN 10:31 → J8W 20:10
PROVIDERS: ADMIT Internal Medicine; ATTEND Nurse Practitioner Acute Care
DX: L03.116 Cellulitis of left lower limb (principal); J45.22 Mild intermittent asthma with status asthmaticus; E87.5 Hyperkalemia; F11.20 Opioid dependence, uncomplicated; E78.5 Hyperlipidemia, unspecified; F10.220 Alcohol dependence with intoxication, uncomplicated; F17.200 Nicotine dependence, unspecified, uncomplicated; I10 Essential (primary) hypertension; L03.115 Cellulitis of right lower limb
CPT/HCPCS: 0241U-QW; 36415; 71045-TC-FY; 80053; 80061; 80307; 82962; 83036; 83735; 83880; 84100; 85025; 85610; 85730; 86140; 93005; 93010; 93306-TC; 93970-TC; 99285-25; G0378

== ENCOUNTER 2022-09-20 19:09 | Inpatient (IN) | payer OTHER ==
[2022-09-20 20:09] VITALS: BMI 26.3
[2022-09-21] MEDS ORDERED: ACETAMINOPHEN 325 MG TABLET (FP) PO PRN ×2 (05:39)
[2022-09-21] MEDS ORDERED: NICOTINE POLACRILEX 2 MG GUM BUC PRN (05:39)
[2022-09-21] MEDS ORDERED: IBUPROFEN 600 MG TABLET (FP) PO PRN (05:39)
[2022-09-21] MEDS ORDERED: BENZOCAINE/MENTHOL (CHLORASEPTIC ) LOZENGE MM PRN (05:39)
[2022-09-21] MEDS ORDERED: LOPERAMIDE HCL 2 MG CAPSULE PO PRN (05:39)
[2022-09-21] MEDS ORDERED: MAGNESIUM HYDROX 2400MG/30ML ORAL SUSPENSION 30 ML CUP PO PRN (05:39)
[2022-09-21] MEDS ORDERED: ONDANSETRON *ODT* 4 MG TABLET SL PRN (05:39)
[2022-09-21] MEDS ORDERED: chlordiazePOXIDE HCL 25 MG CAPSULE PO PRN (05:39)
[2022-09-21] MEDS ORDERED: NICOTINE 10 MG CARTRIDGE (INHALER) IH PRN (05:39)
[2022-09-21] MEDS ORDERED: DICYCLOMINE HCL 10 MG CAPSULE PO PRN (05:39)
[2022-09-21] MEDS ORDERED: MAG HYDROX/AL HYDROX/SIMETH 30 ML UNIT-DOSE CUP PO PRN (05:39)
[2022-09-21] MEDS ORDERED: IBUPROFEN 400 MG TABLET (FP) PO PRN (05:39)
[2022-09-21] MEDS ORDERED: BISMUTH SUBSALICYLATE 524 MG/30 ML PO PRN (05:39)
[2022-09-21] MEDS ORDERED: NALOXONE HCL (KLOXXADO) 8 MG SPRAY NS PRN (05:39)
[2022-09-21] MEDS ORDERED: POLYETHYLENE GLYCOL (HEALTHYLAX) 3350 17 GM PACKET PO PRN (05:39)
[2022-09-21] MEDS ORDERED: chlordiazePOXIDE HCL 25 MG CAPSULE ONE ×2 (06:44→10:30)
[2022-09-21] MEDS: chlordiazePOXIDE HCL 25 MG CAPSULE PO SCH ×4 (06:45→22:17)
[2022-09-21] MEDS ORDERED: ONDANSETRON *ODT* 4 MG TABLET ONE (08:37)
[2022-09-21] MEDS ORDERED: ALBUTEROL SO4 HFA INHALER IH PRN (08:39)
[2022-09-21] MEDS ORDERED: methaDONE HCL 10 MG TABLET PO SCH (09:30)
[2022-09-21] MEDS ORDERED: methaDONE 40 MG, methaDONE 30 MG PO ONE (10:00)
[2022-09-21] MEDS ORDERED: IBUPROFEN 600 MG TABLET (FP) PO ONE (10:30)
[2022-09-21] MEDS ORDERED: NICOTINE 21 MG/24 HOURS TOPICAL PATCH ONE (10:51)
[2022-09-21] MEDS ORDERED: amLODIPine BESYLATE 5 MG TABLET (FP) ONE (10:52)
[2022-09-21] MEDS: amLODIPine BESYLATE 10 MG TABLET (FP) PO SCH (10:56)
[2022-09-21] MEDS: NICOTINE 21 MG/24 HOURS TOPICAL PATCH TD SCH (10:56)
[2022-09-21] MEDS: BUDESONIDE/FORMETEROL FUMARATE 80/4.5 mcg INHALER IH SCH ×2 (11:00→22:16)
[2022-09-21] MEDS: PRENATAL VITAMINS W/ FOLIC ACID TABLET (FP) PO SCH (13:14)
[2022-09-21 14:40] LABS: HEMATOCRIT 31.1 % (35.4-49); HEMOGLOBIN 10.3 GM/dL (11.7-16.9); MCHC 33.2 g/dl (32.0-35.9); MEAN CELL VOLUME 84.3 fl (80-96); MEAN PLT VOLUME 8.3 fl (7.5-11.1); PLATELET COUNT 295 10^3/uL (134-434); RBC 3.69 M/mm3 (4.00-5.60); RDW 16.9 % (11.9-15.9)
[2022-09-21 15:28] LABS: BLOOD UREA NITROGEN 22.6 mg/dL (7-18)
[2022-09-21 15:29] LABS: ALBUMIN 3.9 g/dl (3.4-5.0)
[2022-09-21 15:30] LABS: BILIRUBIN,TOTAL 0.5 mg/dL (0.2-1); TOT PROT 7.9 g/dl (6.4-8.2)
[2022-09-21 15:31] LABS: CREATININE 0.9 mg/dL (0.55-1.3)
[2022-09-21 15:32] LABS: CALCIUM 9.3 mg/dL (8.5-10.1)
[2022-09-21 16:07] LABS: HIV INTERPRETATION NEGATIVE (NEGATIVE)
[2022-09-21] MEDS: AMOX TR/POT CLAV 875MG/125MG TABLETS (FP) PO SCH (18:05)
[2022-09-21] MEDS: METHOCARBAMOL 500 MG TABLET PO PRN (18:08)
[2022-09-21] MEDS: MELATONIN 5 MG TABLETS PO SCH (22:16)
[2022-09-21] MEDS: ATORVASTATIN CA 20 MG TABLET (FP) PO SCH (22:17)
[2022-09-21] MEDS: THIAMINE HCL 100 MG TABLET (FP) PO SCH (22:17)
[2022-09-21] MEDS: LISINOPRIL 20 MG TABLET PO SCH (22:17)
[2022-09-21] MEDS: QUEtiapine FUMARATE 50 MG TABLET PO SCH (22:17)
[2022-09-22] MEDS: chlordiazePOXIDE HCL 25 MG CAPSULE PO SCH ×4 (05:46→22:13)
[2022-09-22] MEDS: methaDONE 40 MG, methaDONE 30 MG PO SCH (05:49)
[2022-09-22] MEDS: AMOX TR/POT CLAV 875MG/125MG TABLETS (FP) PO SCH (07:48)
[2022-09-22] MEDS: BUDESONIDE/FORMETEROL FUMARATE 80/4.5 mcg INHALER IH SCH ×2 (10:06→23:13)
[2022-09-22] MEDS: PRENATAL VITAMINS W/ FOLIC ACID TABLET (FP) PO SCH (10:06)
[2022-09-22] MEDS: NICOTINE 21 MG/24 HOURS TOPICAL PATCH TD SCH (10:06)
[2022-09-22] MEDS: amLODIPine BESYLATE 10 MG TABLET (FP) PO SCH (10:06)
[2022-09-22] MEDS ORDERED: SODIUM POLYSTYRENE SULFONATE 15 GM/60 ML BOTTLE PO ONE (10:43)
[2022-09-22] MEDS: METHOCARBAMOL 500 MG TABLET PO PRN (17:28)
[2022-09-22] MEDS: LISINOPRIL 20 MG TABLET PO SCH (22:09)
[2022-09-22] MEDS: THIAMINE HCL 100 MG TABLET (FP) PO SCH (22:10)
[2022-09-22] MEDS: QUEtiapine FUMARATE 50 MG TABLET PO SCH (22:10)
[2022-09-22] MEDS: MELATONIN 5 MG TABLETS PO SCH (22:11)
[2022-09-22] MEDS: ATORVASTATIN CA 20 MG TABLET (FP) PO SCH (22:12)
[2022-09-23] MEDS ORDERED: chlordiazePOXIDE HCL 10 MG CAPSULE PO PRN
[2022-09-23] MEDS: chlordiazePOXIDE HCL 10 MG CAPSULE PO SCH ×4 (05:36→22:01)
[2022-09-23] MEDS: methaDONE 40 MG, methaDONE 30 MG PO SCH (05:37)
[2022-09-23] MEDS: NICOTINE 21 MG/24 HOURS TOPICAL PATCH TD SCH (10:12)
[2022-09-23] MEDS: BUDESONIDE/FORMETEROL FUMARATE 80/4.5 mcg INHALER IH SCH ×2 (10:12→22:03)
[2022-09-23] MEDS: PRENATAL VITAMINS W/ FOLIC ACID TABLET (FP) PO SCH (10:12)
[2022-09-23] MEDS: amLODIPine BESYLATE 10 MG TABLET (FP) PO SCH (10:13)
[2022-09-23] MEDS: THIAMINE HCL 100 MG TABLET (FP) PO SCH (22:01)
[2022-09-23] MEDS: QUEtiapine FUMARATE 50 MG TABLET PO SCH (22:01)
[2022-09-23] MEDS: LISINOPRIL 20 MG TABLET PO SCH (22:02)
[2022-09-23] MEDS: ATORVASTATIN CA 20 MG TABLET (FP) PO SCH (22:02)
[2022-09-23] MEDS: MELATONIN 5 MG TABLETS PO SCH (22:02)
[2022-09-24] MEDS: chlordiazePOXIDE HCL 10 MG CAPSULE PO SCH ×2 (05:20→17:15)
[2022-09-24] MEDS: methaDONE 40 MG, methaDONE 30 MG PO SCH (05:20)
[2022-09-24] MEDS: BUDESONIDE/FORMETEROL FUMARATE 80/4.5 mcg INHALER IH SCH ×2 (10:27→22:13)
[2022-09-24] MEDS: PRENATAL VITAMINS W/ FOLIC ACID TABLET (FP) PO SCH (10:27)
[2022-09-24] MEDS: amLODIPine BESYLATE 10 MG TABLET (FP) PO SCH (10:27)
[2022-09-24] MEDS: NICOTINE 21 MG/24 HOURS TOPICAL PATCH TD SCH (10:28)
[2022-09-24] MEDS: ATORVASTATIN CA 20 MG TABLET (FP) PO SCH (22:11)
[2022-09-24] MEDS: MELATONIN 5 MG TABLETS PO SCH (22:11)
[2022-09-24] MEDS: LISINOPRIL 20 MG TABLET PO SCH (22:11)
[2022-09-24] MEDS: QUEtiapine FUMARATE 50 MG TABLET PO SCH (22:12)
[2022-09-24] MEDS: METHOCARBAMOL 500 MG TABLET PO PRN (22:12)
[2022-09-24] MEDS: THIAMINE HCL 100 MG TABLET (FP) PO SCH (22:12)
[2022-09-25] MEDS ORDERED: chlordiazePOXIDE HCL 10 MG CAPSULE PO ONE (05:00)
[2022-09-25] MEDS: methaDONE 40 MG, methaDONE 30 MG PO SCH (05:18)
[2022-09-25 06:32] VITALS: RESP 18
[2022-09-25 09:09] VITALS: BP 163/89; PULSE 81; TEMP 97.3
== END 2022-09-25 08:52 | disposition home or self-care (01) | DRG 774 ==
LOC: YASAS 19:09 → Y3N 09-21 12:21
PROVIDERS: ADMIT Allergy & Immunology; ATTEND Surgery
PROC: HZ2ZZZZ Detoxification Services for Substance Abuse Treatment (ICD-10-PCS; principal; 2022-09-21)
DX: F10.230 Alcohol dependence with withdrawal, uncomplicated (principal); F14.20 Cocaine dependence, uncomplicated; F12.20 Cannabis dependence, uncomplicated; F17.210 Nicotine dependence, cigarettes, uncomplicated; F32.A Depression, unspecified; E87.5 Hyperkalemia; H54.62 Unqualified visual loss, left eye, normal vision right eye; I10 Essential (primary) hypertension; J45.20 Mild intermittent asthma, uncomplicated; E78.00 Pure hypercholesterolemia, unspecified; M25.561 Pain in right knee; Z99.89 Dependence on other enabling machines and devices; Z88.8 Allergy status to other drugs, medicaments and biological substances
CPT/HCPCS: 36415; 80053; 84132; 85027; 86780; 87389; C9803-CS; Q0162; U0003; U0005

== ENCOUNTER 2022-10-03 17:52 | Inpatient (IN) | payer OTHER ==
[2022-10-03 18:31] VITALS: BMI 25.3
[2022-10-03] MEDS ORDERED: BISMUTH SUBSALICYLATE 524 MG/30 ML PO PRN (19:34)
[2022-10-03] MEDS ORDERED: NICOTINE 10 MG CARTRIDGE (INHALER) IH PRN (19:34)
[2022-10-03] MEDS ORDERED: ACETAMINOPHEN 325 MG TABLET (FP) PO PRN ×2 (19:34)
[2022-10-03] MEDS ORDERED: POLYETHYLENE GLYCOL (HEALTHYLAX) 3350 17 GM PACKET PO PRN (19:34)
[2022-10-03] MEDS ORDERED: ONDANSETRON *ODT* 4 MG TABLET SL PRN (19:34)
[2022-10-03] MEDS ORDERED: BENZOCAINE/MENTHOL (CHLORASEPTIC ) LOZENGE MM PRN (19:34)
[2022-10-03] MEDS ORDERED: IBUPROFEN 400 MG TABLET (FP) PO PRN (19:34)
[2022-10-03] MEDS ORDERED: NALOXONE HCL (KLOXXADO) 8 MG SPRAY NS PRN (19:34)
[2022-10-03] MEDS ORDERED: MAGNESIUM HYDROX 2400MG/30ML ORAL SUSPENSION 30 ML CUP PO PRN (19:34)
[2022-10-03] MEDS ORDERED: MAG HYDROX/AL HYDROX/SIMETH 30 ML UNIT-DOSE CUP PO PRN (19:34)
[2022-10-03] MEDS ORDERED: DICYCLOMINE HCL 10 MG CAPSULE PO PRN (19:34)
[2022-10-03] MEDS ORDERED: MELATONIN 5 MG TABLETS PO SCH (22:00)
[2022-10-04] MEDS: chlordiazePOXIDE HCL 25 MG CAPSULE PO PRN (00:56)
[2022-10-04] MEDS: THIAMINE HCL 100 MG TABLET (FP) PO SCH ×2 (00:57→22:40)
[2022-10-04] MEDS: chlordiazePOXIDE HCL 25 MG CAPSULE PO SCH ×5 (00:58→22:40)
[2022-10-04] MEDS: IBUPROFEN 600 MG TABLET (FP) PO PRN (06:01)
[2022-10-04] MEDS ORDERED: methaDONE HCL 40 MG DISPERSABLE TABLET PO SCH (09:45)
[2022-10-04] MEDS: NICOTINE 21 MG/24 HOURS TOPICAL PATCH TD SCH (10:25)
[2022-10-04] MEDS: methaDONE 40 MG, methaDONE 30 MG PO SCH (10:28)
[2022-10-04] MEDS: amLODIPine BESYLATE 10 MG TABLET (FP) PO SCH (10:34)
[2022-10-04] MEDS: TAMSULOSIN HCL 0.4 MG CAP PO SCH (10:34)
[2022-10-04] MEDS: PRENATAL VITAMINS W/ FOLIC ACID TABLET (FP) PO SCH (10:38)
[2022-10-04] MEDS: BUDESONIDE/FORMETEROL FUMARATE 80/4.5 mcg INHALER IH SCH ×2 (10:39→22:41)
[2022-10-04 12:56] LABS: HEMOGLOBIN 11.3 GM/dL (11.7-16.9); MCHC 33.2 g/dl (32.0-35.9); MEAN CELL VOLUME 84.5 fl (80-96); MEAN PLT VOLUME 8.1 fl (7.5-11.1); PLATELET COUNT 344 10^3/uL (134-434); RBC 4.02 M/mm3 (4.00-5.60); WHITE BLOOD COUNT 6.5 K/mm3 (4.0-10.0)
[2022-10-04 13:35] LABS: CALCIUM 9.4 mg/dL (8.5-10.1)
[2022-10-04 13:38] LABS: CREATININE 1.1 mg/dL (0.55-1.3)
[2022-10-04 13:40] LABS: BILIRUBIN,TOTAL 0.5 mg/dL (0.2-1); TOT PROT 7.8 g/dl (6.4-8.2)
[2022-10-04] MEDS: LOPERAMIDE HCL 2 MG CAPSULE PO PRN (17:55)
[2022-10-04] MEDS: LISINOPRIL 20 MG TABLET PO SCH (22:41)
[2022-10-04] MEDS: ATORVASTATIN CA 20 MG TABLET (FP) PO SCH (22:41)
[2022-10-04] MEDS: ALBUTEROL SO4 HFA INHALER IH PRN (22:46)
[2022-10-04] MEDS: QUEtiapine FUMARATE 50 MG TABLET PO PRN (22:46)
[2022-10-04] MEDS: METHOCARBAMOL 500 MG TABLET PO PRN (22:46)
[2022-10-05] MEDS: LOPERAMIDE HCL 2 MG CAPSULE PO PRN (00:31)
[2022-10-05] MEDS: methaDONE 40 MG, methaDONE 30 MG PO SCH (05:44)
[2022-10-05] MEDS: chlordiazePOXIDE HCL 25 MG CAPSULE PO SCH ×4 (05:44→22:05)
[2022-10-05] MEDS: BUDESONIDE/FORMETEROL FUMARATE 80/4.5 mcg INHALER IH SCH ×2 (10:31→22:04)
[2022-10-05] MEDS: ALBUTEROL SO4 HFA INHALER IH PRN ×2 (10:31→22:07)
[2022-10-05] MEDS: PRENATAL VITAMINS W/ FOLIC ACID TABLET (FP) PO SCH (10:32)
[2022-10-05] MEDS: NICOTINE 21 MG/24 HOURS TOPICAL PATCH TD SCH (10:32)
[2022-10-05] MEDS: amLODIPine BESYLATE 10 MG TABLET (FP) PO SCH (10:32)
[2022-10-05] MEDS: TAMSULOSIN HCL 0.4 MG CAP PO SCH (10:32)
[2022-10-05] MEDS: METHOCARBAMOL 500 MG TABLET PO PRN ×2 (10:35→17:38)
[2022-10-05] MEDS: IBUPROFEN 600 MG TABLET (FP) PO PRN ×2 (14:07→22:09)
[2022-10-05] MEDS: chlordiazePOXIDE HCL 25 MG CAPSULE PO PRN (14:08)
[2022-10-05] MEDS: THIAMINE HCL 100 MG TABLET (FP) PO SCH (22:04)
[2022-10-05] MEDS: LISINOPRIL 20 MG TABLET PO SCH (22:05)
[2022-10-05] MEDS: ATORVASTATIN CA 20 MG TABLET (FP) PO SCH (22:05)
[2022-10-05] MEDS: QUEtiapine FUMARATE 50 MG TABLET PO PRN (22:06)
[2022-10-06] MEDS ORDERED: chlordiazePOXIDE HCL 10 MG CAPSULE PO PRN
[2022-10-06] MEDS: methaDONE 40 MG, methaDONE 30 MG PO SCH (05:30)
[2022-10-06] MEDS: chlordiazePOXIDE HCL 10 MG CAPSULE PO SCH ×4 (05:30→22:05)
[2022-10-06] MEDS: ALBUTEROL SO4 HFA INHALER IH PRN ×2 (05:35→18:11)
[2022-10-06] MEDS: TAMSULOSIN HCL 0.4 MG CAP PO SCH (09:26)
[2022-10-06] MEDS: PRENATAL VITAMINS W/ FOLIC ACID TABLET (FP) PO SCH (10:26)
[2022-10-06] MEDS: amLODIPine BESYLATE 10 MG TABLET (FP) PO SCH (10:26)
[2022-10-06] MEDS: BUDESONIDE/FORMETEROL FUMARATE 80/4.5 mcg INHALER IH SCH ×2 (10:26→22:04)
[2022-10-06] MEDS: METHOCARBAMOL 500 MG TABLET PO PRN ×2 (10:29→22:06)
[2022-10-06] MEDS: NICOTINE 21 MG/24 HOURS TOPICAL PATCH TD SCH (10:30)
[2022-10-06] MEDS: IBUPROFEN 600 MG TABLET (FP) PO PRN (17:41)
[2022-10-06] MEDS: LISINOPRIL 20 MG TABLET PO SCH (22:04)
[2022-10-06] MEDS: ATORVASTATIN CA 20 MG TABLET (FP) PO SCH (22:04)
[2022-10-06] MEDS: QUEtiapine FUMARATE 50 MG TABLET PO PRN (22:04)
[2022-10-06] MEDS: THIAMINE HCL 100 MG TABLET (FP) PO SCH (22:04)
[2022-10-07] MEDS: methaDONE 40 MG, methaDONE 30 MG PO SCH (05:35)
[2022-10-07] MEDS: chlordiazePOXIDE HCL 10 MG CAPSULE PO SCH ×2 (05:35→17:50)
[2022-10-07] MEDS: TAMSULOSIN HCL 0.4 MG CAP PO SCH (08:26)
[2022-10-07] MEDS: PRENATAL VITAMINS W/ FOLIC ACID TABLET (FP) PO SCH (10:26)
[2022-10-07] MEDS: NICOTINE 21 MG/24 HOURS TOPICAL PATCH TD SCH (10:26)
[2022-10-07] MEDS: amLODIPine BESYLATE 10 MG TABLET (FP) PO SCH (10:26)
[2022-10-07] MEDS: BUDESONIDE/FORMETEROL FUMARATE 80/4.5 mcg INHALER IH SCH ×2 (10:28→22:03)
[2022-10-07] MEDS: IBUPROFEN 600 MG TABLET (FP) PO PRN (17:51)
[2022-10-07] MEDS: LISINOPRIL 20 MG TABLET PO SCH (22:02)
[2022-10-07] MEDS: THIAMINE HCL 100 MG TABLET (FP) PO SCH (22:02)
[2022-10-07] MEDS: METHOCARBAMOL 500 MG TABLET PO PRN (22:02)
[2022-10-07] MEDS: ATORVASTATIN CA 20 MG TABLET (FP) PO SCH (22:02)
[2022-10-07] MEDS: QUEtiapine FUMARATE 50 MG TABLET PO PRN (22:02)
[2022-10-08] MEDS ORDERED: chlordiazePOXIDE HCL 10 MG CAPSULE PO ONE (05:00)
[2022-10-08] MEDS: methaDONE 40 MG, methaDONE 30 MG PO SCH (05:22)
[2022-10-08 09:20] VITALS: BP 122/65; PULSE 80; RESP 18; TEMP 97.1
[2022-10-08] MEDS: amLODIPine BESYLATE 10 MG TABLET (FP) PO SCH (09:52)
[2022-10-08] MEDS: PRENATAL VITAMINS W/ FOLIC ACID TABLET (FP) PO SCH (09:52)
[2022-10-08] MEDS: NICOTINE 21 MG/24 HOURS TOPICAL PATCH TD SCH (09:52)
[2022-10-08] MEDS: TAMSULOSIN HCL 0.4 MG CAP PO SCH (09:52)
[2022-10-08] MEDS: BUDESONIDE/FORMETEROL FUMARATE 80/4.5 mcg INHALER IH SCH (09:53)
[2022-10-08] MEDS: ALBUTEROL SO4 HFA INHALER IH PRN (09:54)
== END 2022-10-08 09:50 | disposition other institution (70) | DRG 773 ==
LOC: YASAS 17:52 → Y3N 22:57
PROVIDERS: ADMIT Allergy & Immunology; ATTEND Surgery
PROC: HZ2ZZZZ Detoxification Services for Substance Abuse Treatment (ICD-10-PCS; principal; 2022-10-03)
DX: F10.230 Alcohol dependence with withdrawal, uncomplicated (principal); F11.20 Opioid dependence, uncomplicated; F13.20 Sedative, hypnotic or anxiolytic dependence, uncomplicated; F12.20 Cannabis dependence, uncomplicated; F19.282 Other psychoactive substance dependence with psychoactive substance-induced sleep disorder; F32.A Depression, unspecified; H54.40 Blindness, one eye, unspecified eye; I10 Essential (primary) hypertension; E78.5 Hyperlipidemia, unspecified; J41.8 Mixed simple and mucopurulent chronic bronchitis; J45.20 Mild intermittent asthma, uncomplicated; M17.11 Unilateral primary osteoarthritis, right knee; M54.50 Low back pain, unspecified; Z86.19 Personal history of other infectious and parasitic diseases; Z99.89 Dependence on other enabling machines and devices; Z88.8 Allergy status to other drugs, medicaments and biological substances
CPT/HCPCS: 36415; 80053; 85027; 86780; C9803-CS; U0003; U0005

== ENCOUNTER 2022-11-03 11:25 | Inpatient (IN) | payer OTHER ==
[2022-11-03 12:39] VITALS: BMI 25.8
[2022-11-03] MEDS ORDERED: MAGNESIUM HYDROX 2400MG/30ML ORAL SUSPENSION 30 ML CUP PO PRN (13:29)
[2022-11-03] MEDS ORDERED: LORazepam 1 MG TABLET PO PRN (13:29)
[2022-11-03] MEDS ORDERED: BENZOCAINE/MENTHOL (CHLORASEPTIC ) LOZENGE MM PRN (13:29)
[2022-11-03] MEDS ORDERED: MAG HYDROX/AL HYDROX/SIMETH 30 ML UNIT-DOSE CUP PO PRN (13:29)
[2022-11-03] MEDS ORDERED: IBUPROFEN 400 MG TABLET (FP) PO PRN (13:29)
[2022-11-03] MEDS ORDERED: NICOTINE 10 MG CARTRIDGE (INHALER) IH PRN (13:29)
[2022-11-03] MEDS ORDERED: ACETAMINOPHEN 325 MG TABLET (FP) PO PRN ×2 (13:29)
[2022-11-03] MEDS ORDERED: BISMUTH SUBSALICYLATE 524 MG/30 ML PO PRN (13:29)
[2022-11-03] MEDS ORDERED: POLYETHYLENE GLYCOL (HEALTHYLAX) 3350 17 GM PACKET PO PRN (13:29)
[2022-11-03] MEDS ORDERED: NICOTINE POLACRILEX 2 MG GUM BUC PRN (13:29)
[2022-11-03] MEDS ORDERED: LOPERAMIDE HCL 2 MG CAPSULE PO PRN (13:29)
[2022-11-03] MEDS ORDERED: DICYCLOMINE HCL 10 MG CAPSULE PO PRN (13:29)
[2022-11-03] MEDS ORDERED: ONDANSETRON *ODT* 4 MG TABLET SL PRN (13:29)
[2022-11-03] MEDS ORDERED: NALOXONE HCL (KLOXXADO) 8 MG SPRAY NS PRN (13:29)
[2022-11-03] MEDS: hydrOXYzine PAMOATE 25 MG CAPSULE (FP) PO PRN (17:38)
[2022-11-03] MEDS: LORazepam 2 MG TABLET PO SCH ×2 (17:38→22:19)
[2022-11-03] MEDS: METHOCARBAMOL 500 MG TABLET PO PRN (17:38)
[2022-11-03] MEDS: IBUPROFEN 600 MG TABLET (FP) PO PRN (17:40)
[2022-11-03] MEDS ORDERED: ALBUTEROL SO4 HFA INHALER IH PRN (18:12)
[2022-11-03] MEDS: MELATONIN 5 MG TABLETS PO SCH (22:19)
[2022-11-03] MEDS: THIAMINE HCL 100 MG TABLET (FP) PO SCH (22:19)
[2022-11-03] MEDS: ATORVASTATIN CA 20 MG TABLET (FP) PO SCH (22:21)
[2022-11-03] MEDS: LISINOPRIL 20 MG TABLET PO SCH (22:21)
[2022-11-03] MEDS: BUDESONIDE/FORMETEROL FUMARATE 80/4.5 mcg INHALER IH SCH (22:47)
[2022-11-04] MEDS: LORazepam 2 MG TABLET PO SCH ×4 (06:31→22:20)
[2022-11-04] MEDS: PRENATAL VITAMINS W/ FOLIC ACID TABLET (FP) PO SCH (10:15)
[2022-11-04] MEDS: BUDESONIDE/FORMETEROL FUMARATE 80/4.5 mcg INHALER IH SCH ×2 (10:15→22:21)
[2022-11-04] MEDS: amLODIPine BESYLATE 10 MG TABLET (FP) PO SCH (10:16)
[2022-11-04] MEDS: TAMSULOSIN HCL 0.4 MG CAP PO SCH (10:16)
[2022-11-04] MEDS: hydrOXYzine PAMOATE 25 MG CAPSULE (FP) PO PRN (10:19)
[2022-11-04] MEDS: METHOCARBAMOL 500 MG TABLET PO PRN (10:19)
[2022-11-04] MEDS ORDERED: methaDONE HCL 10 MG TABLET PO ONE (11:22)
[2022-11-04 11:56] LABS: HEMATOCRIT 35.3 % (35.4-49); HEMOGLOBIN 11.4 GM/dL (11.7-16.9); MCH 27.9 pg (25.7-33.7); MCHC 32.4 g/dl (32.0-35.9); MEAN CELL VOLUME 86.3 fl (80-96); MEAN PLT VOLUME 8.8 fl (7.5-11.1); PLATELET COUNT 301 10^3/uL (134-434); RBC 4.08 M/mm3 (4.00-5.60); RDW 16.5 % (11.9-15.9); WHITE BLOOD COUNT 10.2 K/mm3 (4.0-10.0)
[2022-11-04 12:03] LABS: BLOOD UREA NITROGEN 19.6 mg/dL (7-18); CALCIUM 9.2 mg/dL (8.5-10.1)
[2022-11-04 12:06] LABS: CREATININE 1.1 mg/dL (0.55-1.3)
[2022-11-04 12:08] LABS: BILIRUBIN,TOTAL 0.4 mg/dL (0.2-1); TOT PROT 7.7 g/dl (6.4-8.2)
[2022-11-04] MEDS: THIAMINE HCL 100 MG TABLET (FP) PO SCH (22:19)
[2022-11-04] MEDS: MELATONIN 5 MG TABLETS PO SCH (22:19)
[2022-11-04] MEDS: LISINOPRIL 20 MG TABLET PO SCH (22:20)
[2022-11-04] MEDS: ATORVASTATIN CA 20 MG TABLET (FP) PO SCH (22:20)
[2022-11-05] MEDS: IBUPROFEN 600 MG TABLET (FP) PO PRN (03:49)
[2022-11-05] MEDS: METHOCARBAMOL 500 MG TABLET PO PRN ×2 (03:49→21:58)
[2022-11-05] MEDS: LORazepam 1 MG TABLET PO SCH ×4 (05:34→21:59)
[2022-11-05] MEDS ORDERED: methaDONE HCL 10 MG TABLET PO ONE (10:00)
[2022-11-05] MEDS: TAMSULOSIN HCL 0.4 MG CAP PO SCH (10:40)
[2022-11-05] MEDS: PRENATAL VITAMINS W/ FOLIC ACID TABLET (FP) PO SCH (10:41)
[2022-11-05] MEDS: amLODIPine BESYLATE 10 MG TABLET (FP) PO SCH (10:41)
[2022-11-05] MEDS: BUDESONIDE/FORMETEROL FUMARATE 80/4.5 mcg INHALER IH SCH ×2 (10:41→21:56)
[2022-11-05] MEDS: MELATONIN 5 MG TABLETS PO SCH (21:58)
[2022-11-05] MEDS: LISINOPRIL 20 MG TABLET PO SCH (21:58)
[2022-11-05] MEDS: ATORVASTATIN CA 20 MG TABLET (FP) PO SCH (21:59)
[2022-11-05] MEDS: hydrOXYzine PAMOATE 25 MG CAPSULE (FP) PO PRN (21:59)
[2022-11-05] MEDS: THIAMINE HCL 100 MG TABLET (FP) PO SCH (21:59)
[2022-11-06] MEDS ORDERED: LORazepam 0.5 MG TABLET PO PRN
[2022-11-06] MEDS: METHOCARBAMOL 500 MG TABLET PO PRN ×2 (05:09→22:00)
[2022-11-06] MEDS: IBUPROFEN 600 MG TABLET (FP) PO PRN (05:09)
[2022-11-06] MEDS: LORazepam 0.5 MG TABLET PO SCH ×4 (05:10→22:01)
[2022-11-06] MEDS: methaDONE HCL 40 MG DISPERSABLE TABLET PO SCH (09:48)
[2022-11-06] MEDS: TAMSULOSIN HCL 0.4 MG CAP PO SCH (09:48)
[2022-11-06] MEDS: PRENATAL VITAMINS W/ FOLIC ACID TABLET (FP) PO SCH (09:49)
[2022-11-06] MEDS: amLODIPine BESYLATE 10 MG TABLET (FP) PO SCH (09:49)
[2022-11-06] MEDS: BUDESONIDE/FORMETEROL FUMARATE 80/4.5 mcg INHALER IH SCH ×2 (09:50→22:02)
[2022-11-06] MEDS: NICOTINE 14 MG/24 HOURS TOPICAL PATCH TD SCH (10:40)
[2022-11-06] MEDS: MELATONIN 5 MG TABLETS PO SCH (21:59)
[2022-11-06] MEDS: ATORVASTATIN CA 20 MG TABLET (FP) PO SCH (22:00)
[2022-11-06] MEDS: LISINOPRIL 20 MG TABLET PO SCH (22:00)
[2022-11-06] MEDS: THIAMINE HCL 100 MG TABLET (FP) PO SCH (22:00)
[2022-11-07] MEDS ORDERED: LORazepam 0.5 MG TABLET PO ONE (05:00)
[2022-11-07] MEDS: methaDONE HCL 40 MG DISPERSABLE TABLET PO SCH (05:52)
[2022-11-07 09:13] VITALS: BP 123/79; PULSE 84; RESP 16; TEMP 98.7
[2022-11-07] MEDS: amLODIPine BESYLATE 10 MG TABLET (FP) PO SCH (09:49)
[2022-11-07] MEDS: NICOTINE 14 MG/24 HOURS TOPICAL PATCH TD SCH (09:49)
[2022-11-07] MEDS: BUDESONIDE/FORMETEROL FUMARATE 80/4.5 mcg INHALER IH SCH (09:49)
[2022-11-07] MEDS: TAMSULOSIN HCL 0.4 MG CAP PO SCH (09:49)
[2022-11-07] MEDS: PRENATAL VITAMINS W/ FOLIC ACID TABLET (FP) PO SCH (09:49)
== END 2022-11-07 10:28 | disposition home or self-care (01) | DRG 773 ==
LOC: YASAS 11:25 → Y3N 14:57 → Y6N 15:01
PROVIDERS: ADMIT Allergy & Immunology; ATTEND Surgery
PROC: HZ2ZZZZ Detoxification Services for Substance Abuse Treatment (ICD-10-PCS; principal; 2022-11-03)
DX: F10.230 Alcohol dependence with withdrawal, uncomplicated (principal); F11.20 Opioid dependence, uncomplicated; F14.20 Cocaine dependence, uncomplicated; F12.20 Cannabis dependence, uncomplicated; F17.210 Nicotine dependence, cigarettes, uncomplicated; E78.00 Pure hypercholesterolemia, unspecified; H54.62 Unqualified visual loss, left eye, normal vision right eye; I10 Essential (primary) hypertension; J41.8 Mixed simple and mucopurulent chronic bronchitis; M25.561 Pain in right knee; M54.50 Low back pain, unspecified; G89.29 Other chronic pain
CPT/HCPCS: 36415; 80053; 85027; 86780; 87811; C9803-CS; U0003; U0005

== ENCOUNTER 2023-01-16 19:38 | Inpatient (IN) | payer SELFPAY ==
[2023-01-16 20:41] VITALS: BMI 24.4
[2023-01-16] MEDS ORDERED: NICOTINE POLACRILEX 2 MG GUM BUC PRN (21:25)
[2023-01-16] MEDS ORDERED: MAGNESIUM HYDROX 2400MG/30ML ORAL SUSPENSION 30 ML CUP PO PRN (21:25)
[2023-01-16] MEDS ORDERED: IBUPROFEN 600 MG TABLET (FP) PO PRN (21:25)
[2023-01-16] MEDS ORDERED: LOPERAMIDE HCL 2 MG CAPSULE PO PRN (21:25)
[2023-01-16] MEDS ORDERED: IBUPROFEN 400 MG TABLET (FP) PO PRN (21:25)
[2023-01-16] MEDS ORDERED: guaiFENesin 600 MG TABLET.ER (FP) PO PRN (21:25)
[2023-01-16] MEDS ORDERED: NALOXONE HCL 0.4 MG/ML VIAL IM PRN (21:25)
[2023-01-16] MEDS ORDERED: POLYETHYLENE GLYCOL (HEALTHYLAX) 3350 17 GM PACKET PO PRN (21:25)
[2023-01-16] MEDS ORDERED: ACETAMINOPHEN 325 MG TABLET (FP) PO PRN (21:25)
[2023-01-16] MEDS ORDERED: ONDANSETRON *ODT* 4 MG TABLET SL PRN (21:25)
[2023-01-16] MEDS ORDERED: BENZONATATE 200 MG CAPSULE PO PRN (21:25)
[2023-01-16] MEDS ORDERED: MAG HYDROX/AL HYDROX/SIMETH 30 ML UNIT-DOSE CUP PO PRN (21:25)
[2023-01-16] MEDS ORDERED: NALOXONE HCL (KLOXXADO) 8 MG SPRAY NS PRN (21:25)
[2023-01-16] MEDS ORDERED: DICYCLOMINE HCL 10 MG CAPSULE PO PRN (21:25)
[2023-01-16] MEDS ORDERED: BENZOCAINE/MENTHOL (CHLORASEPTIC ) LOZENGE MM PRN (21:25)
[2023-01-16] MEDS ORDERED: BISMUTH SUBSALICYLATE 524 MG/30 ML PO PRN (21:25)
[2023-01-17] MEDS: LISINOPRIL 20 MG TABLET PO SCH ×2 (03:36→21:49)
[2023-01-17] MEDS: THIAMINE HCL 100 MG TABLET (FP) PO SCH ×2 (03:36→21:49)
[2023-01-17] MEDS: ATORVASTATIN CA 20 MG TABLET (FP) PO SCH ×2 (03:36→21:49)
[2023-01-17] MEDS: MELATONIN 5 MG TABLETS PO SCH ×2 (03:36→21:49)
[2023-01-17] MEDS: BUDESONIDE/FORMETEROL FUMARATE 80/4.5 mcg INHALER IH SCH ×3 (03:36→21:49)
[2023-01-17] MEDS: ALBUTEROL SO4 HFA INHALER IH PRN ×2 (09:03→21:49)
[2023-01-17] MEDS: amLODIPine BESYLATE 10 MG TABLET (FP) PO SCH (10:29)
[2023-01-17] MEDS: TAMSULOSIN HCL 0.4 MG CAP PO SCH (10:29)
[2023-01-17] MEDS: methaDONE HCL 40 MG DISPERSABLE TABLET PO SCH (10:29)
[2023-01-17] MEDS: NICOTINE 21 MG/24 HOURS TOPICAL PATCH TD SCH (10:29)
[2023-01-17] MEDS: PRENATAL VITAMINS W/ FOLIC ACID TABLET (FP) PO SCH (10:29)
[2023-01-17] MEDS: hydrOXYzine PAMOATE 25 MG CAPSULE (FP) PO PRN (10:33)
[2023-01-17 11:32] LABS: POTASSIUM 4.5 mmol/L (3.5-5.1)
[2023-01-17 11:34] LABS: BLOOD UREA NITROGEN 13.4 mg/dL (7-18); HEMATOCRIT 32.3 % (35.4-49); HEMOGLOBIN 10.9 GM/dL (11.7-16.9); MCH 28.8 pg (25.7-33.7); MCHC 33.7 g/dl (32.0-35.9); MEAN CELL VOLUME 85.3 fl (80-96); MEAN PLT VOLUME 8.1 fl (7.5-11.1); PLATELET COUNT 307 10^3/uL (134-434); RBC 3.79 M/mm3 (4.00-5.60); RDW 17.5 % (11.9-15.9); WHITE BLOOD COUNT 5.9 K/mm3 (4.0-10.0)
[2023-01-17 11:36] LABS: ALBUMIN 3.7 g/dl (3.4-5.0)
[2023-01-17 11:40] LABS: BILIRUBIN,TOTAL 0.2 mg/dL (0.2-1); TOT PROT 7.6 g/dl (6.4-8.2)
[2023-01-17] MEDS ORDERED: LISINOPRIL 5 MG TABLET PO ONE (18:14)
[2023-01-17 19:19] LABS: PH,URINE 7.5 (5.0-8.0); URINE APPEARANCE CLEAR; URINE BILIRUBIN NEGATIVE (NEGATIVE); URINE COLOR YELLOW; URINE GLUCOSE (UA) NEGATIVE (NEGATIVE); URINE KETONE NEGATIVE (NEGATIVE); URINE LEUK ESTERASE NEGATIVE (NEGATIVE); URINE NITRITE NEGATIVE (NEGATIVE); URINE PROTEIN TRACE (NEGATIVE); URINE UROBILINOGEN 0.2 mg/dL (0.2-1.0)
[2023-01-18] MEDS: hydrOXYzine PAMOATE 25 MG CAPSULE (FP) PO PRN (05:46)
[2023-01-18] MEDS: methaDONE HCL 40 MG DISPERSABLE TABLET PO SCH (05:46)
[2023-01-18 06:25] VITALS: RESP 16
[2023-01-18 09:55] VITALS: BP 153/71; PULSE 64; TEMP 97.9
[2023-01-18] MEDS: PRENATAL VITAMINS W/ FOLIC ACID TABLET (FP) PO SCH (10:26)
[2023-01-18] MEDS: NICOTINE 21 MG/24 HOURS TOPICAL PATCH TD SCH (10:26)
[2023-01-18] MEDS: amLODIPine BESYLATE 10 MG TABLET (FP) PO SCH (10:26)
[2023-01-18] MEDS: BUDESONIDE/FORMETEROL FUMARATE 80/4.5 mcg INHALER IH SCH (10:26)
[2023-01-18] MEDS: TAMSULOSIN HCL 0.4 MG CAP PO SCH (10:26)
== END 2023-01-18 11:09 | disposition home or self-care (01) | DRG 773 ==
LOC: YASAS 19:38 → Y3N 01-17 02:03
PROVIDERS: ADMIT Allergy & Immunology; ATTEND Surgery
PROC: HZ2ZZZZ Detoxification Services for Substance Abuse Treatment (ICD-10-PCS; principal; 2023-01-17)
DX: F10.230 Alcohol dependence with withdrawal, uncomplicated (principal); F11.20 Opioid dependence, uncomplicated; F12.20 Cannabis dependence, uncomplicated; F17.210 Nicotine dependence, cigarettes, uncomplicated; F19.282 Other psychoactive substance dependence with psychoactive substance-induced sleep disorder; F19.24 Other psychoactive substance dependence with psychoactive substance-induced mood disorder; E78.5 Hyperlipidemia, unspecified; I10 Essential (primary) hypertension; H54.62 Unqualified visual loss, left eye, normal vision right eye; J44.9 Chronic obstructive pulmonary disease, unspecified; J45.20 Mild intermittent asthma, uncomplicated; M17.11 Unilateral primary osteoarthritis, right knee; Z99.89 Dependence on other enabling machines and devices; Z86.19 Personal history of other infectious and parasitic diseases; Z88.8 Allergy status to other drugs, medicaments and biological substances
CPT/HCPCS: 36415; 80053; 81003; 82962; 85027; 86780; C9803-CS; U0003; U0005

== ENCOUNTER 2023-02-01 20:38 | Inpatient (IN) | payer OTHER ==
[2023-02-01 22:31] VITALS: BMI 24.9
[2023-02-01] MEDS ORDERED: DICYCLOMINE HCL 10 MG CAPSULE PO PRN (23:22)
[2023-02-01] MEDS ORDERED: guaiFENesin 600 MG TABLET.ER (FP) PO PRN (23:22)
[2023-02-01] MEDS ORDERED: BENZONATATE 200 MG CAPSULE PO PRN (23:22)
[2023-02-01] MEDS ORDERED: NALOXONE HCL 0.4 MG/ML VIAL IM PRN (23:22)
[2023-02-01] MEDS ORDERED: MAGNESIUM HYDROX 2400MG/30ML ORAL SUSPENSION 30 ML CUP PO PRN (23:22)
[2023-02-01] MEDS ORDERED: LOPERAMIDE HCL 2 MG CAPSULE PO PRN (23:22)
[2023-02-01] MEDS ORDERED: NICOTINE POLACRILEX 2 MG GUM BUC PRN (23:22)
[2023-02-01] MEDS ORDERED: BISMUTH SUBSALICYLATE 524 MG/30 ML PO PRN (23:22)
[2023-02-01] MEDS ORDERED: BENZOCAINE/MENTHOL (CHLORASEPTIC ) LOZENGE MM PRN (23:22)
[2023-02-01] MEDS ORDERED: NALOXONE HCL (KLOXXADO) 8 MG SPRAY NS PRN (23:22)
[2023-02-01] MEDS ORDERED: MAG HYDROX/AL HYDROX/SIMETH 30 ML UNIT-DOSE CUP PO PRN (23:22)
[2023-02-01] MEDS ORDERED: P-EPHED 60MG/TRIPROLIDI 2.5MG TABLET PO PRN (23:22)
[2023-02-01] MEDS ORDERED: POLYETHYLENE GLYCOL (HEALTHYLAX) 3350 17 GM PACKET PO PRN (23:22)
[2023-02-01] MEDS ORDERED: ONDANSETRON *ODT* 4 MG TABLET SL PRN (23:22)
[2023-02-02] MEDS ORDERED: ACETAMINOPHEN 325 MG TABLET (FP) ONE (00:21)
[2023-02-02] MEDS: ACETAMINOPHEN 325 MG TABLET (FP) PO PRN ×2 (00:24→11:01)
[2023-02-02] MEDS: BUDESONIDE/FORMETEROL FUMARATE 80/4.5 mcg INHALER IH SCH ×3 (04:59→22:18)
[2023-02-02] MEDS: TAMSULOSIN HCL 0.4 MG CAP PO SCH ×2 (08:52)
[2023-02-02] MEDS: hydrOXYzine PAMOATE 25 MG CAPSULE (FP) PO PRN (09:13)
[2023-02-02] MEDS: NICOTINE 21 MG/24 HOURS TOPICAL PATCH TD SCH (09:14)
[2023-02-02] MEDS: amLODIPine BESYLATE 10 MG TABLET (FP) PO SCH (09:14)
[2023-02-02] MEDS: PRENATAL VITAMINS W/ FOLIC ACID TABLET (FP) PO SCH (09:15)
[2023-02-02] MEDS ORDERED: LORazepam 0.5 MG TABLET PO PRN (09:40)
[2023-02-02] MEDS: CELECOXIB 100 MG CAPSULE PO SCH ×2 (10:58→22:17)
[2023-02-02] MEDS: LORazepam 1 MG TABLET PO SCH ×3 (11:00→22:17)
[2023-02-02] MEDS ORDERED: LORazepam 2 MG TABLET PO SCH (11:00)
[2023-02-02] MEDS: methaDONE HCL 40 MG DISPERSABLE TABLET PO SCH (11:51)
[2023-02-02] MEDS: THIAMINE HCL 100 MG TABLET (FP) PO SCH (22:16)
[2023-02-02] MEDS: MELATONIN 5 MG TABLETS PO SCH ×2 (22:16→22:17)
[2023-02-02] MEDS: ATORVASTATIN CA 20 MG TABLET (FP) PO SCH (22:18)
[2023-02-03] MEDS: methaDONE HCL 40 MG DISPERSABLE TABLET PO SCH (05:08)
[2023-02-03] MEDS: LORazepam 1 MG TABLET PO SCH ×4 (05:08→22:21)
[2023-02-03] MEDS: TAMSULOSIN HCL 0.4 MG CAP PO SCH ×2 (09:22)
[2023-02-03] MEDS: BUDESONIDE/FORMETEROL FUMARATE 80/4.5 mcg INHALER IH SCH ×2 (10:22→22:21)
[2023-02-03] MEDS: ALBUTEROL SO4 HFA INHALER IH PRN ×3 (10:22→22:22)
[2023-02-03] MEDS: CELECOXIB 100 MG CAPSULE PO SCH ×2 (10:23→22:22)
[2023-02-03] MEDS: PRENATAL VITAMINS W/ FOLIC ACID TABLET (FP) PO SCH (10:23)
[2023-02-03] MEDS: amLODIPine BESYLATE 10 MG TABLET (FP) PO SCH (10:23)
[2023-02-03] MEDS: ACETAMINOPHEN 325 MG TABLET (FP) PO PRN ×2 (10:25→17:19)
[2023-02-03] MEDS: NICOTINE 21 MG/24 HOURS TOPICAL PATCH TD SCH (10:46)
[2023-02-03] MEDS: hydrOXYzine PAMOATE 25 MG CAPSULE (FP) PO PRN (17:22)
[2023-02-03 18:54] LABS: HIV INTERPRETATION NEGATIVE (NEGATIVE)
[2023-02-03] MEDS: THIAMINE HCL 100 MG TABLET (FP) PO SCH (22:20)
[2023-02-03] MEDS: ATORVASTATIN CA 20 MG TABLET (FP) PO SCH (22:20)
[2023-02-03] MEDS: MELATONIN 5 MG TABLETS PO SCH ×2 (22:20→22:21)
[2023-02-04] MEDS: methaDONE HCL 40 MG DISPERSABLE TABLET PO SCH (05:27)
[2023-02-04] MEDS: LORazepam 0.5 MG TABLET PO SCH ×4 (05:27→22:07)
[2023-02-04] MEDS: TAMSULOSIN HCL 0.4 MG CAP PO SCH ×2 (08:08)
[2023-02-04 09:52] VITALS: RESP 18
[2023-02-04] MEDS: PRENATAL VITAMINS W/ FOLIC ACID TABLET (FP) PO SCH (10:19)
[2023-02-04] MEDS: BUDESONIDE/FORMETEROL FUMARATE 80/4.5 mcg INHALER IH SCH ×2 (10:20→22:08)
[2023-02-04] MEDS: amLODIPine BESYLATE 10 MG TABLET (FP) PO SCH (10:20)
[2023-02-04] MEDS: NICOTINE 21 MG/24 HOURS TOPICAL PATCH TD SCH (10:20)
[2023-02-04] MEDS: CELECOXIB 100 MG CAPSULE PO SCH ×2 (10:20→22:07)
[2023-02-04] MEDS: ALBUTEROL SO4 HFA INHALER IH PRN (10:22)
[2023-02-04] MEDS: THIAMINE HCL 100 MG TABLET (FP) PO SCH (22:07)
[2023-02-04] MEDS: MELATONIN 5 MG TABLETS PO SCH ×2 (22:07→23:17)
[2023-02-04] MEDS: ATORVASTATIN CA 20 MG TABLET (FP) PO SCH (22:07)
[2023-02-05] MEDS ORDERED: LORazepam 0.5 MG TABLET PO ONE (05:00)
[2023-02-05] MEDS: methaDONE HCL 40 MG DISPERSABLE TABLET PO SCH (05:31)
[2023-02-05] MEDS: ALBUTEROL SO4 HFA INHALER IH PRN ×2 (05:34→09:19)
[2023-02-05] MEDS: TAMSULOSIN HCL 0.4 MG CAP PO SCH ×2 (08:20→08:21)
[2023-02-05] MEDS: BUDESONIDE/FORMETEROL FUMARATE 80/4.5 mcg INHALER IH SCH (09:18)
[2023-02-05] MEDS: amLODIPine BESYLATE 10 MG TABLET (FP) PO SCH (09:18)
[2023-02-05] MEDS: CELECOXIB 100 MG CAPSULE PO SCH (09:18)
[2023-02-05] MEDS: PRENATAL VITAMINS W/ FOLIC ACID TABLET (FP) PO SCH (09:19)
[2023-02-05] MEDS: NICOTINE 21 MG/24 HOURS TOPICAL PATCH TD SCH (09:24)
[2023-02-05 09:29] VITALS: BP 152/83; PULSE 71; TEMP 96.9
== END 2023-02-05 10:20 | disposition home or self-care (01) | DRG 773 ==
LOC: YASAS 20:38 → Y6N 02-02 01:43
PROVIDERS: ADMIT Allergy & Immunology; ATTEND Surgery
PROC: HZ2ZZZZ Detoxification Services for Substance Abuse Treatment (ICD-10-PCS; principal; 2023-02-02)
DX: F10.230 Alcohol dependence with withdrawal, uncomplicated (principal); F11.20 Opioid dependence, uncomplicated; F14.20 Cocaine dependence, uncomplicated; F17.210 Nicotine dependence, cigarettes, uncomplicated; F19.280 Other psychoactive substance dependence with psychoactive substance-induced anxiety disorder; I10 Essential (primary) hypertension; J45.909 Unspecified asthma, uncomplicated; M17.11 Unilateral primary osteoarthritis, right knee; Z86.19 Personal history of other infectious and parasitic diseases; Z86.59 Personal history of other mental and behavioral disorders; Z59.01 Sheltered homelessness; Z88.8 Allergy status to other drugs, medicaments and biological substances
CPT/HCPCS: 36415; 82962; 87389; C9803-CS; Q0162; U0003; U0005

== ENCOUNTER 2023-02-07 15:56 | Observation (INO) | payer OTHER ==
[2023-02-07] MEDS ORDERED: FUROSEMIDE 40 MG/4 ML INJECTABLE VIAL ONE (18:14)
[2023-02-07 18:55] LABS: POTASSIUM 4.9 mmol/L (3.5-5.1)
[2023-02-07 18:57] LABS: BASO % 1.1 % (0-2.0); CALCIUM 9.1 mg/dL (8.5-10.1); EOS % 5.1 % (0-4.5); HEMATOCRIT 32.5 % (35.4-49); LYMPH % 18.3 % (8-40); MCH 29.4 pg (25.7-33.7); MCHC 33.8 g/dl (32.0-35.9); MEAN PLT VOLUME 8.9 fl (7.5-11.1); MONO % 11.7 % (3.8-10.2); NEUT % 63.8 % (42.8-82.8); PLATELET COUNT 260 10^3/uL (134-434); RBC 3.73 M/mm3 (4.00-5.60); RDW 16.8 % (11.9-15.9); WHITE BLOOD COUNT 7.7 K/mm3 (4.0-10.0)
[2023-02-07 18:58] LABS: ALBUMIN 4.2 g/dl (3.4-5.0); BLOOD UREA NITROGEN 26.5 mg/dL (7-18)
[2023-02-07 19:01] LABS: CREATININE 1.4 mg/dL (0.55-1.3)
[2023-02-07 19:02] LABS: TOT PROT 8.2 g/dl (6.4-8.2)
[2023-02-07 19:03] LABS: BILIRUBIN,TOTAL 0.2 mg/dL (0.2-1)
[2023-02-07 19:06] LABS: N-TERMINAL BNP 470.8 pg/ml (5-125)
[2023-02-07] MEDS ORDERED: ALBUTEROL SO4 HFA INHALER IH PRN (20:41)
[2023-02-07] MEDS ORDERED: HEPARIN NA (PORCINE) 5,000 UNITS/ML 1ML VIAL ONE (20:54)
[2023-02-07] MEDS ORDERED: LISINOPRIL 20 MG TABLET PO SCH (22:00)
[2023-02-07 22:26] LABS: URINE APPEARANCE CLEAR; URINE BILIRUBIN NEGATIVE (NEGATIVE); URINE COLOR YELLOW; URINE GLUCOSE (UA) NEGATIVE (NEGATIVE); URINE KETONE NEGATIVE (NEGATIVE); URINE LEUK ESTERASE NEGATIVE (NEGATIVE); URINE NITRITE NEGATIVE (NEGATIVE); URINE PROTEIN TRACE (NEGATIVE); URINE UROBILINOGEN 0.2 mg/dL (0.2-1.0)
[2023-02-07] MEDS ORDERED: LORazepam 2 MG TABLET PO PRN (22:51)
[2023-02-07] MEDS: HEPARIN NA (PORCINE) 5,000 UNITS/ML 1ML VIAL SQ SCH (23:02)
[2023-02-07] MEDS: SODIUM CHLORIDE 1,000 ML IV SCH (23:02)
[2023-02-07] MEDS: ATORVASTATIN CA 20 MG TABLET (FP) PO SCH (23:02)
[2023-02-07] MEDS: amLODIPine BESYLATE 10 MG TABLET (FP) PO SCH (23:02)
[2023-02-08 02:08] VITALS: BMI 24.7
[2023-02-08] MEDS: BUDESONIDE/FORMETEROL FUMARATE 80/4.5 mcg INHALER IH SCH ×3 (02:16→22:19)
[2023-02-08] MEDS: HEPARIN NA (PORCINE) 5,000 UNITS/ML 1ML VIAL SQ SCH ×3 (05:36→22:16)
[2023-02-08 09:16] LABS: BASO % 1.3 % (0-2.0); EOS % 9.7 % (0-4.5); HEMATOCRIT 32.6 % (35.4-49); HEMOGLOBIN 11.1 GM/dL (11.7-16.9); MCH 29.6 pg (25.7-33.7); MCHC 34.2 g/dl (32.0-35.9); MEAN CELL VOLUME 86.5 fl (80-96); MEAN PLT VOLUME 8.7 fl (7.5-11.1); MONO % 11.9 % (3.8-10.2); NEUT % 49.1 % (42.8-82.8); PLATELET COUNT 258 10^3/uL (134-434); RBC 3.77 M/mm3 (4.00-5.60); RDW 16.3 % (11.9-15.9); WHITE BLOOD COUNT 7.1 K/mm3 (4.0-10.0)
[2023-02-08 09:43] LABS: POTASSIUM 4.3 mmol/L (3.5-5.1)
[2023-02-08 09:54] LABS: BLOOD UREA NITROGEN 28.2 mg/dL (7-18)
[2023-02-08 09:59] LABS: CALCIUM 8.8 mg/dL (8.5-10.1)
[2023-02-08 10:00] LABS: CREATININE 1.3 mg/dL (0.55-1.3)
[2023-02-08] MEDS ORDERED: PATIENT'S OWN MEDICATION (NON-FORMULARY) (Alfuzosin Hcl [Uroxatral] 10 MG Tab.Er.24h) PO SCH (10:00)
[2023-02-08 10:01] LABS: MAGNESIUM 2.2 mg/dL (1.8-2.4)
[2023-02-08] MEDS: TAMSULOSIN HCL 0.4 MG CAP PO SCH (10:18)
[2023-02-08] MEDS: FOLIC ACID 1 MG TABLET (FP) PO SCH (10:18)
[2023-02-08] MEDS: amLODIPine BESYLATE 10 MG TABLET (FP) PO SCH (10:18)
[2023-02-08] MEDS: THIAMINE HCL 100 MG TABLET (FP) PO SCH (10:18)
[2023-02-08] MEDS: SODIUM CHLORIDE 1,000 ML IV SCH ×3 (10:20→22:20)
[2023-02-08] MEDS: LIDOCAINE 5% TOPICAL PATCH TP SCH (10:30)
[2023-02-08] MEDS: methaDONE HCL 40 MG DISPERSABLE TABLET PO SCH (10:37)
[2023-02-08] MEDS: QUEtiapine FUMARATE 50 MG TABLET PO SCH (22:16)
[2023-02-08] MEDS: ATORVASTATIN CA 20 MG TABLET (FP) PO SCH (22:16)
[2023-02-08] MEDS: LIDOCAINE PATCH REMOVAL MC SCH (22:17)
[2023-02-09] MEDS: HEPARIN NA (PORCINE) 5,000 UNITS/ML 1ML VIAL SQ SCH ×3 (06:52→22:21)
[2023-02-09] MEDS: methaDONE HCL 40 MG DISPERSABLE TABLET PO SCH (06:52)
[2023-02-09] MEDS: TAMSULOSIN HCL 0.4 MG CAP PO SCH (08:52)
[2023-02-09] MEDS: amLODIPine BESYLATE 10 MG TABLET (FP) PO SCH (10:13)
[2023-02-09] MEDS: FOLIC ACID 1 MG TABLET (FP) PO SCH (10:13)
[2023-02-09] MEDS: BUDESONIDE/FORMETEROL FUMARATE 80/4.5 mcg INHALER IH SCH ×2 (10:14→22:26)
[2023-02-09] MEDS: LIDOCAINE 5% TOPICAL PATCH TP SCH (10:14)
[2023-02-09] MEDS: THIAMINE HCL 100 MG TABLET (FP) PO SCH (10:14)
[2023-02-09] MEDS: LIDOCAINE PATCH REMOVAL MC SCH (22:22)
[2023-02-09] MEDS: ATORVASTATIN CA 20 MG TABLET (FP) PO SCH (22:22)
[2023-02-09] MEDS: QUEtiapine FUMARATE 50 MG TABLET PO SCH (22:22)
[2023-02-10] MEDS: methaDONE HCL 40 MG DISPERSABLE TABLET PO SCH (07:00)
[2023-02-10] MEDS: HEPARIN NA (PORCINE) 5,000 UNITS/ML 1ML VIAL SQ SCH ×3 (07:00→21:54)
[2023-02-10] MEDS: LIDOCAINE 5% TOPICAL PATCH TP SCH (11:09)
[2023-02-10] MEDS: TAMSULOSIN HCL 0.4 MG CAP PO SCH (11:10)
[2023-02-10] MEDS: THIAMINE HCL 100 MG TABLET (FP) PO SCH (11:10)
[2023-02-10] MEDS: amLODIPine BESYLATE 10 MG TABLET (FP) PO SCH (11:10)
[2023-02-10] MEDS: FOLIC ACID 1 MG TABLET (FP) PO SCH (11:10)
[2023-02-10] MEDS: BUDESONIDE/FORMETEROL FUMARATE 80/4.5 mcg INHALER IH SCH ×2 (11:13→22:03)
[2023-02-10] MEDS: QUEtiapine FUMARATE 50 MG TABLET PO SCH (21:53)
[2023-02-10] MEDS: ATORVASTATIN CA 20 MG TABLET (FP) PO SCH (21:54)
[2023-02-10] MEDS: LIDOCAINE PATCH REMOVAL MC SCH (22:03)
[2023-02-11] MEDS: HEPARIN NA (PORCINE) 5,000 UNITS/ML 1ML VIAL SQ SCH ×3 (06:34→22:41)
[2023-02-11] MEDS: methaDONE HCL 40 MG DISPERSABLE TABLET PO SCH (06:34)
[2023-02-11] MEDS: TAMSULOSIN HCL 0.4 MG CAP PO SCH (08:17)
[2023-02-11] MEDS: THIAMINE HCL 100 MG TABLET (FP) PO SCH (10:05)
[2023-02-11] MEDS: FOLIC ACID 1 MG TABLET (FP) PO SCH (10:05)
[2023-02-11] MEDS: amLODIPine BESYLATE 10 MG TABLET (FP) PO SCH (10:05)
[2023-02-11] MEDS: LIDOCAINE 5% TOPICAL PATCH TP SCH (10:06)
[2023-02-11] MEDS: BUDESONIDE/FORMETEROL FUMARATE 80/4.5 mcg INHALER IH SCH ×2 (10:14→22:50)
[2023-02-11] MEDS: ATORVASTATIN CA 20 MG TABLET (FP) PO SCH (22:41)
[2023-02-11] MEDS: QUEtiapine FUMARATE 50 MG TABLET PO SCH (22:41)
[2023-02-11] MEDS: LIDOCAINE PATCH REMOVAL MC SCH (22:50)
[2023-02-12] MEDS: methaDONE HCL 40 MG DISPERSABLE TABLET PO SCH (06:32)
[2023-02-12] MEDS: HEPARIN NA (PORCINE) 5,000 UNITS/ML 1ML VIAL SQ SCH ×2 (06:32→15:07)
[2023-02-12] MEDS: amLODIPine BESYLATE 10 MG TABLET (FP) PO SCH (10:45)
[2023-02-12] MEDS: TAMSULOSIN HCL 0.4 MG CAP PO SCH (10:45)
[2023-02-12] MEDS: LIDOCAINE 5% TOPICAL PATCH TP SCH (10:45)
[2023-02-12] MEDS: THIAMINE HCL 100 MG TABLET (FP) PO SCH (10:45)
[2023-02-12] MEDS: FOLIC ACID 1 MG TABLET (FP) PO SCH (10:45)
[2023-02-12] MEDS: BUDESONIDE/FORMETEROL FUMARATE 80/4.5 mcg INHALER IH SCH (10:47)
[2023-02-12 15:54] VITALS: BP 144/71; PULSE 62; RESP 18; TEMP 98
== END 2023-02-12 15:25 | disposition home or self-care (01) ==
LOC: JER 15:56 → JERBED 20:03 → INTOOBSV 20:03 → J8W 02-08 00:53
PROVIDERS: ADMIT Internal Medicine; ATTEND Nurse Practitioner Acute Care
DX: U07.1 COVID-19 (principal); F10.99 Alcohol use, unspecified with unspecified alcohol-induced disorder; F19.10 Other psychoactive substance abuse, uncomplicated; J45.909 Unspecified asthma, uncomplicated; I10 Essential (primary) hypertension; N17.9 Acute kidney failure, unspecified; Z88.8 Allergy status to other drugs, medicaments and biological substances; F17.210 Nicotine dependence, cigarettes, uncomplicated
CPT/HCPCS: 0241U-QW; 36415; 71045-TC-FY; 71275-TC; 80048; 80053; 81003; 83735; 83880; 84100; 84484; 85025; 85379; 93005; 93010; 94010; 99285-25; C9803-CS; G0378; J1644; Q9967; U0003; U0005

== ENCOUNTER 2023-03-23 18:16 | Inpatient (IN) | payer OTHER ==
[2023-03-23 19:04] VITALS: BMI 24.9
[2023-03-24] MEDS ORDERED: ONDANSETRON *ODT* 4 MG TABLET SL PRN (02:21)
[2023-03-24] MEDS ORDERED: LOPERAMIDE HCL 2 MG CAPSULE PO PRN (02:21)
[2023-03-24] MEDS ORDERED: DICYCLOMINE HCL 10 MG CAPSULE PO PRN (02:21)
[2023-03-24] MEDS ORDERED: guaiFENesin 600 MG TABLET.ER (FP) PO PRN (02:21)
[2023-03-24] MEDS ORDERED: BISMUTH SUBSALICYLATE 524 MG/30 ML PO PRN (02:21)
[2023-03-24] MEDS ORDERED: IBUPROFEN 600 MG TABLET (FP) PO PRN (02:21)
[2023-03-24] MEDS ORDERED: IBUPROFEN 400 MG TABLET (FP) PO PRN (02:21)
[2023-03-24] MEDS ORDERED: NICOTINE POLACRILEX 2 MG GUM BUC PRN (02:21)
[2023-03-24] MEDS ORDERED: BENZONATATE 200 MG CAPSULE PO PRN (02:21)
[2023-03-24] MEDS ORDERED: ACETAMINOPHEN 325 MG TABLET (FP) PO PRN (02:21)
[2023-03-24] MEDS ORDERED: MAG HYDROX/AL HYDROX/SIMETH 30 ML UNIT-DOSE CUP PO PRN (02:21)
[2023-03-24] MEDS ORDERED: NALOXONE HCL 0.4 MG/ML VIAL IM PRN (02:21)
[2023-03-24] MEDS ORDERED: NALOXONE HCL (KLOXXADO) 8 MG SPRAY NS PRN (02:21)
[2023-03-24] MEDS ORDERED: MAGNESIUM HYDROX 2400MG/30ML ORAL SUSPENSION 30 ML CUP PO PRN (02:21)
[2023-03-24] MEDS ORDERED: POLYETHYLENE GLYCOL (HEALTHYLAX) 3350 17 GM PACKET PO PRN (02:21)
[2023-03-24] MEDS ORDERED: BENZOCAINE/MENTHOL (CHLORASEPTIC ) LOZENGE MM PRN (02:21)
[2023-03-24] MEDS: NICOTINE 21 MG/24 HOURS TOPICAL PATCH TD SCH (10:26)
[2023-03-24] MEDS: PRENATAL VITAMINS W/ FOLIC ACID TABLET (FP) PO SCH (10:26)
[2023-03-24] MEDS ORDERED: methaDONE HCL 10 MG TABLET PO ONE (11:08)
[2023-03-24] MEDS ORDERED: methaDONE HCL 40 MG DISPERSABLE TABLET PO ONE (11:08)
[2023-03-24] MEDS ORDERED: amLODIPine BESYLATE 10 MG TABLET (FP) PO ONE (11:13)
[2023-03-24] MEDS ORDERED: LORazepam 1 MG TABLET PO PRN (11:15)
[2023-03-24 13:14] LABS: POTASSIUM 4.3 mmol/L (3.5-5.1)
[2023-03-24 13:15] LABS: HEMATOCRIT 31.5 % (35.4-49); HEMOGLOBIN 10.6 GM/dL (11.7-16.9); MCH 29.1 pg (25.7-33.7); MCHC 33.5 g/dl (32.0-35.9); MEAN CELL VOLUME 86.9 fl (80-96); MEAN PLT VOLUME 8.4 fl (7.5-11.1); PLATELET COUNT 231 10^3/uL (134-434); RBC 3.63 M/mm3 (4.00-5.60); RDW 14.8 % (11.9-15.9); WHITE BLOOD COUNT 6.5 K/mm3 (4.0-10.0)
[2023-03-24] MEDS ORDERED: LISINOPRIL 20 MG TABLET PO ONE (13:15)
[2023-03-24 13:21] LABS: ALBUMIN 3.6 g/dl (3.4-5.0); BLOOD UREA NITROGEN 23.3 mg/dL (7-18); CALCIUM 9.3 mg/dL (8.5-10.1)
[2023-03-24 13:24] LABS: CREATININE 0.8 mg/dL (0.55-1.3)
[2023-03-24 13:26] LABS: BILIRUBIN,TOTAL 0.4 mg/dL (0.2-1); TOT PROT 7.1 g/dl (6.4-8.2)
[2023-03-24 14:06] LABS: HIV INTERPRETATION NEGATIVE (NEGATIVE)
[2023-03-24] MEDS: LORazepam 1 MG TABLET PO SCH ×2 (17:18→22:34)
[2023-03-24] MEDS: LISINOPRIL 20 MG TABLET PO SCH (22:33)
[2023-03-24] MEDS: BUDESONIDE/FORMETEROL FUMARATE 80/4.5 mcg INHALER IH SCH (22:33)
[2023-03-24] MEDS: CELECOXIB 100 MG CAPSULE PO SCH (22:33)
[2023-03-24] MEDS: MELATONIN 5 MG TABLETS PO SCH (22:33)
[2023-03-24] MEDS: THIAMINE HCL 100 MG TABLET (FP) PO SCH (22:33)
[2023-03-24] MEDS: TAMSULOSIN HCL 0.4 MG CAP PO SCH (22:33)
[2023-03-25] MEDS: methaDONE HCL 40 MG DISPERSABLE TABLET PO SCH (05:35)
[2023-03-25] MEDS: LORazepam 1 MG TABLET PO SCH ×4 (05:35→22:05)
[2023-03-25] MEDS: PRENATAL VITAMINS W/ FOLIC ACID TABLET (FP) PO SCH (10:29)
[2023-03-25] MEDS: ALBUTEROL SO4 HFA INHALER IH PRN ×2 (10:32→22:11)
[2023-03-25] MEDS: BUDESONIDE/FORMETEROL FUMARATE 80/4.5 mcg INHALER IH SCH ×2 (10:32→22:06)
[2023-03-25] MEDS: CELECOXIB 100 MG CAPSULE PO SCH ×2 (10:33→22:05)
[2023-03-25] MEDS: NICOTINE 21 MG/24 HOURS TOPICAL PATCH TD SCH (10:33)
[2023-03-25] MEDS: amLODIPine BESYLATE 10 MG TABLET (FP) PO SCH (10:33)
[2023-03-25] MEDS ORDERED: LISINOPRIL 20 MG TABLET PO ONE (14:30)
[2023-03-25] MEDS: THIAMINE HCL 100 MG TABLET (FP) PO SCH (22:05)
[2023-03-25] MEDS: MELATONIN 5 MG TABLETS PO SCH (22:05)
[2023-03-25] MEDS: LISINOPRIL 20 MG TABLET PO SCH (22:05)
[2023-03-25] MEDS: TAMSULOSIN HCL 0.4 MG CAP PO SCH (22:05)
[2023-03-25] MEDS: hydrOXYzine PAMOATE 25 MG CAPSULE (FP) PO PRN (22:10)
[2023-03-26] MEDS ORDERED: LORazepam 0.5 MG TABLET PO PRN
[2023-03-26] MEDS: LORazepam 0.5 MG TABLET PO SCH ×4 (05:32→22:14)
[2023-03-26] MEDS: methaDONE HCL 40 MG DISPERSABLE TABLET PO SCH (05:32)
[2023-03-26] MEDS: BUDESONIDE/FORMETEROL FUMARATE 80/4.5 mcg INHALER IH SCH ×2 (10:18→22:15)
[2023-03-26] MEDS: hydrOXYzine PAMOATE 25 MG CAPSULE (FP) PO PRN ×2 (10:18→22:14)
[2023-03-26] MEDS: NICOTINE 21 MG/24 HOURS TOPICAL PATCH TD SCH (10:18)
[2023-03-26] MEDS: CELECOXIB 100 MG CAPSULE PO SCH ×2 (10:19→22:14)
[2023-03-26] MEDS: amLODIPine BESYLATE 10 MG TABLET (FP) PO SCH (10:19)
[2023-03-26] MEDS: ALBUTEROL SO4 HFA INHALER IH PRN ×2 (10:19→22:15)
[2023-03-26] MEDS: PRENATAL VITAMINS W/ FOLIC ACID TABLET (FP) PO SCH (10:19)
[2023-03-26] MEDS: MELATONIN 5 MG TABLETS PO SCH (22:14)
[2023-03-26] MEDS: TAMSULOSIN HCL 0.4 MG CAP PO SCH (22:14)
[2023-03-26] MEDS: THIAMINE HCL 100 MG TABLET (FP) PO SCH (22:14)
[2023-03-26] MEDS: LISINOPRIL 20 MG TABLET PO SCH (22:15)
[2023-03-27] MEDS ORDERED: LORazepam 0.5 MG TABLET PO ONE (05:00)
[2023-03-27] MEDS: methaDONE HCL 40 MG DISPERSABLE TABLET PO SCH (05:39)
[2023-03-27] MEDS: BUDESONIDE/FORMETEROL FUMARATE 80/4.5 mcg INHALER IH SCH (09:22)
[2023-03-27] MEDS: PRENATAL VITAMINS W/ FOLIC ACID TABLET (FP) PO SCH (09:22)
[2023-03-27] MEDS: ALBUTEROL SO4 HFA INHALER IH PRN (09:23)
[2023-03-27] MEDS: amLODIPine BESYLATE 10 MG TABLET (FP) PO SCH (09:24)
[2023-03-27] MEDS: CELECOXIB 100 MG CAPSULE PO SCH (09:24)
[2023-03-27] MEDS: NICOTINE 21 MG/24 HOURS TOPICAL PATCH TD SCH (09:25)
[2023-03-27 09:40] VITALS: BP 144/84; PULSE 78; RESP 18; TEMP 97.5
== END 2023-03-27 09:52 | disposition home or self-care (01) | DRG 897 ==
LOC: YASAS 18:16 → Y6N 23:30
PROVIDERS: ADMIT Allergy & Immunology; ATTEND Surgery
PROC: HZ2ZZZZ Detoxification Services for Substance Abuse Treatment (ICD-10-PCS; principal; 2023-03-23)
DX: F10.230 Alcohol dependence with withdrawal, uncomplicated (principal); F11.20 Opioid dependence, uncomplicated; F14.20 Cocaine dependence, uncomplicated; F12.20 Cannabis dependence, uncomplicated; F17.210 Nicotine dependence, cigarettes, uncomplicated; I10 Essential (primary) hypertension; J45.20 Mild intermittent asthma, uncomplicated; H54.62 Unqualified visual loss, left eye, normal vision right eye; N40.1 Benign prostatic hyperplasia with lower urinary tract symptoms; R35.1 Nocturia; M25.561 Pain in right knee; M17.11 Unilateral primary osteoarthritis, right knee; R26.89 Other abnormalities of gait and mobility; Z99.89 Dependence on other enabling machines and devices; Z86.19 Personal history of other infectious and parasitic diseases; Z88.8 Allergy status to other drugs, medicaments and biological substances
CPT/HCPCS: 36415; 80053; 85027; 86780; 87389; 87635; 87811

== ENCOUNTER 2023-05-06 19:33 | Inpatient (IN) | payer OTHER ==
[2023-05-06 20:34] VITALS: BMI 24.3
[2023-05-06] MEDS ORDERED: MAGNESIUM HYDROX 2400MG/30ML ORAL SUSPENSION 30 ML CUP PO PRN (23:10)
[2023-05-06] MEDS ORDERED: POLYETHYLENE GLYCOL (HEALTHYLAX) 3350 17 GM PACKET PO PRN (23:10)
[2023-05-06] MEDS ORDERED: IBUPROFEN 400 MG TABLET (FP) PO PRN (23:10)
[2023-05-06] MEDS ORDERED: BENZOCAINE/MENTHOL (CHLORASEPTIC ) LOZENGE MM PRN (23:10)
[2023-05-06] MEDS ORDERED: NALOXONE HCL 0.4 MG/ML VIAL IM PRN (23:10)
[2023-05-06] MEDS ORDERED: LOPERAMIDE HCL 2 MG CAPSULE PO PRN (23:10)
[2023-05-06] MEDS ORDERED: BENZONATATE 200 MG CAPSULE PO PRN (23:10)
[2023-05-06] MEDS ORDERED: NALOXONE HCL (KLOXXADO) 8 MG SPRAY NS PRN (23:10)
[2023-05-06] MEDS ORDERED: ACETAMINOPHEN 325 MG TABLET (FP) PO PRN (23:10)
[2023-05-06] MEDS ORDERED: guaiFENesin 600 MG TABLET.ER (FP) PO PRN (23:10)
[2023-05-06] MEDS ORDERED: BISMUTH SUBSALICYLATE 524 MG/30 ML PO PRN (23:10)
[2023-05-06] MEDS ORDERED: P-EPHED 60MG/TRIPROLIDI 2.5MG TABLET PO PRN (23:10)
[2023-05-06] MEDS ORDERED: MAG HYDROX/AL HYDROX/SIMETH 30 ML UNIT-DOSE CUP PO PRN (23:10)
[2023-05-06] MEDS ORDERED: NICOTINE POLACRILEX 2 MG GUM BUC PRN (23:10)
[2023-05-07] MEDS: methaDONE HCL 40 MG DISPERSABLE TABLET PO SCH (10:10)
[2023-05-07] MEDS: PRENATAL VITAMINS W/ FOLIC ACID TABLET (FP) PO SCH (10:10)
[2023-05-07 10:47] LABS: HEMATOCRIT 32.4 % (35.4-49); HEMOGLOBIN 10.9 GM/dL (11.7-16.9); MCH 29.3 pg (25.7-33.7); MCHC 33.7 g/dl (32.0-35.9); MEAN PLT VOLUME 8.6 fl (7.5-11.1); PLATELET COUNT 205 10^3/uL (134-434); RBC 3.72 M/mm3 (4.00-5.60); WHITE BLOOD COUNT 6.1 K/mm3 (4.0-10.0)
[2023-05-07 10:55] LABS: POTASSIUM 4.7 mmol/L (3.5-5.1)
[2023-05-07 11:24] LABS: ALBUMIN 3.6 g/dl (3.4-5.0); BLOOD UREA NITROGEN 26.6 mg/dL (7-18)
[2023-05-07 11:27] LABS: CALCIUM 9.4 mg/dL (8.5-10.1)
[2023-05-07 11:28] LABS: CREATININE 1.1 mg/dL (0.55-1.3)
[2023-05-07 11:29] LABS: BILIRUBIN,TOTAL 0.6 mg/dL (0.2-1); TOT PROT 7.4 g/dl (6.4-8.2)
[2023-05-07] MEDS: diazePAM 5 MG TABLET PO SCH ×3 (11:47→22:16)
[2023-05-07] MEDS: ONDANSETRON *ODT* 4 MG TABLET SL PRN (11:48)
[2023-05-07] MEDS: LISINOPRIL 20 MG TABLET PO SCH (12:48)
[2023-05-07] MEDS ORDERED: LOSARTAN POTASSIUM 50 MG TABLET PO SCH (13:15)
[2023-05-07] MEDS: amLODIPine BESYLATE 10 MG TABLET (FP) PO SCH (13:38)
[2023-05-07] MEDS: BUDESONIDE/FORMETEROL FUMARATE 80/4.5 mcg INHALER IH SCH (22:14)
[2023-05-07] MEDS: ALBUTEROL SO4 HFA INHALER IH PRN (22:15)
[2023-05-07] MEDS: THIAMINE HCL 100 MG TABLET (FP) PO SCH (22:16)
[2023-05-07] MEDS: TAMSULOSIN HCL 0.4 MG CAP PO SCH (22:16)
[2023-05-07] MEDS: MELATONIN 5 MG TABLETS PO SCH (22:16)
[2023-05-07] MEDS: ATORVASTATIN CA 20 MG TABLET (FP) PO SCH (22:16)
[2023-05-07] MEDS: QUEtiapine FUMARATE 50 MG TABLET PO PRN (22:17)
[2023-05-08] MEDS: diazePAM 5 MG TABLET PO SCH ×4 (06:00→22:22)
[2023-05-08] MEDS: methaDONE HCL 40 MG DISPERSABLE TABLET PO SCH (06:09)
[2023-05-08] MEDS: amLODIPine BESYLATE 10 MG TABLET (FP) PO SCH (10:11)
[2023-05-08] MEDS: ALBUTEROL SO4 HFA INHALER IH PRN ×2 (10:11→22:22)
[2023-05-08] MEDS: LISINOPRIL 20 MG TABLET PO SCH (10:11)
[2023-05-08] MEDS: PRENATAL VITAMINS W/ FOLIC ACID TABLET (FP) PO SCH (10:11)
[2023-05-08] MEDS: BUDESONIDE/FORMETEROL FUMARATE 80/4.5 mcg INHALER IH SCH ×2 (10:12→22:22)
[2023-05-08] MEDS: MELATONIN 5 MG TABLETS PO SCH (22:22)
[2023-05-08] MEDS: THIAMINE HCL 100 MG TABLET (FP) PO SCH (22:22)
[2023-05-08] MEDS: ATORVASTATIN CA 20 MG TABLET (FP) PO SCH (22:22)
[2023-05-08] MEDS: TAMSULOSIN HCL 0.4 MG CAP PO SCH (22:22)
[2023-05-08] MEDS: QUEtiapine FUMARATE 50 MG TABLET PO PRN (22:25)
[2023-05-09] MEDS: methaDONE HCL 40 MG DISPERSABLE TABLET PO SCH (06:08)
[2023-05-09] MEDS: diazePAM 5 MG TABLET PO SCH ×3 (06:08→22:08)
[2023-05-09] MEDS: IBUPROFEN 600 MG TABLET (FP) PO PRN ×2 (08:46→22:09)
[2023-05-09] MEDS: BUDESONIDE/FORMETEROL FUMARATE 80/4.5 mcg INHALER IH SCH ×2 (10:06→22:06)
[2023-05-09] MEDS: PRENATAL VITAMINS W/ FOLIC ACID TABLET (FP) PO SCH (10:06)
[2023-05-09] MEDS: amLODIPine BESYLATE 10 MG TABLET (FP) PO SCH (10:07)
[2023-05-09] MEDS: LISINOPRIL 20 MG TABLET PO SCH (10:07)
[2023-05-09] MEDS: diazePAM 5 MG TABLET PO PRN ×2 (10:14→17:35)
[2023-05-09] MEDS: ONDANSETRON *ODT* 4 MG TABLET SL PRN (17:37)
[2023-05-09] MEDS: ALBUTEROL SO4 HFA INHALER IH PRN (22:06)
[2023-05-09] MEDS: TAMSULOSIN HCL 0.4 MG CAP PO SCH (22:07)
[2023-05-09] MEDS: MELATONIN 5 MG TABLETS PO SCH (22:07)
[2023-05-09] MEDS: ATORVASTATIN CA 20 MG TABLET (FP) PO SCH (22:07)
[2023-05-09] MEDS: THIAMINE HCL 100 MG TABLET (FP) PO SCH (22:07)
[2023-05-09] MEDS: QUEtiapine FUMARATE 50 MG TABLET PO PRN (22:08)
[2023-05-10] MEDS: methaDONE HCL 40 MG DISPERSABLE TABLET PO SCH (05:46)
[2023-05-10] MEDS: diazePAM 5 MG TABLET PO SCH ×2 (05:46→17:39)
[2023-05-10] MEDS: LISINOPRIL 20 MG TABLET PO SCH (09:46)
[2023-05-10] MEDS: PRENATAL VITAMINS W/ FOLIC ACID TABLET (FP) PO SCH (09:46)
[2023-05-10] MEDS: BUDESONIDE/FORMETEROL FUMARATE 80/4.5 mcg INHALER IH SCH ×2 (09:46→21:12)
[2023-05-10] MEDS: amLODIPine BESYLATE 10 MG TABLET (FP) PO SCH (09:46)
[2023-05-10] MEDS: IBUPROFEN 600 MG TABLET (FP) PO PRN (13:06)
[2023-05-10] MEDS: ALBUTEROL SO4 HFA INHALER IH PRN ×2 (17:39→21:12)
[2023-05-10] MEDS: ATORVASTATIN CA 20 MG TABLET (FP) PO SCH (21:12)
[2023-05-10] MEDS: THIAMINE HCL 100 MG TABLET (FP) PO SCH (21:12)
[2023-05-10] MEDS: MELATONIN 5 MG TABLETS PO SCH (21:12)
[2023-05-10] MEDS: TAMSULOSIN HCL 0.4 MG CAP PO SCH (21:12)
[2023-05-10] MEDS: QUEtiapine FUMARATE 50 MG TABLET PO PRN (21:14)
[2023-05-11] MEDS: methaDONE HCL 40 MG DISPERSABLE TABLET PO SCH (05:32)
[2023-05-11] MEDS ORDERED: diazePAM 5 MG TABLET PO ONE (06:00)
[2023-05-11 06:28] VITALS: TEMP 97.8
[2023-05-11 10:10] VITALS: BP 130/69; PULSE 75; RESP 16
[2023-05-11] MEDS: PRENATAL VITAMINS W/ FOLIC ACID TABLET (FP) PO SCH (10:50)
[2023-05-11] MEDS: LISINOPRIL 20 MG TABLET PO SCH (10:50)
[2023-05-11] MEDS: amLODIPine BESYLATE 10 MG TABLET (FP) PO SCH (10:50)
[2023-05-11] MEDS: BUDESONIDE/FORMETEROL FUMARATE 80/4.5 mcg INHALER IH SCH (10:50)
== END 2023-05-11 11:06 | disposition home or self-care (01) | DRG 897 ==
LOC: YASAS 19:33 → Y3N 23:46
PROVIDERS: ADMIT Allergy & Immunology; ATTEND Surgery
PROC: HZ2ZZZZ Detoxification Services for Substance Abuse Treatment (ICD-10-PCS; principal; 2023-05-06)
DX: F10.230 Alcohol dependence with withdrawal, uncomplicated (principal); F11.20 Opioid dependence, uncomplicated; F17.210 Nicotine dependence, cigarettes, uncomplicated; F10.282 Alcohol dependence with alcohol-induced sleep disorder; I10 Essential (primary) hypertension; M17.11 Unilateral primary osteoarthritis, right knee; Z86.59 Personal history of other mental and behavioral disorders; Z86.19 Personal history of other infectious and parasitic diseases
CPT/HCPCS: 36415; 80053; 82962; 85027; 86780; 87635; Q0162

== ENCOUNTER 2023-06-01 13:18 | Inpatient (IN) | payer OTHER ==
[2023-06-01 14:18] VITALS: BMI 25.2
[2023-06-01] MEDS ORDERED: diazePAM 5 MG TABLET PO PRN (16:45)
[2023-06-01] MEDS ORDERED: POLYETHYLENE GLYCOL (HEALTHYLAX) 3350 17 GM PACKET PO PRN (16:45)
[2023-06-01] MEDS ORDERED: DICYCLOMINE HCL 10 MG CAPSULE PO PRN (16:45)
[2023-06-01] MEDS ORDERED: IBUPROFEN 400 MG TABLET (FP) PO PRN (16:45)
[2023-06-01] MEDS ORDERED: NALOXONE HCL (KLOXXADO) 8 MG SPRAY NS PRN (16:45)
[2023-06-01] MEDS ORDERED: MAG HYDROX/AL HYDROX/SIMETH 30 ML UNIT-DOSE CUP PO PRN (16:45)
[2023-06-01] MEDS ORDERED: BENZONATATE 200 MG CAPSULE PO PRN (16:45)
[2023-06-01] MEDS ORDERED: ACETAMINOPHEN 325 MG TABLET (FP) PO PRN (16:45)
[2023-06-01] MEDS ORDERED: BENZOCAINE/MENTHOL (CHLORASEPTIC ) LOZENGE MM PRN (16:45)
[2023-06-01] MEDS ORDERED: guaiFENesin 600 MG TABLET.ER (FP) PO PRN (16:45)
[2023-06-01] MEDS ORDERED: IBUPROFEN 600 MG TABLET (FP) PO PRN (16:45)
[2023-06-01] MEDS ORDERED: ONDANSETRON *ODT* 4 MG TABLET SL PRN (16:45)
[2023-06-01] MEDS ORDERED: LOPERAMIDE HCL 2 MG CAPSULE PO PRN (16:45)
[2023-06-01] MEDS ORDERED: BISMUTH SUBSALICYLATE 524 MG/30 ML PO PRN (16:45)
[2023-06-01] MEDS ORDERED: MAGNESIUM HYDROX 2400MG/30ML ORAL SUSPENSION 30 ML CUP PO PRN (16:45)
[2023-06-01] MEDS ORDERED: NALOXONE HCL 0.4 MG/ML VIAL IM PRN (16:45)
[2023-06-01] MEDS: BUDESONIDE/FORMETEROL FUMARATE 80/4.5 mcg INHALER IH SCH (22:55)
[2023-06-01] MEDS: diazePAM 5 MG TABLET PO SCH (22:57)
[2023-06-01] MEDS: MELATONIN 5 MG TABLETS PO SCH (22:57)
[2023-06-01] MEDS: TAMSULOSIN HCL 0.4 MG CAP PO SCH (22:57)
[2023-06-01] MEDS: ATORVASTATIN CA 20 MG TABLET (FP) PO SCH (22:57)
[2023-06-01] MEDS: METHOCARBAMOL 500 MG TABLET PO PRN (22:57)
[2023-06-01] MEDS: hydrOXYzine PAMOATE 25 MG CAPSULE (FP) PO PRN (22:57)
[2023-06-01] MEDS: THIAMINE HCL 100 MG TABLET (FP) PO SCH (22:57)
[2023-06-02] MEDS: diazePAM 5 MG TABLET PO SCH ×4 (05:58→22:30)
[2023-06-02] MEDS: FERROUS SO4 325 MG TABLET (FP) PO SCH (10:17)
[2023-06-02] MEDS: BUDESONIDE/FORMETEROL FUMARATE 80/4.5 mcg INHALER IH SCH ×2 (10:18→22:31)
[2023-06-02] MEDS: LOSARTAN POTASSIUM 50 MG TABLET PO SCH (10:18)
[2023-06-02] MEDS: PRENATAL VITAMINS W/ FOLIC ACID TABLET (FP) PO SCH (10:18)
[2023-06-02] MEDS: ALBUTEROL SO4 HFA INHALER IH PRN ×2 (10:22→22:31)
[2023-06-02] MEDS: METHOCARBAMOL 500 MG TABLET PO PRN ×2 (10:24→22:32)
[2023-06-02] MEDS: methaDONE HCL 40 MG DISPERSABLE TABLET PO SCH (11:44)
[2023-06-02 11:49] LABS: HEMATOCRIT 29.9 % (35.4-49); MCH 28.7 pg (25.7-33.7); MCHC 33.3 g/dl (32.0-35.9); MEAN CELL VOLUME 86.3 fl (80-96); MEAN PLT VOLUME 8.5 fl (7.5-11.1); PLATELET COUNT 188 10^3/uL (134-434); RBC 3.47 M/mm3 (4.00-5.60); RDW 15.3 % (11.9-15.9)
[2023-06-02 11:58] LABS: POTASSIUM 4.5 mmol/L (3.5-5.1)
[2023-06-02 12:13] LABS: ALBUMIN 3.3 g/dl (3.4-5.0); CALCIUM 8.8 mg/dL (8.5-10.1)
[2023-06-02 12:14] LABS: BLOOD UREA NITROGEN 17.2 mg/dL (7-18)
[2023-06-02 12:17] LABS: CREATININE 0.9 mg/dL (0.55-1.3)
[2023-06-02 12:18] LABS: BILIRUBIN,TOTAL 0.3 mg/dL (0.2-1); TOT PROT 6.6 g/dl (6.4-8.2)
[2023-06-02] MEDS: amLODIPine BESYLATE 10 MG TABLET (FP) PO SCH (18:27)
[2023-06-02] MEDS: ATORVASTATIN CA 20 MG TABLET (FP) PO SCH (22:30)
[2023-06-02] MEDS: QUEtiapine FUMARATE 50 MG TABLET PO PRN (22:30)
[2023-06-02] MEDS: TAMSULOSIN HCL 0.4 MG CAP PO SCH (22:30)
[2023-06-02] MEDS: THIAMINE HCL 100 MG TABLET (FP) PO SCH (22:30)
[2023-06-02] MEDS: LABETALOL HCL 100 MG TABLET (FP) PO SCH (22:31)
[2023-06-02] MEDS: MELATONIN 5 MG TABLETS PO SCH (22:31)
[2023-06-03] MEDS: diazePAM 5 MG TABLET PO SCH ×3 (05:43→21:44)
[2023-06-03] MEDS: methaDONE HCL 40 MG DISPERSABLE TABLET PO SCH (05:43)
[2023-06-03] MEDS: amLODIPine BESYLATE 10 MG TABLET (FP) PO SCH (10:16)
[2023-06-03] MEDS: BUDESONIDE/FORMETEROL FUMARATE 80/4.5 mcg INHALER IH SCH ×2 (10:16→21:42)
[2023-06-03] MEDS: LOSARTAN POTASSIUM 50 MG TABLET PO SCH (10:16)
[2023-06-03] MEDS: FERROUS SO4 325 MG TABLET (FP) PO SCH (10:17)
[2023-06-03] MEDS: LABETALOL HCL 100 MG TABLET (FP) PO SCH ×2 (10:17→21:42)
[2023-06-03] MEDS: PRENATAL VITAMINS W/ FOLIC ACID TABLET (FP) PO SCH (10:19)
[2023-06-03] MEDS: METHOCARBAMOL 500 MG TABLET PO PRN ×2 (14:31→21:43)
[2023-06-03] MEDS: MELATONIN 5 MG TABLETS PO SCH (21:41)
[2023-06-03] MEDS: THIAMINE HCL 100 MG TABLET (FP) PO SCH (21:42)
[2023-06-03] MEDS: ATORVASTATIN CA 20 MG TABLET (FP) PO SCH (21:43)
[2023-06-03] MEDS: QUEtiapine FUMARATE 50 MG TABLET PO PRN (21:43)
[2023-06-03] MEDS: TAMSULOSIN HCL 0.4 MG CAP PO SCH (21:43)
[2023-06-03] MEDS: hydrOXYzine PAMOATE 25 MG CAPSULE (FP) PO PRN (21:43)
[2023-06-03] MEDS: ALBUTEROL SO4 HFA INHALER IH PRN (21:47)
[2023-06-04] MEDS: methaDONE HCL 40 MG DISPERSABLE TABLET PO SCH (05:39)
[2023-06-04] MEDS: diazePAM 5 MG TABLET PO SCH ×2 (05:39→17:31)
[2023-06-04] MEDS: BUDESONIDE/FORMETEROL FUMARATE 80/4.5 mcg INHALER IH SCH ×2 (09:43→21:21)
[2023-06-04] MEDS: PRENATAL VITAMINS W/ FOLIC ACID TABLET (FP) PO SCH (09:43)
[2023-06-04] MEDS: LABETALOL HCL 100 MG TABLET (FP) PO SCH ×2 (09:44→21:23)
[2023-06-04] MEDS: amLODIPine BESYLATE 10 MG TABLET (FP) PO SCH (09:44)
[2023-06-04] MEDS: ALBUTEROL SO4 HFA INHALER IH PRN ×3 (09:44→21:22)
[2023-06-04] MEDS: FERROUS SO4 325 MG TABLET (FP) PO SCH (09:44)
[2023-06-04] MEDS: LOSARTAN POTASSIUM 50 MG TABLET PO SCH (09:45)
[2023-06-04 21:10] VITALS: RESP 18
[2023-06-04] MEDS: MELATONIN 5 MG TABLETS PO SCH (21:22)
[2023-06-04] MEDS: hydrOXYzine PAMOATE 25 MG CAPSULE (FP) PO PRN (21:23)
[2023-06-04] MEDS: THIAMINE HCL 100 MG TABLET (FP) PO SCH (21:23)
[2023-06-04] MEDS: METHOCARBAMOL 500 MG TABLET PO PRN (21:23)
[2023-06-04] MEDS: QUEtiapine FUMARATE 50 MG TABLET PO PRN (21:23)
[2023-06-04] MEDS: TAMSULOSIN HCL 0.4 MG CAP PO SCH (21:23)
[2023-06-04] MEDS: ATORVASTATIN CA 20 MG TABLET (FP) PO SCH (21:24)
[2023-06-05] MEDS: methaDONE HCL 40 MG DISPERSABLE TABLET PO SCH (05:21)
[2023-06-05] MEDS ORDERED: diazePAM 5 MG TABLET PO ONE (06:00)
[2023-06-05] MEDS: ALBUTEROL SO4 HFA INHALER IH PRN (09:13)
[2023-06-05] MEDS: BUDESONIDE/FORMETEROL FUMARATE 80/4.5 mcg INHALER IH SCH (09:19)
[2023-06-05] MEDS: FERROUS SO4 325 MG TABLET (FP) PO SCH (09:20)
[2023-06-05] MEDS: PRENATAL VITAMINS W/ FOLIC ACID TABLET (FP) PO SCH (09:20)
[2023-06-05] MEDS: amLODIPine BESYLATE 10 MG TABLET (FP) PO SCH (09:20)
[2023-06-05] MEDS: LOSARTAN POTASSIUM 50 MG TABLET PO SCH (09:20)
[2023-06-05] MEDS: LABETALOL HCL 100 MG TABLET (FP) PO SCH (09:20)
[2023-06-05 09:35] VITALS: BP 122/68; PULSE 74; TEMP 98.2
== END 2023-06-05 09:48 | disposition home or self-care (01) | DRG 897 ==
LOC: YASAS 13:18 → Y3N 17:30
PROVIDERS: ADMIT Allergy & Immunology; ATTEND Surgery
PROC: HZ2ZZZZ Detoxification Services for Substance Abuse Treatment (ICD-10-PCS; principal; 2023-06-01)
DX: F10.230 Alcohol dependence with withdrawal, uncomplicated (principal); F11.20 Opioid dependence, uncomplicated; F17.210 Nicotine dependence, cigarettes, uncomplicated; H54.62 Unqualified visual loss, left eye, normal vision right eye; I10 Essential (primary) hypertension; J45.20 Mild intermittent asthma, uncomplicated; M17.0 Bilateral primary osteoarthritis of knee; Z86.19 Personal history of other infectious and parasitic diseases; Z99.89 Dependence on other enabling machines and devices
CPT/HCPCS: 36415; 80053; 85027; 86780; 87635

== ENCOUNTER 2023-06-25 20:08 | Inpatient (IN) | payer OTHER ==
[2023-06-26] MEDS ORDERED: BENZOCAINE/MENTHOL (CHLORASEPTIC ) LOZENGE MM PRN (00:01)
[2023-06-26] MEDS ORDERED: BISMUTH SUBSALICYLATE 524 MG/30 ML PO PRN (00:01)
[2023-06-26] MEDS ORDERED: NALOXONE HCL (KLOXXADO) 8 MG SPRAY NS PRN (00:01)
[2023-06-26] MEDS ORDERED: MAG HYDROX/AL HYDROX/SIMETH 30 ML UNIT-DOSE CUP PO PRN (00:01)
[2023-06-26] MEDS ORDERED: POLYETHYLENE GLYCOL (HEALTHYLAX) 3350 17 GM PACKET PO PRN (00:01)
[2023-06-26] MEDS ORDERED: IBUPROFEN 400 MG TABLET (FP) PO PRN (00:01)
[2023-06-26] MEDS ORDERED: BENZONATATE 200 MG CAPSULE PO PRN (00:01)
[2023-06-26] MEDS ORDERED: ONDANSETRON *ODT* 4 MG TABLET SL PRN (00:01)
[2023-06-26] MEDS ORDERED: MAGNESIUM HYDROX 2400MG/30ML ORAL SUSPENSION 30 ML CUP PO PRN (00:01)
[2023-06-26] MEDS ORDERED: NALOXONE HCL 0.4 MG/ML VIAL IM PRN (00:01)
[2023-06-26] MEDS ORDERED: NICOTINE POLACRILEX 2 MG GUM BUC PRN (00:01)
[2023-06-26] MEDS ORDERED: LOPERAMIDE HCL 2 MG CAPSULE PO PRN (00:01)
[2023-06-26] MEDS ORDERED: DICYCLOMINE HCL 10 MG CAPSULE PO PRN (00:01)
[2023-06-26] MEDS ORDERED: guaiFENesin 600 MG TABLET.ER (FP) PO PRN (00:01)
[2023-06-26] MEDS ORDERED: ACETAMINOPHEN 325 MG TABLET (FP) PO PRN (00:01)
[2023-06-26 01:57] VITALS: BMI 26.6
[2023-06-26] MEDS ORDERED: METHOCARBAMOL 500 MG TABLET ONE (04:12)
[2023-06-26] MEDS ORDERED: IBUPROFEN 600 MG TABLET (FP) PO ONE (04:12)
[2023-06-26] MEDS: IBUPROFEN 600 MG TABLET (FP) PO PRN ×3 (04:18→17:23)
[2023-06-26] MEDS: hydrOXYzine PAMOATE 25 MG CAPSULE (FP) PO PRN (08:55)
[2023-06-26] MEDS: methaDONE HCL 40 MG DISPERSABLE TABLET PO SCH (08:55)
[2023-06-26] MEDS ORDERED: chlordiazePOXIDE HCL 25 MG CAPSULE PO PRN (09:25)
[2023-06-26] MEDS: BUDESONIDE/FORMETEROL FUMARATE 80/4.5 mcg INHALER IH SCH ×2 (10:06→22:14)
[2023-06-26] MEDS: NICOTINE 21 MG/24 HOURS TOPICAL PATCH TD SCH (10:06)
[2023-06-26] MEDS: amLODIPine BESYLATE 10 MG TABLET (FP) PO SCH (10:07)
[2023-06-26] MEDS: PRENATAL VITAMINS W/ FOLIC ACID TABLET (FP) PO SCH (10:07)
[2023-06-26] MEDS: chlordiazePOXIDE HCL 25 MG CAPSULE PO SCH ×3 (10:07→22:11)
[2023-06-26] MEDS: LISINOPRIL 20 MG TABLET PO SCH (22:10)
[2023-06-26] MEDS: TAMSULOSIN HCL 0.4 MG CAP PO SCH (22:10)
[2023-06-26] MEDS: THIAMINE HCL 100 MG TABLET (FP) PO SCH (22:10)
[2023-06-26] MEDS: QUEtiapine FUMARATE 50 MG TABLET PO SCH (22:11)
[2023-06-26] MEDS: ATORVASTATIN CA 20 MG TABLET (FP) PO SCH (22:11)
[2023-06-26] MEDS: MELATONIN 5 MG TABLETS PO SCH (22:12)
[2023-06-27] MEDS: chlordiazePOXIDE HCL 25 MG CAPSULE PO SCH ×4 (05:21→22:00)
[2023-06-27] MEDS: methaDONE HCL 40 MG DISPERSABLE TABLET PO SCH (05:22)
[2023-06-27 09:33] LABS: HEMOGLOBIN 9.4 GM/dL (11.7-16.9); MCH 30.2 pg (25.7-33.7); MEAN CELL VOLUME 86.3 fl (80-96); MEAN PLT VOLUME 8.4 fl (7.5-11.1); PLATELET COUNT 232 10^3/uL (134-434); RBC 3.12 M/mm3 (4.00-5.60); RDW 15.5 % (11.9-15.9); WHITE BLOOD COUNT 6.8 K/mm3 (4.0-10.0)
[2023-06-27 10:05] LABS: CALCIUM 8.7 mg/dL (8.5-10.1)
[2023-06-27 10:07] LABS: ALBUMIN 3.4 g/dl (3.4-5.0); BLOOD UREA NITROGEN 33.8 mg/dL (7-18)
[2023-06-27 10:08] LABS: BILIRUBIN,TOTAL 0.2 mg/dL (0.2-1); CREATININE 1.2 mg/dL (0.55-1.3)
[2023-06-27 10:10] LABS: TOT PROT 6.6 g/dl (6.4-8.2)
[2023-06-27] MEDS: PRENATAL VITAMINS W/ FOLIC ACID TABLET (FP) PO SCH (10:11)
[2023-06-27] MEDS: BUDESONIDE/FORMETEROL FUMARATE 80/4.5 mcg INHALER IH SCH ×2 (10:11→21:32)
[2023-06-27] MEDS: amLODIPine BESYLATE 10 MG TABLET (FP) PO SCH (10:11)
[2023-06-27] MEDS: NICOTINE 21 MG/24 HOURS TOPICAL PATCH TD SCH (10:11)
[2023-06-27 12:06] LABS: POTASSIUM 4.9 mmol/L (3.5-5.1)
[2023-06-27] MEDS: QUEtiapine FUMARATE 50 MG TABLET PO SCH (21:31)
[2023-06-27] MEDS: LISINOPRIL 20 MG TABLET PO SCH (21:31)
[2023-06-27] MEDS: TAMSULOSIN HCL 0.4 MG CAP PO SCH (21:31)
[2023-06-27] MEDS: ATORVASTATIN CA 20 MG TABLET (FP) PO SCH (21:31)
[2023-06-27] MEDS: THIAMINE HCL 100 MG TABLET (FP) PO SCH (21:31)
[2023-06-27] MEDS: MELATONIN 5 MG TABLETS PO SCH (21:32)
[2023-06-28] MEDS: chlordiazePOXIDE HCL 25 MG CAPSULE PO SCH ×4 (05:39→22:13)
[2023-06-28] MEDS: methaDONE HCL 40 MG DISPERSABLE TABLET PO SCH (05:39)
[2023-06-28] MEDS: NICOTINE 21 MG/24 HOURS TOPICAL PATCH TD SCH (10:43)
[2023-06-28] MEDS: amLODIPine BESYLATE 10 MG TABLET (FP) PO SCH (10:44)
[2023-06-28] MEDS: PRENATAL VITAMINS W/ FOLIC ACID TABLET (FP) PO SCH (10:44)
[2023-06-28] MEDS: hydrOXYzine PAMOATE 25 MG CAPSULE (FP) PO PRN (10:44)
[2023-06-28] MEDS: BUDESONIDE/FORMETEROL FUMARATE 80/4.5 mcg INHALER IH SCH ×2 (10:45→22:13)
[2023-06-28 11:05] LABS: HEMATOCRIT 31.6 % (35.4-49); HEMOGLOBIN 10.6 GM/dL (11.7-16.9); MCH 29.2 pg (25.7-33.7); MCHC 33.6 g/dl (32.0-35.9); MEAN CELL VOLUME 86.9 fl (80-96); MEAN PLT VOLUME 8.5 fl (7.5-11.1); PLATELET COUNT 263 10^3/uL (134-434); RBC 3.64 M/mm3 (4.00-5.60); RDW 15.6 % (11.9-15.9); RETICULOCYTES 1.17 % (0.5-1.5); WHITE BLOOD COUNT 7.3 K/mm3 (4.0-10.0)
[2023-06-28 11:21] LABS: BLOOD UREA NITROGEN 22.9 mg/dL (7-18)
[2023-06-28] MEDS: ALBUTEROL SO4 HFA INHALER IH PRN ×2 (17:47→22:30)
[2023-06-28] MEDS: ATORVASTATIN CA 20 MG TABLET (FP) PO SCH (22:13)
[2023-06-28] MEDS: QUEtiapine FUMARATE 50 MG TABLET PO SCH (22:13)
[2023-06-28] MEDS: THIAMINE HCL 100 MG TABLET (FP) PO SCH (22:13)
[2023-06-28] MEDS: LISINOPRIL 20 MG TABLET PO SCH (22:13)
[2023-06-28] MEDS: TAMSULOSIN HCL 0.4 MG CAP PO SCH (22:14)
[2023-06-28] MEDS: MELATONIN 5 MG TABLETS PO SCH (22:14)
[2023-06-28] MEDS: IBUPROFEN 600 MG TABLET (FP) PO PRN (22:17)
[2023-06-29] MEDS ORDERED: chlordiazePOXIDE HCL 10 MG CAPSULE PO PRN
[2023-06-29] MEDS: methaDONE HCL 40 MG DISPERSABLE TABLET PO SCH (05:41)
[2023-06-29] MEDS: chlordiazePOXIDE HCL 10 MG CAPSULE PO SCH ×4 (05:42→22:06)
[2023-06-29] MEDS: BUDESONIDE/FORMETEROL FUMARATE 80/4.5 mcg INHALER IH SCH ×2 (10:21→22:05)
[2023-06-29] MEDS: NICOTINE 21 MG/24 HOURS TOPICAL PATCH TD SCH (10:21)
[2023-06-29] MEDS: ALBUTEROL SO4 HFA INHALER IH PRN ×2 (10:21→22:11)
[2023-06-29] MEDS: hydrOXYzine PAMOATE 25 MG CAPSULE (FP) PO PRN (10:22)
[2023-06-29] MEDS: amLODIPine BESYLATE 10 MG TABLET (FP) PO SCH (10:22)
[2023-06-29] MEDS: PRENATAL VITAMINS W/ FOLIC ACID TABLET (FP) PO SCH (10:22)
[2023-06-29] MEDS: ATORVASTATIN CA 20 MG TABLET (FP) PO SCH (22:06)
[2023-06-29] MEDS: MELATONIN 5 MG TABLETS PO SCH (22:06)
[2023-06-29] MEDS: QUEtiapine FUMARATE 50 MG TABLET PO SCH (22:06)
[2023-06-29] MEDS: LISINOPRIL 20 MG TABLET PO SCH (22:06)
[2023-06-29] MEDS: TAMSULOSIN HCL 0.4 MG CAP PO SCH (22:06)
[2023-06-29] MEDS: THIAMINE HCL 100 MG TABLET (FP) PO SCH (22:06)
[2023-06-30] MEDS: chlordiazePOXIDE HCL 10 MG CAPSULE PO SCH ×2 (05:34→17:31)
[2023-06-30] MEDS: methaDONE HCL 40 MG DISPERSABLE TABLET PO SCH (05:35)
[2023-06-30] MEDS: amLODIPine BESYLATE 10 MG TABLET (FP) PO SCH (10:06)
[2023-06-30] MEDS: PRENATAL VITAMINS W/ FOLIC ACID TABLET (FP) PO SCH (10:06)
[2023-06-30] MEDS: hydrOXYzine PAMOATE 25 MG CAPSULE (FP) PO PRN (10:06)
[2023-06-30] MEDS: BUDESONIDE/FORMETEROL FUMARATE 80/4.5 mcg INHALER IH SCH ×2 (10:07→22:18)
[2023-06-30] MEDS: NICOTINE 21 MG/24 HOURS TOPICAL PATCH TD SCH (10:08)
[2023-06-30] MEDS: ALBUTEROL SO4 HFA INHALER IH PRN ×2 (10:08→22:22)
[2023-06-30] MEDS ORDERED: LABETALOL HCL 100 MG TABLET (FP) PO SCH (22:00)
[2023-06-30] MEDS: THIAMINE HCL 100 MG TABLET (FP) PO SCH (22:17)
[2023-06-30] MEDS: TAMSULOSIN HCL 0.4 MG CAP PO SCH (22:18)
[2023-06-30] MEDS: MELATONIN 5 MG TABLETS PO SCH (22:18)
[2023-06-30] MEDS: QUEtiapine FUMARATE 50 MG TABLET PO SCH (22:18)
[2023-06-30] MEDS: ATORVASTATIN CA 20 MG TABLET (FP) PO SCH (22:18)
[2023-06-30] MEDS: LISINOPRIL 20 MG TABLET PO SCH (22:18)
[2023-07-01] MEDS ORDERED: chlordiazePOXIDE HCL 10 MG CAPSULE PO ONE (05:00)
[2023-07-01] MEDS: methaDONE HCL 40 MG DISPERSABLE TABLET PO SCH (05:31)
[2023-07-01 06:25] VITALS: PULSE 74
[2023-07-01 09:34] VITALS: BP 119/69; RESP 17; TEMP 98
[2023-07-01] MEDS ORDERED: LOSARTAN POTASSIUM 50 MG TABLET PO SCH (10:00)
[2023-07-01] MEDS ORDERED: FERROUS SO4 325 MG TABLET (FP) PO SCH (10:00)
== END 2023-07-01 09:50 | disposition other institution (70) | DRG 897 ==
LOC: YASAS 20:08 → Y6N 06-26 03:58
PROVIDERS: ADMIT Allergy & Immunology; ATTEND Surgery
PROC: HZ2ZZZZ Detoxification Services for Substance Abuse Treatment (ICD-10-PCS; principal; 2023-06-26)
DX: F10.230 Alcohol dependence with withdrawal, uncomplicated (principal); F11.20 Opioid dependence, uncomplicated; F19.282 Other psychoactive substance dependence with psychoactive substance-induced sleep disorder; F17.210 Nicotine dependence, cigarettes, uncomplicated; F19.24 Other psychoactive substance dependence with psychoactive substance-induced mood disorder; D50.9 Iron deficiency anemia, unspecified; I10 Essential (primary) hypertension; J44.9 Chronic obstructive pulmonary disease, unspecified; J45.20 Mild intermittent asthma, uncomplicated; M17.0 Bilateral primary osteoarthritis of knee; M54.50 Low back pain, unspecified; G89.29 Other chronic pain; R73.03 Prediabetes; Z86.69 Personal history of other diseases of the nervous system and sense organs; Z99.89 Dependence on other enabling machines and devices
CPT/HCPCS: 36415; 80053; 82607; 82746; 83036; 83540; 83550; 84520; 85027; 85045; 86780; 87635; 87811; 93005; 93010; Q0162

== ENCOUNTER 2023-07-20 17:07 | Inpatient (IN) | payer OTHER ==
[2023-07-20 17:48] VITALS: BMI 25.3
[2023-07-20] MEDS ORDERED: DICYCLOMINE HCL 10 MG CAPSULE PO PRN (22:47)
[2023-07-20] MEDS ORDERED: MAG HYDROX/AL HYDROX/SIMETH 30 ML UNIT-DOSE CUP PO PRN (22:47)
[2023-07-20] MEDS ORDERED: NALOXONE HCL (KLOXXADO) 8 MG SPRAY NS PRN (22:47)
[2023-07-20] MEDS ORDERED: MAGNESIUM HYDROX 2400MG/30ML ORAL SUSPENSION 30 ML CUP PO PRN (22:47)
[2023-07-20] MEDS ORDERED: LOPERAMIDE HCL 2 MG CAPSULE PO PRN (22:47)
[2023-07-20] MEDS ORDERED: IBUPROFEN 400 MG TABLET (FP) PO PRN (22:47)
[2023-07-20] MEDS ORDERED: guaiFENesin 600 MG TABLET.ER (FP) PO PRN (22:47)
[2023-07-20] MEDS ORDERED: BENZONATATE 200 MG CAPSULE PO PRN (22:47)
[2023-07-20] MEDS ORDERED: POLYETHYLENE GLYCOL (HEALTHYLAX) 3350 17 GM PACKET PO PRN (22:47)
[2023-07-20] MEDS ORDERED: ACETAMINOPHEN 325 MG TABLET (FP) PO PRN (22:47)
[2023-07-20] MEDS ORDERED: chlordiazePOXIDE HCL 25 MG CAPSULE PO PRN (22:47)
[2023-07-20] MEDS ORDERED: BISMUTH SUBSALICYLATE 524 MG/30 ML PO PRN (22:47)
[2023-07-20] MEDS ORDERED: BENZOCAINE/MENTHOL (CHLORASEPTIC ) LOZENGE MM PRN (22:47)
[2023-07-20] MEDS ORDERED: ONDANSETRON *ODT* 4 MG TABLET SL PRN (22:47)
[2023-07-20] MEDS ORDERED: NALOXONE HCL 0.4 MG/ML VIAL IM PRN (22:47)
[2023-07-20] MEDS ORDERED: NICOTINE POLACRILEX 4 MG GUM BUC PRN (22:47)
[2023-07-20] MEDS ORDERED: QUEtiapine FUMARATE 50 MG TABLET PO PRN (22:47)
[2023-07-20] MEDS ORDERED: QUEtiapine FUMARATE 50 MG TABLET PO ONE (23:05)
[2023-07-20] MEDS ORDERED: chlordiazePOXIDE HCL 25 MG CAPSULE ONE (23:15)
[2023-07-20] MEDS ORDERED: amLODIPine BESYLATE 5 MG TABLET (FP) ONE (23:16)
[2023-07-20] MEDS: chlordiazePOXIDE HCL 25 MG CAPSULE PO SCH ×2 (23:19→23:39)
[2023-07-20] MEDS: amLODIPine BESYLATE 10 MG TABLET (FP) PO SCH (23:22)
[2023-07-21] MEDS: BUDESONIDE/FORMETEROL FUMARATE 80/4.5 mcg INHALER IH SCH ×3 (01:56→22:23)
[2023-07-21] MEDS: NICOTINE 21 MG/24 HOURS TOPICAL PATCH TD SCH ×2 (01:56→10:23)
[2023-07-21] MEDS: chlordiazePOXIDE HCL 25 MG CAPSULE PO SCH ×4 (05:39→22:23)
[2023-07-21] MEDS ORDERED: methaDONE HCL 10 MG TABLET PO ONE (06:00)
[2023-07-21] MEDS ORDERED: methaDONE HCL 40 MG DISPERSABLE TABLET PO SCH (06:00)
[2023-07-21] MEDS: ALBUTEROL SO4 HFA INHALER IH PRN ×3 (08:40→22:23)
[2023-07-21 09:47] LABS: HEMATOCRIT 30.1 % (35.4-49); HEMOGLOBIN 9.9 GM/dL (11.7-16.9); MCH 28.9 pg (25.7-33.7); MCHC 32.9 g/dl (32.0-35.9); MEAN CELL VOLUME 87.7 fl (80-96); MEAN PLT VOLUME 8.2 fl (7.5-11.1); PLATELET COUNT 244 10^3/uL (134-434); RBC 3.43 M/mm3 (4.00-5.60); RDW 16.8 % (11.9-15.9)
[2023-07-21 10:06] LABS: CHLORIDE 104 mmol/L (98-107); POTASSIUM 4.2 mmol/L (3.5-5.1); SODIUM 138 mmol/L (136-145)
[2023-07-21 10:11] LABS: CALCIUM 8.9 mg/dL (8.5-10.1)
[2023-07-21 10:12] LABS: ALBUMIN 3.4 g/dl (3.4-5.0); ANION GAP 6 mmol/L (4-13); BLOOD UREA NITROGEN 17.1 mg/dL (7-18); CO2 28 mmol/L (21-32); GLUCOSE,RANDOM 105 mg/dL (74-106)
[2023-07-21 10:15] LABS: SGOT/AST 19 U/L (15-37); SGPT/ALT 18 U/L (13-61)
[2023-07-21 10:17] LABS: BILIRUBIN,TOTAL 0.7 mg/dL (0.2-1); TOT PROT 6.9 g/dl (6.4-8.2)
[2023-07-21 10:18] LABS: ALK PHOS 82 U/L (45-117)
[2023-07-21] MEDS: amLODIPine BESYLATE 10 MG TABLET (FP) PO SCH (10:23)
[2023-07-21] MEDS: PRENATAL VITAMINS W/ FOLIC ACID TABLET (FP) PO SCH (10:23)
[2023-07-21] MEDS: IBUPROFEN 600 MG TABLET (FP) PO PRN ×2 (10:26→18:39)
[2023-07-21] MEDS: METHOCARBAMOL 500 MG TABLET PO PRN (10:26)
[2023-07-21] MEDS ORDERED: MELATONIN 5 MG TABLETS PO SCH (22:00)
[2023-07-21] MEDS: SENNOSIDES 8.6MG TABLET (FP) PO SCH (22:21)
[2023-07-21] MEDS: ATORVASTATIN CA 20 MG TABLET (FP) PO SCH (22:22)
[2023-07-21] MEDS: MELATONIN 5 MG TABLETS PO PRN (22:22)
[2023-07-21] MEDS: TAMSULOSIN HCL 0.4 MG CAP PO SCH (22:22)
[2023-07-21] MEDS: THIAMINE HCL 100 MG TABLET (FP) PO SCH (22:22)
[2023-07-21] MEDS: QUEtiapine FUMARATE 50 MG TABLET PO SCH (22:22)
[2023-07-22] MEDS: chlordiazePOXIDE HCL 25 MG CAPSULE PO SCH ×4 (05:45→22:18)
[2023-07-22] MEDS: methaDONE HCL 40 MG DISPERSABLE TABLET PO SCH (10:15)
[2023-07-22] MEDS: amLODIPine BESYLATE 10 MG TABLET (FP) PO SCH (10:15)
[2023-07-22] MEDS: PRENATAL VITAMINS W/ FOLIC ACID TABLET (FP) PO SCH (10:15)
[2023-07-22] MEDS: NICOTINE 21 MG/24 HOURS TOPICAL PATCH TD SCH (10:15)
[2023-07-22] MEDS: BUDESONIDE/FORMETEROL FUMARATE 80/4.5 mcg INHALER IH SCH ×2 (10:15→22:13)
[2023-07-22] MEDS: IBUPROFEN 600 MG TABLET (FP) PO PRN ×2 (10:17→23:32)
[2023-07-22] MEDS ORDERED: TAMSULOSIN HCL 0.4 MG CAP PO SCH (14:15)
[2023-07-22] MEDS: ATORVASTATIN CA 20 MG TABLET (FP) PO SCH (22:16)
[2023-07-22] MEDS: SENNOSIDES 8.6MG TABLET (FP) PO SCH (22:18)
[2023-07-22] MEDS: TAMSULOSIN HCL 0.4 MG CAP PO SCH (23:10)
[2023-07-22] MEDS: THIAMINE HCL 100 MG TABLET (FP) PO SCH (23:11)
[2023-07-22] MEDS: QUEtiapine FUMARATE 50 MG TABLET PO SCH (23:11)
[2023-07-22] MEDS: LABETALOL HCL 100 MG TABLET (FP) PO SCH (23:11)
[2023-07-22] MEDS: METHOCARBAMOL 500 MG TABLET PO PRN (23:32)
[2023-07-23] MEDS ORDERED: chlordiazePOXIDE HCL 10 MG CAPSULE PO PRN
[2023-07-23] MEDS: chlordiazePOXIDE HCL 10 MG CAPSULE PO SCH ×4 (05:43→22:12)
[2023-07-23] MEDS: methaDONE HCL 40 MG DISPERSABLE TABLET PO SCH (05:43)
[2023-07-23] MEDS: BUDESONIDE/FORMETEROL FUMARATE 80/4.5 mcg INHALER IH SCH ×2 (10:22→22:13)
[2023-07-23] MEDS: amLODIPine BESYLATE 10 MG TABLET (FP) PO SCH (10:23)
[2023-07-23] MEDS: FERROUS SO4 325 MG TABLET (FP) PO SCH (10:23)
[2023-07-23] MEDS: NICOTINE 21 MG/24 HOURS TOPICAL PATCH TD SCH (10:23)
[2023-07-23] MEDS: hydrOXYzine PAMOATE 25 MG CAPSULE (FP) PO PRN ×2 (10:23→22:11)
[2023-07-23] MEDS: METHOCARBAMOL 500 MG TABLET PO PRN ×2 (10:23→22:11)
[2023-07-23] MEDS: LABETALOL HCL 100 MG TABLET (FP) PO SCH ×2 (10:23→22:13)
[2023-07-23] MEDS: LOSARTAN POTASSIUM 50 MG TABLET PO SCH (10:24)
[2023-07-23] MEDS: PRENATAL VITAMINS W/ FOLIC ACID TABLET (FP) PO SCH (10:24)
[2023-07-23] MEDS: SENNOSIDES 8.6MG TABLET (FP) PO SCH (22:11)
[2023-07-23] MEDS: QUEtiapine FUMARATE 50 MG TABLET PO SCH (22:11)
[2023-07-23] MEDS: MELATONIN 5 MG TABLETS PO PRN (22:11)
[2023-07-23] MEDS: ATORVASTATIN CA 20 MG TABLET (FP) PO SCH (22:11)
[2023-07-23] MEDS: TAMSULOSIN HCL 0.4 MG CAP PO SCH (22:12)
[2023-07-23] MEDS: THIAMINE HCL 100 MG TABLET (FP) PO SCH (22:13)
[2023-07-23] MEDS: ALBUTEROL SO4 HFA INHALER IH PRN (22:16)
[2023-07-24] MEDS: chlordiazePOXIDE HCL 10 MG CAPSULE PO SCH ×2 (05:37→17:57)
[2023-07-24] MEDS: methaDONE HCL 40 MG DISPERSABLE TABLET PO SCH (05:37)
[2023-07-24] MEDS: NICOTINE 21 MG/24 HOURS TOPICAL PATCH TD SCH (10:07)
[2023-07-24] MEDS: PRENATAL VITAMINS W/ FOLIC ACID TABLET (FP) PO SCH (10:07)
[2023-07-24] MEDS: FERROUS SO4 325 MG TABLET (FP) PO SCH (10:07)
[2023-07-24] MEDS: BUDESONIDE/FORMETEROL FUMARATE 80/4.5 mcg INHALER IH SCH ×2 (10:07→22:28)
[2023-07-24] MEDS: ALBUTEROL SO4 HFA INHALER IH PRN (10:08)
[2023-07-24] MEDS: LABETALOL HCL 100 MG TABLET (FP) PO SCH ×2 (10:42→22:28)
[2023-07-24] MEDS: LOSARTAN POTASSIUM 50 MG TABLET PO SCH (10:42)
[2023-07-24] MEDS: amLODIPine BESYLATE 10 MG TABLET (FP) PO SCH (10:42)
[2023-07-24] MEDS ORDERED: amLODIPine BESYLATE 10 MG TABLET (FP) PO ONE (15:30)
[2023-07-24] MEDS: ATORVASTATIN CA 20 MG TABLET (FP) PO SCH (22:28)
[2023-07-24] MEDS: THIAMINE HCL 100 MG TABLET (FP) PO SCH (22:28)
[2023-07-24] MEDS: QUEtiapine FUMARATE 50 MG TABLET PO SCH (22:28)
[2023-07-24] MEDS: TAMSULOSIN HCL 0.4 MG CAP PO SCH (22:28)
[2023-07-24] MEDS: SENNOSIDES 8.6MG TABLET (FP) PO SCH (22:28)
[2023-07-24] MEDS: MELATONIN 5 MG TABLETS PO PRN (22:29)
[2023-07-25] MEDS ORDERED: chlordiazePOXIDE HCL 10 MG CAPSULE PO ONE (05:00)
[2023-07-25] MEDS: methaDONE HCL 40 MG DISPERSABLE TABLET PO SCH (05:54)
[2023-07-25] MEDS ORDERED: TRIMETHOBENZAMIDE HCL 200MG/2ML INJ IM ONE (06:00)
[2023-07-25 09:36] VITALS: BP 136/86; PULSE 69; RESP 17; TEMP 97.6
[2023-07-25] MEDS: PRENATAL VITAMINS W/ FOLIC ACID TABLET (FP) PO SCH (10:27)
[2023-07-25] MEDS: NICOTINE 21 MG/24 HOURS TOPICAL PATCH TD SCH (10:27)
[2023-07-25] MEDS: LOSARTAN POTASSIUM 50 MG TABLET PO SCH (10:28)
[2023-07-25] MEDS: hydrOXYzine PAMOATE 25 MG CAPSULE (FP) PO PRN (10:29)
[2023-07-25] MEDS: FERROUS SO4 325 MG TABLET (FP) PO SCH (10:29)
[2023-07-25] MEDS: LABETALOL HCL 100 MG TABLET (FP) PO SCH (10:29)
[2023-07-25] MEDS: amLODIPine BESYLATE 10 MG TABLET (FP) PO SCH (10:29)
[2023-07-25] MEDS: BUDESONIDE/FORMETEROL FUMARATE 80/4.5 mcg INHALER IH SCH (10:30)
[2023-07-25] MEDS: ALBUTEROL SO4 HFA INHALER IH PRN (10:30)
== END 2023-07-25 13:00 | disposition home or self-care (01) | DRG 897 ==
LOC: SUATTDRO 17:07 → YASAS 17:07 → Y3N 23:06 → Y6N 07-22 23:05
PROVIDERS: ADMIT Allergy & Immunology; ATTEND Surgery
PROC: HZ2ZZZZ Detoxification Services for Substance Abuse Treatment (ICD-10-PCS; principal; 2023-07-20)
DX: F10.230 Alcohol dependence with withdrawal, uncomplicated (principal); F11.20 Opioid dependence, uncomplicated; F14.10 Cocaine abuse, uncomplicated; F17.210 Nicotine dependence, cigarettes, uncomplicated; D50.9 Iron deficiency anemia, unspecified; E78.5 Hyperlipidemia, unspecified; J41.0 Simple chronic bronchitis; J45.20 Mild intermittent asthma, uncomplicated; I10 Essential (primary) hypertension; H54.62 Unqualified visual loss, left eye, normal vision right eye; N40.1 Benign prostatic hyperplasia with lower urinary tract symptoms; K59.03 Drug induced constipation; R60.0 Localized edema; Z99.89 Dependence on other enabling machines and devices; Z88.8 Allergy status to other drugs, medicaments and biological substances
CPT/HCPCS: 36415; 80053; 80307; 85027; 86780; 87635; Q0162

== ENCOUNTER 2023-07-31 21:44 | Emergency (ER) | payer OTHER ==
[2023-07-31 21:54] VITALS: BP 142/67; PULSE 86; RESP 18; TEMP 98.3; BMI 25.2
[2023-07-31] MEDS ORDERED: IBUPROFEN 400 MG TABLET (FP) PO ONE ×2 (23:05→23:15)
[2023-07-31] MEDS ORDERED: ACETAMINOPHEN 325 MG TABLET (FP) PO ONE (23:05)
[2023-07-31] MEDS ORDERED: ACETAMINOPHEN 325 MG TABLET (FP) ONE (23:14)
== END 2023-07-31 23:46 | disposition home or self-care (01) ==
LOC: JER 21:44 → JERFT 21:44
DX: M25.562 Pain in left knee (principal); M25.561 Pain in right knee; M17.0 Bilateral primary osteoarthritis of knee
CPT/HCPCS: 73560-TC-LT-FY; 73560-TC-RT-FY; 99283-25

== ENCOUNTER 2023-08-13 16:14 | Inpatient (IN) | payer OTHER ==
[2023-08-13 17:08] VITALS: BMI 24.2
[2023-08-13] MEDS ORDERED: BISMUTH SUBSALICYLATE 524 MG/30 ML PO PRN (18:17)
[2023-08-13] MEDS ORDERED: chlordiazePOXIDE HCL 25 MG CAPSULE PO PRN (18:17)
[2023-08-13] MEDS ORDERED: MAGNESIUM HYDROX 2400MG/30ML ORAL SUSPENSION 30 ML CUP PO PRN (18:17)
[2023-08-13] MEDS ORDERED: LOPERAMIDE HCL 2 MG CAPSULE PO PRN (18:17)
[2023-08-13] MEDS ORDERED: IBUPROFEN 600 MG TABLET (FP) PO PRN (18:17)
[2023-08-13] MEDS ORDERED: BENZONATATE 200 MG CAPSULE PO PRN (18:17)
[2023-08-13] MEDS ORDERED: IBUPROFEN 400 MG TABLET (FP) PO PRN (18:17)
[2023-08-13] MEDS ORDERED: NALOXONE HCL (KLOXXADO) 8 MG SPRAY NS PRN (18:17)
[2023-08-13] MEDS ORDERED: POLYETHYLENE GLYCOL (HEALTHYLAX) 3350 17 GM PACKET PO PRN (18:17)
[2023-08-13] MEDS ORDERED: MAG HYDROX/AL HYDROX/SIMETH 30 ML UNIT-DOSE CUP PO PRN (18:17)
[2023-08-13] MEDS ORDERED: DICYCLOMINE HCL 10 MG CAPSULE PO PRN (18:17)
[2023-08-13] MEDS ORDERED: NALOXONE HCL 0.4 MG/ML VIAL IM PRN (18:17)
[2023-08-13] MEDS ORDERED: BENZOCAINE/MENTHOL (CHLORASEPTIC ) LOZENGE MM PRN (18:17)
[2023-08-13] MEDS ORDERED: ONDANSETRON *ODT* 4 MG TABLET SL PRN (18:17)
[2023-08-13] MEDS ORDERED: guaiFENesin 600 MG TABLET.ER (FP) PO PRN (18:17)
[2023-08-13] MEDS: METHOCARBAMOL 500 MG TABLET PO PRN (22:20)
[2023-08-13] MEDS: hydrOXYzine PAMOATE 25 MG CAPSULE (FP) PO PRN (22:20)
[2023-08-13] MEDS: MELATONIN 5 MG TABLETS PO SCH (22:20)
[2023-08-13] MEDS: THIAMINE HCL 100 MG TABLET (FP) PO SCH (22:21)
[2023-08-13] MEDS: chlordiazePOXIDE HCL 25 MG CAPSULE PO SCH (22:21)
[2023-08-14] MEDS: chlordiazePOXIDE HCL 25 MG CAPSULE PO SCH ×4 (05:37→22:23)
[2023-08-14] MEDS ORDERED: ALBUTEROL SO4 HFA INHALER IH PRN (09:27)
[2023-08-14] MEDS: methaDONE HCL 40 MG DISPERSABLE TABLET PO SCH (10:15)
[2023-08-14] MEDS: PRENATAL VITAMINS W/ FOLIC ACID TABLET (FP) PO SCH (10:17)
[2023-08-14] MEDS: LOSARTAN POTASSIUM 50 MG TABLET PO SCH (10:18)
[2023-08-14] MEDS: BUDESONIDE/FORMETEROL FUMARATE 80/4.5 mcg INHALER IH SCH ×2 (10:18→22:22)
[2023-08-14 10:34] LABS: HEMATOCRIT 31.3 % (35.4-49); MCH 28.5 pg (25.7-33.7); MCHC 31.9 g/dl (32.0-35.9); MEAN CELL VOLUME 89.5 fl (80-96); PLATELET COUNT 328 10^3/uL (134-434); RDW 16.3 % (11.9-15.9); WHITE BLOOD COUNT 5.4 K/mm3 (4.0-10.0)
[2023-08-14] MEDS: LABETALOL HCL 100 MG TABLET (FP) PO SCH ×2 (10:43→22:24)
[2023-08-14 12:41] LABS: CHLORIDE 100 mmol/L (98-107); POTASSIUM 4.8 mmol/L (3.5-5.1); SODIUM 134 mmol/L (136-145)
[2023-08-14 12:46] LABS: BLOOD UREA NITROGEN 37.3 mg/dL (7-18); CALCIUM 8.9 mg/dL (8.5-10.1)
[2023-08-14 12:47] LABS: ALBUMIN 3.6 g/dl (3.4-5.0); ANION GAP 8 mmol/L (4-13); CO2 26 mmol/L (21-32); GLUCOSE,RANDOM 102 mg/dL (74-106)
[2023-08-14 12:49] LABS: CREATININE 2.4 mg/dL (0.55-1.3)
[2023-08-14 12:50] LABS: SGOT/AST 18 U/L (15-37)
[2023-08-14 12:51] LABS: BILIRUBIN,TOTAL 0.2 mg/dL (0.2-1); TOT PROT 7.2 g/dl (6.4-8.2)
[2023-08-14 12:52] LABS: ALK PHOS 72 U/L (45-117)
[2023-08-14 14:07] LABS: SGPT/ALT 19 U/L (13-61)
[2023-08-14] MEDS ORDERED: NICOTINE 14 MG/24 HOURS TOPICAL PATCH TD SCH (14:30)
[2023-08-14] MEDS: THIAMINE HCL 100 MG TABLET (FP) PO SCH (22:22)
[2023-08-14] MEDS: ATORVASTATIN CA 20 MG TABLET (FP) PO SCH (22:22)
[2023-08-14] MEDS: TAMSULOSIN HCL 0.4 MG CAP PO SCH (22:22)
[2023-08-14] MEDS: MELATONIN 5 MG TABLETS PO SCH (22:23)
[2023-08-14] MEDS: METHOCARBAMOL 500 MG TABLET PO PRN (22:27)
[2023-08-14] MEDS: ACETAMINOPHEN 325 MG TABLET (FP) PO PRN (22:27)
[2023-08-15] MEDS: methaDONE HCL 40 MG DISPERSABLE TABLET PO SCH (05:47)
[2023-08-15] MEDS: chlordiazePOXIDE HCL 25 MG CAPSULE PO SCH ×4 (05:48→22:03)
[2023-08-15] MEDS: PRENATAL VITAMINS W/ FOLIC ACID TABLET (FP) PO SCH (10:12)
[2023-08-15] MEDS: NICOTINE 21 MG/24 HOURS TOPICAL PATCH TD SCH (10:12)
[2023-08-15] MEDS: LOSARTAN POTASSIUM 50 MG TABLET PO SCH (10:13)
[2023-08-15] MEDS: LABETALOL HCL 100 MG TABLET (FP) PO SCH ×2 (10:13→22:02)
[2023-08-15] MEDS: BUDESONIDE/FORMETEROL FUMARATE 80/4.5 mcg INHALER IH SCH ×2 (10:14→22:03)
[2023-08-15] MEDS: METHYL SALICYLATE/MENTHOL OINT 30 GM TUBE TP SCH (21:25)
[2023-08-15] MEDS: TAMSULOSIN HCL 0.4 MG CAP PO SCH (22:02)
[2023-08-15] MEDS: ATORVASTATIN CA 20 MG TABLET (FP) PO SCH (22:02)
[2023-08-15] MEDS: QUEtiapine FUMARATE 50 MG TABLET PO SCH (22:03)
[2023-08-15] MEDS: THIAMINE HCL 100 MG TABLET (FP) PO SCH (22:03)
[2023-08-15] MEDS: MELATONIN 5 MG TABLETS PO SCH (22:03)
[2023-08-16] MEDS ORDERED: chlordiazePOXIDE HCL 10 MG CAPSULE PO PRN
[2023-08-16] MEDS: chlordiazePOXIDE HCL 10 MG CAPSULE PO SCH ×4 (06:00→22:25)
[2023-08-16] MEDS: methaDONE HCL 40 MG DISPERSABLE TABLET PO SCH (06:13)
[2023-08-16] MEDS: METHYL SALICYLATE/MENTHOL OINT 30 GM TUBE TP SCH ×2 (10:26→22:23)
[2023-08-16] MEDS: BUDESONIDE/FORMETEROL FUMARATE 80/4.5 mcg INHALER IH SCH ×2 (10:26→22:23)
[2023-08-16] MEDS: PRENATAL VITAMINS W/ FOLIC ACID TABLET (FP) PO SCH (10:27)
[2023-08-16] MEDS: LOSARTAN POTASSIUM 50 MG TABLET PO SCH (10:27)
[2023-08-16] MEDS: NICOTINE 21 MG/24 HOURS TOPICAL PATCH TD SCH (10:28)
[2023-08-16] MEDS: ACETAMINOPHEN 325 MG TABLET (FP) PO PRN (10:29)
[2023-08-16] MEDS: LABETALOL HCL 100 MG TABLET (FP) PO SCH ×2 (10:30→22:24)
[2023-08-16] MEDS: MELATONIN 5 MG TABLETS PO SCH (22:23)
[2023-08-16] MEDS: QUEtiapine FUMARATE 50 MG TABLET PO SCH (22:23)
[2023-08-16] MEDS: TAMSULOSIN HCL 0.4 MG CAP PO SCH (22:23)
[2023-08-16] MEDS: ATORVASTATIN CA 20 MG TABLET (FP) PO SCH (22:24)
[2023-08-16] MEDS: THIAMINE HCL 100 MG TABLET (FP) PO SCH (22:24)
[2023-08-16] MEDS: hydrOXYzine PAMOATE 25 MG CAPSULE (FP) PO PRN (22:25)
[2023-08-16] MEDS: METHOCARBAMOL 500 MG TABLET PO PRN (22:25)
[2023-08-17] MEDS: chlordiazePOXIDE HCL 10 MG CAPSULE PO SCH ×2 (05:55→17:09)
[2023-08-17] MEDS: methaDONE HCL 40 MG DISPERSABLE TABLET PO SCH (06:10)
[2023-08-17] MEDS: LABETALOL HCL 100 MG TABLET (FP) PO SCH ×2 (10:10→22:07)
[2023-08-17] MEDS: METHYL SALICYLATE/MENTHOL OINT 30 GM TUBE TP SCH ×2 (10:10→22:06)
[2023-08-17] MEDS: PRENATAL VITAMINS W/ FOLIC ACID TABLET (FP) PO SCH (10:10)
[2023-08-17] MEDS: LOSARTAN POTASSIUM 50 MG TABLET PO SCH (10:10)
[2023-08-17] MEDS: NICOTINE 21 MG/24 HOURS TOPICAL PATCH TD SCH (10:12)
[2023-08-17] MEDS: BUDESONIDE/FORMETEROL FUMARATE 80/4.5 mcg INHALER IH SCH ×2 (10:12→22:08)
[2023-08-17] MEDS: MELATONIN 5 MG TABLETS PO SCH (22:06)
[2023-08-17] MEDS: THIAMINE HCL 100 MG TABLET (FP) PO SCH (22:06)
[2023-08-17] MEDS: TAMSULOSIN HCL 0.4 MG CAP PO SCH (22:07)
[2023-08-17] MEDS: QUEtiapine FUMARATE 50 MG TABLET PO SCH (22:07)
[2023-08-17] MEDS: ATORVASTATIN CA 20 MG TABLET (FP) PO SCH (22:07)
[2023-08-17] MEDS: METHOCARBAMOL 500 MG TABLET PO PRN (22:08)
[2023-08-18] MEDS ORDERED: chlordiazePOXIDE HCL 10 MG CAPSULE PO ONE (05:00)
[2023-08-18] MEDS: methaDONE HCL 40 MG DISPERSABLE TABLET PO SCH (05:47)
[2023-08-18] MEDS: METHYL SALICYLATE/MENTHOL OINT 30 GM TUBE TP SCH ×2 (09:54→22:23)
[2023-08-18] MEDS: NICOTINE 21 MG/24 HOURS TOPICAL PATCH TD SCH (09:54)
[2023-08-18] MEDS: PRENATAL VITAMINS W/ FOLIC ACID TABLET (FP) PO SCH (09:54)
[2023-08-18] MEDS: LABETALOL HCL 100 MG TABLET (FP) PO SCH ×2 (09:54→22:18)
[2023-08-18] MEDS: LOSARTAN POTASSIUM 50 MG TABLET PO SCH (09:54)
[2023-08-18] MEDS: BUDESONIDE/FORMETEROL FUMARATE 80/4.5 mcg INHALER IH SCH ×2 (09:55→22:19)
[2023-08-18] MEDS: ATORVASTATIN CA 20 MG TABLET (FP) PO SCH (22:17)
[2023-08-18] MEDS: TAMSULOSIN HCL 0.4 MG CAP PO SCH (22:17)
[2023-08-18] MEDS: MELATONIN 5 MG TABLETS PO SCH (22:18)
[2023-08-18] MEDS: THIAMINE HCL 100 MG TABLET (FP) PO SCH (22:19)
[2023-08-18] MEDS: QUEtiapine FUMARATE 50 MG TABLET PO SCH (22:19)
[2023-08-18] MEDS: METHOCARBAMOL 500 MG TABLET PO PRN (22:20)
[2023-08-19] MEDS: methaDONE HCL 40 MG DISPERSABLE TABLET PO SCH (05:45)
[2023-08-19 09:13] VITALS: BP 107/70; PULSE 74; RESP 18; TEMP 97.7
[2023-08-19] MEDS: LOSARTAN POTASSIUM 50 MG TABLET PO SCH (10:31)
[2023-08-19] MEDS: BUDESONIDE/FORMETEROL FUMARATE 80/4.5 mcg INHALER IH SCH (10:31)
[2023-08-19] MEDS: NICOTINE 21 MG/24 HOURS TOPICAL PATCH TD SCH (10:31)
[2023-08-19] MEDS: LABETALOL HCL 100 MG TABLET (FP) PO SCH (10:31)
[2023-08-19] MEDS: PRENATAL VITAMINS W/ FOLIC ACID TABLET (FP) PO SCH (10:31)
[2023-08-19] MEDS: METHYL SALICYLATE/MENTHOL OINT 30 GM TUBE TP SCH (10:31)
== END 2023-08-19 10:56 | disposition home or self-care (01) | DRG 897 ==
LOC: YASAS 16:14 → Y3N 20:08
PROVIDERS: ADMIT Allergy & Immunology; ATTEND Surgery
PROC: HZ2ZZZZ Detoxification Services for Substance Abuse Treatment (ICD-10-PCS; principal; 2023-08-13)
DX: F10.230 Alcohol dependence with withdrawal, uncomplicated (principal); F11.20 Opioid dependence, uncomplicated; F13.20 Sedative, hypnotic or anxiolytic dependence, uncomplicated; F12.20 Cannabis dependence, uncomplicated; F19.24 Other psychoactive substance dependence with psychoactive substance-induced mood disorder; E78.5 Hyperlipidemia, unspecified; I10 Essential (primary) hypertension; J41.0 Simple chronic bronchitis; J45.20 Mild intermittent asthma, uncomplicated; M17.0 Bilateral primary osteoarthritis of knee; N40.0 Benign prostatic hyperplasia without lower urinary tract symptoms; R73.03 Prediabetes; Z99.89 Dependence on other enabling machines and devices; Z86.19 Personal history of other infectious and parasitic diseases; Z88.8 Allergy status to other drugs, medicaments and biological substances
CPT/HCPCS: 36415; 80053; 80307; 85027; 86780; 87635

== ENCOUNTER 2023-08-24 09:00 | Inpatient (IN) | payer OTHER ==
[2023-08-24 09:18] VITALS: BMI 26.6
[2023-08-24] MEDS ORDERED: SODIUM CHLORIDE 0.9% 500 ML INFUS.BAG IV ONE (09:49)
[2023-08-24] MEDS ORDERED: ONDANSETRON 4 MG/2 ML VIAL IVPUSH ONE ×2 (10:10→11:56)
[2023-08-24] MEDS ORDERED: ONDANSETRON 4 MG/2 ML VIAL ONE (10:38)
[2023-08-24 11:22] LABS: BASO % 0.4 % (0-2.0); EOS % 0.2 % (0-4.5); HEMATOCRIT 34.7 % (35.4-49); HEMOGLOBIN 11.3 GM/dL (11.7-16.9); MCH 28.8 pg (25.7-33.7); MCHC 32.6 g/dl (32.0-35.9); MEAN CELL VOLUME 88.4 fl (80-96); MEAN PLT VOLUME 7.9 fl (7.5-11.1); MONO % 2.8 % (3.8-10.2); NEUT % 88.6 % (42.8-82.8); PLATELET COUNT 256 10^3/uL (134-434); RBC 3.93 M/mm3 (4.00-5.60); RDW 15.7 % (11.9-15.9); WHITE BLOOD COUNT 9.3 K/mm3 (4.0-10.0)
[2023-08-24 11:25] LABS: EPI CELLS 3 /uL (0-25.1); HYALINE CASTS 0 /uL (0-3.1); URINE APPEARANCE CLEAR; URINE BACTERIA 21 /uL (0-1359); URINE BILIRUBIN NEGATIVE (NEGATIVE); URINE COLOR YELLOW; URINE GLUCOSE (UA) NEGATIVE (NEGATIVE); URINE KETONE 1+ (NEGATIVE); URINE LEUK ESTERASE NEGATIVE (NEGATIVE); URINE NITRITE NEGATIVE (NEGATIVE); URINE PROTEIN 1+ (NEGATIVE); URINE RBC 5 /uL (0-23.9); URINE UROBILINOGEN 0.2 mg/dL (0.2-1.0); URINE WBC 4 /uL (0-25.8); VENOUS BASE EXCESS 1.9 mmol/L (-2-2); VENOUS PCO2 47.8 mmHg (38-52); VENOUS PH 7.38 (7.310-7.410)
[2023-08-24 11:29] LABS: INR 1.12 (0.83-1.09)
[2023-08-24 11:32] LABS: ACTIVATED PTT 33.7 SECONDS (25.2-36.5)
[2023-08-24 11:56] LABS: CHLORIDE 103 mmol/L (98-107); POTASSIUM 5.2 mmol/L (3.5-5.1); SODIUM 136 mmol/L (136-145)
[2023-08-24 11:58] LABS: ALBUMIN 3.9 g/dl (3.4-5.0); ANION GAP 5 mmol/L (4-13); BLOOD UREA NITROGEN 18.7 mg/dL (7-18); CALCIUM 9.1 mg/dL (8.5-10.1); CO2 28 mmol/L (21-32); GLUCOSE,RANDOM 115 mg/dL (74-106); LIPASE 91 U/L (73-393); MAGNESIUM 2.3 mg/dL (1.8-2.4)
[2023-08-24 12:01] LABS: SGOT/AST 52 U/L (15-37); SGPT/ALT 33 U/L (13-61)
[2023-08-24 12:03] LABS: ALK PHOS 88 U/L (45-117); BILIRUBIN,TOTAL 0.5 mg/dL (0.2-1); TOT PROT 8.6 g/dl (6.4-8.2)
[2023-08-24] MEDS ORDERED: morphine CARPU-JECT 4 MG/1 ML DISP.SYRIN IVPUSH ONE (12:29)
[2023-08-24 13:30] LABS: POTASSIUM 4.6 mmol/L (3.5-5.1)
[2023-08-24 13:31] LABS: CALCIUM 8.9 mg/dL (8.5-10.1)
[2023-08-24 13:32] LABS: BLOOD UREA NITROGEN 18.9 mg/dL (7-18)
[2023-08-24 13:35] LABS: CREATININE 0.9 mg/dL (0.55-1.3)
[2023-08-24] MEDS ORDERED: morphine SULFATE 4 MG/ML VIAL ONE (13:56)
[2023-08-24] MEDS ORDERED: DEXTROSE 5%-NORMAL SALINE 1,000 ML IV SCH (14:30)
[2023-08-24] MEDS ORDERED: morphine SULFATE 4 MG/ML VIAL IVPUSH PRN (14:46)
[2023-08-24] MEDS ORDERED: DEXTROSE 5%-LACTATED RINGERS 1,000 ML IV SCH (15:00)
[2023-08-24] MEDS ORDERED: PROPOFOL 20 ML ONE (15:30)
[2023-08-24] MEDS ORDERED: MIDAZOLAM HCL 2 MG/2 ML SINGLE DOSE VIAL ONE (15:30)
[2023-08-24] MEDS ORDERED: FENTANYL CITRATE/PF 50 MCG/ML VIAL ONE ×4 (15:30→17:49)
[2023-08-24] MEDS ORDERED: LIDOCAINE HCL 1%, 10 MG/ML (20ML VIAL) ONE (15:57)
[2023-08-24] MEDS ORDERED: BUPIVACAINE HCL/PF 0.25% (2.5MG/ML) 10 ML VIAL ONE (15:57)
[2023-08-24] MEDS ORDERED: ROCURONIUM BROMIDE 50 MG/5 ML SYRINGE ONE (16:39)
[2023-08-24] MEDS ORDERED: HYDROmorphone HCl 2 MG/ML VIAL ONE (16:39)
[2023-08-24] MEDS ORDERED: SUGAMMADEX SODIUM 200 MG/2 ML VIAL ONE (16:56)
[2023-08-24] MEDS ORDERED: LABETALOL HCL 5 MG/1 ML (100MG/20 ML VIAL) ONE (17:29)
[2023-08-24] MEDS ORDERED: oxyCODONE HCL 5 MG TABLET PO PRN ×2 (17:39)
[2023-08-24] MEDS ORDERED: ACETAMINOPHEN 325 MG TABLET (FP) PO PRN (17:39)
[2023-08-24] MEDS ORDERED: LACTATED RINGERS SOLUTION 1,000 ML IV SCH ×2 (17:45→18:00)
[2023-08-24] MEDS ORDERED: ALBUTEROL SO4 HFA INHALER IH PRN ×2 (17:47→18:00)
[2023-08-24] MEDS ORDERED: SODIUM CHLORIDE 1,000 ML IV SCH (19:00)
[2023-08-24] MEDS: SODIUM CHLORIDE 1,000 ML IV SCH (19:30)
[2023-08-24] MEDS ORDERED: TAMSULOSIN HCL 0.4 MG CAP PO SCH (22:00)
[2023-08-24] MEDS ORDERED: ATORVASTATIN CA 20 MG TABLET (FP) PO SCH (22:00)
[2023-08-24] MEDS ORDERED: LABETALOL HCL 100 MG TABLET (FP) PO SCH (22:00)
[2023-08-24] MEDS ORDERED: BUDESONIDE/FORMETEROL FUMARATE 80/4.5 mcg INHALER IH SCH (22:00)
[2023-08-24] MEDS ORDERED: QUEtiapine FUMARATE 25 MG TABLET ONE (22:34)
[2023-08-24] MEDS: ACETAMINOPHEN 1000 MG/100 ML BAG IVPB SCH (22:40)
[2023-08-24] MEDS: ATORVASTATIN CA 20 MG TABLET (FP) PO SCH (22:42)
[2023-08-24] MEDS: oxyCODONE HCL 5 MG TABLET PO PRN (22:43)
[2023-08-24] MEDS: LABETALOL HCL 100 MG TABLET (FP) PO SCH (22:44)
[2023-08-24] MEDS: TAMSULOSIN HCL 0.4 MG CAP PO SCH (22:44)
[2023-08-24] MEDS: QUEtiapine FUMARATE 50 MG TABLET PO SCH (22:44)
[2023-08-24] MEDS: BUDESONIDE/FORMETEROL FUMARATE 80/4.5 mcg INHALER IH SCH (22:45)
[2023-08-25] MEDS: ACETAMINOPHEN 1000 MG/100 ML BAG IVPB SCH ×3 (01:39→17:23)
[2023-08-25] MEDS: SODIUM CHLORIDE 1,000 ML IV SCH (04:59)
[2023-08-25 09:06] LABS: BASO % 0.5 % (0-2.0); EOS % 0.2 % (0-4.5); HEMATOCRIT 28.7 % (35.4-49); HEMOGLOBIN 9.4 GM/dL (11.7-16.9); LYMPH % 16.8 % (8-40); MCH 28.9 pg (25.7-33.7); MCHC 32.6 g/dl (32.0-35.9); MEAN CELL VOLUME 88.5 fl (80-96); MEAN PLT VOLUME 8.2 fl (7.5-11.1); MONO % 11.4 % (3.8-10.2); NEUT % 71.1 % (42.8-82.8); PLATELET COUNT 197 10^3/uL (134-434); RBC 3.24 M/mm3 (4.00-5.60); RDW 15.8 % (11.9-15.9); WHITE BLOOD COUNT 8.1 K/mm3 (4.0-10.0)
[2023-08-25 09:23] LABS: POTASSIUM 3.9 mmol/L (3.5-5.1)
[2023-08-25 09:25] LABS: CALCIUM 8.4 mg/dL (8.5-10.1)
[2023-08-25 09:29] LABS: CREATININE 1.1 mg/dL (0.55-1.3)
[2023-08-25] MEDS: LOSARTAN POTASSIUM 50 MG TABLET PO SCH (09:50)
[2023-08-25] MEDS: amLODIPine BESYLATE 10 MG TABLET (FP) PO SCH (09:50)
[2023-08-25] MEDS: LABETALOL HCL 100 MG TABLET (FP) PO SCH ×2 (09:50→22:26)
[2023-08-25] MEDS ORDERED: amLODIPine BESYLATE 10 MG TABLET (FP) PO SCH (10:00)
[2023-08-25] MEDS ORDERED: LOSARTAN POTASSIUM 50 MG TABLET PO SCH (10:00)
[2023-08-25] MEDS: BUDESONIDE/FORMETEROL FUMARATE 80/4.5 mcg INHALER IH SCH ×2 (11:25→22:30)
[2023-08-25] MEDS: oxyCODONE HCL 5 MG TABLET PO PRN ×3 (14:37→22:26)
[2023-08-25] MEDS ORDERED: QUEtiapine FUMARATE 25 MG TABLET ONE (22:23)
[2023-08-25] MEDS: QUEtiapine FUMARATE 50 MG TABLET PO SCH (22:25)
[2023-08-25] MEDS: ATORVASTATIN CA 20 MG TABLET (FP) PO SCH (22:25)
[2023-08-25] MEDS: TAMSULOSIN HCL 0.4 MG CAP PO SCH (22:25)
[2023-08-26] MEDS: ACETAMINOPHEN 1000 MG/100 ML BAG IVPB SCH ×2 (00:03→01:27)
[2023-08-26] MEDS: oxyCODONE HCL 5 MG TABLET PO PRN ×3 (05:55→18:37)
[2023-08-26] MEDS: SODIUM CHLORIDE 1,000 ML IV SCH ×2 (06:00→22:06)
[2023-08-26] MEDS: LABETALOL HCL 100 MG TABLET (FP) PO SCH ×2 (10:07→22:06)
[2023-08-26] MEDS: amLODIPine BESYLATE 10 MG TABLET (FP) PO SCH (10:07)
[2023-08-26] MEDS: BUDESONIDE/FORMETEROL FUMARATE 80/4.5 mcg INHALER IH SCH ×2 (10:07→22:07)
[2023-08-26] MEDS: LOSARTAN POTASSIUM 50 MG TABLET PO SCH (10:07)
[2023-08-26] MEDS ORDERED: methaDONE HCL 10 MG TABLET (FOR DETOX USE ONLY) PO ONE (10:14)
[2023-08-26] MEDS ORDERED: methaDONE HCL 10 MG TABLET (FOR DETOX USE ONLY) PO SCH ×2 (10:30)
[2023-08-26] MEDS: methaDONE HCL 40 MG DISPERSABLE TABLET PO SCH (11:56)
[2023-08-26] MEDS: LIDOCAINE 4% PATCH TP SCH (14:34)
[2023-08-26] MEDS ORDERED: QUEtiapine FUMARATE 25 MG TABLET ONE (21:07)
[2023-08-26 22:04] VITALS: RESP 18
[2023-08-26] MEDS: TAMSULOSIN HCL 0.4 MG CAP PO SCH (22:05)
[2023-08-26] MEDS: ATORVASTATIN CA 20 MG TABLET (FP) PO SCH (22:05)
[2023-08-26] MEDS: QUEtiapine FUMARATE 50 MG TABLET PO SCH (22:05)
[2023-08-26] MEDS: LIDOCAINE PATCH REMOVAL MC SCH (22:06)
[2023-08-27] MEDS: methaDONE HCL 40 MG DISPERSABLE TABLET PO SCH (05:52)
[2023-08-27 09:18] LABS: EOS % 3.6 % (0-4.5); HEMATOCRIT 32.4 % (35.4-49); HEMOGLOBIN 10.7 GM/dL (11.7-16.9); LYMPH % 30.9 % (8-40); MCHC 32.8 g/dl (32.0-35.9); MEAN CELL VOLUME 88.2 fl (80-96); MEAN PLT VOLUME 8.2 fl (7.5-11.1); MONO % 9.1 % (3.8-10.2); NEUT % 55.4 % (42.8-82.8); PLATELET COUNT 235 10^3/uL (134-434); RBC 3.68 M/mm3 (4.00-5.60); RDW 15.3 % (11.9-15.9); WHITE BLOOD COUNT 6.9 K/mm3 (4.0-10.0)
[2023-08-27 09:21] LABS: POTASSIUM 3.4 mmol/L (3.5-5.1)
[2023-08-27 09:25] LABS: ALBUMIN 3.4 g/dl (3.4-5.0); BLOOD UREA NITROGEN 8.4 mg/dL (7-18); CALCIUM 9.1 mg/dL (8.5-10.1); MAGNESIUM 1.8 mg/dL (1.8-2.4)
[2023-08-27 09:27] LABS: CREATININE 0.9 mg/dL (0.55-1.3); PHOSPHOROUS 3.6 mg/dL (2.5-4.9)
[2023-08-27 09:28] LABS: BILIRUBIN,TOTAL 0.5 mg/dL (0.2-1)
[2023-08-27 09:29] LABS: TOT PROT 7.2 g/dl (6.4-8.2)
[2023-08-27] MEDS: LIDOCAINE 4% PATCH TP SCH (09:46)
[2023-08-27] MEDS: oxyCODONE HCL 5 MG TABLET PO PRN ×2 (09:46→18:34)
[2023-08-27] MEDS: amLODIPine BESYLATE 10 MG TABLET (FP) PO SCH (09:48)
[2023-08-27] MEDS: LOSARTAN POTASSIUM 50 MG TABLET PO SCH (09:48)
[2023-08-27] MEDS: LABETALOL HCL 100 MG TABLET (FP) PO SCH ×2 (09:48→21:58)
[2023-08-27] MEDS: BUDESONIDE/FORMETEROL FUMARATE 80/4.5 mcg INHALER IH SCH ×2 (09:52→21:59)
[2023-08-27] MEDS: ACETAMINOPHEN 325 MG TABLET (FP) PO PRN (18:37)
[2023-08-27] MEDS ORDERED: QUEtiapine FUMARATE 25 MG TABLET ONE (21:05)
[2023-08-27] MEDS: QUEtiapine FUMARATE 50 MG TABLET PO SCH (21:58)
[2023-08-27] MEDS: LIDOCAINE PATCH REMOVAL MC SCH (21:58)
[2023-08-27] MEDS: TAMSULOSIN HCL 0.4 MG CAP PO SCH (21:58)
[2023-08-27] MEDS: ATORVASTATIN CA 20 MG TABLET (FP) PO SCH (21:58)
[2023-08-28] MEDS: methaDONE HCL 40 MG DISPERSABLE TABLET PO SCH (05:24)
[2023-08-28 07:52] VITALS: BP 154/86; PULSE 57; TEMP 97.3
[2023-08-28] MEDS: LOSARTAN POTASSIUM 50 MG TABLET PO SCH (09:51)
[2023-08-28] MEDS: oxyCODONE HCL 5 MG TABLET PO PRN (09:51)
[2023-08-28] MEDS: LIDOCAINE 4% PATCH TP SCH (09:51)
[2023-08-28] MEDS: ACETAMINOPHEN 325 MG TABLET (FP) PO PRN (09:53)
[2023-08-28] MEDS: amLODIPine BESYLATE 10 MG TABLET (FP) PO SCH (09:54)
[2023-08-28] MEDS: LABETALOL HCL 100 MG TABLET (FP) PO SCH (09:55)
[2023-08-28] MEDS: BUDESONIDE/FORMETEROL FUMARATE 80/4.5 mcg INHALER IH SCH (10:06)
== END 2023-08-28 14:47 | disposition home or self-care (01) | DRG 354 ==
LOC: JER 09:00 → JERBED 14:13 → J5S 21:06
PROVIDERS: ADMIT Internal Medicine; ATTEND Internal Medicine
PROC: 0WQF0ZZ Repair Abdominal Wall, Open Approach (ICD-10-PCS; principal; 2023-08-24 16:00)
DX: K42.0 Umbilical hernia with obstruction, without gangrene (principal); F11.20 Opioid dependence, uncomplicated; K56.699 Other intestinal obstruction unspecified as to partial versus complete obstruction; I10 Essential (primary) hypertension; E78.5 Hyperlipidemia, unspecified; J44.9 Chronic obstructive pulmonary disease, unspecified; F10.10 Alcohol abuse, uncomplicated; F11.10 Opioid abuse, uncomplicated; F13.10 Sedative, hypnotic or anxiolytic abuse, uncomplicated; E11.9 Type 2 diabetes mellitus without complications; M54.50 Low back pain, unspecified; M17.0 Bilateral primary osteoarthritis of knee; F41.8 Other specified anxiety disorders; H54.40 Blindness, one eye, unspecified eye; N40.0 Benign prostatic hyperplasia without lower urinary tract symptoms
CPT/HCPCS: 36415; 70450-TC; 71045-TC-FY; 72125-TC; 74177-TC; 80048; 80053; 80307; 81003; 82803; 83690; 83735; 84100; 84484; 85025; 85610; 85730; 87086; 88302-TC; 93005; 93010; 94760; 99285-25; Q9967

== ENCOUNTER 2023-09-06 14:14 | Inpatient (IN) | payer OTHER ==
[2023-09-06] MEDS ORDERED: ONDANSETRON 4 MG/2 ML VIAL IVPUSH ONE (16:06)
[2023-09-06] MEDS ORDERED: ACETAMINOPHEN 1000 MG/100 ML BAG IVPB ONE (16:06)
[2023-09-06] MEDS ORDERED: ONDANSETRON 4 MG/2 ML VIAL ONE (16:22)
[2023-09-06] MEDS ORDERED: ACETAMINOPHEN INJECTION 100 ML IVPB ONE (16:22)
[2023-09-06 16:57] LABS: BASO % 0.8 % (0-2.0); EOS % 0.8 % (0-4.5); HEMATOCRIT 32.7 % (35.4-49); HEMOGLOBIN 10.7 GM/dL (11.7-16.9); LYMPH % 13.7 % (8-40); MCH 28.9 pg (25.7-33.7); MCHC 32.7 g/dl (32.0-35.9); MEAN CELL VOLUME 88.6 fl (80-96); MEAN PLT VOLUME 7.9 fl (7.5-11.1); MONO % 4.9 % (3.8-10.2); NEUT % 79.8 % (42.8-82.8); PLATELET COUNT 345 10^3/uL (134-434); RBC 3.69 M/mm3 (4.00-5.60); RDW 15.8 % (11.9-15.9); WHITE BLOOD COUNT 9.1 K/mm3 (4.0-10.0)
[2023-09-06 17:06] LABS: INR 1.19 (0.83-1.09); PROTHROMBIN TIME (PATIENT) 13.8 SEC (9.7-13.0)
[2023-09-06 17:08] LABS: ACTIVATED PTT 40.2 SECONDS (25.2-36.5)
[2023-09-06 17:10] LABS: POTASSIUM 4.7 mmol/L (3.5-5.1)
[2023-09-06 17:13] LABS: CALCIUM 9.9 mg/dL (8.5-10.1)
[2023-09-06 17:14] LABS: BLOOD UREA NITROGEN 23.3 mg/dL (7-18)
[2023-09-06 17:16] LABS: CREATININE 1.6 mg/dL (0.55-1.3)
[2023-09-06 17:18] LABS: BILIRUBIN,TOTAL 0.2 mg/dL (0.2-1); TOT PROT 8.7 g/dl (6.4-8.2)
[2023-09-06 17:34] LABS: ALBUMIN 4.2 g/dl (3.4-5.0)
[2023-09-06] MEDS ORDERED: SODIUM CHLORIDE 0.9% 500 ML INFUS.BAG IV ONE (18:25)
[2023-09-06] MEDS ORDERED: PIPERACILLIN/TAZOB 4.5 GM 4.5 GM in DEXTROSE 5%-WATER 100 ML IVPB ONE (22:19)
[2023-09-06] MEDS ORDERED: LACTATED RINGERS SOLUTION 1,000 ML/1,000 ML INFUS.BAG IV SCH (23:00)
[2023-09-06] MEDS ORDERED: PIPERACILLIN/TAZOB 4.5 GM 4.5 GM/100 ML BAG IVPB ONE (23:16)
[2023-09-07] MEDS ORDERED: ACETAMINOPHEN 325 MG TABLET (FP) PO PRN (01:34)
[2023-09-07 04:39] LABS: EPI CELLS 4 /uL (0-25.1); HYALINE CASTS 0 /uL (0-3.1); URINE APPEARANCE CLEAR; URINE BACTERIA 125 /uL (0-1359); URINE BILIRUBIN NEGATIVE (NEGATIVE); URINE COLOR YELLOW; URINE GLUCOSE (UA) NEGATIVE (NEGATIVE); URINE KETONE NEGATIVE (NEGATIVE); URINE LEUK ESTERASE NEGATIVE (NEGATIVE); URINE NITRITE NEGATIVE (NEGATIVE); URINE PROTEIN 1+ (NEGATIVE); URINE RBC 14 /uL (0-23.9); URINE UROBILINOGEN 0.2 mg/dL (0.2-1.0); URINE WBC 53 /uL (0-25.8)
[2023-09-07] MEDS ORDERED: ALBUTEROL SO4 HFA INHALER IH PRN (05:38)
[2023-09-07] MEDS: PIPERACILLIN/TAZOB 3.375 GM 3.375 GM in DEXTROSE 5%-WATER - 50 ML IVPB SCH ×2 (05:57→14:04)
[2023-09-07] MEDS ORDERED: methaDONE HCL 10 MG TABLET PO SCH (06:00)
[2023-09-07] MEDS: LACTATED RINGERS SOLUTION 1,000 ML/1,000 ML INFUS.BAG IV SCH ×2 (07:19→21:06)
[2023-09-07 08:50] LABS: HEMATOCRIT 27.8 % (35.4-49); HEMOGLOBIN 9.1 GM/dL (11.7-16.9); MCHC 32.6 g/dl (32.0-35.9); MEAN CELL VOLUME 88.9 fl (80-96); MEAN PLT VOLUME 8.1 fl (7.5-11.1); PLATELET COUNT 283 10^3/uL (134-434); RBC 3.13 M/mm3 (4.00-5.60); RDW 15.7 % (11.9-15.9); WHITE BLOOD COUNT 6.3 K/mm3 (4.0-10.0)
[2023-09-07 09:01] LABS: POTASSIUM 4.1 mmol/L (3.5-5.1)
[2023-09-07] MEDS: FERROUS SO4 325 MG TABLET (FP) PO SCH (09:09)
[2023-09-07] MEDS: TAMSULOSIN HCL 0.4 MG CAP PO SCH (09:09)
[2023-09-07] MEDS: LABETALOL HCL 100 MG TABLET (FP) PO SCH ×2 (09:10→22:08)
[2023-09-07] MEDS: LIDOCAINE 4% PATCH TP SCH ×2 (09:13)
[2023-09-07 09:19] LABS: CALCIUM 8.5 mg/dL (8.5-10.1)
[2023-09-07 09:20] LABS: BLOOD UREA NITROGEN 27.9 mg/dL (7-18); MAGNESIUM 2.3 mg/dL (1.8-2.4)
[2023-09-07 09:22] LABS: CREATININE 2.5 mg/dL (0.55-1.3)
[2023-09-07] MEDS: amLODIPine BESYLATE 10 MG TABLET (FP) PO SCH (09:22)
[2023-09-07] MEDS: NICOTINE 14 MG/24 HOURS TOPICAL PATCH TD SCH (09:22)
[2023-09-07] MEDS: BUDESONIDE/FORMETEROL FUMARATE 80/4.5 mcg INHALER IH SCH ×2 (09:22→22:43)
[2023-09-07 09:23] LABS: PHOSPHOROUS 5.1 mg/dL (2.5-4.9)
[2023-09-07 09:24] LABS: BILIRUBIN,TOTAL 0.2 mg/dL (0.2-1); TOT PROT 6.9 g/dl (6.4-8.2)
[2023-09-07 09:28] LABS: ALBUMIN 3.3 g/dl (3.4-5.0)
[2023-09-07] MEDS: BACITRACIN ZINC 15 GM TUBE TOPICAL OINTMENT TP SCH ×2 (14:04→22:07)
[2023-09-07] MEDS: PIPERACILLIN/TAZOB 2.25 GM 2.25 GM in DEXTROSE 5%-WATER - 50 ML IVPB SCH ×2 (15:52→21:07)
[2023-09-07] MEDS: HEPARIN NA (PORCINE) 5,000 UNITS/ML 1ML VIAL SQ SCH (22:08)
[2023-09-07] MEDS: QUEtiapine FUMARATE 50 MG TABLET PO SCH (22:08)
[2023-09-07] MEDS: SENNOSIDES/DOCUSATE COMBO (SENNA PLUS) TABLET (UD) PO SCH (22:08)
[2023-09-07] MEDS: ATORVASTATIN CA 20 MG TABLET (FP) PO SCH (22:08)
[2023-09-07] MEDS: LIDOCAINE PATCH REMOVAL MC SCH ×2 (22:21→22:22)
[2023-09-08] MEDS: LACTATED RINGERS SOLUTION 1,000 ML/1,000 ML INFUS.BAG IV SCH (02:59)
[2023-09-08] MEDS: PIPERACILLIN/TAZOB 2.25 GM 2.25 GM in DEXTROSE 5%-WATER - 50 ML IVPB SCH ×3 (03:00→15:20)
[2023-09-08] MEDS ORDERED: methaDONE HCL 40 MG DISPERSABLE TABLET PO SCH (06:00)
[2023-09-08] MEDS: LIDOCAINE 4% PATCH TP SCH ×2 (09:01→09:02)
[2023-09-08] MEDS: LABETALOL HCL 100 MG TABLET (FP) PO SCH ×3 (09:01→22:41)
[2023-09-08] MEDS: TAMSULOSIN HCL 0.4 MG CAP PO SCH (09:01)
[2023-09-08] MEDS: NICOTINE 14 MG/24 HOURS TOPICAL PATCH TD SCH (09:01)
[2023-09-08] MEDS: HEPARIN NA (PORCINE) 5,000 UNITS/ML 1ML VIAL SQ SCH ×2 (09:01→22:41)
[2023-09-08] MEDS: FERROUS SO4 325 MG TABLET (FP) PO SCH (09:02)
[2023-09-08] MEDS: amLODIPine BESYLATE 10 MG TABLET (FP) PO SCH (09:02)
[2023-09-08 09:03] LABS: BASO % 0.9 % (0-2.0); HEMATOCRIT 26.8 % (35.4-49); HEMOGLOBIN 8.8 GM/dL (11.7-16.9); LYMPH % 34.4 % (8-40); MCH 29.2 pg (25.7-33.7); MCHC 32.6 g/dl (32.0-35.9); MEAN CELL VOLUME 89.4 fl (80-96); MEAN PLT VOLUME 8.2 fl (7.5-11.1); MONO % 8.8 % (3.8-10.2); NEUT % 49.9 % (42.8-82.8); PLATELET COUNT 262 10^3/uL (134-434); RDW 15.4 % (11.9-15.9)
[2023-09-08] MEDS: BUDESONIDE/FORMETEROL FUMARATE 80/4.5 mcg INHALER IH SCH ×2 (09:03→22:42)
[2023-09-08] MEDS: BACITRACIN ZINC 15 GM TUBE TOPICAL OINTMENT TP SCH ×2 (09:03→22:42)
[2023-09-08 09:28] LABS: POTASSIUM 4.4 mmol/L (3.5-5.1)
[2023-09-08 09:43] LABS: ALBUMIN 3.2 g/dl (3.4-5.0); BLOOD UREA NITROGEN 20.7 mg/dL (7-18); CALCIUM 9.1 mg/dL (8.5-10.1); MAGNESIUM 1.9 mg/dL (1.8-2.4)
[2023-09-08 09:45] LABS: CREATININE 1.4 mg/dL (0.55-1.3)
[2023-09-08 09:46] LABS: BILIRUBIN,TOTAL 0.2 mg/dL (0.2-1); TOT PROT 6.4 g/dl (6.4-8.2)
[2023-09-08 14:32] VITALS: BMI 25.4
[2023-09-08] MEDS: PIPERACILLIN/TAZOB 3.375 GM 3.375 GM in DEXTROSE 5%-WATER - 50 ML IVPB SCH (17:31)
[2023-09-08] MEDS: SENNOSIDES/DOCUSATE COMBO (SENNA PLUS) TABLET (UD) PO SCH (22:41)
[2023-09-08] MEDS: LIDOCAINE PATCH REMOVAL MC SCH ×2 (22:41→22:42)
[2023-09-08] MEDS: QUEtiapine FUMARATE 50 MG TABLET PO SCH (22:41)
[2023-09-08] MEDS: ATORVASTATIN CA 20 MG TABLET (FP) PO SCH (22:41)
[2023-09-09] MEDS: PIPERACILLIN/TAZOB 3.375 GM 3.375 GM in DEXTROSE 5%-WATER - 50 ML IVPB SCH ×3 (02:05→17:54)
[2023-09-09] MEDS: LABETALOL HCL 100 MG TABLET (FP) PO SCH ×2 (09:50→22:25)
[2023-09-09] MEDS: HEPARIN NA (PORCINE) 5,000 UNITS/ML 1ML VIAL SQ SCH ×2 (09:50→22:25)
[2023-09-09] MEDS: amLODIPine BESYLATE 10 MG TABLET (FP) PO SCH (09:50)
[2023-09-09] MEDS: TAMSULOSIN HCL 0.4 MG CAP PO SCH (09:50)
[2023-09-09] MEDS: BACITRACIN ZINC 15 GM TUBE TOPICAL OINTMENT TP SCH ×2 (09:50→22:26)
[2023-09-09] MEDS: NICOTINE 14 MG/24 HOURS TOPICAL PATCH TD SCH (09:50)
[2023-09-09] MEDS: FERROUS SO4 325 MG TABLET (FP) PO SCH (09:50)
[2023-09-09] MEDS: BUDESONIDE/FORMETEROL FUMARATE 80/4.5 mcg INHALER IH SCH ×2 (09:51→22:25)
[2023-09-09] MEDS: methaDONE HCL 40 MG DISPERSABLE TABLET PO SCH (11:09)
[2023-09-09] MEDS: VANCOMYCIN ORAL SOLUTION 125 MG/2.5 ML PO SCH ×2 (11:10→17:54)
[2023-09-09] MEDS: LIDOCAINE 4% PATCH TP SCH ×2 (11:19→11:20)
[2023-09-09] MEDS: QUEtiapine FUMARATE 50 MG TABLET PO SCH (22:25)
[2023-09-09] MEDS: ATORVASTATIN CA 20 MG TABLET (FP) PO SCH (22:25)
[2023-09-09] MEDS: LIDOCAINE PATCH REMOVAL MC SCH ×2 (22:26)
[2023-09-10] MEDS: SENNOSIDES/DOCUSATE COMBO (SENNA PLUS) TABLET (UD) PO SCH ×2 (00:22→22:31)
[2023-09-10] MEDS: VANCOMYCIN ORAL SOLUTION 125 MG/2.5 ML PO SCH ×4 (00:28→17:16)
[2023-09-10] MEDS: PIPERACILLIN/TAZOB 3.375 GM 3.375 GM in DEXTROSE 5%-WATER - 50 ML IVPB SCH ×5 (01:49→17:16)
[2023-09-10] MEDS: methaDONE HCL 40 MG DISPERSABLE TABLET PO SCH (06:04)
[2023-09-10] MEDS: amLODIPine BESYLATE 10 MG TABLET (FP) PO SCH (09:23)
[2023-09-10] MEDS: LABETALOL HCL 100 MG TABLET (FP) PO SCH ×2 (09:23→22:31)
[2023-09-10] MEDS: FERROUS SO4 325 MG TABLET (FP) PO SCH (09:23)
[2023-09-10] MEDS: TAMSULOSIN HCL 0.4 MG CAP PO SCH (09:23)
[2023-09-10] MEDS: LIDOCAINE 4% PATCH TP SCH ×2 (09:24→09:25)
[2023-09-10] MEDS: HEPARIN NA (PORCINE) 5,000 UNITS/ML 1ML VIAL SQ SCH ×2 (09:25→22:31)
[2023-09-10] MEDS: NICOTINE 14 MG/24 HOURS TOPICAL PATCH TD SCH (09:25)
[2023-09-10] MEDS: BUDESONIDE/FORMETEROL FUMARATE 80/4.5 mcg INHALER IH SCH ×2 (09:26→22:36)
[2023-09-10] MEDS: BACITRACIN ZINC 15 GM TUBE TOPICAL OINTMENT TP SCH ×2 (09:59→22:36)
[2023-09-10 11:09] LABS: BASO % 1.2 % (0-2.0); EOS % 4.3 % (0-4.5); LYMPH % 36.8 % (8-40); MCH 28.9 pg (25.7-33.7); MCHC 32.2 g/dl (32.0-35.9); MEAN CELL VOLUME 89.7 fl (80-96); MEAN PLT VOLUME 8.6 fl (7.5-11.1); MONO % 7.9 % (3.8-10.2); NEUT % 49.8 % (42.8-82.8); PLATELET COUNT 293 10^3/uL (134-434); RBC 3.46 M/mm3 (4.00-5.60); RDW 16.1 % (11.9-15.9); WHITE BLOOD COUNT 6.6 K/mm3 (4.0-10.0)
[2023-09-10 11:28] LABS: POTASSIUM 4.8 mmol/L (3.5-5.1)
[2023-09-10 11:29] LABS: CALCIUM 9.6 mg/dL (8.5-10.1)
[2023-09-10 11:31] LABS: ALBUMIN 3.7 g/dl (3.4-5.0); BLOOD UREA NITROGEN 22.5 mg/dL (7-18)
[2023-09-10 11:34] LABS: CREATININE 1.5 mg/dL (0.55-1.3)
[2023-09-10 11:36] LABS: BILIRUBIN,TOTAL 0.2 mg/dL (0.2-1); TOT PROT 7.7 g/dl (6.4-8.2)
[2023-09-10] MEDS: QUEtiapine FUMARATE 50 MG TABLET PO SCH (22:31)
[2023-09-10] MEDS: LIDOCAINE PATCH REMOVAL MC SCH ×2 (22:31)
[2023-09-10] MEDS: ATORVASTATIN CA 20 MG TABLET (FP) PO SCH (22:31)
[2023-09-11] MEDS: VANCOMYCIN ORAL SOLUTION 125 MG/2.5 ML PO SCH ×5 (00:23→23:25)
[2023-09-11] MEDS ORDERED: PIPERACILLIN/TAZOBACTAM 3.375 GM VIAL IVPB ONE (01:47)
[2023-09-11] MEDS: PIPERACILLIN/TAZOB 3.375 GM 3.375 GM in DEXTROSE 5%-WATER - 50 ML IVPB SCH ×2 (01:52→09:44)
[2023-09-11] MEDS: methaDONE HCL 40 MG DISPERSABLE TABLET PO SCH (06:54)
[2023-09-11] MEDS: amLODIPine BESYLATE 10 MG TABLET (FP) PO SCH (09:39)
[2023-09-11] MEDS: FERROUS SO4 325 MG TABLET (FP) PO SCH (09:39)
[2023-09-11] MEDS: NICOTINE 14 MG/24 HOURS TOPICAL PATCH TD SCH (09:39)
[2023-09-11] MEDS: HEPARIN NA (PORCINE) 5,000 UNITS/ML 1ML VIAL SQ SCH ×2 (09:39→21:59)
[2023-09-11] MEDS: LABETALOL HCL 100 MG TABLET (FP) PO SCH ×2 (09:39→21:58)
[2023-09-11] MEDS: TAMSULOSIN HCL 0.4 MG CAP PO SCH (09:39)
[2023-09-11] MEDS: LIDOCAINE 4% PATCH TP SCH ×2 (09:40)
[2023-09-11] MEDS: BUDESONIDE/FORMETEROL FUMARATE 80/4.5 mcg INHALER IH SCH ×2 (09:44→22:00)
[2023-09-11] MEDS: BACITRACIN ZINC 15 GM TUBE TOPICAL OINTMENT TP SCH ×2 (09:44→22:00)
[2023-09-11 09:51] LABS: EOS % 6.6 % (0-4.5); HEMATOCRIT 28.7 % (35.4-49); HEMOGLOBIN 9.5 GM/dL (11.7-16.9); MCH 29.5 pg (25.7-33.7); MEAN CELL VOLUME 89.3 fl (80-96); MEAN PLT VOLUME 8.4 fl (7.5-11.1); MONO % 9.8 % (3.8-10.2); NEUT % 44.6 % (42.8-82.8); PLATELET COUNT 258 10^3/uL (134-434); RBC 3.21 M/mm3 (4.00-5.60); RDW 15.6 % (11.9-15.9); WHITE BLOOD COUNT 6.2 K/mm3 (4.0-10.0)
[2023-09-11 10:35] LABS: POTASSIUM 5.2 mmol/L (3.5-5.1)
[2023-09-11 11:12] LABS: CALCIUM 9.7 mg/dL (8.5-10.1)
[2023-09-11 11:13] LABS: ALBUMIN 3.4 g/dl (3.4-5.0); BLOOD UREA NITROGEN 22.6 mg/dL (7-18); MAGNESIUM 2.2 mg/dL (1.8-2.4)
[2023-09-11 11:16] LABS: CREATININE 1.4 mg/dL (0.55-1.3)
[2023-09-11 11:18] LABS: BILIRUBIN,TOTAL 0.5 mg/dL (0.2-1)
[2023-09-11] MEDS ORDERED: SODIUM ZIRCONIUM CYCLOSILICATE (LOKELMA) 5 GM PACKET PO SCH (12:30)
[2023-09-11 15:01] VITALS: RESP 18
[2023-09-11] MEDS: AMOX TR/POT CLAV 875MG/125MG TABLETS (FP) PO SCH (16:42)
[2023-09-11] MEDS: ATORVASTATIN CA 20 MG TABLET (FP) PO SCH (21:58)
[2023-09-11] MEDS: LIDOCAINE PATCH REMOVAL MC SCH ×2 (21:59)
[2023-09-11] MEDS: QUEtiapine FUMARATE 50 MG TABLET PO SCH (21:59)
[2023-09-11] MEDS: SENNOSIDES/DOCUSATE COMBO (SENNA PLUS) TABLET (UD) PO SCH (21:59)
[2023-09-12] MEDS: methaDONE HCL 40 MG DISPERSABLE TABLET PO SCH (05:26)
[2023-09-12] MEDS: VANCOMYCIN ORAL SOLUTION 125 MG/2.5 ML PO SCH ×2 (05:27→12:31)
[2023-09-12 09:40] VITALS: BP 146/56; PULSE 53; TEMP 98.6
[2023-09-12 10:20] LABS: BASO % 1.2 % (0-2.0); EOS % 5.5 % (0-4.5); HEMOGLOBIN 9.6 GM/dL (11.7-16.9); LYMPH % 35.3 % (8-40); MCH 28.7 pg (25.7-33.7); MCHC 31.9 g/dl (32.0-35.9); MEAN CELL VOLUME 89.8 fl (80-96); MEAN PLT VOLUME 8.5 fl (7.5-11.1); MONO % 11.1 % (3.8-10.2); NEUT % 46.9 % (42.8-82.8); PLATELET COUNT 255 10^3/uL (134-434); RBC 3.34 M/mm3 (4.00-5.60); RDW 16.1 % (11.9-15.9); WHITE BLOOD COUNT 5.9 K/mm3 (4.0-10.0)
[2023-09-12] MEDS: TAMSULOSIN HCL 0.4 MG CAP PO SCH (10:27)
[2023-09-12] MEDS: NICOTINE 14 MG/24 HOURS TOPICAL PATCH TD SCH (10:27)
[2023-09-12] MEDS: amLODIPine BESYLATE 10 MG TABLET (FP) PO SCH (10:28)
[2023-09-12] MEDS: AMOX TR/POT CLAV 875MG/125MG TABLETS (FP) PO SCH (10:28)
[2023-09-12] MEDS: LIDOCAINE 4% PATCH TP SCH ×2 (10:28→10:29)
[2023-09-12] MEDS: LABETALOL HCL 100 MG TABLET (FP) PO SCH (10:28)
[2023-09-12] MEDS: FERROUS SO4 325 MG TABLET (FP) PO SCH (10:28)
[2023-09-12 10:29] LABS: POTASSIUM 4.6 mmol/L (3.5-5.1)
[2023-09-12] MEDS: HEPARIN NA (PORCINE) 5,000 UNITS/ML 1ML VIAL SQ SCH (10:30)
[2023-09-12] MEDS: BUDESONIDE/FORMETEROL FUMARATE 80/4.5 mcg INHALER IH SCH (10:31)
[2023-09-12] MEDS: BACITRACIN ZINC 15 GM TUBE TOPICAL OINTMENT TP SCH (10:31)
[2023-09-12 10:38] LABS: ALBUMIN 3.7 g/dl (3.4-5.0); CALCIUM 9.6 mg/dL (8.5-10.1)
[2023-09-12 10:39] LABS: BLOOD UREA NITROGEN 25.3 mg/dL (7-18); MAGNESIUM 2.2 mg/dL (1.8-2.4)
[2023-09-12 10:41] LABS: CREATININE 1.5 mg/dL (0.55-1.3); TOT PROT 7.5 g/dl (6.4-8.2)
[2023-09-12 10:44] LABS: BILIRUBIN,TOTAL 0.2 mg/dL (0.2-1)
== END 2023-09-12 13:19 | disposition home or self-care (01) | DRG 603 ==
LOC: JER 14:14 → JERBED 19:05 → J8W 23:49
PROVIDERS: ADMIT Internal Medicine; ATTEND Nurse Practitioner Acute Care
DX: L02.216 Cutaneous abscess of umbilicus (principal); N17.9 Acute kidney failure, unspecified; F11.20 Opioid dependence, uncomplicated; A04.72 Enterocolitis due to Clostridium difficile, not specified as recurrent; Z59.00 Homelessness unspecified; T81.41XA Infection following a procedure, superficial incisional surgical site, initial encounter; I10 Essential (primary) hypertension; E78.5 Hyperlipidemia, unspecified; J44.9 Chronic obstructive pulmonary disease, unspecified; N40.0 Benign prostatic hyperplasia without lower urinary tract symptoms; F10.20 Alcohol dependence, uncomplicated; H54.40 Blindness, one eye, unspecified eye; M06.9 Rheumatoid arthritis, unspecified; D64.9 Anemia, unspecified; Y83.8 Other surgical procedures as the cause of abnormal reaction of the patient, or of later complication, without mention of misadventure at the time of the procedure
CPT/HCPCS: 0241U-QW; 36415; 73564-TC-LT-FY; 73564-TC-RT-FY; 74177-TC; 76775-TC; 80053; 81003; 82550; 82553; 82570; 83605; 83690; 83735; 84100; 84300; 84484; 85025; 85027; 85610; 85730; 86850; 86900; 86901; 87045; 87046; 87081; 87324; 87449; 87493; 93005; 93010; 99285-25; J1644

== ENCOUNTER 2023-10-07 03:42 | Emergency (ER) | payer OTHER ==
[2023-10-07 03:52] VITALS: RESP 16; TEMP 98.1; BMI 25.0
[2023-10-07 04:36] LABS: BASO % 0.5 % (0-2.0); EOS % 1.7 % (0-4.5); HEMOGLOBIN 10.3 GM/dL (11.7-16.9); LYMPH % 18.3 % (8-40); MCH 29.1 pg (25.7-33.7); MCHC 33.3 g/dl (32.0-35.9); MEAN CELL VOLUME 87.5 fl (80-96); MEAN PLT VOLUME 7.7 fl (7.5-11.1); NEUT % 72.5 % (42.8-82.8); PLATELET COUNT 268 10^3/uL (134-434); RBC 3.54 M/mm3 (4.00-5.60); RDW 15.4 % (11.9-15.9); WHITE BLOOD COUNT 6.5 K/mm3 (4.0-10.0)
[2023-10-07 04:54] LABS: POTASSIUM 4.2 mmol/L (3.5-5.1)
[2023-10-07 04:56] LABS: ALBUMIN 3.6 g/dl (3.4-5.0); CALCIUM 9.5 mg/dL (8.5-10.1)
[2023-10-07 04:57] LABS: BLOOD UREA NITROGEN 18.7 mg/dL (7-18)
[2023-10-07 04:59] LABS: CREATININE 1.1 mg/dL (0.55-1.3)
[2023-10-07 05:01] LABS: BILIRUBIN,TOTAL 0.2 mg/dL (0.2-1); TOT PROT 7.5 g/dl (6.4-8.2)
[2023-10-07] MEDS ORDERED: BACITRACIN ZINC 15 GM TUBE TOPICAL OINTMENT TP ONE (06:41)
[2023-10-07] MEDS ORDERED: FAMOTIDINE 20 MG TABLET PO ONE (07:52)
[2023-10-07] MEDS ORDERED: FAMOTIDINE 20 MG TABLET ONE (08:07)
[2023-10-07 08:21] VITALS: BP 154/83; PULSE 63
== END 2023-10-07 08:23 | disposition home or self-care (01) ==
LOC: JER 03:42
DX: R56.9 Unspecified convulsions (principal); R11.0 Nausea
CPT/HCPCS: 36415; 70450-TC; 80053; 85025; 93005; 93010; 99285-25

== ENCOUNTER 2023-11-21 17:19 | Emergency (ER) | payer OTHER ==
[2023-11-21 17:29] VITALS: TEMP 99.1; BMI 29.8
[2023-11-21] MEDS ORDERED: LIDOCAINE 4% PATCH TP ONE (18:49)
[2023-11-21] MEDS ORDERED: KETOROLAC TROMETHAMINE 15 MG/ML VIAL ONE (18:50)
[2023-11-21] MEDS: LIDOCAINE 4% PATCH TP ONE (18:56)
[2023-11-21] MEDS: KETOROLAC TROMETHAMINE 15 MG/ML VIAL IM ONE (18:56)
[2023-11-21] MEDS ORDERED: METHOCARBAMOL 500 MG TABLET ONE ×2 (21:10→21:18)
[2023-11-21] MEDS ORDERED: ACETAMINOPHEN 325 MG TABLET (FP) ONE (21:10)
[2023-11-21] MEDS: ACETAMINOPHEN 325 MG TABLET (FP) PO ONE (21:29)
[2023-11-21] MEDS: METHOCARBAMOL 750 MG TAB PO ONE (21:30)
[2023-11-21] MEDS ORDERED: LIDOCAINE PATCH REMOVAL MC ONE (22:00)
[2023-11-21 22:25] VITALS: BP 152/86; PULSE 92; RESP 18
== END 2023-11-21 22:25 | disposition home or self-care (01) ==
LOC: JER 17:19
PROC: 3E0233Z Introduction of Anti-inflammatory into Muscle, Percutaneous Approach (ICD-10-PCS; principal; 2023-11-21)
DX: M25.561 Pain in right knee (principal); M25.562 Pain in left knee; M54.50 Low back pain, unspecified; M17.0 Bilateral primary osteoarthritis of knee
CPT/HCPCS: 73562-TC-LT-FY; 73562-TC-RT-FY; 93970-TC; 96372; 99284-25

== ENCOUNTER 2025-01-28 11:28 | Inpatient (IN) | payer OTHER ==
[2025-01-28 12:03] VITALS: BMI 25.3
[2025-01-28] MEDS ORDERED: POLYETHYLENE GLYCOL (HEALTHYLAX) 3350 17 GM PACKET PO PRN (12:11)
[2025-01-28] MEDS ORDERED: BENZONATATE 200 MG CAPSULE PO PRN (12:11)
[2025-01-28] MEDS ORDERED: guaiFENesin 600 MG TABLET.ER (FP) PO PRN (12:11)
[2025-01-28] MEDS ORDERED: LOPERAMIDE HCL 2 MG CAPSULE PO PRN (12:11)
[2025-01-28] MEDS ORDERED: NALOXONE (NARCAN) HCL 4 MG/0.1 ML SPRAY NS PRN (12:11)
[2025-01-28] MEDS ORDERED: ONDANSETRON *ODT* 4 MG TABLET SL PRN (12:11)
[2025-01-28] MEDS ORDERED: DICYCLOMINE HCL 10 MG CAPSULE PO PRN (12:11)
[2025-01-28] MEDS ORDERED: IBUPROFEN 400 MG TABLET (FP) PO PRN (12:11)
[2025-01-28] MEDS ORDERED: METHOCARBAMOL 500 MG TABLET PO PRN (12:11)
[2025-01-28] MEDS ORDERED: MAG HYDROX/AL HYDROX/SIMETH 30 ML UNIT-DOSE CUP PO PRN (12:11)
[2025-01-28] MEDS ORDERED: LORazepam 1 MG TABLET PO PRN (12:11)
[2025-01-28] MEDS ORDERED: ACETAMINOPHEN 325 MG TABLET (FP) PO PRN (12:11)
[2025-01-28] MEDS ORDERED: BENZOCAINE/MENTHOL (CHLORASEPTIC ) LOZENGE MM PRN (12:11)
[2025-01-28] MEDS ORDERED: hydrOXYzine PAMOATE 25 MG CAPSULE (FP) PO PRN (12:11)
[2025-01-28] MEDS ORDERED: BISMUTH SUBSALICYLATE 524 MG/30 ML PO PRN (12:11)
[2025-01-28] MEDS ORDERED: MAGNESIUM HYDROX 2400MG/30ML ORAL SUSPENSION 30 ML CUP PO PRN (12:11)
[2025-01-28] MEDS: methaDONE HCL 10 MG TABLET PO ONE (13:25)
[2025-01-28] MEDS: PRENATAL VITAMINS W/ FOLIC ACID TABLET (FP) PO SCH (13:25)
[2025-01-28] MEDS ORDERED: methaDONE HCL 10 MG TABLET PO PRN (14:11)
[2025-01-28] MEDS: cloNIDine HCL 0.1 MG TABLET PO SCH (14:55)
[2025-01-28] MEDS: LORazepam 1 MG TABLET PO SCH (17:17)
[2025-01-28] MEDS ORDERED: LABETALOL HCL 100 MG TABLET (FP) PO SCH (22:00)
[2025-01-28] MEDS: BUDESONIDE/FORMETEROL FUMARATE 80/4.5 mcg INHALER IH SCH (22:44)
[2025-01-28] MEDS: ATORVASTATIN CA 20 MG TABLET (FP) PO SCH (22:44)
[2025-01-28] MEDS: TAMSULOSIN HCL 0.4 MG CAP PO SCH (22:44)
[2025-01-28] MEDS: MELATONIN 5 MG TABLETS PO SCH (22:44)
[2025-01-28] MEDS: THIAMINE 100 MG TABLET PO SCH (22:44)
[2025-01-29] MEDS: LISINOPRIL 20 MG TABLET PO SCH (10:12)
[2025-01-29 11:44] LABS: POTASSIUM 3.1 mmol/L (3.5-5.1)
[2025-01-29 11:53] LABS: CREATININE 1.4 mg/dL (0.55-1.3)
[2025-01-29 12:00] LABS: CALCIUM 9.7 mg/dL (8.5-10.1)
[2025-01-29 12:01] LABS: ALBUMIN 4.1 g/dl (3.4-5.0)
[2025-01-29 12:03] LABS: BLOOD UREA NITROGEN 27.6 mg/dL (7-18)
[2025-01-29 12:05] LABS: HEMATOCRIT 36.3 % (40.1-51.0); HEMOGLOBIN 11.6 g/dL (13.7-17.5); MEAN CELL VOLUME 86.8 fl (79.0-92.2); MEAN PLT VOLUME 10.9 fl (9.4-12.4); PLATELET COUNT 271 x10^3/uL (163-337); RDW 16.3 % (12.2-16.4)
[2025-01-29 12:07] LABS: BILIRUBIN,TOTAL 0.4 mg/dL (0.2-1)
[2025-01-29] MEDS: POTASSIUM CHLORIDE ORAL LIQUID 20 MEQ/15 ML PO ONE ×2 (14:15→22:16)
[2025-01-30] MEDS ORDERED: cloNIDine HCL 0.1 MG TABLET PO PRN
[2025-01-30] MEDS: LORazepam 1 MG TABLET PO SCH (05:50)
[2025-01-30] MEDS: ALBUTEROL SO4 HFA INHALER IH PRN (06:28)
[2025-01-30 09:35] VITALS: RESP 18
[2025-01-30] MEDS: methaDONE 40 MG, methaDONE 10 MG PO ONE (10:18)
[2025-01-30 11:26] LABS: POTASSIUM 4.7 mmol/L (3.5-5.1)
[2025-01-30 11:39] LABS: BLOOD UREA NITROGEN 28.6 mg/dL (7-18)
[2025-01-30 11:42] LABS: CALCIUM 9.1 mg/dL (8.5-10.1)
[2025-01-30 11:43] LABS: CREATININE 0.9 mg/dL (0.55-1.3)
[2025-01-30] MEDS: IBUPROFEN 600 MG TABLET (FP) PO PRN (13:30)
[2025-01-30 16:48] VITALS: BP 138/83; PULSE 80; TEMP 98
[2025-01-31] MEDS ORDERED: LORazepam 0.5 MG TABLET PO PRN
[2025-01-31] MEDS ORDERED: LORazepam 0.5 MG TABLET PO SCH (05:00)
[2025-02-01] MEDS ORDERED: LORazepam 0.5 MG TABLET PO ONE (05:00)
[2025-02-01] MEDS ORDERED: methaDONE 40 MG, methaDONE 20 MG PO ONE (10:00)
== END 2025-01-30 20:00 | disposition left against medical advice (07) | DRG 894 ==
LOC: YASAS 11:28 → Y3N 12:41
PROVIDERS: ADMIT Allergy & Immunology; ATTEND Allergy & Immunology
PROC: HZ2ZZZZ Detoxification Services for Substance Abuse Treatment (ICD-10-PCS; principal; 2025-01-28)
DX: F10.230 Alcohol dependence with withdrawal, uncomplicated (principal); Z59.01 Sheltered homelessness; F11.23 Opioid dependence with withdrawal; F17.210 Nicotine dependence, cigarettes, uncomplicated; F32.9 Major depressive disorder, single episode, unspecified; F41.9 Anxiety disorder, unspecified; E87.6 Hypokalemia; E78.5 Hyperlipidemia, unspecified; G40.909 Epilepsy, unspecified, not intractable, without status epilepticus; I10 Essential (primary) hypertension; N40.0 Benign prostatic hyperplasia without lower urinary tract symptoms; Z88.8 Allergy status to other drugs, medicaments and biological substances
CPT/HCPCS: 36415; 80048; 80053; 80305; 80307; 85027; 86780; 93005; 93010

== ENCOUNTER 2025-02-25 20:05 | Emergency (ER) | payer OTHER ==
[2025-02-25 20:16] VITALS: BMI 26.6
[2025-02-25] MEDS ORDERED: ALBUTEROL SO4 2.5/IPRATROPIUM 0.5 INH SOL 3 ML VIAL.NEB. NEB ONE (22:48)
[2025-02-25] MEDS: ALBUTEROL SO4 2.5/IPRATROPIUM 0.5 INH SOL 3 ML VIAL.NEB. NEB SCH (22:53)
[2025-02-25 23:19] VITALS: BP 142/71; PULSE 90; RESP 20; TEMP 98.6
== END 2025-02-26 00:12 | disposition home or self-care (01) ==
LOC: JER 20:05
PROC: 3E0F7GC Introduction of Other Therapeutic Substance into Respiratory Tract, Via Natural or Artificial Opening (ICD-10-PCS; principal; 2025-02-25)
DX: F10.129 Alcohol abuse with intoxication, unspecified (principal); Y90.9 Presence of alcohol in blood, level not specified; M25.561 Pain in right knee; M25.562 Pain in left knee; R06.2 Wheezing
CPT/HCPCS: 82962; 93005; 93010; 99284-25

== ENCOUNTER 2025-03-04 07:27 | Emergency (ER) | payer OTHER ==
[2025-03-04 08:12] VITALS: BP 105/60; PULSE 97; RESP 16; TEMP 98.9; BMI 25.8
[2025-03-04] MEDS ORDERED: ALBUTEROL SO4 2.5/IPRATROPIUM 0.5 INH SOL 3 ML VIAL.NEB. NEB ONE (08:18)
[2025-03-04] MEDS: ALBUTEROL SO4 2.5/IPRATROPIUM 0.5 INH SOL 3 ML VIAL.NEB. NEB ONE (08:22)
== END 2025-03-04 11:03 | disposition home or self-care (01) ==
LOC: JER 07:27
PROC: 3E0F7GC Introduction of Other Therapeutic Substance into Respiratory Tract, Via Natural or Artificial Opening (ICD-10-PCS; principal; 2025-03-04)
DX: J45.909 Unspecified asthma, uncomplicated (principal); R06.02 Shortness of breath; M25.562 Pain in left knee; G89.29 Other chronic pain
CPT/HCPCS: 71045-TC-FY; 93005; 93010; 99284-25

== ENCOUNTER 2025-04-18 14:56 | Emergency (ER) | payer OTHER ==
[2025-04-18 15:15] VITALS: BP 128/67; PULSE 81; RESP 19; TEMP 97.8; BMI 26.6
[2025-04-18 17:49] LABS: EPI CELLS 5 /uL (0-25.1); HYALINE CASTS 2 /uL (0-3.1); URINE APPEARANCE CLEAR; URINE BACTERIA 3 /uL (0-1359); URINE BILIRUBIN NEGATIVE (NEGATIVE); URINE COLOR YELLOW; URINE GLUCOSE (UA) NEGATIVE (NEGATIVE); URINE KETONE NEGATIVE (NEGATIVE); URINE LEUK ESTERASE NEGATIVE (NEGATIVE); URINE NITRITE NEGATIVE (NEGATIVE); URINE PROTEIN 1+ (NEGATIVE); URINE RBC 23 /uL (0-23.9); URINE UROBILINOGEN 0.2 mg/dL (0.2-1.0); URINE WBC 7 /uL (0-25.8)
[2025-04-18 18:02] LABS: COCAINE, UR NEGATIVE (NEGATIVE); METHADONE, UR NEGATIVE (NEGATIVE); URINE AMPHETAMINES NEGATIVE (NEGATIVE); URINE BARBITURATES NEGATIVE (NEGATIVE)
[2025-04-18 18:03] LABS: PHENCYCLIDINE,URINE NEGATIVE (NEGATIVE)
[2025-04-18 18:13] LABS: OPIATES, URI POSITIVE (NEGATIVE); URINE BENZODIAZEPINES POSITIVE (NEGATIVE)
[2025-04-18 18:32] LABS: N-TERMINAL BNP 1215.4 pg/ml (5-125)
[2025-04-18] MEDS ORDERED: ACETAMINOPHEN INJECTION 100 ML ONE (19:23)
[2025-04-18] MEDS ORDERED: KETOROLAC TROMETHAMINE 15 MG/ML VIAL ONE (19:24)
[2025-04-18] MEDS: ACETAMINOPHEN 1000 MG/100 ML BAG IVPB ONE (19:36)
[2025-04-18] MEDS: KETOROLAC TROMETHAMINE 15 MG/ML VIAL IVPUSH ONE (19:37)
[2025-04-18] MEDS ORDERED: CEPHALEXIN MONOHYDRATE 500 MG CAPSULE (UD) ONE (19:44)
[2025-04-18] MEDS: CEPHALEXIN MONOHYDRATE 500 MG CAPSULE (UD) PO ONE (19:46)
[2025-04-18 21:52] LABS: ABSOLUTE IMMATURE GRANULOCYTES 0.03 x10^3/uL (0.0-0.031); BASOPHILS # 0.05 x10^3/uL (0.01-0.08); EOSINOPHIL % 4.9 % (0.8-7.0); EOSINOPHILS # 0.41 x10^3/uL (0.04-0.54); MCHC 31.4 g/dl (32.3-36.5); MEAN CELL VOLUME 88.9 fl (79.0-92.2); MEAN PLT VOLUME 9.0 fl (9.4-12.4); MONOCYTE # 0.68 x10^3/uL (0.30-0.82); MONOCYTE % 8.1 % (5.3-12.2); RDW 17.2 % (12.2-16.4)
== END 2025-04-19 00:04 | disposition home or self-care (01) ==
LOC: JER 14:56
PROC: 3E033NZ Introduction of Analgesics, Hypnotics, Sedatives into Peripheral Vein, Percutaneous Approach (ICD-10-PCS; principal; 2025-04-18)
PROC: 3E0333Z Introduction of Anti-inflammatory into Peripheral Vein, Percutaneous Approach (ICD-10-PCS; 2025-04-18)
DX: R53.1 Weakness (principal)
CPT/HCPCS: 36415; 71045-TC-FY; 73110-TC-LT-FY; 80307; 81003; 83880; 85025; 85651; 86140; 93005; 93010; 93970-TC; 99285-25

== ENCOUNTER 2025-06-28 12:10 | Emergency (ER) | payer OTHER ==
[2025-06-28 12:46] VITALS: BP 135/73; PULSE 85; RESP 18; TEMP 98.6; BMI 25.7
[2025-06-28] MEDS ORDERED: ACETAMINOPHEN 325 MG TABLET (FP) ONE (13:01)
[2025-06-28] MEDS ORDERED: IBUPROFEN 600 MG TABLET (FP) PO ONE (13:01)
[2025-06-28] MEDS: IBUPROFEN 600 MG TABLET (FP) PO ONE (13:05)
[2025-06-28] MEDS: ACETAMINOPHEN 325 MG TABLET (FP) PO ONE (13:06)
== END 2025-06-28 15:51 | disposition home or self-care (01) ==
LOC: JERFT 12:10
DX: M25.561 Pain in right knee (principal); G89.29 Other chronic pain; M54.50 Low back pain, unspecified
CPT/HCPCS: 73560-TC-RT-FY; 99283-25